=== PATIENT | female | born 1965 | race Two or more races ===

== ENCOUNTER 2016-08-07 07:43 | Inpatient (IN) | payer BC, OTHER ==
[2016-08-07] MEDS ORDERED: methylPREDNISolone 125 MG* 2 ML VIAL IV ONE (07:51)
[2016-08-07] MEDS ORDERED: NS 0.9% 1000 ML* 1,000 ML IV ONE (07:51)
[2016-08-07] MEDS ORDERED: Magnesium Sulfate 1 GM IV* 1 GM/100 ML BAG IV ONE (07:53)
[2016-08-07] MEDS: Albuterol/Ipratropium NEB.SOL* Albuterol 2.5 MG/Ipratropium 0.5 MG 3 ML INH SCH ×5 (08:22→20:30)
[2016-08-07 08:25] LABS: Hematocrit 39 % (35-47); Hemoglobin 12.4 g/dl (12.0-16.0); Mean Corpuscular HGB Conc 32 g/dl (31-36); Mean Corpuscular Hemoglobin 26 pg (27-31); Mean Corpuscular Volume 82 fL (80-97); Mean Platelet Volume 9 um3 (7.4-10.4); Red Blood Count 4.71 10^6/ul (4.0-5.4); Red Cell Distribution Width 16 % (10.5-15); White Blood Count 13.4 10^3/ul (3.5-10.8)
[2016-08-07 08:40] LABS: Albumin 3.7 g/dL (3.2-5.2); C Reactive Protein 16.24 mg/L (< 5.00); Calcium 8.5 mg/dL (8.6-10.3); EGFR African American 169.4 (>60); EGFR Non-African American 131.7 (>60); Globulin 2.8 g/dL (2-4); Potassium 3.8 mmol/L (3.5-5.0); Total Bilirubin 0.5 mg/dL (0.2-1.0); Total Protein 6.5 g/dL (6.4-8.9)
--- NOTE | 2016-08-07 08:55 | RAD ---
Indication: Shortness of breath. Single frontal view of the chest performed at 0808 hours was reviewed. Comparison is made with previous exam dated November 24, 2015. No mediastinal shift is noted. Heart is of normal size and configuration. Lung mayfield appear clear. IMPRESSION: NO ACTIVE CARDIOPULMONARY DISEASE IS NOTED.
[2016-08-07] MEDS ORDERED: Albuterol/Ipratropium NEB.SOL* Albuterol 2.5 MG/Ipratropium 0.5 MG 3 ML ONE (10:30)
[2016-08-07 10:42] LABS: Urine Bilirubin Negative (Negative); Urine Glucose Negative (Negative); Urine Nitrite Negative (Negative)
[2016-08-07] MEDS ORDERED: Albuterol/Ipratropium NEB.SOL* Albuterol 2.5 MG/Ipratropium 0.5 MG 3 ML INH ONE (11:13)
[2016-08-07 11:45] LABS: FIO2 5
[2016-08-07 11:49] LABS: PCO2 Arterial 35 mmHg (35-45)
[2016-08-07] MEDS ORDERED: Acetaminophen TAB* 325 MG PO PRN (12:07)
[2016-08-07] MEDS ORDERED: Ondansetron INJ* 2 MG/ML VIAL IV PRN (12:07)
[2016-08-07] MEDS ORDERED: Iohexol 350* (CONTRAST) 500 ML MDV IV ONE (12:42)
[2016-08-07] MEDS ORDERED: Azithromycin IV(*) 500 MG in NS 0.9% 250 ML* 250 ML IVPB SCH (13:00)
--- NOTE | 2016-08-07 13:14 | RAD ---
Indication: Hypoxia. Contrast: Administered 69.1 ml of OMNIPAQUE 350 mg/ml CTA of the chest was performed after IV contrast administered. Coronal and sagittal reconstructed images were obtained. The pulmonary arterial tree is well opacified. There are no filling defects present to suggest pulmonary embolus. The aorta demonstrates no evidence of aneurysmal dilatation or aortic dissection. Origins of the great vessels are grossly unremarkable. The inferior thyroid lobes demonstrates low density lesions in the right lobe of the thyroid. No significant mediastinal or hilar adenopathy is noted. The heart is of normal size without evidence of pericardial effusion. The trachea and major bronchi appear patent. The lung mayfield demonstrate some airspace disease in the anterior right upper lobe and in the anterior lingula. These may represent areas of pneumonia. IMPRESSION: No definite pulmonary embolus is noted. There may BE early pneumonia in the anterior right upper lobe and lingula.
[2016-08-07] MEDS ORDERED: NS 0.9% 250 ML* 250 ML ONE (13:45)
--- NOTE | 2016-08-07 13:51 | RAD ---
Indication: Right knee pain after fall. 2 views of the right knee demonstrates no fracture. No joint effusion is noted. IMPRESSION: No fracture of the right knee is noted with no effusion.
--- NOTE | 2016-08-07 13:52 | RAD ---
Indication: Right lower leg pain. 2 views of the right lower leg demonstrates no fracture. No other bone or joint abnormality is identified. IMPRESSION: No fracture of the right lower leg is noted.
[2016-08-07] MEDS ORDERED: cefTRIAXone VIAL(*) 1,000 MG in NS 0.9% 50 ML* 50 ML IVPB SCH (14:00)
[2016-08-07] MEDS: methylPREDNISolone 125 MG* 2 ML VIAL IV SCH ×2 (14:10→20:31)
[2016-08-07] MEDS: Heparin VIAL(*) 5000 UNITS/ML VIAL (FIVE THOUSAND) SUBCUT SCH ×2 (14:12→20:30)
[2016-08-07] MEDS: Azithromycin IV(*) 500 MG in NS 0.9% 250 ML* 250 ML IVPB SCH (14:15)
--- NOTE | 2016-08-07 14:18 | HP ---
CC: Dr. Scott; Dr. Tomas. * HISTORY AND PHYSICAL: DATE OF ADMISSION: 08/07/16 PRIMARY CARE PROVIDER: Dr. Scott. ATTENDING PHYSICIAN WHILE IN THE HOSPITAL: Dr. Waite *(report being dictated by Demar Schmitz NP). CHIEF COMPLAINT: 1. Cough. 2. Short of breath. HISTORY OF PRESENT ILLNESS: Ms. Olvera is a 50-year-old female patient who has a history of asthma, anxiety, and bipolar disorder that is well controlled. Her asthma over last week was well controlled. She comes in today stating that about a week ago she was out in [place] on travel. She developed some sore throat, runny nose, cough, feeling congested. She was taking her nebulizers and her Advair as prescribed, but it was not helping. She got progressively more and more short of breath. She felt very weak. She came back from [place], just becoming more short of breath and feeling chills. She does state that while in [place] on Saturday, she sustained a pretty significant fall. She landed on her right knee and she says that it has been bruised and she does state that after the fall she felt more short of breath. She does state that she feels pressure on her chest. She does admit having chills. She came to the ER today because she was not getting any better. She was given 3 nebulizers, magnesium, in addition to this also steroids, but still her O2 saturations were 92% on 6 L. Because of this, we were asked to evaluate and consult. She denies any chest discomfort, it does hurt to breath, but she denies having any nausea, vomiting, or any dysurias. PAST MEDICAL HISTORY: Significant for: 1. Bipolar. 2. Asthma. 3. Anxiety. PAST SURGICAL HISTORY: She denied. HOME MEDICATIONS: Her home meds according to her include: 1. Paxil 40 mg daily. 2. Advair 1 puff inhaled b.i.d. 3. Ventolin 2 puffs inhaled every 4 hours as needed. 4. Albuterol nebulizer 2.5 mg inhaled every 2 hours as needed. ALLERGIES TO MEDICATIONS: No known drug allergies. FAMILY HISTORY: Mother had a history of COPD. Father's history was unknown. SOCIAL HISTORY: She is a half pack a day smoker. She does not drink alcohol. She works at the [employer]. Surrogate decision maker is her mother. REVIEW OF SYSTEMS: There is no documented fever. She admits to having chills. There is no significant weight change. There was no double vision. There was no ear discharge. She denies having any rhinorrhea. There is no sore throat, no thyroid enlargement. Denies having any chest pain with the exception when she takes a deep breath. She admits having dyspnea on exertion. She denies having any abdominal pain. There was no nausea, no vomiting. There was no dysuria, no frequency. There was no seizure. No loss of consciousness. No pruritus and no skin ulcerations. Review of 14 systems completed, all others negative. PHYSICAL EXAMINATION GENERAL: Wade is a 50-year-old female patient. She appears to be well- nourished, well-developed. She does not appear to be in any acute distress. VITAL SIGNS: Blood pressure 132/72, pulse of 104, respirations 18, O2 sat on 5 L now was 93%, and her temperature when she came in was 98.7. HEENT: Head is atraumatic and normocephalic. Eyes: EOMs intact. Sclerae was anicteric, not pale. Throat: Oral mucosa appears to be moist. No oropharyngeal erythema. NECK: Supple. LUNGS: She had wheezes noted bilaterally throughout. She had diminished breath sounds in the lower bases. Equal diaphragmatic expansion. HEART: Sounds S1, S2. Regular rate and rhythm. She is tachycardic. ABDOMEN: Soft, flat, and nontender. Bowel sounds were present. EXTREMITIES: Pulses were 2+ throughout. She can move all 4 extremities, but she does have pain with plantar flexion and dorsiflexion in the knee on the right lower extremity. With extension and flexion of the knee, she has no pain. There is ecchymosis noted to the right knee just above the knee laterally and medially. Distal CSM checks are intact. NEUROLOGICALLY: She is awake and alert. She is oriented x3. Tongue midline. Machine Bander And Cellophaner Helper were equal. No gross focal deficits. SKIN: Intact. DIAGNOSTIC STUDIES/LABORATORY DATA: Labs reveal WBC of 13.4, RBC of 4.71, hemoglobin 12.4, hematocrit 39, and platelet count of 253, but her blood gas revealed a pH of 742, pCO2 of 35, pO2 of 63. Sodium 134, potassium 3.8, chloride 108, bicarb 24, BUN 9, creatinine 0.5, glucose 103, lactate 0.9, calcium 8.5, total bili 0.5, AST 16, ALT 12, alk phos 97. Albumin 3.7. Urine was obtained, it was negative. She had an EKG obtained today, which showed a sinus tachycardia rate of 104. No ST elevation or inversion. Chest x-ray when I reviewed I did not appreciate any acute infiltrates or effusions. Radiology read this as no active cardiopulmonary disease. Old medical records were reviewed. ASSESSMENT AND PLAN: Ms. Olvera is a 50-year-old female patient coming into the ER today with complaints of cough, shortness of breath; on evaluation there was concern for asthma exacerbation. She will be admitted on inpatient status: 1. Asthma exacerbation. At this point, again she is still pretty hypoxic requiring quite a lot of oxygen. She is on 5 L with sats around 93%. I did have Dr. Tomas evaluate the patient. The plan will be for DuoNebs every 4 hours, albuterol p.r.n., give her Advair as well. In addition to this, we will go ahead and try to get legionella strep antigen as well as try to get a sputum culture if possible. I did order antibiotics empirically. I am also getting a CTA of the chest because of the recent fall fact that she is little tachycardic. I want to make sure she did not have a PE on top of all this, but her lung exam suggest otherwise. So again steroids, antibiotics; I did order a Solu-Medrol 60 q. 8 and Pulmonology is following closely and we will get a CTA. 2. Right lower leg trauma and ecchymosis. I am going to get x-rays of the tib- fib and also x-ray of the knee and get an ultrasound as well to make sure she does not have a blood clot there and again a CTA of the chest because of the hypoxia and shortness of breath. 3. Anxiety and bipolar. Continue meds as described. 4. DVT prophylaxis. Heparin subcu for the time being. 5. Code status. Full code. TIME SPENT: Time spent on the admission was approximately 60 minutes; greater than half that time was spent [id number] with the patient obtaining my history and physical, other half the time was spent going over the plan of care with the patient and implementing the plan of care. I did discuss the plan of care with my attending, Dr. Waite; he is in agreement. DEMAR SCHMITZ NP [id number]/[facility] #: [id number] ALEXUS
--- NOTE | 2016-08-07 14:18 | CONS ---
PULMONARY CONSULTATION REPORT: DATE OF CONSULT: 08/07/16 REASON FOR CONSULTATION: Evaluation of hypoxemia and shortness of breath. CONSULTATION REQUESTED BY: Efraín Schmitz NP. HISTORY OF PRESENT ILLNESS: The patient is a 50-year-old white female with a history of asthma, mild, intermittent in nature, with prior history of acute asthma exacerbation. The patient was brought into the emergency room for evaluation of worsening shortness of breath. The patient had been in her normal state of health when she suddenly started having shortness of breath after she tripped and fell while she was out of town. The patient denies trauma to the chest. The patient reported significant wheezing and inability to take deep breath since that time. Symptoms have been worsening and she decided to come into the emergency room for further evaluation. The patient also reports bruise to her right lower extremity. The patient has no known history of blood clots. The patient reports history of blood clots in the family. The patient denies chest pain or productive cough. The patient reports a dry, intermittent cough. The patient denies palpitations, syncope, loss of weight or appetite. The patient is a current smoker and continues to smoke about a pack a day. The patient is trying to cut down on this smoking. The patient was noted to be significantly tachypneic and tachycardic upon arrival in the emergency room. She was also noted to be hypoxemic and has been started on O2 supplementation. The patient denies URI symptoms recently. The patient denies any sick contacts or recent travel. The patient was initiated on bronchodilators, IV Solu-Medrol, and empiric coverage for community-acquired pneumonia. I have personally reviewed chest x-ray performed on admission, which showed no acute air space opacities. PAST MEDICAL HISTORY: 1. Asthma, mild, intermittent; however, with prior hospitalization for asthma exacerbation, last one in November of 2015. 2. Bipolar disorder. MEDICATIONS AT HOME: 1. Paxil 40 mg daily. 2. Advair 500/50, one puff b.i.d. 3. Ventolin 2 puffs q.4 hours p.r.n. 4. Albuterol nebulizer q.2 hours p.r.n. at home. ALLERGIES: No known drug allergies. FAMILY HISTORY: Mother alive with COPD. History of blood clots in father. SOCIAL HISTORY: Smokes less than a half currently, used to smoke more than a pack per day. No alcohol or drug abuse. The patient works in [employer]. REVIEW OF SYSTEMS: All 14 systems reviewed and as per HPI. PHYSICAL EXAMINATION: The patient is in bed, in mild distress secondary to shortness of breath. HEENT: Pupils are equal, reactive to light, mucous membranes are moist. Neck: Supple. Trachea is midline. No accessory muscle usage. Lungs: Scattered wheezing bilaterally. Rhonchi present. No crackles. Cardiovascular: S1, S2 present, tachycardic. No murmurs, gallops or rubs. Abdomen: Obese, bowel sounds present, nontender, nondistended. Extremities: Normal range of motion. Right lower extremity with significant bruise and very mild crepitus. Integumentary: Bruise on the right lower extremity with discoloration of the skin and bruise on left elbow. No cyanosis or clubbing. Lymphatic: No palpable, cervical or supraclavicular adenopathy. Neurologic: No focal deficits. DIAGNOSTIC STUDIES/LAB DATA: WBC count is 13.4, hemoglobin 12.4, hematocrit 39 , platelet count 253, with elevated eosinophil count. Blood gas analysis shows respiratory alkalosis with PO2 of 63, O2 saturation of 95% on 5 L. Sodium is 134, potassium 3.8, chloride 108, bicarb 24, BUN 9, creatinine 0.5, lactic acid 0.9. CRP elevated at 16.24. BNP within normal limits. Chest x-ray as described above in HPI. CTA of the chest pending at this time. IMPRESSION AND RECOMMENDATIONS: 50-year-old obese female with history of bipolar disorder, asthma, admitted with acute onset of shortness of breath and hypoxemia secondary to acute asthma exacerbation. 1. Acute asthma exacerbation. 2. Hypoxemia secondary to bronchospasm; however, given acute onset of episode, will need to rule out for pulmonary embolism. Agree with current dose of Solu-Medrol, recommend DuoNebs every 4 hours and p.r.n. Would recommend monitoring closely in telemetry. Will await CTA results to rule out pulmonary embolism. Smoking cessation education and counseling was performed which lasted for 4 minutes. Patient is willing to quit. Will address nicotine supplementation and medications upon discharge. Thank you for allowing me to participate in the care of your patient. Will follow up with you. [id number]/[facility] #: [id number] ALEXUS
--- NOTE | 2016-08-07 14:34 | RAD ---
INDICATION: Trauma, swelling evaluate for DVT. COMPARISON: There are no prior studies available for comparison. TECHNIQUE: Multiple real-time, color flow and Doppler tracings of the right lower extremity were obtained. FINDINGS: The common femoral, femoral, profunda femoral and popliteal veins all demonstrate normal compressibility, augmentation with compression and phasic response with respiration. The posterior tibial and peroneal veins demonstrate normal compressibility and augmentation with compression. There is a small fluid collection in the soft tissues along the lateral aspect of the knee measuring 3.2 x 0.6 cm IMPRESSION: 1. NO EVIDENCE FOR DEEP VENOUS THROMBOSIS. 2. SMALL FLUID COLLECTION IN THE SOFT TISSUES ALONG THE LATERAL ASPECT OF THE KNEE.
[2016-08-07] MEDS: Albuterol 2.5 MG/3 ML NEB.SOL* (0.083%) INH PRN (15:25)
[2016-08-07] MEDS: cefTRIAXone VIAL(*) 1,000 MG in NS 0.9% 50 ML* 50 ML IVPB SCH (15:36)
--- NOTE | 2016-08-07 17:35 | ED ---
Neil Jenkins Thomas, scribed for Trev Villarreal MD on 08/07/16 at 0758 . Shortness of Breath - HPI Summary HPI Summary: Pt is a 50 y/o female presenting to the ED with SOB onset three days ago. The SOB has become progressively worse since onset of Sx, and SOB was at its worst this morning. There were no aggravating or alleviating factors. Unchanged by Albuterol tx or Advair tx. Accompanying Sx: cough ("dry, barky"), chills. Denies N/V and CP. The last asthma exacerbation four months ago (March 2016) . PMHx: asthma. SHx: smoker for 30 years, currently 1/2 ppd. FHx includes asthma , COPD, CAD, and CA. NKDA. - History of Current Complaint Chief Complaint: EDAsthma Hx Obtained From: Patient Onset/Duration: Lasting Days - onset three days ago, Still Present Timing: Constant Current Severity: Mild Dyspnea At: Rest Aggrevating Factors: Nothing Alleviating Factors: Nothing Associated Signs & Symptoms: Cough (Nonproductive), Chills - Allergy/Home Medications Allergies/Adverse Reactions: Allergies Allergy/AdvReac Type Severity Reaction Status Date / Time No Known Allergies Allergy Verified 08/07/16 07:53 Home Medications: Home Medications Fluticasone-Salmeterol 500-50* [Advair Diskus 500-50*] 1 puff INH BID 08/07/16 [ History Confirmed 08/07/16] PMH/Surg Hx/FS Hx/Imm Hx Previously Healthy: No Endocrine/Hematology History: Denies: Hx Anticoagulant Therapy, Hx Diabetes, Hx Thyroid Disease, Hx Unexplained Bleeding Cardiovascular History: Denies: Hx Hypertension, Hx Pacemaker/ICD Respiratory History: Reports: Hx Asthma, Hx Pneumonia, Hx Seasonal Allergies Denies: Hx Chronic Obstructive Pulmonary Disease (COPD), Hx Lung Cancer, Hx Sleep Apnea History: Denies: Hx Renal Disease Sensory History: Reports: Hx Contacts or Glasses Opthamlomology History: Reports: Hx Contacts or Glasses Neurological History: Denies: Hx Dementia, Hx Developmental Delay, Hx Headaches, Hx Migraine, Hx Seizures, Hx Spinal Cord Injury Psychiatric History: Reports: Hx Anxiety, Hx Eating Disorder - Has purged lately and hasn't done that in 20 years., Hx Depression, Hx Inpatient Treatment , Hx Community Mental Health Tx, Hx Bipolar Disorder, Hx Suicide Attempt Denies: Hx of Violent Episodes Against Others, Hx Substance Abuse Infectious Disease History: No Infectious Disease History: Denies: Hx Clostridium Difficile, Hx Hepatitis, Hx Human Immunodeficiency Virus (HIV), Hx Shingles, Hx Tuberculosis, Traveled Outside the [place] in Last 30 Days - Family History Known Family History: Positive: Other - bipolar, depression, anxiety, asthma, CAD, COPD, CA - Social History Alcohol Use: None Hx Substance Use: No Substance Use Type: Reports: None Hx Tobacco Use: Yes Smoking Status (MU): Light Every Day Tobacco Smoker Type: Cigarettes Review of Systems Positive: Chills Negative: Chest Pain Positive: Shortness Of Breath, Cough - "dry, barky" Negative: Vomiting, Nausea All Other Systems Reviewed And Are Negative: Yes Physical Exam - Summary Physical Exam Summary: VITAL SIGNS: Reviewed. GENERAL: Patient is a well-developed and nourished female who is lying comfortable in the stretcher. Patient is in some respiratory distress secondary to SOB. HEAD AND FACE: No signs of trauma. No ecchymosis, hematomas or skull depressions. No sinus tenderness. EYES: PERRLA, EOMI x 2, No injected conjunctiva, no nystagmus. EARS: Hearing grossly intact. Ear canals and tympanic membranes are within normal limits. MOUTH: Oropharynx within normal limits. NECK: Supple, trachea is midline, no adenopathy, no JVD, no carotid bruit, no c- spine tenderness, neck with full ROM. CHEST: Symmetric, no tenderness at palpation LUNGS: Diffuse wheezing is present. No crackles. CVS: Regular rate and rhythm, S1 and S2 present, no murmurs or gallops appreciated. ABDOMEN: Soft, non-tender. No signs of distention. No rebound no guarding, and no masses palpated. Bowel sounds are normal. EXTREMITIES: FROM in all major joints, no edema, no cyanosis or clubbing. NEURO: Alert and oriented x 3. No acute neurological deficits. Speech is normal and follows commands. SKIN: Dry and warm Triage Information Reviewed: Yes Vital Signs On Initial Exam: Initial Vitals Temp Pulse Resp BP Pulse Ox 97.8 F 110 28 126/87 90 08/07/16 07:45 08/07/16 07:45 08/07/16 07:45 08/07/16 07:45 08/07/16 07:45 Vital Signs Reviewed: Yes Skin: Positive: Warm, Dry Head/Face: Positive: Normal Head/Face Inspection Eyes: Positive: Normal, EOMI, GLENN, Conjunctiva Clear ENT: Positive: Normal ENT inspection, Hearing grossly normal, Pharynx normal, TMs normal Neck: Positive: Supple, Nontender, No Lymphadenopathy Respiratory/Lung Sounds: Positive: Wheezes, Other - No crackles Cardiovascular: Positive: RRR, Other - No gallops, S1, S2. Negative: Murmur Abdomen Description: Positive: Nontender, Soft, Other:. Negative: Guarding Bowel Sounds: Positive: Present Musculoskeletal: Positive: Normal, Strength/ROM Intact. Negative: Edema Left, Edema Right Neurological: Positive: Alert, Oriented to Person Place, Time, Speech Normal Diagnostics - Vital Signs Vital Signs Temp Pulse Resp BP Pulse Ox 08/07/16 07:49 98.7 F 110 22 126/87 94 08/07/16 07:45 97.8 F 110 28 126/87 90 - Laboratory Lab Results: Lab Results 08/07/16 08/07/16 08/07/16 Range/Units 08:05 08:05 08:05 WBC 13.4 H (3.5-10.8) 10^3/ul RBC 4.71 (4.0-5.4) 10^6/ul Hgb 12.4 (12.0-16.0) g/dl Hct 39 (35-47) % MCV 82 (80-97) fL MCH 26 L (27-31) pg MCHC 32 (31-36) g/dl RDW 16 H (10.5-15) % Plt Count 253 (150-450) 10^3/ul MPV 9 (7.4-10.4) um3 Neut % (Auto) 71.8 (38-83) % Lymph % (Auto) 16.0 L (25-47) % [place] % (Auto) 6.0 (1-9) % Eos % (Auto) 5.3 (0-6) % Baso % (Auto) 0.9 (0-2) % Absolute Neuts (auto) 9.6 H (1.5-7.7) 10^3/ul Absolute Lymphs (auto) 2.1 (1.0-4.8) 10^3/ul Absolute Monos (auto) 0.8 (0-0.8) 10^3/ul Absolute Eos (auto) 0.7 H (0-0.6) 10^3/ul Absolute Basos (auto) 0.1 (0-0.2) 10^3/ul Absolute Nucleated RBC 0.01 10^3/ul Nucleated RBC % 0.1 Sodium 134 (133-145) mmol/L Potassium 3.8 (3.5-5.0) mmol/L Chloride 108 (101-111) mmol/L Carbon Dioxide 24 (22-32) mmol/L Anion Gap 2 (2-11) mmol/L BUN 9 (6-24) mg/dL Creatinine 0.50 L (0.51-0.95) mg/dL Est GFR ( Amer) 169.4 (>60) Est GFR (Non-Af Amer) 131.7 (>60) BUN/Creatinine Ratio 18.0 (8-20) Glucose 103 H (70-100) mg/dL Lactic Acid 0.9 (0.5-2.0) mmol/L Calcium 8.5 L (8.6-10.3) mg/dL Total Bilirubin 0.50 (0.2-1.0) mg/dL AST 16 (13-39) U/L ALT 12 (7-52) U/L Alkaline Phosphatase 97 (34-104) U/L C-Reactive Protein 16.24 H (< 5.00) mg/L B-Natriuretic Peptide ( - 100) pg/mL Total Protein 6.5 (6.4-8.9) g/dL Albumin 3.7 (3.2-5.2) g/dL Globulin 2.8 (2-4) g/dL Albumin/Globulin Ratio 1.3 (1-3) Urine Color Urine Appearance Urine pH (5-9) Ur Specific [place] (1.010-1.030) Urine Protein (Negative) Urine Ketones (Negative) Urine Blood (Negative) Urine Nitrate (Negative) Urine Bilirubin (Negative) Urine Urobilinogen (Negative) Ur Leukocyte Esterase (Negative) Urine Glucose (Negative) 08/07/16 08/07/16 Range/Units 08:05 10:05 WBC (3.5-10.8) 10^3/ul RBC (4.0-5.4) 10^6/ul Hgb (12.0-16.0) g/dl Hct (35-47) % MCV (80-97) fL MCH (27-31) pg MCHC (31-36) g/dl RDW (10.5-15) % Plt Count (150-450) 10^3/ul MPV (7.4-10.4) um3 Neut % (Auto) (38-83) % Lymph % (Auto) (25-47) % [place] % (Auto) (1-9) % Eos % (Auto) (0-6) % Baso % (Auto) (0-2) % Absolute Neuts (auto) (1.5-7.7) 10^3/ul Absolute Lymphs (auto) (1.0-4.8) 10^3/ul Absolute Monos (auto) (0-0.8) 10^3/ul Absolute Eos (auto) (0-0.6) 10^3/ul Absolute Basos (auto) (0-0.2) 10^3/ul Absolute Nucleated RBC 10^3/ul Nucleated RBC % Sodium (133-145) mmol/L Potassium (3.5-5.0) mmol/L Chloride (101-111) mmol/L Carbon Dioxide (22-32) mmol/L Anion Gap (2-11) mmol/L BUN (6-24) mg/dL Creatinine (0.51-0.95) mg/dL Est GFR ( Amer) (>60) Est GFR (Non-Af Amer) (>60) BUN/Creatinine Ratio (8-20) Glucose (70-100) mg/dL Lactic Acid (0.5-2.0) mmol/L Calcium (8.6-10.3) mg/dL Total Bilirubin (0.2-1.0) mg/dL AST (13-39) U/L ALT (7-52) U/L Alkaline Phosphatase (34-104) U/L C-Reactive Protein (< 5.00) mg/L B-Natriuretic Peptide 51 ( - 100) pg/mL Total Protein (6.4-8.9) g/dL Albumin (3.2-5.2) g/dL Globulin (2-4) g/dL Albumin/Globulin Ratio (1-3) Urine Color Straw Urine Appearance Clear Urine pH 6.0 (5-9) Ur Specific [place] 1.008 L (1.010-1.030) Urine Protein Negative (Negative) Urine Ketones Negative (Negative) Urine Blood Negative (Negative) Urine Nitrate Negative (Negative) Urine Bilirubin Negative (Negative) Urine Urobilinogen Negative (Negative) Ur Leukocyte Esterase Negative (Negative) Urine Glucose Negative (Negative) Result Diagrams: 08/07/16 08:05 08/07/16 08:05 Lab Statement: Any lab studies that have been ordered have been reviewed, and results considered in the medical decision making process. - Radiology CXR Xray Interpretation: No Acute Changes - No active cardiopulmonary dz is noted. Radiology Interpretation Completed By: Radiologist - EKG 07:52 Cardiac Rate: Tachycardia - 104 bpm EKG Rhythm: Sinus Tachycardia EKG Interpretation: No ST elevation Course/Dx - Course Course Of Treatment: Pt is a 50 y/o female presenting to the ED with SOB onset three days ago. The SOB has become progressively worse since onset of Sx, and SOB was at its worst this morning. There were no aggravating or alleviating factors. Unchanged by Albuterol tx or Advair tx. Accompanying Sx: cough ("dry, barky"), chills. Denies N/V and CP. The last asthma exacerbation four months ago (March 2016). PMHx: asthma. SHx: smoker for 30 years, currently 1/2 ppd. FHx includes asthma, COPD, CAD, and CA. NKDA. Test results within normal limits except WBC of 13.4, CRP of 16.2. UA negative for UTI, CXR shows no acute pathology. In the ED Course, initially she was placed on monitor, and IV access was obtained. She was given Duonebs with Solu-Medrol for asthma exacerbation as well as magnesium sulfate. The patient continues to have some SOB and on physical exam the patient is tight and wheezing. Therefore, she was given additional Duonebs. Sx are improving slightly, though she is still having SOB and having O2 removed, the patient desaturates. At the time, I discussed my findings and physical exam with Dr. Waite who accepts the pt. She is AxOx3 and hemodynamically stable. - Diagnoses Differential Diagnosis/HQI/PQRI: Positive: Asthma, Bronchitis, CHF, COPD Exacerbation Provider Diagnoses: Asthma exacerbation - Physician Notifications Discussed Care of Patient With: Sean Waite - Accepts patient for admissoin Time Discussed With Above Provider: 11:45 Discharge - Discharge Plan Condition: Good Disposition: ADMITTED TO [facility] The documentation as recorded by the Neil laws Thomas accurately reflects the service I personally performed and the decisions made by me, Trev Villarreal MD.
[2016-08-07] MEDS: Mometasone/Formoter 200/5 MDI INH SCH (20:30)
[2016-08-08] MEDS: Albuterol/Ipratropium NEB.SOL* Albuterol 2.5 MG/Ipratropium 0.5 MG 3 ML INH SCH ×6 (01:11→23:43)
[2016-08-08] MEDS: methylPREDNISolone 125 MG* 2 ML VIAL IV SCH ×2 (05:49→12:35)
[2016-08-08] MEDS: Heparin VIAL(*) 5000 UNITS/ML VIAL (FIVE THOUSAND) SUBCUT SCH ×2 (05:49→15:07)
[2016-08-08] MEDS: PARoxetine HCL TAB* 40 MG PO SCH (08:46)
[2016-08-08] MEDS: Mometasone/Formoter 200/5 MDI INH SCH ×2 (09:27→20:59)
[2016-08-08] MEDS: Azithromycin IV(*) 500 MG in NS 0.9% 250 ML* 250 ML IVPB SCH (15:06)
--- NOTE | 2016-08-08 16:09 | PN ---
Progress Note - Progress Note Note: Pulm consult f/u note 08/08/16. Pt seen and examined at bedside. Pt reports slight improvement in breathing. Became dyspneic walking to restroom. Active Medications Generic Name Dose Route Start Last Admin Trade Name Freq PRN Reason Stop Dose Admin Acetaminophen 650 mg 08/07/16 12:07 Tylenol Tab* PO Q4H PRN FEVER/PAIN Albuterol 2.5 mg 08/07/16 12:07 08/07/16 15:25 Ventolin 2.5 Mg/3 Ml Neb.Viktoriya* INH 2.5 mg Q2H PRN Administration SOB/WHEEZING Albuterol/Ipratropium 1 neb 08/08/16 19:00 Duoneb (Albuterol 2.5 Mg/Ipratropium 0.5 Mg) INH [id number] AWAKE MISBAH Heparin Sodium (Porcine) 5,000 units 08/07/16 14:00 08/08/16 15:07 Heparin Vial(*) SUBCUT 5,000 units Q8HR MISBAH Administration Azithromycin 500 mg/ Sodium 250 mls @ 250 mls/hr 08/07/16 14:30 08/08/16 15: 06 Chloride IVPB 250 mls/hr 1430 MISBAH Administration Ceftriaxone Sodium 1,000 mg/ 50 mls @ 200 mls/hr 08/07/16 15:30 08/07/16 15: 36 Sodium Chloride IVPB 200 mls/hr 1530 MISBAH Administration Methylprednisolone Sodium Succinate 60 mg 08/07/16 13:00 08/08/16 12:35 Solu-Medrol 125mg * IV 60 mg Q8H MISBAH Administration Mometasone Furoate/Formoterol Fumar 2 puff 08/07/16 21:00 08/08/16 09:27 Dulera 200/5 Mdi* INH 2 puff BID MISBAH Administration Ondansetron HCl 4 mg 08/07/16 12:07 Zofran Inj* IV Q6H PRN NAUSEA Paroxetine HCl 40 mg 08/08/16 09:00 08/08/16 08:46 Paxil Tab* PO 40 mg DAILY MISBAH Administration Vital Signs Temp Pulse Resp BP Pulse Ox 97.8 F 102 16 121/64 98 08/08/16 11:18 08/08/16 13:13 08/08/16 13:13 08/08/16 11:18 08/08/16 13:13 Gen: Pt in NAD HEENT: PERRLA, No JVD, mucus membranes moist Resp: Prolonged exp phase, wheeze present CVS: S1, S2+ Abd: Soft, BS+ Ext: No edema Skin: Bruise and discoloration of RLE skin Neuro: No focal defecits I/R: 50 y o f with h/o Bipolar disorder, asthma a/w worsening SOB, cough being treated for acute asthma exacerbation No PE noted on CTA Slight improvement since admission Will recommend c/w current dose of solumedrol without taper c/w nebs D/w Dr Doyle
[2016-08-08] MEDS: cefTRIAXone VIAL(*) 1,000 MG in NS 0.9% 50 ML* 50 ML IVPB SCH (16:46)
--- NOTE | 2016-08-08 18:36 | PN ---
Subjective Date of Service: 08/08/16 Interval History: SOB walking to bathroom but feels better since admission no cough appetite ok wheeze improved Objective Active Medications: Acetaminophen (Tylenol Tab*) 650 mg PO Q4H PRN PRN Reason: FEVER/PAIN Albuterol (Ventolin 2.5 Mg/3 Ml Neb.Viktoriya*) 2.5 mg INH Q2H PRN PRN Reason: SOB/WHEEZING Last Admin: 08/07/16 15:25 Dose: 2.5 mg Albuterol/Ipratropium (Duoneb (Albuterol 2.5 Mg/Ipratropium 0.5 Mg)) 1 neb INH [id number] AWAKE [facility] Last Admin: 08/08/16 18:10 Dose: 1 neb Heparin Sodium (Porcine) (Heparin Vial(*)) 5,000 units SUBCUT Q8HR [facility] Last Admin: 08/08/16 15:07 Dose: 5,000 units Azithromycin 500 mg/ Sodium (Chloride) 250 mls @ 250 mls/hr IVPB 1430 [facility] Last Admin: 08/08/16 15:06 Dose: 250 mls/hr Ceftriaxone Sodium 1,000 mg/ (Sodium Chloride) 50 mls @ 200 mls/hr IVPB 1530 [facility] Last Admin: 08/08/16 16:46 Dose: 200 mls/hr Methylprednisolone Sodium Succinate (Solu-Medrol 125mg *) 60 mg IV Q8H [facility] Last Admin: 08/08/16 12:35 Dose: 60 mg Mometasone Furoate/Formoterol Fumar (Dulera 200/5 Mdi*) 2 puff INH BID [facility] Last Admin: 08/08/16 09:27 Dose: 2 puff Ondansetron HCl (Zofran Inj*) 4 mg IV Q6H PRN PRN Reason: NAUSEA Paroxetine HCl (Paxil Tab*) 40 mg PO DAILY [facility] Last Admin: 08/08/16 08:46 Dose: 40 mg Vital Signs 08/07/16 08/07/16 08/07/16 20:00 20:13 20:31 Temperature 98.0 F Pulse Rate 99 95 Respiratory 16 16 22 Rate Blood Pressure 153/76 (mmHg) O2 Sat by Pulse 92 92 Oximetry 08/07/16 08/07/16 08/08/16 20:37 23:58 01:12 Temperature 99.7 F Pulse Rate 98 96 96 Respiratory 20 16 18 Rate Blood Pressure 130/67 (mmHg) O2 Sat by Pulse 97 91 96 Oximetry 08/08/16 08/08/16 08/08/16 04:16 05:10 07:16 Temperature 98.3 F 97.8 F Pulse Rate 88 88 92 Respiratory 16 18 18 Rate Blood Pressure 117/67 125/64 (mmHg) O2 Sat by Pulse 91 98 92 Oximetry 08/08/16 08/08/16 08/08/16 08:00 09:30 11:18 Temperature 97.8 F Pulse Rate 54 110 Respiratory 20 16 20 Rate Blood Pressure 121/64 (mmHg) O2 Sat by Pulse 96 97 Oximetry 08/08/16 08/08/16 08/08/16 13:13 15:56 18:13 Temperature 97.2 F Pulse Rate 102 103 106 Respiratory 16 20 16 Rate Blood Pressure 121/67 (mmHg) O2 Sat by Pulse 98 97 99 Oximetry Oxygen Devices in Use Now: Nasal Cannula Appearance: NAD Eyes: No Scleral Icterus, PERRLA Ears/Nose/Mouth/Throat: NL Teeth, Lips, Gums, Clear Oropharnyx, Mucous Membranes Moist Neck: NL Appearance and Movements; NL JVP, Trachea Midline Respiratory: Symmetrical Chest Expansion and Respiratory Effort, - - diffuse wheeze Cardiovascular: NL Sounds; No Murmurs; No JVD, RRR Abdominal: NL Sounds; No Tenderness; No Distention, No Hepatosplenomegaly Lymphatic: No Cervical Adenopathy Extremities: No Edema, No Clubbing, Cyanosis Skin: - - bruising ove right knee Neurological: Alert and Oriented x 3 Result Diagrams: 08/07/16 08:05 08/07/16 08:05 Additional Lab and Data: Lab Results 08/07/16 08/07/16 08/07/16 Range/Units 08:05 08:05 08:05 WBC 13.4 H (3.5-10.8) 10^3/ul RBC 4.71 (4.0-5.4) 10^6/ul Hgb 12.4 (12.0-16.0) g/dl Hct 39 (35-47) % MCV 82 (80-97) fL MCH 26 L (27-31) pg MCHC 32 (31-36) g/dl RDW 16 H (10.5-15) % Plt Count 253 (150-450) 10^3/ul MPV 9 (7.4-10.4) um3 Neut % (Auto) 71.8 (38-83) % Lymph % (Auto) 16.0 L (25-47) % [place] % (Auto) 6.0 (1-9) % Eos % (Auto) 5.3 (0-6) % Baso % (Auto) 0.9 (0-2) % Absolute Neuts (auto) 9.6 H (1.5-7.7) 10^3/ul Absolute Lymphs (auto) 2.1 (1.0-4.8) 10^3/ul Absolute Monos (auto) 0.8 (0-0.8) 10^3/ul Absolute Eos (auto) 0.7 H (0-0.6) 10^3/ul Absolute Basos (auto) 0.1 (0-0.2) 10^3/ul Absolute Nucleated RBC 0.01 10^3/ul Nucleated RBC % 0.1 Sodium 134 (133-145) mmol/L Potassium 3.8 (3.5-5.0) mmol/L Chloride 108 (101-111) mmol/L Carbon Dioxide 24 (22-32) mmol/L Anion Gap 2 (2-11) mmol/L BUN 9 (6-24) mg/dL Creatinine 0.50 L (0.51-0.95) mg/dL Est GFR ( Amer) 169.4 (>60) Est GFR (Non-Af Amer) 131.7 (>60) BUN/Creatinine Ratio 18.0 (8-20) Glucose 103 H (70-100) mg/dL Lactic Acid 0.9 (0.5-2.0) mmol/L Calcium 8.5 L (8.6-10.3) mg/dL Total Bilirubin 0.50 (0.2-1.0) mg/dL AST 16 (13-39) U/L ALT 12 (7-52) U/L Alkaline Phosphatase 97 (34-104) U/L C-Reactive Protein 16.24 H (< 5.00) mg/L B-Natriuretic Peptide ( - 100) pg/mL Total Protein 6.5 (6.4-8.9) g/dL Albumin 3.7 (3.2-5.2) g/dL Globulin 2.8 (2-4) g/dL Albumin/Globulin Ratio 1.3 (1-3) Urine Color Urine Appearance Urine pH (5-9) Ur Specific [place] (1.010-1.030) Urine Protein (Negative) Urine Ketones (Negative) Urine Blood (Negative) Urine Nitrate (Negative) Urine Bilirubin (Negative) Urine Urobilinogen (Negative) Ur Leukocyte Esterase (Negative) Urine Glucose (Negative) 08/07/16 08/07/16 Range/Units 08:05 10:05 WBC (3.5-10.8) 10^3/ul RBC (4.0-5.4) 10^6/ul Hgb (12.0-16.0) g/dl Hct (35-47) % MCV (80-97) fL MCH (27-31) pg MCHC (31-36) g/dl RDW (10.5-15) % Plt Count (150-450) 10^3/ul MPV (7.4-10.4) um3 Neut % (Auto) (38-83) % Lymph % (Auto) (25-47) % [place] % (Auto) (1-9) % Eos % (Auto) (0-6) % Baso % (Auto) (0-2) % Absolute Neuts (auto) (1.5-7.7) 10^3/ul Absolute Lymphs (auto) (1.0-4.8) 10^3/ul Absolute Monos (auto) (0-0.8) 10^3/ul Absolute Eos (auto) (0-0.6) 10^3/ul Absolute Basos (auto) (0-0.2) 10^3/ul Absolute Nucleated RBC 10^3/ul Nucleated RBC % Sodium (133-145) mmol/L Potassium (3.5-5.0) mmol/L Chloride (101-111) mmol/L Carbon Dioxide (22-32) mmol/L Anion Gap (2-11) mmol/L BUN (6-24) mg/dL Creatinine (0.51-0.95) mg/dL Est GFR ( Amer) (>60) Est GFR (Non-Af Amer) (>60) BUN/Creatinine Ratio (8-20) Glucose (70-100) mg/dL Lactic Acid (0.5-2.0) mmol/L Calcium (8.6-10.3) mg/dL Total Bilirubin (0.2-1.0) mg/dL AST (13-39) U/L ALT (7-52) U/L Alkaline Phosphatase (34-104) U/L C-Reactive Protein (< 5.00) mg/L B-Natriuretic Peptide 51 ( - 100) pg/mL Total Protein (6.4-8.9) g/dL Albumin (3.2-5.2) g/dL Globulin (2-4) g/dL Albumin/Globulin Ratio (1-3) Urine Color Straw Urine Appearance Clear Urine pH 6.0 (5-9) Ur Specific [place] 1.008 L (1.010-1.030) Urine Protein Negative (Negative) Urine Ketones Negative (Negative) Urine Blood Negative (Negative) Urine Nitrate Negative (Negative) Urine Bilirubin Negative (Negative) Urine Urobilinogen Negative (Negative) Ur Leukocyte Esterase Negative (Negative) Urine Glucose Negative (Negative) Microbiology and Other Data: Microbiology 08/07/16 12:20 Legionella Urinary Antigen - Final Urine Negative Legionella Streptococcus pneumoniae Ag Screen - Final Negative S. pneumo Antigen Assess/Plan/Problems-Billing Assessment: 50 yo F p/w wheeze/sob a/w asthma exacerbation and possible PNA - Patient Problems (1) Acute respiratory failure with hypoxia Comment: In setting of asthma exacerbation (2) Pneumonia Comment: suspected based on CT c/w CTX and azithro (3) Asthma exacerbation Comment: Wheezing started before her fall, at least 1 week prior c/w steroids, nebs, dulera (4) DVT prophylaxis Comment: - SQ heparin.
[2016-08-08] MEDS: Albuterol 2.5 MG/3 ML NEB.SOL* (0.083%) INH PRN (20:59)
[2016-08-09] MEDS ORDERED: methylPREDNISolone 125 MG* 2 ML VIAL ONE (01:42)
[2016-08-09] MEDS: Heparin VIAL(*) 5000 UNITS/ML VIAL (FIVE THOUSAND) SUBCUT SCH ×3 (01:46→18:07)
[2016-08-09] MEDS: methylPREDNISolone 125 MG* 2 ML VIAL IV SCH ×4 (01:46→17:59)
[2016-08-09] MEDS: Albuterol/Ipratropium NEB.SOL* Albuterol 2.5 MG/Ipratropium 0.5 MG 3 ML INH SCH ×6 (03:12→23:16)
[2016-08-09] MEDS: Mometasone/Formoter 200/5 MDI INH SCH ×2 (08:31→19:25)
[2016-08-09] MEDS: PARoxetine HCL TAB* 40 MG PO SCH (08:44)
[2016-08-09] MEDS: Azithromycin IV(*) 500 MG in NS 0.9% 250 ML* 250 ML IVPB SCH (16:24)
--- NOTE | 2016-08-09 17:06 | PN ---
Progress Note - Progress Note Note: Pulm consult f/u note 08/09/16. Pt seen and examined at bedside. Feels slightly better, didnot get winded walking to restroom however couldnot walk much in hallway Active Medications Generic Name Dose Route Start Last Admin Trade Name Freq PRN Reason Stop Dose Admin Acetaminophen 650 mg 08/07/16 12:07 Tylenol Tab* PO Q4H PRN FEVER/PAIN Albuterol 2.5 mg 08/07/16 12:07 08/08/16 20:59 Ventolin 2.5 Mg/3 Ml Neb.Viktoriya* INH 2.5 mg Q2H PRN Administration SOB/WHEEZING Albuterol/Ipratropium 1 neb 08/08/16 19:00 08/09/16 14:51 Duoneb (Albuterol 2.5 Mg/Ipratropium 0.5 Mg) INH 1 neb [id number] AWAKE MISBAH Administration Heparin Sodium (Porcine) 5,000 units 08/09/16 10:00 08/09/16 10:47 Heparin Vial(*) SUBCUT 5,000 units 0200,1000,1800 MISBAH Administration Azithromycin 500 mg/ Sodium 250 mls @ 250 mls/hr 08/07/16 14:30 08/09/16 16: 24 Chloride IVPB 250 mls/hr 1430 MISBAH Administration Ceftriaxone Sodium 1,000 mg/ 50 mls @ 200 mls/hr 08/07/16 15:30 08/08/16 16: 46 Sodium Chloride IVPB 200 mls/hr 1530 MISBAH Administration Methylprednisolone Sodium Succinate 60 mg 08/09/16 10:00 08/09/16 10:47 Solu-Medrol 125mg * IV 60 mg 0200,1000,1800 MISBAH Administration Mometasone Furoate/Formoterol Fumar 2 puff 08/07/16 21:00 08/09/16 08:31 Dulera 200/5 Mdi* INH 2 puff BID MISBAH Administration Ondansetron HCl 4 mg 08/07/16 12:07 Zofran Inj* IV Q6H PRN NAUSEA Paroxetine HCl 40 mg 08/08/16 09:00 08/09/16 08:44 Paxil Tab* PO 40 mg DAILY MISBAH Administration Vital Signs Temp Pulse Resp BP Pulse Ox 97.5 F 100 16 111/57 94 08/09/16 07:51 08/09/16 14:55 08/09/16 14:55 08/09/16 07:51 08/09/16 14:55 Gen: Pt in NAD HEENT: PERRLA, No JVD, mucus membranes moist Resp: Prolonged exp phase, wheeze present, slightly improved from yesterday CVS: S1, S2+ Abd: Soft, BS+ Ext: No edema Skin: Bruise and discoloration of RLE skin Neuro: No focal defecits I/R: 50 y o f with h/o Bipolar disorder, asthma a/w worsening SOB, cough being treated for acute asthma exacerbation and possible CAP No PE noted on CTA Slight improvement since admission Will recommend c/w current dose of solumedrol without taper If pt not much improved, will give another stat dose tomorrow c/w nebnadja D/w Dr Doyle
[2016-08-09] MEDS: cefTRIAXone VIAL(*) 1,000 MG in NS 0.9% 50 ML* 50 ML IVPB SCH (17:58)
--- NOTE | 2016-08-09 18:24 | PN ---
Subjective Date of Service: 08/09/16 Interval History: Feeling better but still SOB. Titrated off o2 but required later in the day. was able to walk to hallway which is an improvement. PF 250 Objective Active Medications: Acetaminophen (Tylenol Tab*) 650 mg PO Q4H PRN PRN Reason: FEVER/PAIN Albuterol (Ventolin 2.5 Mg/3 Ml Neb.Viktoriya*) 2.5 mg INH Q2H PRN PRN Reason: SOB/WHEEZING Last Admin: 08/08/16 20:59 Dose: 2.5 mg Albuterol/Ipratropium (Duoneb (Albuterol 2.5 Mg/Ipratropium 0.5 Mg)) 1 neb INH [id number] AWAKE [facility] Last Admin: 08/09/16 14:51 Dose: 1 neb Heparin Sodium (Porcine) (Heparin Vial(*)) 5,000 units SUBCUT 0200,1000,1800 [facility] Last Admin: 08/09/16 18:07 Dose: 5,000 units Azithromycin 500 mg/ Sodium (Chloride) 250 mls @ 250 mls/hr IVPB 1430 [facility] Last Admin: 08/09/16 16:24 Dose: 250 mls/hr Ceftriaxone Sodium 1,000 mg/ (Sodium Chloride) 50 mls @ 200 mls/hr IVPB 1530 [facility] Last Admin: 08/09/16 17:58 Dose: 200 mls/hr Methylprednisolone Sodium Succinate (Solu-Medrol 125mg *) 60 mg IV 0200,1000, 1800 [facility] Last Admin: 08/09/16 17:59 Dose: 60 mg Mometasone Furoate/Formoterol Fumar (Dulera 200/5 Mdi*) 2 puff INH BID [facility] Last Admin: 08/09/16 08:31 Dose: 2 puff Ondansetron HCl (Zofran Inj*) 4 mg IV Q6H PRN PRN Reason: NAUSEA Paroxetine HCl (Paxil Tab*) 40 mg PO DAILY [facility] Last Admin: 08/09/16 08:44 Dose: 40 mg Vital Signs 08/08/16 08/08/16 08/09/16 20:00 21:01 01:57 Temperature 97.3 F Pulse Rate 103 103 Respiratory 20 18 18 Rate Blood Pressure 146/85 (mmHg) O2 Sat by Pulse 98 94 Oximetry 08/09/16 08/09/16 08/09/16 03:32 07:51 08:00 Temperature 97.5 F Pulse Rate 89 92 Respiratory 16 16 16 Rate Blood Pressure 141/87 111/57 (mmHg) O2 Sat by Pulse 96 97 Oximetry 08/09/16 08/09/16 08/09/16 08:34 11:09 14:55 Temperature Pulse Rate 92 110 100 Respiratory 16 17 16 Rate Blood Pressure (mmHg) O2 Sat by Pulse 95 92 94 Oximetry Oxygen Devices in Use Now: Nasal Cannula Appearance: NAD Eyes: No Scleral Icterus, PERRLA Ears/Nose/Mouth/Throat: NL Teeth, Lips, Gums, Clear Oropharnyx Neck: NL Appearance and Movements; NL JVP, Trachea Midline Respiratory: Symmetrical Chest Expansion and Respiratory Effort, - - wheeze throughout Cardiovascular: NL Sounds; No Murmurs; No JVD, RRR Abdominal: NL Sounds; No Tenderness; No Distention, No Hepatosplenomegaly Lymphatic: No Cervical Adenopathy Extremities: No Edema, No Clubbing, Cyanosis Skin: No Rash or Ulcers Neurological: Alert and Oriented x 3 Result Diagrams: 08/07/16 08:05 08/07/16 08:05 Additional Lab and Data: Lab Results 08/07/16 08/07/16 08/07/16 Range/Units 08:05 08:05 08:05 WBC 13.4 H (3.5-10.8) 10^3/ul RBC 4.71 (4.0-5.4) 10^6/ul Hgb 12.4 (12.0-16.0) g/dl Hct 39 (35-47) % MCV 82 (80-97) fL MCH 26 L (27-31) pg MCHC 32 (31-36) g/dl RDW 16 H (10.5-15) % Plt Count 253 (150-450) 10^3/ul MPV 9 (7.4-10.4) um3 Neut % (Auto) 71.8 (38-83) % Lymph % (Auto) 16.0 L (25-47) % [place] % (Auto) 6.0 (1-9) % Eos % (Auto) 5.3 (0-6) % Baso % (Auto) 0.9 (0-2) % Absolute Neuts (auto) 9.6 H (1.5-7.7) 10^3/ul Absolute Lymphs (auto) 2.1 (1.0-4.8) 10^3/ul Absolute Monos (auto) 0.8 (0-0.8) 10^3/ul Absolute Eos (auto) 0.7 H (0-0.6) 10^3/ul Absolute Basos (auto) 0.1 (0-0.2) 10^3/ul Absolute Nucleated RBC 0.01 10^3/ul Nucleated RBC % 0.1 Sodium 134 (133-145) mmol/L Potassium 3.8 (3.5-5.0) mmol/L Chloride 108 (101-111) mmol/L Carbon Dioxide 24 (22-32) mmol/L Anion Gap 2 (2-11) mmol/L BUN 9 (6-24) mg/dL Creatinine 0.50 L (0.51-0.95) mg/dL Est GFR ( Amer) 169.4 (>60) Est GFR (Non-Af Amer) 131.7 (>60) BUN/Creatinine Ratio 18.0 (8-20) Glucose 103 H (70-100) mg/dL Lactic Acid 0.9 (0.5-2.0) mmol/L Calcium 8.5 L (8.6-10.3) mg/dL Total Bilirubin 0.50 (0.2-1.0) mg/dL AST 16 (13-39) U/L ALT 12 (7-52) U/L Alkaline Phosphatase 97 (34-104) U/L C-Reactive Protein 16.24 H (< 5.00) mg/L B-Natriuretic Peptide ( - 100) pg/mL Total Protein 6.5 (6.4-8.9) g/dL Albumin 3.7 (3.2-5.2) g/dL Globulin 2.8 (2-4) g/dL Albumin/Globulin Ratio 1.3 (1-3) Urine Color Urine Appearance Urine pH (5-9) Ur Specific [place] (1.010-1.030) Urine Protein (Negative) Urine Ketones (Negative) Urine Blood (Negative) Urine Nitrate (Negative) Urine Bilirubin (Negative) Urine Urobilinogen (Negative) Ur Leukocyte Esterase (Negative) Urine Glucose (Negative) 08/07/16 08/07/16 Range/Units 08:05 10:05 WBC (3.5-10.8) 10^3/ul RBC (4.0-5.4) 10^6/ul Hgb (12.0-16.0) g/dl Hct (35-47) % MCV (80-97) fL MCH (27-31) pg MCHC (31-36) g/dl RDW (10.5-15) % Plt Count (150-450) 10^3/ul MPV (7.4-10.4) um3 Neut % (Auto) (38-83) % Lymph % (Auto) (25-47) % [place] % (Auto) (1-9) % Eos % (Auto) (0-6) % Baso % (Auto) (0-2) % Absolute Neuts (auto) (1.5-7.7) 10^3/ul Absolute Lymphs (auto) (1.0-4.8) 10^3/ul Absolute Monos (auto) (0-0.8) 10^3/ul Absolute Eos (auto) (0-0.6) 10^3/ul Absolute Basos (auto) (0-0.2) 10^3/ul Absolute Nucleated RBC 10^3/ul Nucleated RBC % Sodium (133-145) mmol/L Potassium (3.5-5.0) mmol/L Chloride (101-111) mmol/L Carbon Dioxide (22-32) mmol/L Anion Gap (2-11) mmol/L BUN (6-24) mg/dL Creatinine (0.51-0.95) mg/dL Est GFR ( Amer) (>60) Est GFR (Non-Af Amer) (>60) BUN/Creatinine Ratio (8-20) Glucose (70-100) mg/dL Lactic Acid (0.5-2.0) mmol/L Calcium (8.6-10.3) mg/dL Total Bilirubin (0.2-1.0) mg/dL AST (13-39) U/L ALT (7-52) U/L Alkaline Phosphatase (34-104) U/L C-Reactive Protein (< 5.00) mg/L B-Natriuretic Peptide 51 ( - 100) pg/mL Total Protein (6.4-8.9) g/dL Albumin (3.2-5.2) g/dL Globulin (2-4) g/dL Albumin/Globulin Ratio (1-3) Urine Color Straw Urine Appearance Clear Urine pH 6.0 (5-9) Ur Specific [place] 1.008 L (1.010-1.030) Urine Protein Negative (Negative) Urine Ketones Negative (Negative) Urine Blood Negative (Negative) Urine Nitrate Negative (Negative) Urine Bilirubin Negative (Negative) Urine Urobilinogen Negative (Negative) Ur Leukocyte Esterase Negative (Negative) Urine Glucose Negative (Negative) Microbiology and Other Data: Microbiology 08/07/16 12:20 Legionella Urinary Antigen - Final Urine Negative Legionella Streptococcus pneumoniae Ag Screen - Final Negative S. pneumo Antigen Assess/Plan/Problems-Billing Assessment: 50 yo F p/w wheeze/sob a/w asthma exacerbation and possible PNA - Patient Problems (1) Acute respiratory failure with hypoxia Comment: In setting of asthma exacerbation (2) Pneumonia Comment: suspected based on CT c/w CTX and azithro (3) Asthma exacerbation Comment: Wheezing started before her fall, at least 1 week prior c/w steroids, nebs, dulera (4) DVT prophylaxis Comment: - SQ heparin.
[2016-08-09] MEDS ORDERED: hydrALAZINE IV* 20 MG/ML VIAL IV SLOW PU ONE (20:05)
--- NOTE | 2016-08-09 20:06 | PN ---
Hospitalist Progress Note Received call from nursing that patient was hypertensive with sBP ~180 mmHg with c/o YUEN. Wheeze on lung exam, unchanged from prior. Order given for a one time dose of hydralazine IV.
[2016-08-10] MEDS: methylPREDNISolone 125 MG* 2 ML VIAL IV SCH ×3 (01:31→16:15)
[2016-08-10] MEDS: Heparin VIAL(*) 5000 UNITS/ML VIAL (FIVE THOUSAND) SUBCUT SCH ×3 (01:32→16:15)
[2016-08-10] MEDS: Albuterol/Ipratropium NEB.SOL* Albuterol 2.5 MG/Ipratropium 0.5 MG 3 ML INH SCH ×6 (03:43→22:31)
[2016-08-10 06:10] LABS: Hematocrit 35 % (35-47); Hemoglobin 11.2 g/dl (12.0-16.0); Mean Corpuscular HGB Conc 32 g/dl (31-36); Mean Corpuscular Hemoglobin 27 pg (27-31); Mean Corpuscular Volume 83 fL (80-97); Mean Platelet Volume 9 um3 (7.4-10.4); Red Blood Count 4.22 10^6/ul (4.0-5.4); Red Cell Distribution Width 17 % (10.5-15); White Blood Count 13.5 10^3/ul (3.5-10.8)
[2016-08-10 06:13] LABS: Add Diff/Slide Review? Slide Review Added; Comments Flag Yes
[2016-08-10 06:39] LABS: BUN/Creatinine Ratio 37.5 (8-20); Calcium 8.4 mg/dL (8.6-10.3); EGFR African American 177.5 (>60); Potassium 4.2 mmol/L (3.5-5.0)
[2016-08-10] MEDS: PARoxetine HCL TAB* 40 MG PO SCH (08:01)
[2016-08-10] MEDS: Mometasone/Formoter 200/5 MDI INH SCH ×2 (09:11→19:38)
--- NOTE | 2016-08-10 14:26 | PN ---
Progress Note - Progress Note Note: Pulm consult f/u note 08/10/16. Pt seen and examined at bedside. Pt reports no change in breathing, still getting winded with slight movement Active Medications Generic Name Dose Route Start Last Admin Trade Name Freq PRN Reason Stop Dose Admin Acetaminophen 650 mg 08/07/16 12:07 Tylenol Tab* PO Q4H PRN FEVER/PAIN Albuterol 2.5 mg 08/07/16 12:07 08/08/16 20:59 Ventolin 2.5 Mg/3 Ml Neb.Viktoriya* INH 2.5 mg Q2H PRN Administration SOB/WHEEZING Albuterol/Ipratropium 1 neb 08/08/16 19:00 08/10/16 13:21 Duoneb (Albuterol 2.5 Mg/Ipratropium 0.5 Mg) INH 1 neb [id number] AWAKE [facility] Administration Heparin Sodium (Porcine) 5,000 units 08/09/16 10:00 08/10/16 08:01 Heparin Vial(*) SUBCUT 5,000 units 0200,1000,1800 [facility] Administration Azithromycin 500 mg/ Sodium 250 mls @ 250 mls/hr 08/07/16 14:30 08/09/16 16: 24 Chloride IVPB 250 mls/hr 1430 [facility] Administration Ceftriaxone Sodium 1,000 mg/ 50 mls @ 200 mls/hr 08/07/16 15:30 08/09/16 17: 58 Sodium Chloride IVPB 200 mls/hr 1530 [facility] Administration Methylprednisolone Sodium Succinate 60 mg 08/09/16 10:00 08/10/16 08:02 Solu-Medrol 125mg * IV 60 mg 0200,1000,1800 [facility] Administration Mometasone Furoate/Formoterol Fumar 2 puff 08/07/16 21:00 08/10/16 09:11 Dulera 200/5 Mdi* INH 2 puff BID [facility] Administration Ondansetron HCl 4 mg 08/07/16 12:07 Zofran Inj* IV Q6H PRN NAUSEA Paroxetine HCl 40 mg 08/08/16 09:00 08/10/16 08:01 Paxil Tab* PO 40 mg DAILY [facility] Administration Vital Signs Temp Pulse Resp BP Pulse Ox 97.8 F 103 20 131/64 94 08/10/16 07:44 08/10/16 13:23 08/10/16 13:23 08/10/16 07:44 08/10/16 13:23 Gen: Pt sitting up in bed in NAD HEENT: PERRLA, No JVD, mucus membranes moist Resp: Prolonged exp phase, wheeze still present, slightly improved CVS: S1, S2+ Abd: Soft, BS+ Ext: No edema Skin: Bruise and discoloration of RLE skin Neuro: No focal defecits Laboratory Results - last 24 hr 08/10/16 08/10/16 08/10/16 05:56 05:56 05:56 WBC 13.5 H RBC 4.22 Hgb 11.2 L Hct 35 MCV 83 MCH 27 MCHC 32 RDW 17 H Plt Count 243 MPV 9 Neut % (Auto) 87.1 H Lymph % (Auto) 10.1 L [place] % (Auto) 2.3 Eos % (Auto) 0.3 Baso % (Auto) 0.2 Absolute Neuts (auto) 11.7 H Absolute Lymphs (auto) 1.4 Absolute Monos (auto) 0.3 Absolute Eos (auto) 0 Absolute Basos (auto) 0 Absolute Nucleated RBC 0.01 Nucleated RBC % 0 INR (Anticoag Therapy) 0.86 L Sodium 140 Potassium 4.2 Chloride 108 Carbon Dioxide 25 Anion Gap 7 BUN 18 Creatinine 0.48 L Est GFR ( Amer) 177.5 Est GFR (Non-Af Amer) 138.0 BUN/Creatinine Ratio 37.5 H Glucose 120 H Calcium 8.4 L I/R: 50 y o obese f with h/o Bipolar disorder, asthma a/w worsening SOB, cough being treated for acute asthma exacerbation and possible CAP No PE noted on CTA Slight improvement since admission Clinically appears to have less wheezing, pt doesnot feel symptomatically improved Will recommend c/w current dose of solumedrol without taper Denied GERD sx Prior smoking history and viral process is probably causing pt to recover slowly c/w nebs Smoking cessation education counseling was performed during todays visit Pt not candidate for Buproprion given h/o bipolar disorder She didnot benefit from Nicotine in the past Suggested group sessions with smoking cessation clinic and acupuncture
[2016-08-10] MEDS: Azithromycin IV(*) 500 MG in NS 0.9% 250 ML* 250 ML IVPB SCH (14:39)
[2016-08-10] MEDS: cefTRIAXone VIAL(*) 1,000 MG in NS 0.9% 50 ML* 50 ML IVPB SCH (16:15)
--- NOTE | 2016-08-10 18:45 | PN ---
Subjective Date of Service: 08/10/16 Interval History: Titrated off oxygen this AM Walked to hallway but became very SOB and needed chair brought to sit down Concerned about prospect of d/c home today and does not feel she would manage for herself alone Objective Active Medications: Acetaminophen (Tylenol Tab*) 650 mg PO Q4H PRN PRN Reason: FEVER/PAIN Albuterol (Ventolin 2.5 Mg/3 Ml Neb.Viktoriya*) 2.5 mg INH Q2H PRN PRN Reason: SOB/WHEEZING Last Admin: 08/08/16 20:59 Dose: 2.5 mg Albuterol/Ipratropium (Duoneb (Albuterol 2.5 Mg/Ipratropium 0.5 Mg)) 1 neb INH [id number] AWAKE [facility] Last Admin: 08/10/16 13:21 Dose: 1 neb Heparin Sodium (Porcine) (Heparin Vial(*)) 5,000 units SUBCUT 0200,1000,1800 [facility] Last Admin: 08/10/16 16:15 Dose: 5,000 units Azithromycin 500 mg/ Sodium (Chloride) 250 mls @ 250 mls/hr IVPB 1430 [facility] Last Admin: 08/10/16 14:39 Dose: 250 mls/hr Ceftriaxone Sodium 1,000 mg/ (Sodium Chloride) 50 mls @ 200 mls/hr IVPB 1530 [facility] Last Admin: 08/10/16 16:15 Dose: 200 mls/hr Methylprednisolone Sodium Succinate (Solu-Medrol 125mg *) 60 mg IV 0200,1000, 1800 [facility] Last Admin: 08/10/16 16:15 Dose: 60 mg Mometasone Furoate/Formoterol Fumar (Dulera 200/5 Mdi*) 2 puff INH BID [facility] Last Admin: 08/10/16 09:11 Dose: 2 puff Ondansetron HCl (Zofran Inj*) 4 mg IV Q6H PRN PRN Reason: NAUSEA Paroxetine HCl (Paxil Tab*) 40 mg PO DAILY [facility] Last Admin: 08/10/16 08:01 Dose: 40 mg Vital Signs 08/09/16 08/09/16 08/09/16 19:27 20:00 22:22 Temperature 98.5 F Pulse Rate 98 86 Respiratory 20 19 17 Rate Blood Pressure 121/69 (mmHg) O2 Sat by Pulse 97 96 Oximetry 08/09/16 08/10/16 08/10/16 23:16 04:36 07:44 Temperature 97.6 F 97.8 F Pulse Rate 100 84 89 Respiratory 18 16 16 Rate Blood Pressure 126/85 131/64 (mmHg) O2 Sat by Pulse 95 98 99 Oximetry 08/10/16 08/10/16 08/10/16 09:13 09:24 13:23 Temperature Pulse Rate 85 103 Respiratory 16 18 20 Rate Blood Pressure (mmHg) O2 Sat by Pulse 98 94 Oximetry 08/10/16 15:47 Temperature 98.1 F Pulse Rate 100 Respiratory 16 Rate Blood Pressure 117/75 (mmHg) O2 Sat by Pulse 96 Oximetry Oxygen Devices in Use Now: None Appearance: NAD Eyes: No Scleral Icterus, PERRLA Ears/Nose/Mouth/Throat: NL Teeth, Lips, Gums, Clear Oropharnyx Neck: NL Appearance and Movements; NL JVP, Trachea Midline Respiratory: Symmetrical Chest Expansion and Respiratory Effort, - - +wheeze with slow improvement Cardiovascular: NL Sounds; No Murmurs; No JVD, RRR Abdominal: NL Sounds; No Tenderness; No Distention, No Hepatosplenomegaly Lymphatic: No Cervical Adenopathy, No Axillary Adenopathy Extremities: No Edema Skin: No Rash or Ulcers Neurological: Alert and Oriented x 3 Result Diagrams: 08/10/16 05:56 08/10/16 05:56 Additional Lab and Data: Lab Results 08/07/16 08/07/16 08/07/16 Range/Units 08:05 08:05 08:05 WBC 13.4 H (3.5-10.8) 10^3/ul RBC 4.71 (4.0-5.4) 10^6/ul Hgb 12.4 (12.0-16.0) g/dl Hct 39 (35-47) % MCV 82 (80-97) fL MCH 26 L (27-31) pg MCHC 32 (31-36) g/dl RDW 16 H (10.5-15) % Plt Count 253 (150-450) 10^3/ul MPV 9 (7.4-10.4) um3 Neut % (Auto) 71.8 (38-83) % Lymph % (Auto) 16.0 L (25-47) % [place] % (Auto) 6.0 (1-9) % Eos % (Auto) 5.3 (0-6) % Baso % (Auto) 0.9 (0-2) % Absolute Neuts (auto) 9.6 H (1.5-7.7) 10^3/ul Absolute Lymphs (auto) 2.1 (1.0-4.8) 10^3/ul Absolute Monos (auto) 0.8 (0-0.8) 10^3/ul Absolute Eos (auto) 0.7 H (0-0.6) 10^3/ul Absolute Basos (auto) 0.1 (0-0.2) 10^3/ul Absolute Nucleated RBC 0.01 10^3/ul Nucleated RBC % 0.1 Sodium 134 (133-145) mmol/L Potassium 3.8 (3.5-5.0) mmol/L Chloride 108 (101-111) mmol/L Carbon Dioxide 24 (22-32) mmol/L Anion Gap 2 (2-11) mmol/L BUN 9 (6-24) mg/dL Creatinine 0.50 L (0.51-0.95) mg/dL Est GFR ( Amer) 169.4 (>60) Est GFR (Non-Af Amer) 131.7 (>60) BUN/Creatinine Ratio 18.0 (8-20) Glucose 103 H (70-100) mg/dL Lactic Acid 0.9 (0.5-2.0) mmol/L Calcium 8.5 L (8.6-10.3) mg/dL Total Bilirubin 0.50 (0.2-1.0) mg/dL AST 16 (13-39) U/L ALT 12 (7-52) U/L Alkaline Phosphatase 97 (34-104) U/L C-Reactive Protein 16.24 H (< 5.00) mg/L B-Natriuretic Peptide ( - 100) pg/mL Total Protein 6.5 (6.4-8.9) g/dL Albumin 3.7 (3.2-5.2) g/dL Globulin 2.8 (2-4) g/dL Albumin/Globulin Ratio 1.3 (1-3) Urine Color Urine Appearance Urine pH (5-9) Ur Specific [place] (1.010-1.030) Urine Protein (Negative) Urine Ketones (Negative) Urine Blood (Negative) Urine Nitrate (Negative) Urine Bilirubin (Negative) Urine Urobilinogen (Negative) Ur Leukocyte Esterase (Negative) Urine Glucose (Negative) 08/07/16 08/07/16 Range/Units 08:05 10:05 WBC (3.5-10.8) 10^3/ul RBC (4.0-5.4) 10^6/ul Hgb (12.0-16.0) g/dl Hct (35-47) % MCV (80-97) fL MCH (27-31) pg MCHC (31-36) g/dl RDW (10.5-15) % Plt Count (150-450) 10^3/ul MPV (7.4-10.4) um3 Neut % (Auto) (38-83) % Lymph % (Auto) (25-47) % [place] % (Auto) (1-9) % Eos % (Auto) (0-6) % Baso % (Auto) (0-2) % Absolute Neuts (auto) (1.5-7.7) 10^3/ul Absolute Lymphs (auto) (1.0-4.8) 10^3/ul Absolute Monos (auto) (0-0.8) 10^3/ul Absolute Eos (auto) (0-0.6) 10^3/ul Absolute Basos (auto) (0-0.2) 10^3/ul Absolute Nucleated RBC 10^3/ul Nucleated RBC % Sodium (133-145) mmol/L Potassium (3.5-5.0) mmol/L Chloride (101-111) mmol/L Carbon Dioxide (22-32) mmol/L Anion Gap (2-11) mmol/L BUN (6-24) mg/dL Creatinine (0.51-0.95) mg/dL Est GFR ( Amer) (>60) Est GFR (Non-Af Amer) (>60) BUN/Creatinine Ratio (8-20) Glucose (70-100) mg/dL Lactic Acid (0.5-2.0) mmol/L Calcium (8.6-10.3) mg/dL Total Bilirubin (0.2-1.0) mg/dL AST (13-39) U/L ALT (7-52) U/L Alkaline Phosphatase (34-104) U/L C-Reactive Protein (< 5.00) mg/L B-Natriuretic Peptide 51 ( - 100) pg/mL Total Protein (6.4-8.9) g/dL Albumin (3.2-5.2) g/dL Globulin (2-4) g/dL Albumin/Globulin Ratio (1-3) Urine Color Straw Urine Appearance Clear Urine pH 6.0 (5-9) Ur Specific [place] 1.008 L (1.010-1.030) Urine Protein Negative (Negative) Urine Ketones Negative (Negative) Urine Blood Negative (Negative) Urine Nitrate Negative (Negative) Urine Bilirubin Negative (Negative) Urine Urobilinogen Negative (Negative) Ur Leukocyte Esterase Negative (Negative) Urine Glucose Negative (Negative) Microbiology and Other Data: Microbiology 08/07/16 12:20 Legionella Urinary Antigen - Final Urine Negative Legionella Streptococcus pneumoniae Ag Screen - Final Negative S. pneumo Antigen Assess/Plan/Problems-Billing Assessment: 50 yo F p/w wheeze/sob a/w asthma exacerbation and possible PNA - Patient Problems (1) Acute respiratory failure with hypoxia Comment: In setting of asthma exacerbation. resolved (2) Pneumonia Comment: suspected based on CT c/w CTX and azithro (3) Asthma exacerbation Comment: Wheezing started before her fall, at least 1 week prior c/w steroids, nebs, dulera (4) DVT prophylaxis Comment: - SQ heparin. Status and Disposition: plan tomorrow after another day IV steroids
[2016-08-11] MEDS: Albuterol/Ipratropium NEB.SOL* Albuterol 2.5 MG/Ipratropium 0.5 MG 3 ML INH SCH ×3 (03:10→10:48)
[2016-08-11] MEDS: methylPREDNISolone 125 MG* 2 ML VIAL IV SCH ×2 (03:20→08:27)
[2016-08-11] MEDS: Heparin VIAL(*) 5000 UNITS/ML VIAL (FIVE THOUSAND) SUBCUT SCH ×2 (03:21→08:27)
[2016-08-11] MEDS: Mometasone/Formoter 200/5 MDI INH SCH (07:25)
[2016-08-11 08:23] VITALS: BP 134/79
[2016-08-11] MEDS: PARoxetine HCL TAB* 40 MG PO SCH (08:27)
--- NOTE | 2016-08-12 04:53 | DS ---
CC: Dr. Scott; Dr. Tomas * DISCHARGE SUMMARY: DATE OF ADMISSION: 08/07/16 DATE OF DISCHARGE: 08/11/16 PRIMARY CARE PROVIDER: Den Scott MD [facility] OPERATOR: Janet Tomas MD PRIMARY DIAGNOSES: 1. Acute asthma exacerbation. 2. Pneumonia. SECONDARY DIAGNOSES: 1. History of bipolar disorder. 2. Anxiety disorder. 3. Acute hypoxic respiratory failure. PERTINENT IMAGING FROM HOSPITAL STAY: CTA chest and thorax, no definite pulmonary embolism is noted. There may be early pneumonia in the anterior right upper lobe and lingula. CONSULTATIONS OBTAINED DURING HOSPITAL STAY: Pulmonology. HISTORY OF PRESENT ILLNESS AND HOSPITAL COURSE: This is a 50-year-old female with past medical history as outlined in the history of present illness on day of admission including asthma, who presented to the hospital with increased shortness of breath and acute hypoxic respiratory failure, including asthma exacerbation. CTA performed to rule out pulmonary embolism did indicate the possibility of anterior pneumonia and a lingular pneumonia. The patient was treated with ceftriaxone and azithromycin as well as IV steroids with improvement in her symptoms. She required prolonged course of IV antibiotics; however, on the day of discharge, her wheeze was almost completely resolved and she was able to ambulate out into the hallway without distress. She was titrated off 5 L of oxygen to room air prior to her discharge. She was on room air for 24 hours prior to her discharge. There were no complications during the patient's hospital stay. MEDICATIONS ON DISCHARGE: Include: 1. Advair 500/50 mcg 1 puff twice daily. 2. Albuterol nebulizer every 2 hours as needed for shortness of breath or wheeze. 3. Paxil 40 mg daily. 4. Prednisone 40 mg for 5 days, then 20 mg for 5 days, then 10 mg for 5 days. 5. Albuterol HFA 2 puffs every 4 hours as needed for shortness of breath. At followup, please; 1. Evaluate for continued resolution of asthma exacerbation. 2. Peak flow meter was given to the patient. She does not know her peak flow when she is not in exacerbation. Recommend assessing peak flow, developing asthma action plan. 3. Ensure followup with Dr. Tomas. Reasons to return to the hospital including but not limited to recurrent or worsening symptoms, shortness of breath, chest pain, nausea, vomiting, lightheadedness, near loss of consciousness, fevers, chills, night sweats, and inability to obtain or tolerate medications were discussed with the patient at length. She acknowledged understanding. TIME SPENT: Greater than 50 minutes was spent on discharge of this patient with greater than half the time spent [id number] with the patient. [id number]/[facility] #: [id number] ALEXUS
== END 2016-08-11 13:00 | disposition home or self-care (01) | DRG 141 ==
LOC: ED 07:43 → MED 11:38 → MEDTELE 12:41 → MED 08-08 23:37
PROVIDERS: ADMIT Hospitalist; ATTEND Internal Medicine
DX: J45.901 Unspecified asthma with (acute) exacerbation (principal); J18.9 Pneumonia, unspecified organism; J96.01 Acute respiratory failure with hypoxia; F50.9 Eating disorder, unspecified; S89.91XA Unspecified injury of right lower leg, initial encounter; R58 Hemorrhage, not elsewhere classified; Z82.5 Family history of asthma and other chronic lower respiratory diseases; Z82.49 Family history of ischemic heart disease and other diseases of the circulatory system; Z80.9 Family history of malignant neoplasm, unspecified; F41.9 Anxiety disorder, unspecified; F31.9 Bipolar disorder, unspecified; F17.210 Nicotine dependence, cigarettes, uncomplicated; Y92.9 Unspecified place or not applicable; R51 Headache; R03.0 Elevated blood-pressure reading, without diagnosis of hypertension; E66.9 Obesity, unspecified; W01.0XXA Fall on same level from slipping, tripping and stumbling without subsequent striking against object, initial encounter; Z68.27 Body mass index [BMI] 27.0-27.9, adult
CPT/HCPCS: 36415; 36600; 71010; 71275; 80048; 80053; 81003; 82803; 83605; 83880; 85025; 85610; 86140; 87070; 87205; 87899; 93005; 94640; 94760; A9270-GY; J0360; J0456; J0696; J1644; J2930; Q9967

== ENCOUNTER 2017-05-24 16:12 | Emergency (ER) | payer SELFPAY ==
[2017-05-24 20:22] VITALS: BP 00/0
== END 2017-05-24 18:00 | disposition left against medical advice (07) ==
LOC: ED 16:12
DX: Z04.1 Encounter for examination and observation following transport accident (principal); Z53.21 Procedure and treatment not carried out due to patient leaving prior to being seen by health care provider

== ENCOUNTER 2017-12-18 09:41 | Emergency (ER) | payer SELFPAY ==
[2017-12-18] MEDS ORDERED: Ipratropium 0.5MG/2.5ML NEB* 0.5 MG/2.5 ML NEB.SOLN INH ONE ×2 (09:45→11:41)
[2017-12-18] MEDS ORDERED: Albuterol 2.5 MG/3 ML NEB.SOL* (0.083%) INH ONE ×4 (09:45→11:41)
[2017-12-18] MEDS ORDERED: predniSONE TAB* 20 MG PO ONE (09:45)
[2017-12-18] MEDS ORDERED: Ipratropium 0.5MG/2.5ML NEB* 0.5 MG/2.5 ML NEB.SOLN ONE (09:47)
[2017-12-18] MEDS ORDERED: Albuterol/Ipratropium NEB.SOL* Albuterol 2.5 MG/Ipratropium 0.5 MG 3 ML INH ONE (10:10)
--- NOTE | 2017-12-18 11:08 | RAD ---
INDICATION: Shortness of breath, wheezing. History of tobacco use. COMPARISON: August 07, [address] TECHNIQUE: Dual energy PA and routine lateral views of the chest were obtained. REPORT: Elevated lung volumes with partial flattening of the hemidiaphragms and increased AP thoracic diameter. No focal pulmonary lesion, compelling alveolar consolidation, pleural effusion, pneumothorax. The heart, pulmonary vasculature, and mediastinal contours are unremarkable. IMPRESSION: #. Stigmata of obstructive lung disease. No acute pulmonary or cardiac process evident.
--- NOTE | 2017-12-18 11:11 | UC ---
Respiratory Complaint HPI - HPI Summary HPI Summary: The patient is a 52-year-old female who has had a one-week history of progressively worsening cough wheezing and shortness of breath. She initially got some relief from her inhalers that she states that since yesterday they have not been doing any good. She has not had any neb treatments since yesterday. She denies any fever or chills. Had asthma since a child. She was last admitted to the hospital about a year ago for an asthma exacerbation. - History of Current Complaint Chief Complaint: UCRespiratory Stated Complaint: SOB ASTHMA ATTACK Time Seen by Provider: 12/18/17 09:45 Hx Obtained From: Patient Hx Last Menstrual Period: 2 weeks ago Onset/Duration: Gradual Onset, Lasting Days Timing: Constant Severity Initially: Mild Severity Currently: Moderate Pain Intensity: 0 Pain Scale Used: 0-10 Numeric Character: Cough: Nonproductive Aggravating Factors: Exertion, Recumbent Position Alleviating Factors: Bronchodilator Associated Signs And Symptoms: Positive: Wheezing - Allergies/Home Medications Allergies/Adverse Reactions: Allergies Allergy/AdvReac Type Severity Reaction Status Date / Time No Known Allergies Allergy Verified 12/18/17 10:14 PMH/Surg Hx/FS Hx/Imm Hx Previously Healthy: Yes Respiratory History: Asthma, Pneumonia Other History Of: Negative For: Anticoagulant Therapy - Surgical History Surgical History: None - Family History Known Family History: Positive: Hypertension, Respiratory Disease, Other - bipolar, depression, anxiety, asthma, CAD, COPD, CA - Social History Alcohol Use: None Substance Use Type: None Smoking Status (MU): Light Every Day Tobacco Smoker Type: Cigarettes Household Exposure Type: Cigarettes Cessation Counseling: Patient Advised to Stop - Immunization History Most Recent Influenza Vaccination: none Most Recent Tetanus Shot: unk Most Recent Pneumonia Vaccination: none Review of Systems Constitutional: Negative Skin: Negative Eyes: Negative ENT: Negative Respiratory: Shortness Of Breath, Cough Cardiovascular: Negative Gastrointestinal: Negative Genitourinary: Negative Motor: Negative Neurovascular: Negative Musculoskeletal: Negative Neurological: Negative Psychological: Anxious All Other Systems Reviewed And Are Negative: Yes Physical Exam Triage Information Reviewed: Yes Appearance: Well-Nourished, Ill-Appearing Vital Signs: Initial Vital Signs Temp 98.5 F 12/18/17 10:12 Pulse 110 12/18/17 10:12 Resp 26 12/18/17 10:12 BP 145/98 12/18/17 10:12 Pulse Ox 100 10/24/18 10:12 Vital Signs Reviewed: Yes Eyes: Positive: Conjunctiva Clear ENT: Positive: Hearing grossly normal, Nasal congestion, TMs normal, Uvula midline. Negative: Nasal drainage, Tonsillar swelling, Tonsillar exudate, Trismus, Muffled voice, Hoarse voice, Dental tenderness, Sinus tenderness Neck: Positive: Supple, Nontender, No Lymphadenopathy Respiratory: Positive: Respiratory distress, Decreased breath sounds, Wheezing Cardiovascular: Positive: RRR, No Murmur Abdomen Description: Positive: Nontender, No Organomegaly Musculoskeletal: Positive: ROM Intact, No Edema Neurological: Positive: Alert Psychological Exam: Normal Skin Exam: Normal UC Diagnostic Evaluation - Laboratory O2 Sat by Pulse Oximetry: 100 - normal/not hypoxic - Radiology Radiology Interpretation Completed By: Radiologist Summary of Radiographic Findings: stigmata of COPD Re-Evaluation - Re-Evaluation First Eval Re-Evaluation Time: 11:26 Change: Improved - after three nebs....still wheezing/no increased work of breathing Second Eval Re-Evaluation Time: 12:21 Change: Improved - CTA, p-100 pox 96% Respiratory Course/Dx - Differential Dx/Diagnosis Provider Diagnoses: acute bronchitis with bronchospasm Discharge - Sign-Out/Discharge Documenting (check all that apply): Patient Departure All imaging exams completed and their final reports reviewed: Yes - Discharge Plan Condition: Stable Disposition: HOME Referrals: Den Scott MD [Primary Care Provider] - - Billing Disposition and Condition Condition: STABLE Disposition: Home
[2017-12-18 11:39] VITALS: BP 144/88
== END 2017-12-18 13:09 | disposition home or self-care (01) ==
LOC: UCEAST 09:41
DX: J20.9 Acute bronchitis, unspecified (principal); F17.210 Nicotine dependence, cigarettes, uncomplicated
CPT/HCPCS: 71046; 99213; G0463; J7512

== ENCOUNTER 2018-04-04 13:03 | Emergency (ER) | payer BC ==
[2018-04-04] MEDS ORDERED: Acetaminophen TAB* 325 MG PO ONE (13:13)
--- NOTE | 2018-04-04 13:14 | ED ---
Influenza-Like Illness - HPI Summary HPI Summary: Pt. is a 52 y.o female who presents to the ER for cough, wheeze, chills, and vomiting. Pt. notes respiratory sxs started a few days ago and N/V, abd. pain started today. Pt. denies diarrhea or urinary sxs. Pt. notes hx of asthma and has been needed her albuterol inhaler more frequently over the last few days. Pt. notes numerous coworkers have been sick. Sxs are moderate in severity. No current modifying factors. - History of Current Complaint Chief Complaint: EDFluSymptoms Time Seen by Provider: 04/04/18 13:12 Hx Obtained From: Patient - Allergy/Home Medications Allergies/Adverse Reactions: Allergies Allergy/AdvReac Type Severity Reaction Status Date / Time No Known Allergies Allergy Verified 04/04/18 13:31 Home Medications: Home Medications Albuterol 2.5MG/3ML (0.083%)* [Ventolin 2.5 MG/3 ML NEB.KASANDRA*] 2.5 mg INH Q4HR PRN 04/04/18 [History Confirmed 04/04/18] Benzonatate CAP* [Tessalon 100 MG CAP*] 100 mg PO TID PRN 04/04/18 [History Confirmed 04/04/18] PMH/Surg Hx/FS Hx/Imm Hx Previously Healthy: Yes Endocrine/Hematology History: Denies: Hx Anticoagulant Therapy, Hx Diabetes, Hx Thyroid Disease, Hx Unexplained Bleeding Cardiovascular History: Denies: Hx Hypertension, Hx Pacemaker/ICD Respiratory History: Reports: Hx Asthma, Hx Pneumonia, Hx Seasonal Allergies Denies: Hx Chronic Obstructive Pulmonary Disease (COPD), Hx Lung Cancer, Hx Sleep Apnea History: Denies: Hx Renal Disease Sensory History: Reports: Hx Contacts or Glasses Denies: Hx Hearing Aid Opthamlomology History: Reports: Hx Contacts or Glasses Neurological History: Denies: Hx Dementia, Hx Developmental Delay, Hx Headaches, Hx Migraine, Hx Seizures, Hx Spinal Cord Injury Psychiatric History: Reports: Hx Anxiety, Hx Eating Disorder - Has purged lately and hasn't done that in 20 years., Hx Depression, Hx Inpatient Treatment , Hx Community Mental Health Tx, Hx Bipolar Disorder, Hx Suicide Attempt Denies: Hx of Violent Episodes Against Others, Hx Substance Abuse Infectious Disease History: No Infectious Disease History: Denies: Hx Clostridium Difficile, Hx Hepatitis, Hx Human Immunodeficiency Virus (HIV), Hx Shingles, Hx Tuberculosis, Traveled Outside the [place] in Last 30 Days - Family History Known Family History: Positive: Hypertension, Respiratory Disease, Other - bipolar, depression, anxiety, asthma, CAD, COPD, CA - Social History Occupation: Employed Full-time Lives: With Family Alcohol Use: None Hx Substance Use: No Substance Use Type: Reports: None Hx Tobacco Use: Yes Smoking Status (MU): Light Every Day Tobacco Smoker Type: Cigarettes Review of Systems Positive: Fever, Chills Eyes: Negative ENT: Negative Cardiovascular: Negative Positive: Shortness Of Breath, Cough Positive: Abdominal Pain, Vomiting, Nausea. Negative: Diarrhea Genitourinary: Negative Positive: Myalgia Skin: Negative Neurological: Negative All Other Systems Reviewed And Are Negative: Yes Physical Exam Triage Information Reviewed: Yes Vital Signs On Initial Exam: Initial Vitals Temp Pulse Resp BP Pulse Ox 99.0 F 120 22 114/95 97 04/04/18 13:06 04/04/18 13:06 04/04/18 13:06 04/04/18 13:06 04/04/18 13:06 Vital Signs Reviewed: Yes Appearance: Positive: Well-Nourished - Pt. sitting up in bed in NAD. Appears tired but nontoxic. Family member present. Skin: Positive: Warm, Dry Head/Face: Positive: Normal Head/Face Inspection Eyes: Positive: Normal, EOMI, GLENN, Conjunctiva Clear ENT: Positive: Pharyngeal erythema, TMs normal. Negative: Tonsillar swelling, Tonsillar exudate Neck: Positive: Supple. Negative: Nuchal Rigidity Respiratory/Lung Sounds: Positive: Other - Diffuse expiratory wheeze throughout with rhonchi.. Negative: Stridor, Tracheal Deviation, Unable to speak in full sentences, Fatigue Cardiovascular: Positive: Tachycardia Abdomen Description: Positive: Other: - Signficiant tenderness with guarding to LLQ and LUQ. Neurological: Positive: Normal, CN Intact II-III Psychiatric: Positive: Affect/Mood Appropriate Diagnostics - Vital Signs Vital Signs Temp Pulse Resp BP Pulse Ox 04/04/18 13:06 99.0 F 120 22 114/95 97 - Laboratory Result Diagrams: 04/04/18 13:43 04/04/18 13:43 Lab Statement: Any lab studies that have been ordered have been reviewed, and results considered in the medical decision making process. Flu Symptom Course/Dx - Course Course Of Treatment: Pt. presenting for cough and wheeze. Low grade fever. O2 saturation is 97% on RA which is normal. Given pt.'s abd. pain and N/V will check basic labs as well as flu and CXR. Zofran, tylenol and duoneb ordered. Labs are unremarkable. On re-exam wheezing has improved but is still present. Pt. given another duoneb and prednisone with almost complete resolve of wheeze. Pt. is eating soup and is feeling better. Suspect pt.'s abd. pain is secondary to muscle strain from coughing. Discussed possible imaging but pt. is comfortable without imaging today. Will start on prednisone and zithromax. To use albuteral inhaler 2 puffs every 4 hours. Close f.u with PCP and return to eR If sxs change or worsen. Pt. understands and agrees with plan. - Diagnoses Differential Diagnosis/HQI/PQRI: Positive: Bronchitis, Influenza, Pneumonia, Upper Respiratory Infection Provider Diagnoses: Bronchitis, Bronchospasm Discharge - Sign-Out/Discharge Documenting (check all that apply): Patient Departure Patient Received Moderate/Deep Sedation with Procedure: No - Discharge Plan Condition: Improved Disposition: HOME Prescriptions: Azithromycin TAB* [Zithromax TAB (Z-SAVANNAH) 250 mg #6 tabs] 2 tab PO .TODAY, THEN 1 DAILY #1 savannah predniSONE TAB* [Deltasone 20 MG TAB*] 40 mg PO DAILY #10 tab Patient Education Materials: Asthma (ED), Acute Bronchitis (ED) Forms: *Work Release Referrals: Den Scott MD [Primary Care Provider] - Additional Instructions: Call PCP today to schedule a close follow up appointment Take medication as directed Increase fluids and rest Tylenol or Motrin for discomfort as directed Take albuterol inhaler 2 puffs every 4 hours for wheeze Return to ER if symptoms change or worsen - Billing Disposition and Condition Condition: IMPROVED Disposition: Home
[2018-04-04] MEDS ORDERED: Albuterol/Ipratropium NEB.SOL* Albuterol 2.5 MG/Ipratropium 0.5 MG 3 ML INH ONE ×2 (13:27→14:38)
[2018-04-04] MEDS ORDERED: Ondansetron ODT TAB* 4 MG PO ONE (13:28)
[2018-04-04 13:53] LABS: ABS Basophils 0.1 10^3/ul (0-0.2); ABS Eosinophils 0.3 10^3/ul (0-0.6); ABS Lymphocytes 1.1 10^3/ul (1.0-4.8); ABS Monocytes 0.4 10^3/ul (0-0.8); ABS Neutrophils 5.6 10^3/ul (1.5-7.7); ABS Nucleated RBC 0 10^3/ul; Eosinophil % 4.1 %; Hematocrit 36 % (35-47); Hemoglobin 11.8 g/dl (12.0-16.0); Lymphocyte % 14.3 %; Mean Corpuscular HGB Conc 33 g/dl (31-36); Mean Corpuscular Hemoglobin 26 pg (27-31); Mean Corpuscular Volume 80 fL (80-97); Mean Platelet Volume 7.8 fL (7.4-10.4); Nucleated Red Blood Cells % 0; Platelet Count 307 10^3/ul (150-450); Red Blood Count 4.56 10^6/ul (4.00-5.40); Red Cell Distribution Width 15 % (10.5-15); White Blood Count 7.4 10^3/ul (3.5-10.8)
[2018-04-04 14:22] LABS: Albumin 4.1 g/dL (3.2-5.2); Albumin/Globulin Ratio 1.5 (1-3); BUN/Creatinine Ratio 14.5 (8-20); Calcium 8.8 mg/dL (8.6-10.3); EGFR Non-African American 90.1 (>60); Globulin 2.7 g/dL (2-4); Potassium 3.9 mmol/L (3.5-5.0); Total Bilirubin 0.4 mg/dL (0.2-1.0); Total Protein 6.8 g/dL (6.4-8.9)
[2018-04-04 14:24] LABS: Influenza A Molecular NEGATIVE (Negative); Influenza B Molecular NEGATIVE (Negative)
[2018-04-04] MEDS ORDERED: predniSONE TAB* 20 MG PO ONE (14:38)
[2018-04-04 16:24] VITALS: BP 129/79
[2018-04-04 16:37] LABS: Urine Appearance Cloudy; Urine Bilirubin Negative (Negative); Urine Blood Negative (Negative); Urine Color Yellow; Urine Glucose Negative (Negative); Urine Ketones Negative (Negative); Urine Nitrite Negative (Negative); Urine Protein Negative (Negative); Urine Specific Gravity 1.011 (1.010-1.030); Urine Urobilinogen Negative (Negative)
== END 2018-04-04 16:22 | disposition home or self-care (01) ==
LOC: ED 13:03
DX: J40 Bronchitis, not specified as acute or chronic (principal); J98.01 Acute bronchospasm; R10.9 Unspecified abdominal pain; R05 Cough; R11.10 Vomiting, unspecified; F17.210 Nicotine dependence, cigarettes, uncomplicated; R06.02 Shortness of breath
CPT/HCPCS: 36415; 71046; 80053; 81003; 83690; 85025; 99282; A9270-GY; J7512

== ENCOUNTER 2018-04-07 07:27 | Inpatient (IN) | payer BC ==
--- NOTE | 2018-04-07 07:52 | ED ---
Shortness of Breath - HPI Summary HPI Summary: This pt is a 52 y/o female, with hx of asthma, presenting to [facility] c/o SOB and nonproductive cough, worse today. She reports this has been ongoing intermittently since the beginning of this year, New Years, and usually starts with a cold. Pt notes she was seen in the ED 3 days ago for the same and was prescribed Zpack and prednisone without much relief. Pt has also been using her albuterol inhaler more often without improvement. She reports she had a low grade fever, has chills, nausea, tightness on chest secondary to cough, myalgia from coughing. Denies vomiting, pain or swelling in LE. Pt states she has pain on the left side of her abd just like she did 3 days ago. She has had asthma her whole life, it appeared more as an adult. She has been admitted several times in the past for asthma exacerbations. Pt does not wear oxygen at home. Pt is a current smoker but notes she doesn't smoke as much as before. FHx of grandfather with clotting disorder. LMP: 2 weeks ago. Her PCP is Dr. Scott. - History of Current Complaint Chief Complaint: EDAsthma Time Seen by Provider: 04/07/18 07:35 Hx Obtained From: Patient Onset/Duration: Lasting Days, Still Present Timing: Constant Current Severity: Moderate Dyspnea At: Rest Aggrevating Factors: Nothing Alleviating Factors: Nothing Associated Signs & Symptoms: Cough (Nonproductive), Chest Pain w/Cough, Fever - low grade, Chills - Allergy/Home Medications Allergies/Adverse Reactions: Allergies Allergy/AdvReac Type Severity Reaction Status Date / Time No Known Allergies Allergy Verified 04/07/18 07:31 PMH/Surg Hx/FS Hx/Imm Hx Endocrine/Hematology History: Denies: Hx Anticoagulant Therapy, Hx Diabetes, Hx Thyroid Disease, Hx Unexplained Bleeding Cardiovascular History: Denies: Hx Hypertension, Hx Pacemaker/ICD Respiratory History: Reports: Hx Asthma, Hx Pneumonia, Hx Seasonal Allergies Denies: Hx Chronic Obstructive Pulmonary Disease (COPD), Hx Lung Cancer, Hx Sleep Apnea History: Denies: Hx Renal Disease Sensory History: Reports: Hx Contacts or Glasses Denies: Hx Hearing Aid Opthamlomology History: Reports: Hx Contacts or Glasses Neurological History: Denies: Hx Dementia, Hx Developmental Delay, Hx Headaches, Hx Migraine, Hx Seizures, Hx Spinal Cord Injury Psychiatric History: Reports: Hx Anxiety, Hx Eating Disorder - Has purged lately and hasn't done that in 20 years., Hx Depression, Hx Inpatient Treatment , Hx Community Mental Health Tx, Hx Bipolar Disorder, Hx Suicide Attempt Denies: Hx of Violent Episodes Against Others, Hx Substance Abuse Infectious Disease History: No Infectious Disease History: Denies: Hx Clostridium Difficile, Hx Hepatitis, Hx Human Immunodeficiency Virus (HIV), Hx Shingles, Hx Tuberculosis, Traveled Outside the [place] in Last 30 Days - Family History Known Family History: Positive: Hypertension, Respiratory Disease, Blood Disorder - grandfather with clotting, Other - bipolar, depression, anxiety, asthma, CAD, COPD, CA - Social History Alcohol Use: None Hx Substance Use: No Substance Use Type: Reports: None Hx Tobacco Use: Yes Smoking Status (MU): Light Every Day Tobacco Smoker Type: Cigarettes Review of Systems Positive: Fever, Chills Negative: Erythema Negative: Sore Throat Positive: Chest Pain Positive: Shortness Of Breath, Cough Positive: Abdominal Pain - pain on the left, Nausea. Negative: Vomiting Negative: dysuria, hematuria Positive: Myalgia. Negative: Edema, Other - NEG: lower extremity pain Negative: Rash Neurological: Other - NEG: dizziness All Other Systems Reviewed And Are Negative: Yes Physical Exam - Summary Physical Exam Summary: Constitutional: Well-developed, Well-nourished, Alert. (-) Distressed Skin: Warm, Dry HENT: Normocephalic; Atraumatic Eyes: Conjunctiva normal Neck: Musculoskeletal ROM normal neck. (-) JVD, (-) Stridor, (-) Tracheal deviation Cardio: Rhythm regular, rate normal, Heart sounds normal; Intact distal pulses; The pedal pulses are 2+ and symmetric. Radial pulses are 2+ and symmetric. (-) Murmur Pulmonary/Chest wall: Effort normal. (-) Respiratory distress, Diffuse wheezes. Abd: Soft, (-) Tenderness, (-) Distension, (-) Guarding, (-) Rebound Musculoskeletal: (-) Edema. No calf tenderness or swelling. Lymph: (-) Cervical adenopathy Neuro: Alert, Oriented x3 Psych: Mood and affect Normal Triage Information Reviewed: Yes Vital Signs On Initial Exam: Initial Vitals Temp Pulse Resp BP Pulse Ox 97.9 F 117 16 98/77 92 04/07/18 07:28 04/07/18 07:28 04/07/18 07:28 04/07/18 07:28 04/07/18 07:28 Vital Signs Reviewed: Yes Diagnostics - Vital Signs Vital Signs Temp Pulse Resp BP Pulse Ox 04/07/18 07:40 27 138/92 04/07/18 07:36 118 94 04/07/18 07:28 97.9 F 117 16 98/77 92 - Laboratory Result Diagrams: 04/07/18 08:04 04/07/18 08:04 Lab Statement: Any lab studies that have been ordered have been reviewed, and results considered in the medical decision making process. - Radiology Chest XR Radiology Interpretation Completed By: Radiologist Summary of Radiographic Findings: IMPRESSION: No active cardiopulmonary disease. Dr. Frausto has reviewed this report. - EKG 09:12 Cardiac Rate: NL - at 96 bpm EKG Rhythm: Sinus Rhythm Summary of EKG Findings: No STEMI. Course/Dx - Course Assessment/Plan: Pt is a 52 y/o female, with hx of asthma, who presents with SOB and nonproductive cough, worse today. She reports this has been ongoing intermittently since the beginning of this year, New Years, and usually starts with a cold. Pt notes she was seen in the ED 3 days ago for the same and was prescribed Zpack and prednisone without much relief. Pt has also been using her albuterol inhaler more often without improvement. She reports she had a low grade fever, has chills, nausea, tightness on chest secondary to cough, myalgia from coughing. Pt is failing maximum outpatient therapy. Her oxygen saturation is 90% on room air. Pt would benefit from admission to the hospitalist. Labs show hemoglobin of 11.5, lactic acid of 2.1. Chest XR shows no active cardiopulmonary disease. In the ED course the pt was given duoneb, decadron, magnesium sulfate. Discussed pt care with Dr. Mcknight, hospitalist, who accepted pt for admission. - Diagnoses Provider Diagnoses: Asthma exacerbation, Hypoxia - Physician Notifications Discussed Care of Patient With: Daniela Mcknight - hospitalist Time Discussed With Above Provider: 09:09 Instructed by Provider To: Admit As Inpatient - Critical Care Time Critical Care Time: 30-74 min - 35 minutes Discharge - Sign-Out/Discharge Documenting (check all that apply): Patient Departure - Admit to [facility] [place] Patient Received Moderate/Deep Sedation with Procedure: No - Discharge Plan Condition: Stable Disposition: ADMITTED TO [facility] Referrals: Den Scott MD [Primary Care Provider] - - Attestation Statements Document Initiated by Scribe: Yes Documenting Scribe: Catie Fuentes Provider For Whom Scribe is Documenting (Include Credential): Juan Frausto MD Scribe Attestation: ICatie, scribed for Juan rFausto MD on 04/07/18 at 1024. Status of Scribe Document: Ready
[2018-04-07] MEDS ORDERED: Dexamethasone IV* 4 MG/ML 1 ML (4 MG) IV SLOW PU ONE (07:53)
[2018-04-07] MEDS ORDERED: Magnesium Sulfate 2 GM IV* 2 GM/50 ML BAG IVPB ONE (07:53)
[2018-04-07 08:15] LABS: ABS Basophils 0.1 10^3/ul (0-0.2); ABS Eosinophils 0.3 10^3/ul (0-0.6); ABS Lymphocytes 2.6 10^3/ul (1.0-4.8); ABS Monocytes 0.6 10^3/ul (0-0.8); ABS Neutrophils 4.5 10^3/ul (1.5-7.7); ABS Nucleated RBC 0 10^3/ul; Eosinophil % 3.8 %; Hematocrit 36 % (35-47); Hemoglobin 11.5 g/dl (12.0-16.0); Lymphocyte % 32.1 %; Mean Corpuscular HGB Conc 33 g/dl (31-36); Mean Corpuscular Hemoglobin 26 pg (27-31); Mean Corpuscular Volume 80 fL (80-97); Mean Platelet Volume 7.9 fL (7.4-10.4); Nucleated Red Blood Cells % 0; Platelet Count 345 10^3/ul (150-450); Red Blood Count 4.44 10^6/ul (4.00-5.40); Red Cell Distribution Width 15 % (10.5-15)
[2018-04-07] MEDS ORDERED: Albuterol/Ipratropium NEB.SOL* Albuterol 2.5 MG/Ipratropium 0.5 MG 3 ML INH ONE (08:20)
[2018-04-07 08:36] LABS: Albumin 3.9 g/dL (3.2-5.2); Albumin/Globulin Ratio 1.6 (1-3); BUN/Creatinine Ratio 23.2 (8-20); Calcium 8.8 mg/dL (8.6-10.3); EGFR Non-African American 90.1 (>60); Globulin 2.4 g/dL (2-4); Potassium 3.8 mmol/L (3.5-5.0); Total Bilirubin 0.2 mg/dL (0.2-1.0); Total Protein 6.3 g/dL (6.4-8.9)
[2018-04-07] MEDS ORDERED: Al Hydrox/Mg Hydrox/Simet LIQ* 30 ML UDC PO PRN (09:39)
[2018-04-07] MEDS ORDERED: Acetaminophen TAB* 325 MG PO PRN (09:39)
[2018-04-07] MEDS ORDERED: Albuterol HFA INHALER* 8 gm MDI INH PRN (09:42)
[2018-04-07] MEDS ORDERED: ALPRAZolam TAB* 0.5 MG PO PRN (09:42)
[2018-04-07] MEDS ORDERED: Albuterol/Ipratropium NEB.SOL* Albuterol 2.5 MG/Ipratropium 0.5 MG 3 ML INH PRN (09:42)
[2018-04-07] MEDS ORDERED: Benzonatate CAP* 100 MG PO PRN (09:42)
--- NOTE | 2018-04-07 10:46 | HP ---
CONTINUATION ADDENDUM NOW INCLUDED ON THIS REPORT CC: Primary Care Provider, Dr. Scott * HISTORY AND PHYSICAL: DATE OF ADMISSION: 04/07/18 PRIMARY CARE PROVIDER: Dr. Scott. CHIEF COMPLAINT: Shortness of breath and wheezing. HISTORY OF PRESENT ILLNESS: Kate Olvera is a 52-year-old female with history of asthma and smoking who presented to the hospital originally on for asthma exacerbation. She was treated with prednisone and azithromycin. Despite that she continues to feel bad and today she presented to the hospital with oxygen saturation of 89% on room air and still complaining of coughing up green sputum. She is going to be placed on observation for the medical floor with a diagnosis of asthma exacerbation. PAST MEDICAL HISTORY: 1. History of asthma. 2. History of smoking. CONTINUATION ADDENDUM: PAST MEDICAL HISTORY: 1. History of bipolar disorder. 2. History of asthma. 3. History of anxiety. MEDICATIONS AT HOME: Include: 1. Prednisone 40 mg daily started 3 days ago. 2. Paroxetine 40 minutes daily. 3. Advair 500/50 one inhalation b.i.d. 4. Tessalon 100 mg t.i.d. p.r.n. 5. Azithromycin 250 mg daily, the patient is on third dose of azithromycin today. 6. Albuterol inhaler on p.r.n. basis. 7. Albuterol nebulizer on p.r.n. basis 8. Xanax 0.5 mg at bedtime p.r.n. FAMILY HISTORY: Positive for mother with COPD. Father's history unknown. SOCIAL HISTORY: The patient has smoked up to 1-1/2 pack per day and she started when she was 18 years old. Currently, she is down to 5 cigarettes a day. 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 For surrogate , she names her mother, but her male friend, Kirill Gooden, is a person of contact. REVIEW OF SYSTEMS: Please see history of present illness. All the remaining 12 systems were reviewed with the patient and were otherwise negative. PHYSICAL EXAMINATION GENERAL: The patient is a very pleasant 52-year-old female who is not in acute distress. Alert, awake, and oriented x3. VITAL SIGNS: Blood pressure 140/95, heart rate of 95and regular, respiratory rate 16, oxygen saturation 93% on 2 L of oxygen nasal cannula, temperature of 97.9. HEENT: Head atraumatic, normocephalic. Eyes: Pupils are equal and reactive to light and accommodation. Oropharynx is clear. Mucosa moist. NECK: Supple. No JVD. No bruit bilaterally. RESPIRATORY: Bilateral mid lung rhonchi and wheezes. CARDIOVASCULAR: Irregular rate and rhythm. No murmur. ABDOMEN: Soft, nontender. Bowel sounds are present in all 4 quadrants. EXTREMITIES: There is no edema. Pulses are +2 bilaterally. No clubbing and cyanosis. NEURO EVALUATION: Speech clear. Cranial nerves II through XII grossly intact. Motor strength is 5/5 bilaterally. SKIN: No ecchymotic areas or rashes noted. DIAGNOSTIC STUDIES/LAB DATA: D-dimer was 213. White blood cell count 8.0, hemoglobin 11.5, hematocrit 36, platelets 349. Sodium 139, potassium 3.8, chloride 106, carbon dioxide 24, BUN 16, creatinine 0.69. Liver function is unremarkable, lactic acid 2.1. Portable chest x-ray, impression: No active cardiopulmonary disease on auscultation. The patient's EKG showed sinus tachycardia with a heart rate of 96 beats per minute and no ST changes. ASSESSMENT AND PLAN: 1. Acute hypoxemic respiratory failure in patient with history of asthma, now with asthma/chronic obstructive pulmonary disease exacerbation. The patient is going to be placed on Solu-Medrol infusion. She is going to be continued on azithromycin p.o. for the acute bronchitis which likely precipitated the exacerbation. Initially, she is going to be treated with oxygen for acute hypoxemic respiratory failure and placed on overnight observation. Depending on the course of the patient's stay, she may require to be placed inpatient if she continues to be hypoxemic. At this point, she has significant respiratory symptoms and her D-dimer was only mildly elevated. I do not believe that she will require to be ruled out for pulmonary embolism at this point. 2. For her history of bipolar disease, her Paxil is going to be continued. 3. For the DVT prophylaxis, the patient is going to be placed on heparin subcutaneously. The patient's code status is full. Her surrogate is her mother. TIME SPENT: Approximately 65 minutes was spent on admission of this patient. More than half that time was spent [id number] with the patient during the interview and physical exam. [id number] #: [id number] #: [id number] ALEXUS
[2018-04-07] MEDS: Azithromycin TAB* 250 MG PO SCH (11:39)
--- NOTE | 2018-04-07 11:45 | HP ---
CC: Primary Care Provider HISTORY AND PHYSICAL: ADDENDUM: PAST MEDICAL HISTORY: 1. History of bipolar disorder. 2. History of asthma. 3. History of anxiety. MEDICATIONS AT HOME: Include: 1. Prednisone 40 mg daily started 3 days ago. 2. Paroxetine 40 minutes daily. 3. Advair 500/50 one inhalation b.i.d. 4. Tessalon 100 mg t.i.d. p.r.n. 5. Azithromycin 250 mg daily, the patient is on third dose of azithromycin today. 6. Albuterol inhaler on p.r.n. basis. 7. Albuterol nebulizer on p.r.n. basis 8. Xanax 0.5 mg at bedtime p.r.n. FAMILY HISTORY: Positive for mother with COPD. Father's history unknown. SOCIAL HISTORY: The patient has smoked up to 1-1/2 pack per day and she started when she was 18 years old. Currently, she is down to 5 cigarettes a day. 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 For surrogate, she names her mother, but her male friend Kirill Gooden is a person of contact. REVIEW OF SYSTEMS: Please see history of present illness. All the remaining 12 systems were reviewed with the patient and were otherwise negative. PHYSICAL EXAMINATION GENERAL: The patient is a very pleasant 52-year-old female who is not in acute distress. Alert, awake, and oriented x3. VITAL SIGNS: Blood pressure 140/95, heart rate of 95and regular, respiratory rate 16, oxygen saturation 93% on 2 L of oxygen nasal cannula, temperature of 97.9. HEENT: Head atraumatic, normocephalic. Eyes: Pupils are equal and reactive to light and accommodation. Oropharynx is clear. Mucosa moist. NECK: Supple. No JVD. No bruit bilaterally. RESPIRATORY: Bilateral mid lung rhonchi and wheezes. CARDIOVASCULAR: Irregular rate and rhythm. No murmur. ABDOMEN: Soft, nontender. Bowel sounds are present in all 4 quadrants. EXTREMITIES: There is no edema. Pulses are +2 bilaterally. No clubbing and cyanosis. NEURO EVALUATION: Speech clear. Cranial nerves II through XII grossly intact. Motor strength is 5/5 bilaterally. SKIN: No ecchymotic areas or rashes noted. DIAGNOSTIC STUDIES/LAB DATA: D-dimer of 213. White blood cell count of 8.0, hemoglobin 11.5, hematocrit of 36, platelets of 349. Sodium was 139, potassium 3.8, chloride 106, carbon dioxide 24, BUN 16, creatinine 0.69. Liver function is unremarkable, lactic acid of 2.1. Portable chest x-ray, impression: No active cardiopulmonary disease on auscultation. The patient's EKG showed sinus tachycardia with a heart rate of 96 beats per minute and no ST changes. ASSESSMENT AND PLAN: 1. Acute hypoxemic respiratory failure in patient with history of asthma, now with asthma/chronic obstructive pulmonary disease exacerbation. The patient is going to be placed on Solu-Medrol infusion. She is going to be continued on azithromycin p.o. for the acute bronchitis which likely precipitated the exacerbation. Initially, she is going to be treated with oxygen for acute hypoxemic respiratory failure and placed on overnight observation. Depending on the course of the patient's stay, she may require to be placed inpatient if she continues to be hypoxemic. At this point, she has significant respiratory symptoms and her D-dimer was only mildly elevated. I do not believe that she will require to be ruled out for pulmonary embolism at this point. 2. For her history of bipolar disease, her Paxil is going to be continued. 3. For the DVT prophylaxis, the patient is going to be placed on heparin subcutaneously. The patient's code status is full. Her surrogate is her mother. TIME SPENT: Approximately 65 minutes was spent on admission of this patient. More than half that time was spent [id number] with the patient during the interview and physical exam. [id number]/[facility] #: [id number] ALEXUS
[2018-04-07] MEDS: Albuterol/Ipratropium NEB.SOL* Albuterol 2.5 MG/Ipratropium 0.5 MG 3 ML INH SCH ×2 (12:31→19:38)
[2018-04-07] MEDS: Heparin VIAL(*) 5000 UNITS/ML VIAL (FIVE THOUSAND) SUBCUT SCH ×2 (14:39→23:08)
[2018-04-07] MEDS: methylPREDNISolone SOD 40 MG* 1 ML VIAL IV SCH (16:34)
[2018-04-07] MEDS: Mometasone/Formoter 200/5 MDI INH SCH (19:38)
[2018-04-08] MEDS: methylPREDNISolone SOD 40 MG* 1 ML VIAL IV SCH ×3 (00:21→17:05)
[2018-04-08] MEDS: Albuterol/Ipratropium NEB.SOL* Albuterol 2.5 MG/Ipratropium 0.5 MG 3 ML INH SCH ×4 (01:09→19:25)
[2018-04-08] MEDS: Heparin VIAL(*) 5000 UNITS/ML VIAL (FIVE THOUSAND) SUBCUT SCH ×3 (05:44→21:38)
[2018-04-08 06:13] LABS: ABS Basophils 0 10^3/ul (0-0.2); ABS Eosinophils 0 10^3/ul (0-0.6); ABS Lymphocytes 1.2 10^3/ul (1.0-4.8); ABS Monocytes 0.2 10^3/ul (0-0.8); ABS Neutrophils 11.8 10^3/ul (1.5-7.7); ABS Nucleated RBC 0 10^3/ul; Eosinophil % 0 %; Hematocrit 37 % (35-47); Hemoglobin 11.6 g/dl (12.0-16.0); Lymphocyte % 8.9 %; Mean Corpuscular HGB Conc 31 g/dl (31-36); Mean Corpuscular Hemoglobin 25 pg (27-31); Mean Corpuscular Volume 80 fL (80-97); Mean Platelet Volume 8.2 fL (7.4-10.4); Nucleated Red Blood Cells % 0; Platelet Count 338 10^3/ul (150-450); Red Blood Count 4.59 10^6/ul (4.00-5.40); Red Cell Distribution Width 15 % (10.5-15); White Blood Count 13.3 10^3/ul (3.5-10.8)
[2018-04-08 06:32] LABS: BUN/Creatinine Ratio 28.1 (8-20); Calcium 9.1 mg/dL (8.6-10.3); EGFR African American 135.8 (>60); EGFR Non-African American 112.3 (>60); Potassium 4.6 mmol/L (3.5-5.0)
[2018-04-08] MEDS: Mometasone/Formoter 200/5 MDI INH SCH ×2 (07:27→19:25)
[2018-04-08] MEDS: PARoxetine HCL TAB* 40 MG PO SCH (07:48)
[2018-04-08] MEDS: Azithromycin TAB* 250 MG PO SCH (07:48)
--- NOTE | 2018-04-08 17:27 | PN ---
Subjective Date of Service: 04/08/18 Interval History: Patient seen and examined. No acute overnight events, remains SOB with exertional dyspnea and cough. Denies fever or chills. Was able to shower without becoming SOB. Objective Active Medications: Acetaminophen (Tylenol Tab*) 650 mg PO Q4H PRN PRN Reason: FEVER/PAIN Al Hydrox/Mg Hydrox/Simethicone (Maalox Plus*) 30 ml PO Q6H PRN PRN Reason: INDIGESTION Albuterol (Ventolin Hfa Inhaler*) 2 puff INH Q4H PRN PRN Reason: SOB/WHEEZING Albuterol/Ipratropium (Duoneb (Albuterol 2.5 Mg/Ipratropium 0.5 Mg)) 1 neb INH [id number] AWAKE [facility] Last Admin: 04/08/18 13:38 Dose: 1 neb Albuterol/Ipratropium (Duoneb (Albuterol 2.5 Mg/Ipratropium 0.5 Mg)) 1 neb INH Q2H PRN PRN Reason: SOB/WHEEZING Alprazolam (Xanax Tab*) 0.5 mg PO BEDTIME PRN PRN Reason: ANXIETY Azithromycin (Zithromax Tab*) 250 mg PO DAILY [facility] Stop: 04/08/18 23:59 Last Admin: 04/08/18 07:48 Dose: 250 mg Benzonatate (Tessalon Cap*) 100 mg PO TID PRN PRN Reason: COUGH Last Admin: 04/07/18 11:39 Dose: 100 mg Guaifenesin (Mucinex*) 600 mg PO BID [facility] Heparin Sodium (Porcine) (Heparin Vial(*)) 5,000 units SUBCUT Q8HR [facility] Last Admin: 04/08/18 14:15 Dose: Not Given Methylprednisolone Sodium Succinate (Solu-Medrol 40 Mg) 40 mg IV Q8H [facility] Last Admin: 04/08/18 17:05 Dose: 40 mg Mometasone Furoate/Formoterol Fumar (Dulera 200/5 Mdi*) 2 puff INH BID [facility] Last Admin: 04/08/18 07:27 Dose: 2 puff Paroxetine HCl (Paxil Tab*) 40 mg PO DAILY [facility] Last Admin: 04/08/18 07:48 Dose: 40 mg Vital Signs - 8 hr 04/08/18 04/08/18 11:26 13:40 Temperature 98.5 F Pulse Rate 102 109 Respiratory 18 18 Rate Blood Pressure 128/63 (mmHg) O2 Sat by Pulse 95 97 Oximetry Oxygen Devices in Use Now: Nasal Cannula Appearance: alert, NAD Eyes: No Scleral Icterus, PERRLA Ears/Nose/Mouth/Throat: NL Teeth, Lips, Gums, Mucous Membranes Moist Neck: NL Appearance and Movements; NL JVP, Trachea Midline Respiratory: Symmetrical Chest Expansion and Respiratory Effort, - - course rhonchi with bilateral exp wheeze Cardiovascular: NL Sounds; No Murmurs; No JVD, RRR, No Edema Abdominal: NL Sounds; No Tenderness; No Distention Extremities: No Edema, No Clubbing, Cyanosis Skin: No Rash or Ulcers Neurological: Alert and Oriented x 3, NL Sensation, NL Gait Nutrition: Taking PO's Result Diagrams: 04/08/18 05:49 04/08/18 05:49 Diagnostic Imaging: Patient Name: HENRIQUE RANDALL Medical Record#: [id number] Ordering Physician: Juan Frausto MD Acct.#: [id number] : 1965 Age: 52 Sex: F Location: EMERGENCY DEPARTMENT Exam Date: 04/07/18 075 ADM Status: REG ER Order Information: CHEST AP OR PORT Accession Number: [id number] CPT: 65676 HISTORY: SOB, REPEAT VISIT COMPARISONS: April 04, 2018 VIEWS: 1: frontal AP view of the chest at 8:20 AM FINDINGS: LINES AND TUBES: None. CARDIOMEDIASTINAL SILHOUETTE: The cardiomediastinal silhouette is normal for portable technique. PLEURA: The costophrenic angles are sharp. No pleural abnormalities are noted. LUNG PARENCHYMA: The lungs are clear. ABDOMEN: The upper abdomen is clear. There is no subphrenic gas. BONES AND SOFT TISSUES: No bone or soft tissue abnormalities are noted. IMPRESSION: NO ACTIVE CARDIOPULMONARY DISEASE. <Electronically signed by El Roberts MD in OV> 04/07/18 0822 Dictated By: El Roberts MD Dictated Date/Time: 04/07/18821 Transcribed Date/Time: 04/07/18821 Copy to: Assess/Plan/Problems-Billing Assessment: This is a 52 year old female with history of asthma and tobacco abuse that presents with complaint of several weeks of progressive cough with SOB, admitted with asthma exacerbation and hypoxic respiratory failure. - Patient Problems (1) Acute respiratory failure with hypoxia Code(s): J96.01 - ACUTE RESPIRATORY FAILURE WITH HYPOXIA SNOMED Code(s): 03648677 Comment: - 2/2 asthma exacerbation and continued tobacco use - Wean O2 as tolerated (2) Asthma exacerbation Code(s): J45.901 - UNSPECIFIED ASTHMA WITH (ACUTE) EXACERBATION SNOMED Code(s) : 407977332 Comment: - Had 2gm mag in ER - Continue IV steroids Q8h, nebs, inhalers, flutter valve and azithromycin - Added mucinex today - No consolidation on CXR (3) Mood disorder Comment: - Continue Paroxetine daily (4) DVT prophylaxis Code(s): CKG7394 - SNOMED Code(s): 084196903 Comment: - HSQ (5) Full code status Current Visit: No Status: Acute Code(s): Z78.9 - OTHER SPECIFIED HEALTH STATUS SNOMED Code(s): 406611504 Status and Disposition: Inpatient, dispo to home when medically stable.
[2018-04-08] MEDS: guaiFENesin ER TAB 600 MG PO SCH (20:15)
[2018-04-09] MEDS: methylPREDNISolone SOD 40 MG* 1 ML VIAL IV SCH ×4 (00:13→23:40)
[2018-04-09] MEDS: Albuterol/Ipratropium NEB.SOL* Albuterol 2.5 MG/Ipratropium 0.5 MG 3 ML INH SCH ×4 (00:57→19:29)
[2018-04-09] MEDS: Heparin VIAL(*) 5000 UNITS/ML VIAL (FIVE THOUSAND) SUBCUT SCH ×3 (05:09→20:16)
[2018-04-09] MEDS: Mometasone/Formoter 200/5 MDI INH SCH ×2 (07:52→19:28)
[2018-04-09] MEDS: PARoxetine HCL TAB* 40 MG PO SCH (08:29)
[2018-04-09] MEDS: guaiFENesin ER TAB 600 MG PO SCH ×2 (08:29→20:16)
[2018-04-09] MEDS ORDERED: Magnesium Sulfate 1 GM IV* 1 GM/100 ML BAG IV ONE (12:21)
[2018-04-09] MEDS: Montelukast Sodium TAB* 5 MG PO SCH (15:46)
[2018-04-09] MEDS ORDERED: Docusate CAP* 100 MG PO PRN (16:11)
--- NOTE | 2018-04-09 18:40 | PN ---
Subjective Date of Service: 04/09/18 Interval History: Patient seen and examined. Still not feeling much better, remains oxygen dependent. Denies chest pain, still has cough and feels tight and winded with ambulation. No fevers or chills. Objective Active Medications: Acetaminophen (Tylenol Tab*) 650 mg PO Q4H PRN PRN Reason: FEVER/PAIN Al Hydrox/Mg Hydrox/Simethicone (Maalox Plus*) 30 ml PO Q6H PRN PRN Reason: INDIGESTION Albuterol (Ventolin Hfa Inhaler*) 2 puff INH Q4H PRN PRN Reason: SOB/WHEEZING Albuterol/Ipratropium (Duoneb (Albuterol 2.5 Mg/Ipratropium 0.5 Mg)) 1 neb INH [id number] AWAKE [facility] Last Admin: 04/09/18 14:20 Dose: 1 neb Albuterol/Ipratropium (Duoneb (Albuterol 2.5 Mg/Ipratropium 0.5 Mg)) 1 neb INH Q2H PRN PRN Reason: SOB/WHEEZING Alprazolam (Xanax Tab*) 0.5 mg PO BEDTIME PRN PRN Reason: ANXIETY Benzonatate (Tessalon Cap*) 100 mg PO TID PRN PRN Reason: COUGH Last Admin: 04/07/18 11:39 Dose: 100 mg Docusate Sodium (Colace Cap*) 100 mg PO BID PRN PRN Reason: CONSTIPATION Last Admin: 04/09/18 16:48 Dose: 100 mg Guaifenesin (Mucinex*) 600 mg PO BID [facility] Last Admin: 04/09/18 08:29 Dose: 600 mg Heparin Sodium (Porcine) (Heparin Vial(*)) 5,000 units SUBCUT Q8HR [facility] Last Admin: 04/09/18 13:56 Dose: Not Given Methylprednisolone Sodium Succinate (Solu-Medrol 40 Mg) 40 mg IV Q8H [facility] Last Admin: 04/09/18 15:46 Dose: 40 mg Mometasone Furoate/Formoterol Fumar (Dulera 200/5 Mdi*) 2 puff INH BID [facility] Last Admin: 04/09/18 07:52 Dose: 2 puff Montelukast Sodium (Singulair Tab*) 5 mg PO DAILY [facility] Last Admin: 04/09/18 15:46 Dose: 5 mg Paroxetine HCl (Paxil Tab*) 40 mg PO DAILY [facility] Last Admin: 04/09/18 08:29 Dose: 40 mg Vital Signs - 8 hr 04/09/18 04/09/18 04/09/18 11:46 14:20 16:01 Temperature 98.3 F Pulse Rate 122 100 108 Respiratory 12 18 16 Rate Blood Pressure 122/82 137/71 (mmHg) O2 Sat by Pulse 96 97 97 Oximetry Oxygen Devices in Use Now: Nasal Cannula Appearance: alert, NAD Eyes: No Scleral Icterus, PERRLA Ears/Nose/Mouth/Throat: NL Teeth, Lips, Gums, Mucous Membranes Moist Neck: NL Appearance and Movements; NL JVP, Trachea Midline Respiratory: - - bilat insp and exp wheeze, poor air entry, no rales or rhonchi Cardiovascular: NL Sounds; No Murmurs; No JVD, RRR, No Edema Abdominal: NL Sounds; No Tenderness; No Distention Extremities: No Edema, No Clubbing, Cyanosis Skin: No Rash or Ulcers Neurological: Alert and Oriented x 3, NL Muscle Strength and Tone Nutrition: Taking PO's Result Diagrams: 04/08/18 05:49 04/08/18 05:49 Microbiology and Other Data: Microbiology 04/09/18 12:35 Gram Stain - Final Sputum Diagnostic Imaging: Patient Name: HENRIQUE RANDALL Medical Record#: [id number] Ordering Physician: Juan Frausto MD Acct.#: [id number] : 1965 Age: 52 Sex: F Location: EMERGENCY DEPARTMENT Exam Date: 04/07/18751 ADM Status: REG ER Order Information: CHEST AP OR PORT Accession Number: [id number] CPT: 37963 HISTORY: SOB, REPEAT VISIT COMPARISONS: April 04, 2018 VIEWS: 1: frontal AP view of the chest at 8:20 AM FINDINGS: LINES AND TUBES: None. CARDIOMEDIASTINAL SILHOUETTE: The cardiomediastinal silhouette is normal for portable technique. PLEURA: The costophrenic angles are sharp. No pleural abnormalities are noted. LUNG PARENCHYMA: The lungs are clear. ABDOMEN: The upper abdomen is clear. There is no subphrenic gas. BONES AND SOFT TISSUES: No bone or soft tissue abnormalities are noted. IMPRESSION: NO ACTIVE CARDIOPULMONARY DISEASE. <Electronically signed by El Roberts MD in OV> 04/07/18821 Dictated By: El Roberts MD Dictated Date/Time: 04/07/18821 Transcribed Date/Time: 04/07/18821 Copy to: Assess/Plan/Problems-Billing Assessment: This is a 52 year old female with history of asthma and tobacco abuse that presents with complaint of several weeks of progressive cough with SOB, admitted with asthma exacerbation and hypoxic respiratory failure. - Patient Problems (1) Acute respiratory failure with hypoxia Code(s): J96.01 - ACUTE RESPIRATORY FAILURE WITH HYPOXIA SNOMED Code(s): 34524999 Comment: - 2/2 asthma exacerbation and continued tobacco use - Wean O2 as tolerated (2) Asthma exacerbation Code(s): J45.901 - UNSPECIFIED ASTHMA WITH (ACUTE) EXACERBATION SNOMED Code(s) : 696809936 Comment: - Had 2gm mag in ER - Continue IV steroids Q8h, nebs, inhalers, flutter valve, azithromycin, and mucinex - No consolidation on CXR - Added tessalon and mucinex today with additional gm of magnesium (3) Mood disorder Comment: - Continue Paroxetine daily (4) DVT prophylaxis Code(s): FPW9941 - SNOMED Code(s): 486498654 Comment: - HSQ (5) Full code status Current Visit: No Status: Acute Code(s): Z78.9 - OTHER SPECIFIED HEALTH STATUS SNOMED Code(s): 143774120 Status and Disposition: Inpatient, dispo to home when medically stable.
[2018-04-10] MEDS: Albuterol/Ipratropium NEB.SOL* Albuterol 2.5 MG/Ipratropium 0.5 MG 3 ML INH SCH ×2 (00:58→06:10)
[2018-04-10] MEDS: Heparin VIAL(*) 5000 UNITS/ML VIAL (FIVE THOUSAND) SUBCUT SCH (05:06)
[2018-04-10] MEDS: Mometasone/Formoter 200/5 MDI INH SCH ×2 (06:11→07:55)
[2018-04-10] MEDS: methylPREDNISolone SOD 40 MG* 1 ML VIAL IV SCH (08:35)
[2018-04-10] MEDS: Montelukast Sodium TAB* 5 MG PO SCH (08:35)
[2018-04-10] MEDS: PARoxetine HCL TAB* 40 MG PO SCH (08:36)
[2018-04-10] MEDS: guaiFENesin ER TAB 600 MG PO SCH (08:36)
[2018-04-10 08:40] VITALS: BP 143/90
--- NOTE | 2018-04-10 21:48 | DS ---
CC: Dr. Den Scott * DISCHARGE SUMMARY: DATE OF ADMISSION: DATE OF DISCHARGE: 04/10/18 PRIMARY CARE PROVIDER: Dr. Den Scott. MY ATTENDING FOR TODAY: Dr. Nadya Jackson.* (DICTATED BY DIAZ MIX NP) HOSPITAL COURSE: In short, this is a 52-year-old female, known history of asthma, who presented to the emergency department with complaint of acute shortness of breath. The patient states that she has noticed her asthma has been getting progressively worse over the past month. She had started a short course of prednisone and some antibiotics and was increasing her inhalers. However, the patient states that when she was at home, she felt so short of breath that she was unable to breathe and came to the emergency department for evaluation. She was found to be hypoxic and placed on oxygen for support. She was given nebulizer treatments, 2 g of magnesium sulfate and admitted to inpatient service. The patient was empirically started on IV steroids, continued with inhalers, nebulizers, and a short course of antibiotics. The patient responded well to all therapies and was subsequently weaned off of oxygen on the morning of 04/10/18. The patient remained afebrile. Her white count did increase a little bit; however, she was on IV steroids. Rest of her labs were otherwise essentially unremarkable. The patient expressed her wish for discharge today with outpatient followup. She is clinically stable for discharge today. DISCHARGE DIAGNOSES: 1. Asthma with acute exacerbation. 2. History of tobacco abuse, counseled. 3. Hypoxic respiratory failure secondary to asthma with acute exacerbation. 4. History of mood disorder and depression, currently stable. DISCHARGE MEDICATIONS: Include: 1. Paroxetine 40 mg p.o. daily. 2. Advair 1 puff inhaled b.i.d. 3. Tessalon 100 mg p.o. t.i.d. as needed. 4. Ventolin inhaler 2 puffs q.4 hours as needed. 5. Ventolin neb 2.5 mg inhaled q.4 hours as needed. 6. Xanax 0.5 mg at bedtime as needed. 7. Prednisone taper dose starting at 40 mg daily, tapered by 10 mg q.3 days until complete for 12 days. 8. Mucinex 600 mg p.o. b.i.d. 9. Singulair 5 mg p.o. daily. 10. Azithromycin 500 mg p.o. daily. Please note her new medications are: 1. Azithromycin. 2. Guaifenesin. 3. Singulair. 4. Prednisone taper was changed. 5. Benzonatate capsules. REVIEW OF SYSTEMS: The patient denies any fever, fatigue, or chills. No acute shortness of breath. She does have a productive cough. No chest pain. She did have some nausea and vomiting in the morning with coughing, which has now resolved. The patient denies any nausea. No abdominal pain. No urinary complaints. No arthralgias or myalgias, and no further constitutional complaints. PHYSICAL EXAMINATION: Her physical exam today reveals a well-appearing, well- nourished female, in no acute distress. Her vital signs are: Blood pressure 143/90, heart rate 89, respiratory rate 16, O2 saturation 97% on room air with a temperature of 97.8. HEENT: The patient is atraumatic, normocephalic. PERRLA with nonicteric sclerae. Extraocular movements are intact. Oral mucosa is moist. Tongue is midline. Neck is supple. No carotid bruit auscultated. No thyromegaly noted. Cardiovascular: S1, S2 present with no murmurs, gallops , or rubs. Rate and rhythm are regular. Lungs are diminished throughout. She does have good air entry today. Mild expiratory wheeze on the right lower base. No rales or rhonchi noted, which is a significant improvement over the last 48 hours. Abdomen is soft, nontender, nondistended. Positive bowel sounds in all 4 quadrants. No organomegaly noted. was deferred. Musculoskeletal: There is no clubbing, no cyanosis, no edema. She has a steady gait, +2 distal pulses palpable. Gross motor and sensation are intact. Neurologic: Grossly intact with no focal deficits. Psychiatric: She is anxious , but cooperative and appropriate. DIAGNOSTIC STUDIES/LAB DATA: Laboratories: WBCs 13.3, RBCs 4.59, hemoglobin 11.6, hematocrit 37, platelets 338. Sodium 137, potassium 4.6, chloride 104, CO2 25, BUN 16, creatinine 0.57, GFR 112.3, glucose 95 to 133, calcium 9.1, LFTs within normal limits. D-dimer was negative at 213. Imaging: Chest x-ray dated 02/11/19 shows no active cardiopulmonary disease, no infiltrate or atelectasis noted. DISPOSITION: The patient will be discharged to home. FOLLOWUP: This patient was instructed to follow up with Dr. Den Scott, her primary care provider, in the next few days, preferably between Saturday and Saturday of next week. I instructed the patient that she should seek out attention from her primary care provider if she becomes short of breath again or come to the emergency department. I also stressed the importance of tobacco cessation with the patient and the fact that she needs to have her lungs checked by her primary before she returns to work next week. I also offered the patient to see somebody in [facility] if for some reason she was not able to come and see Dr. Scott in the office. DIET: Regular diet as tolerated. TIME SPENT: Approximately 40 minutes interfacing with the patient and the nursing staff on the patient's plan of care. DIAZ MIX NP [id number]/[facility] #: [id number] ALEXUS
== END 2018-04-10 13:17 | disposition home or self-care (01) | DRG 141 ==
LOC: ED 07:27 → MED 09:39 → OBSVTOIN 04-09 10:30
PROVIDERS: ADMIT Internal Medicine; ATTEND Internal Medicine
DX: J45.901 Unspecified asthma with (acute) exacerbation (principal); J96.01 Acute respiratory failure with hypoxia; F41.9 Anxiety disorder, unspecified; F17.210 Nicotine dependence, cigarettes, uncomplicated; F31.9 Bipolar disorder, unspecified; R00.0 Tachycardia, unspecified; F50.9 Eating disorder, unspecified; Z68.31 Body mass index [BMI] 31.0-31.9, adult; Z91.5 Personal history of self-harm; Z82.5 Family history of asthma and other chronic lower respiratory diseases; Z87.01 Personal history of pneumonia (recurrent); Z82.49 Family history of ischemic heart disease and other diseases of the circulatory system; Z81.8 Family history of other mental and behavioral disorders; Z83.2 Family history of diseases of the blood and blood-forming organs and certain disorders involving the immune mechanism
CPT/HCPCS: 36415; 71045; 80048; 80053; 83605; 84484; 85025; 85379; 87070; 87205; 90686; 93005; 94640; 99283; 99406; A9270-GY; J1100; J1644; J2920; J3475

== ENCOUNTER 2018-05-13 13:00 | Emergency (ER) | payer BC, OTHER ==
--- NOTE | 2018-05-13 14:06 | ED ---
Lower Extremity - HPI Summary HPI Summary: Patient is a 52-year-old female who presents emergency department for a left ankle injury that occurred yesterday. Patient states she tripped at work and twisted her left ankle. Patient states pain persisted today and she was having pain with ambulation. Symptoms are mild in severity. Walking makes symptoms worse. Rest makes symptoms better. Admits to intermittent tingling into left foot. No other injuries were sustained. - History of Current Complaint Chief Complaint: EDExtremityLower Stated Complaint: LEFT ANKLE INJURY AT WORK PER PT Time Seen by Provider: 05/13/18 14:04 Hx Obtained From: Patient Hx Last Menstrual Period: 2 weeks ago Pain Intensity: 7 - Allergies/Home Medications Allergies/Adverse Reactions: Allergies Allergy/AdvReac Type Severity Reaction Status Date / Time No Known Allergies Allergy Verified 04/07/18 07:31 PMH/Surg Hx/FS Hx/Imm Hx Previously Healthy: Yes Endocrine/Hematology History: Denies: Hx Anticoagulant Therapy, Hx Diabetes, Hx Thyroid Disease, Hx Unexplained Bleeding Cardiovascular History: Denies: Hx Hypertension, Hx Pacemaker/ICD Respiratory History: Reports: Hx Asthma, Hx Pneumonia, Hx Seasonal Allergies Denies: Hx Chronic Obstructive Pulmonary Disease (COPD), Hx Lung Cancer, Hx Sleep Apnea History: Denies: Hx Renal Disease Sensory History: Reports: Hx Contacts or Glasses Denies: Hx Hearing Aid Opthamlomology History: Reports: Hx Contacts or Glasses Neurological History: Denies: Hx Dementia, Hx Developmental Delay, Hx Headaches, Hx Migraine, Hx Seizures, Hx Spinal Cord Injury Psychiatric History: Reports: Hx Anxiety, Hx Eating Disorder - Has purged lately and hasn't done that in 20 years., Hx Depression, Hx Inpatient Treatment , Hx Community Mental Health Tx, Hx Bipolar Disorder, Hx Suicide Attempt Denies: Hx of Violent Episodes Against Others, Hx Substance Abuse Infectious Disease History: No Infectious Disease History: Denies: Hx Clostridium Difficile, Hx Hepatitis, Hx Human Immunodeficiency Virus (HIV), Hx Shingles, Hx Tuberculosis, Traveled Outside the [place] in Last 30 Days - Family History Known Family History: Positive: Hypertension, Respiratory Disease, Blood Disorder - grandfather with clotting, Other - bipolar, depression, anxiety, asthma, CAD, COPD, CA - Social History Occupation: Employed Full-time Lives: With Family Alcohol Use: Occasionally Hx Substance Use: No Substance Use Type: Reports: None Hx Tobacco Use: Yes Smoking Status (MU): Light Every Day Tobacco Smoker Type: Cigarettes Review of Systems Positive: Other - left ankle pain and swelling Skin: Negative Negative: Weakness, Paresthesia, Numbness All Other Systems Reviewed And Are Negative: Yes Physical Exam Triage Information Reviewed: Yes Vital Signs On Initial Exam: Initial Vitals Temp Pulse Resp BP Pulse Ox 98.1 F 109 18 119/84 94 05/13/18 13:01 05/13/18 13:01 05/13/18 13:01 05/13/18 13:01 05/13/18 13:01 Vital Signs Reviewed: Yes Appearance: Positive: Well-Appearing - Pt. sitting on bed in NAD. Skin: Positive: Warm, Dry Head/Face: Positive: Normal Head/Face Inspection Eyes: Positive: Normal, EOMI Neck: Positive: Supple Musculoskeletal: Positive: Other - Mild edema to left lateral malleolus. No breaks in skin. Very mild pain over base of 5th metatarsal, otherwise no foot pain. Achilles tendon intact. No pain to proximal tib/fib or knee. Neurological: Positive: Normal, CN Intact II-III Psychiatric: Positive: Affect/Mood Appropriate Procedures - Splinting Left Lower Extremity Pre-Made Type: velcro Pre-Proc Neuro Vasc Exam: normal Post-Proc Neuro Vasc Exam: normal Diagnostics - Vital Signs Vital Signs Temp Pulse Resp BP Pulse Ox 05/13/18 13:01 98.1 F 109 18 119/84 94 - Laboratory Lab Statement: Any lab studies that have been ordered have been reviewed, and results considered in the medical decision making process. Lower Extremity Course/Dx - Course Course Of Treatment: Patient presenting for minor left ankle injury. X-ray shows soft tissue edema without fracture/dislocation, reading per radiology. Patient was placed in air splint and crutches for comfort. Advised ice and elevation. Follow up with orthopedics or PCP if pain persisted once 2 weeks. Tylenol or Motrin for pain as directed. Patient understands and agrees with plan. - Diagnoses Differential Diagnosis/HQI/PQRI: Positive: Dislocation, Fracture (Closed), Sprain, Strain Provider Diagnoses: Ankle sprain Discharge - Sign-Out/Discharge Documenting (check all that apply): Patient Departure Patient Received Moderate/Deep Sedation with Procedure: No - Discharge Plan Condition: Good Disposition: HOME Patient Education Materials: Ankle Sprain (ED) Forms: *Work Release Referrals: Kenan Rodas MD [Medical Doctor] - Den Scott MD [Primary Care Provider] - Additional Instructions: Schedule a follow up appointment with PCP or orthopedics if pain persist Ice and elevate Splint for comfort Tylenol or Motrin for pain as directed Return to ER if symptoms change or worsen - Billing Disposition and Condition Condition: GOOD Disposition: Home
[2018-05-13] MEDS ORDERED: Naproxen TAB* 250 MG PO ONE (14:26)
[2018-05-13 15:17] VITALS: BP 141/100
== END 2018-05-13 15:16 | disposition home or self-care (01) ==
LOC: ED 13:00
DX: S93.402A Sprain of unspecified ligament of left ankle, initial encounter (principal); W18.40XA Slipping, tripping and stumbling without falling, unspecified, initial encounter; Y92.9 Unspecified place or not applicable; Y99.0 Civilian activity done for income or pay; F17.210 Nicotine dependence, cigarettes, uncomplicated
CPT/HCPCS: 99282; A9270-GY

== ENCOUNTER 2018-06-05 08:13 | Observation (INO) | payer BC, OTHER ==
[2018-06-05] MEDS ORDERED: Magnesium Sulfate 2 GM IV* 2 GM/50 ML BAG IVPB ONE (08:21)
[2018-06-05] MEDS ORDERED: Albuterol/Ipratropium NEB.SOL* Albuterol 2.5 MG/Ipratropium 0.5 MG 3 ML INH ONE (08:24)
--- NOTE | 2018-06-05 08:25 | ED ---
Shortness of Breath - HPI Summary HPI Summary: 52 year old F brought in by [facility] ambulance to [facility] complains of worsening shortness of breath since last night. The patient rates the pain 0/10 in severity. Symptoms aggravated by nothing. Symptoms alleviated by nothing. Patient reports diaphoresis. Patient denies fever, chills, erythema of eyes, nasal congestion, sore throat, chest pain, cough, abdominal pain, nausea, vomiting, dysuria, hematuria, myalgia, edema, rash, and dizziness. Patient arrives to ED on CPAP. EMS reports that upon arrival to scene, patient was not able to speak in full sentences, O2 stat 90. Patient was given 2 Duonebs and 10 mg dexamethasone with improved air movement although still wheezing. Patient has hx asthma for which she takes Albuterol and Qvar. Patient has been hospitalized 4 times in the last year for asthma exacerbations. Her last admission was March 2018. Patient is a former smoker. - History of Current Complaint Hx Obtained From: Patient, EMS Onset/Duration: Lasting Days - last night, Still Present Timing: Constant Current Severity: None Aggrevating Factors: Nothing Alleviating Factors: Nothing Associated Signs & Symptoms: Negative - denies fever, chills, erythema of eyes, nasal congestion, sore throat, chest pain, cough, abdominal pain, nausea, vomiting, dysuria, hematuria, myalgia, edema, rash, and dizziness, Diaphoresis - Allergy/Home Medications Allergies/Adverse Reactions: Allergies Allergy/AdvReac Type Severity Reaction Status Date / Time No Known Allergies Allergy Verified 04/07/18 07:31 Home Medications: Home Medications Albuterol 2.5MG/3ML (0.083%)* [Ventolin 2.5 MG/3 ML NEB.KASANDRA*] 2.5 mg INH Q4HR PRN 06/05/18 [History Confirmed 06/05/18] PMH/Surg Hx/FS Hx/Imm Hx Previously Healthy: No Endocrine/Hematology History: Denies: Hx Anticoagulant Therapy, Hx Diabetes, Hx Thyroid Disease, Hx Unexplained Bleeding Cardiovascular History: Denies: Hx Hypertension, Hx Pacemaker/ICD Respiratory History: Reports: Hx Asthma, Hx Pneumonia, Hx Seasonal Allergies Denies: Hx Chronic Obstructive Pulmonary Disease (COPD), Hx Lung Cancer, Hx Sleep Apnea History: Denies: Hx Renal Disease Sensory History: Reports: Hx Contacts or Glasses Denies: Hx Hearing Aid Opthamlomology History: Reports: Hx Contacts or Glasses Neurological History: Denies: Hx Dementia, Hx Developmental Delay, Hx Headaches, Hx Migraine, Hx Seizures, Hx Spinal Cord Injury Psychiatric History: Reports: Hx Anxiety, Hx Eating Disorder - Has purged lately and hasn't done that in 20 years., Hx Depression, Hx Inpatient Treatment , Hx Community Mental Health Tx, Hx Bipolar Disorder, Hx Suicide Attempt Denies: Hx of Violent Episodes Against Others, Hx Substance Abuse Infectious Disease History: Denies: Hx Clostridium Difficile, Hx Hepatitis, Hx Human Immunodeficiency Virus (HIV), Hx Shingles, Hx Tuberculosis - Family History Known Family History: Positive: Hypertension, Respiratory Disease, Blood Disorder - grandfather with clotting, Other - bipolar, depression, anxiety, asthma, CAD, COPD, CA - Social History Alcohol Use: Occasionally Hx Substance Use: No Substance Use Type: Reports: None Hx Tobacco Use: Yes Smoking Status (MU): Former Smoker Type: Cigarettes Review of Systems Positive: Skin Diaphoresis. Negative: Fever, Chills Negative: Erythema ENT: Negative - nasal congestion Negative: Sore Throat Negative: Chest Pain Positive: Shortness Of Breath. Negative: Cough Negative: Abdominal Pain, Vomiting, Nausea Negative: dysuria, hematuria Negative: Myalgia, Edema Negative: Rash Neurological: Negative - Dizziness All Other Systems Reviewed And Are Negative: Yes Physical Exam - Summary Physical Exam Summary: Constitutional: Well-developed, Well-nourished, Alert. (-) Distressed Skin: Warm, Dry HENT: Normocephalic; Atraumatic Eyes: Conjunctiva normal Neck: Musculoskeletal ROM normal neck. (-) JVD, (-) Stridor, (-) Tracheal deviation Cardio: Rhythm regular, rate normal, Heart sounds normal; Intact distal pulses; The pedal pulses are 2+ and symmetric. Radial pulses are 2+ and symmetric. (-) Murmur Pulmonary/Chest wall: Patient is in respiratory distress, tachypneic. She has diffuse wheezes. She speaks 1-2 words at a time. Abd: Soft, (-) tenderness, (-) Distension, (-) Guarding, (-) Rebound Musculoskeletal: (-) Edema Lymph: (-) Cervical adenopathy Neuro: Alert, Oriented x3 Psych: Mood and affect Normal Triage Information Reviewed: Yes Vital Signs Reviewed: Yes Diagnostics - Laboratory Result Diagrams: 06/05/18 08:48 06/05/18 08:48 Lab Statement: Any lab studies that have been ordered have been reviewed, and results considered in the medical decision making process. - Radiology CXR Radiology Interpretation Completed By: Radiologist Summary of Radiographic Findings: 1. Stigmata of probable chronic obstructive pulmonary disease. No compelling evidence for pneumonia. 2. Chest CT with IV contrast suggested given suggestion of potential LEFT basilar pulmonary nodule and risks factors for bronchogenic carcinoma. ED physician has reviewed this report. - EKG 0825 Summary of EKG Findings: Non STEMI Re-Evaluation - Re-Evaluation First Eval Re-Evaluation Time: 09:39 Change: Improved Comment: Patient is still wheezing but respiratory rate has normalized Course/Dx - Course Course Of Treatment: 52 year old F brought in by [facility] ambulance to [facility] complains of worsening shortness of breath since last night. Patient has been hospitalized 4 times in the last year for asthma exacerbations. Her last admission was March 2018. In ED course, patient was given Duoneb and magnesium sulfate. CXR showed, per radiologist, 1. Stigmata of probable chronic obstructive pulmonary disease. No compelling evidence for pneumonia. 2. Chest CT with IV contrast suggested given suggestion of potential LEFT basilar pulmonary nodule and risks factors for bronchogenic carcinoma. EKG was negative for STEMI. Labs were unremarkable. Spoke with Dr. Duggan, hospitalist, at 1136, who agrees to admit patient. The patient is agreeable to hospitalist admission. - Diagnoses Provider Diagnoses: COPD exacerbation - Critical Care Time Critical Care Time: 30-74 min - 45 minutes Discharge - Sign-Out/Discharge Documenting (check all that apply): Patient Departure - Admit Patient Received Moderate/Deep Sedation with Procedure: No - Discharge Plan Condition: Stable Disposition: ADMITTED TO [facility] - Attestation Statements Document Initiated by Scribe: Yes Documenting Scribe: Simran Sherman Provider For Whom Scribe is Documenting (Include Credential): Juan Frausto MD Scribe Attestation: Simran Jenkins, scribed for Juan Frausto MD on 06/05/18 at 1538. Status of Scribe Document: Ready
[2018-06-05 08:58] LABS: ABS Basophils 0.1 10^3/ul (0-0.2); ABS Eosinophils 0.6 10^3/ul (0-0.6); ABS Lymphocytes 1.7 10^3/ul (1.0-4.8); ABS Monocytes 0.5 10^3/ul (0-0.8); ABS Neutrophils 6.2 10^3/ul (1.5-7.7); ABS Nucleated RBC 0 10^3/ul; Eosinophil % 6.7 %; Hematocrit 35 % (33-41); Hemoglobin 11.1 g/dL (12.0-16.0); Lymphocyte % 18.5 %; Mean Corpuscular HGB Conc 32 g/dL (31-36); Mean Corpuscular Hemoglobin 24 pg (27-31); Mean Corpuscular Volume 77 fL (80-97); Mean Platelet Volume 8.1 fL (7.4-10.4); Nucleated Red Blood Cells % 0.1; Platelet Count 318 10^3/uL (150-450); Red Blood Count 4.58 10^6 /uL (3.70-4.87); Red Cell Distribution Width 18 % (10.5-15); White Blood Count 9.1 10^3/uL (3.5-10.8)
[2018-06-05 09:16] LABS: Albumin 3.9 g/dL (3.2-5.2); Albumin/Globulin Ratio 1.5 (1-3); BUN/Creatinine Ratio 18.2 (8-20); Calcium 8.7 mg/dL (8.6-10.3); EGFR African American 141.6 (>60); Globulin 2.6 g/dL (2-4); Potassium 3.8 mmol/L (3.5-5.0); Total Bilirubin 0.3 mg/dL (0.2-1.0); Total Protein 6.5 g/dL (6.4-8.9)
[2018-06-05] MEDS ORDERED: Acetaminophen TAB* 325 MG PO PRN (12:28)
[2018-06-05 13:01] LABS: Influenza A Molecular NEGATIVE (Negative); Influenza B Molecular NEGATIVE (Negative)
[2018-06-05] MEDS ORDERED: Albuterol 2.5 MG/3 ML NEB.SOL* (0.083%) INH PRN (13:02)
[2018-06-05] MEDS ORDERED: Iohexol 300* (CONTRAST) 10 ML SDV IV ONE (13:11)
[2018-06-05] MEDS: cefTRIAXone(*) 1 GM in NS 0.9% 50 ML* 50 ML IVPB SCH (13:27)
[2018-06-05 14:20] LABS: Urine Appearance Clear; Urine Bilirubin Negative (Negative); Urine Blood Negative (Negative); Urine Color Yellow; Urine Glucose Negative (Negative); Urine Ketones Trace (Negative); Urine Nitrite Negative (Negative); Urine Protein Negative (Negative); Urine Specific Gravity 1.009 (1.010-1.030); Urine Urobilinogen Negative (Negative)
[2018-06-05] MEDS: Albuterol/Ipratropium NEB.SOL* Albuterol 2.5 MG/Ipratropium 0.5 MG 3 ML INH SCH ×3 (14:53→23:05)
[2018-06-05] MEDS ORDERED: Albuterol 2.5 MG/3 ML NEB.SOL* (0.083%) INH SCH (15:00)
[2018-06-05] MEDS ORDERED: Ipratropium 0.5MG/2.5ML NEB* 0.5 MG/2.5 ML NEB.SOLN INH SCH (15:00)
[2018-06-05] MEDS: Azithromycin IV(*) 500 MG in NS 0.9% 250 ML* 250 ML IVPB SCH (15:43)
[2018-06-05] MEDS: Enoxaparin(*) 40 MG/0.4 ML SYR SUBCUT SCH (15:46)
[2018-06-05] MEDS: methylPREDNISolone SOD 40 MG* 1 ML VIAL IV SCH (18:33)
--- NOTE | 2018-06-05 19:52 | HP ---
CC: Dr. Scott * HISTORY AND PHYSICAL: DATE OF ADMISSION: 06/05/18 PROVIDER: Rosey Alas NP PRIMARY CARE PROVIDER: Dr. Scott. ATTENDING PHYSICIAN WHILE IN THE HOSPITAL: Dr. Nadya Jackson * (dictated by Rosey Alas NP). CHIEF COMPLAINT: Shortness of breath. HISTORY OF PRESENT ILLNESS: Ms. Olvera is a 52-year-old female with a past medical history significant for asthma and history of smoking, recently quit in March 2018. The patient reports that her symptoms originally started back in March. At that time, she was admitted to the hospital for asthma exacerbation and hypoxic respiratory failure. She reports that she received antibiotics and steroids and her symptoms improved. She reports that approximately 2 weeks after being off the steroids, she again started becoming progressively more short of breath as the time went on. The patient reports that last night she started feeling short of breath. She does have breathing treatments at home and that improved her symptoms, but was unable to lie in bed , so she slept up in the chair. She reports that she has had cough, has had intermittent colds with cough, congestion, and rhinorrhea since March that have been exacerbating her symptoms. The patient reports that this morning she got up to get ready for work and she became progressively more short of breath, breathing treatments did not help, so she called the ambulance and was brought to the emergency room for further evaluation. While en route to the emergency room, she received 2 DuoNebs and dexamethasone 10 mg, which she reports improved her breathing. While in the emergency room, she had routine lab work drawn. She had 2 g of magnesium and was able to titrate her oxygen down to 4 L via face mask. At the time of evaluation, the patient reports that she is feeling much better that her breathing has improved significantly. She is able to speak in full sentences. She denies any recent fever, chills, unintended weight loss, chest pain, or edema. She does report cough. She denies any hemoptysis. She does report significant shortness of breath. She reports that her cough is productive with green thick secretions. She does also report some vomiting after taking several breathing treatments. Denies any diarrhea or abdominal pain, hematuria, dysuria, focal weakness or sensory loss. Denies any visual complaints, dysphagia, arthralgias, myalgias, rashes, lesions, or open sores. Denies any psychosis or anxiety. PAST MEDICAL HISTORY: 1. Asthma. 2. History of smoking, quit in March of 2018. 3. Anxiety. PAST SURGICAL HISTORY: None. HOME MEDICATIONS: 1. Paxil 40 mg p.o. daily. 2. Advair 500/50 one inhalation b.i.d. 3. Albuterol inhaler p.r.n. 4. Albuterol nebulizer p.r.n. shortness of breath. ALLERGIES: No known drug allergies. FAMILY HISTORY: Mother with a history of COPD. Father was a heavy smoker and is currently on oxygen. She reports that cancer runs in her family. SOCIAL HISTORY: The patient reports that she quit smoking in March. Prior to that, she smoked a pack to pack and a half a day for 30 years, but over the past year she reports that she smoked approximately 5 cigarettes a day. 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 Surrogate decision maker in the event she is unable to make her own decisions is her significant other, Kirill Gooden. His phone number is [phone]. She is a full code. REVIEW OF SYSTEMS: A review of 14 systems was completed. All those pertinent positives are mentioned in the HPI. Otherwise were negative. PHYSICAL EXAMINATION GENERAL: At this time, Ms. Olvera is a 52-year-old female. She is resting on the stretcher in the emergency room. She is alert and oriented x3. She does not appear to be in any acute distress at this time. VITAL SIGNS: Blood pressure 155/84, heart rate is 107, respirations are 24, O2 saturation 95% on 2 L nasal cannula, temperature was 98.1. HEENT: Head is atraumatic, normocephalic. Eyes: EOMs are intact. Sclerae anicteric and not pale. Oral mucosa appeared to be moist. NECK: Supple. LUNGS: With expiratory wheezes throughout and crackles in the bases bilaterally. CARDIAC: S1, S2. Regular rate and rhythm. No murmurs, rubs, or gallops. She is tachycardic. ABDOMEN: Soft and nontender. Bowel sounds are present x4. EXTREMITIES: Pedal pulses are +2 bilaterally. She is able to move all 4 extremities with 5/5 strength. There is no clubbing or cyanosis. NEUROLOGIC: She is awake, alert, oriented x3. Speech is clear. Thought process is intact. There are no gross focal deficits. SKIN: Intact. DIAGNOSTIC STUDIES/LAB DATA: WBCs were 9.1, RBCs 4.54, hemoglobin 11.1, hematocrit 35, platelet count 318. Sodium 136, potassium 3.8, chloride 105, carbon dioxide was 26, anion gap was 5, BUN was 10, creatinine 0.55, glucose was 96, lactic acid 1.5, calcium 8.7. ASTs were 18, ALTs were 17, alkaline phosphatase was 93. Urine: Color was yellow, clear, pH was 7.0, specific gravity 1.009, urine protein was negative, urine ketones were trace; urine blood , nitrites, bilirubin, urobilinogen, leukocyte esterase, and glucose were all negative. Flu A and B were negative. She had a chest x-ray, radiologist's impression: Stigmata for probable chronic obstructive pulmonary disease. No compelling evidence for pneumonia. CT of the chest with IV contrast is suggested given the suggestion of potential left basilar pulmonary nodule at 1.3 cm and risk factors for bronchogenic carcinoma. She had an electrocardiogram, which showed sinus tachycardia at a rate of 107. ASSESSMENT AND PLAN: Ms. Olvera is a 52-year-old female with past medical history significant for asthma, who was recently admitted to [facility] [place] with asthma exacerbation and hypoxic respiratory failure, who returned to the emergency room today with complaints of increased shortness of breath. She will be admitted under observation status for: 1. Acute hypoxic respiratory failure with asthma/chronic obstructive pulmonary disease exacerbation. The patient was given dexamethasone 10 mg by EMS and DuoNebs. I will continue her on Solu-Medrol 40 mg q.12 hours x3 doses and then transition her to prednisone 60 mg p.o. She will be placed on azithromycin and ceftriaxone for acute bronchitis, which has likely precipitated her exacerbation. We will continue to titrate her oxygen as able to maintain O2 saturations greater than 92%. Given that this is her second exacerbation in a short period of time, I would recommend an outpatient consultation with Dr. Tomas from Pulmonology. 2. History of anxiety. We will continue Paxil as previously prescribed. 3. DVT prophylaxis: I will place her on Lovenox subcu. 4. Code status: She is a full code. TIME SPENT: Time spent on this admission was 60 minutes, greater than half that time was at the bedside reviewing events leading thus far to her hospitalization, performing my physical exam, and implementing my plan of care. I have discussed this with my attending, Dr. Nadya Jcakson; she is in agreement with my plan. ROSEY ALAS, EMPLOYEE'S REPRESENTATIVE [id number]/[facility] #: [id number] [facility]
[2018-06-05] MEDS: Mometasone/Formoter 200/5 MDI INH SCH (20:05)
[2018-06-05] MEDS: guaiFENesin ER TAB 600 MG PO SCH (21:51)
[2018-06-05] MEDS: Melatonin 3 MG TAB PO PRN (21:51)
[2018-06-05] MEDS ORDERED: Melatonin 3 MG TAB PO ONE (22:36)
[2018-06-05] MEDS: NS 0.9% 1000 ML** 1,000 ML IV SCH (22:44)
[2018-06-06] MEDS: cefTRIAXone(*) 1 GM in NS 0.9% 50 ML* 50 ML IVPB SCH ×2 (02:14→13:21)
[2018-06-06] MEDS: Albuterol/Ipratropium NEB.SOL* Albuterol 2.5 MG/Ipratropium 0.5 MG 3 ML INH SCH ×6 (03:02→23:08)
[2018-06-06 07:31] LABS: ABS Basophils 0.1 10^3/ul (0-0.2); ABS Eosinophils 0 10^3/ul (0-0.6); ABS Lymphocytes 1.5 10^3/ul (1.0-4.8); ABS Monocytes 0.7 10^3/ul (0-0.8); ABS Neutrophils 12.2 10^3/ul (1.5-7.7); ABS Nucleated RBC 0 10^3/ul; Eosinophil % 0.1 %; Hematocrit 34 % (33-41); Hemoglobin 10.4 g/dL (12.0-16.0); Lymphocyte % 10.2 %; Mean Corpuscular HGB Conc 31 g/dL (31-36); Mean Corpuscular Hemoglobin 24 pg (27-31); Mean Corpuscular Volume 77 fL (80-97); Nucleated Red Blood Cells % 0; Platelet Count 297 10^3/uL (150-450); Red Cell Distribution Width 18 % (10.5-15); White Blood Count 14.5 10^3/uL (3.5-10.8)
[2018-06-06] MEDS: Mometasone/Formoter 200/5 MDI INH SCH ×2 (07:32→19:19)
[2018-06-06] MEDS: methylPREDNISolone SOD 40 MG* 1 ML VIAL IV SCH (08:06)
[2018-06-06] MEDS: PARoxetine HCL TAB* 40 MG PO SCH (09:38)
[2018-06-06] MEDS: guaiFENesin ER TAB 600 MG PO SCH ×2 (09:38→20:11)
[2018-06-06] MEDS: Enoxaparin(*) 40 MG/0.4 ML SYR SUBCUT SCH (13:21)
[2018-06-06] MEDS ORDERED: NS 0.9% 250 ML* 250 ML ONE (14:07)
[2018-06-06] MEDS: Azithromycin IV(*) 500 MG in NS 0.9% 250 ML* 250 ML IVPB SCH (14:10)
--- NOTE | 2018-06-06 14:40 | PN ---
Subjective Date of Service: 06/06/18 Interval History: patient seen today, feels little better, still having cough and congestions. feels better was able to take a shower. no acute events overnight. remains on 2 liters nasal canula. CCT chest yesterday did confirm presence of pneumonia. Past Medical History: Unchanged from Admission Objective Active Medications: Acetaminophen (Tylenol Tab*) 650 mg PO Q4H PRN PRN Reason: FEVER/PAIN Albuterol (Ventolin 2.5 Mg/3 Ml Neb.Viktoriya*) 2.5 mg INH [id number] AWAKE PRN PRN Reason: SOB/WHEEZING Albuterol/Ipratropium (Duoneb (Albuterol 2.5 Mg/Ipratropium 0.5 Mg)) 1 neb INH [id number] AWAKE [facility] Last Admin: 06/06/18 11:38 Dose: 1 neb Azithromycin (Zithromax Tab*) 250 mg PO DAILY [facility] Cefdinir (Cefdinir Cap*) 300 mg PO BID [facility] Enoxaparin Sodium (Lovenox(*)) 40 mg SUBCUT Q24H [facility] Last Admin: 06/06/18 13:21 Dose: 40 mg Guaifenesin (Mucinex*) 600 mg PO BID [facility] Last Admin: 06/06/18 09:38 Dose: 600 mg Sodium Chloride (Ns 0.9% 1000 Ml) 1,000 mls @ 75 mls/hr IV PER RATE [facility] Last Admin: 06/05/18 22:44 Dose: 75 mls/hr Ceftriaxone Sodium 1 gm/ (Sodium Chloride) 50 mls @ 200 mls/hr IVPB Q12H [facility] Stop: 06/06/18 23:59 Last Admin: 06/06/18 13:21 Dose: 200 mls/hr Azithromycin 500 mg/ Sodium (Chloride) 250 mls @ 250 mls/hr IVPB Q24H [facility] Stop: 06/06/18 23:59 Last Admin: 06/06/18 14:10 Dose: 250 mls/hr Melatonin (Melatonin) 3 mg PO BEDTIME PRN PRN Reason: SLEEP Last Admin: 06/05/18 21:51 Dose: 3 mg Mometasone Furoate/Formoterol Fumar (Dulera 200/5 Mdi*) 1 puff INH BID [facility] Last Admin: 06/06/18 07:32 Dose: 1 puff Paroxetine HCl (Paxil Tab*) 40 mg PO DAILY [facility] Last Admin: 06/06/18 09:38 Dose: 40 mg Prednisone (Deltasone Tab*) 60 mg PO DAILY [facility] Vital Signs - 8 hr 06/06/18 06/06/18 06/06/18 06:47 07:34 10:00 Temperature 97.7 F Pulse Rate 95 100 Respiratory 20 20 18 Rate Blood Pressure 117/77 (mmHg) O2 Sat by Pulse 95 98 Oximetry 06/06/18 06/06/18 11:19 11:38 Temperature 97.9 F Pulse Rate 104 88 Respiratory 18 20 Rate Blood Pressure 117/71 (mmHg) O2 Sat by Pulse 95 96 Oximetry Oxygen Devices in Use Now: Nasal Cannula Appearance: awake, alert. no acute events Eyes: No Scleral Icterus, - - EOMI Ears/Nose/Mouth/Throat: NL Teeth, Lips, Gums, Mucous Membranes Moist Neck: NL Appearance and Movements; NL JVP, Trachea Midline Respiratory: Symmetrical Chest Expansion and Respiratory Effort, - - coarse rhonchi, bilateral. wheezing. no distress. Cardiovascular: NL Sounds; No Murmurs; No JVD, RRR, No Edema Abdominal: NL Sounds; No Tenderness; No Distention Lymphatic: No Cervical Adenopathy Extremities: No Edema Skin: No Rash or Ulcers Neurological: Alert and Oriented x 3 Result Diagrams: 06/06/18 07:23 06/05/18 08:48 Assess/Plan/Problems-Billing Assessment: 52 year old female admitted for right upper lobe pneumonaie and found to have incidental thyroid nodule - Patient Problems (1) Pneumonia Current Visit: No Status: Acute Code(s): J18.9 - PNEUMONIA, UNSPECIFIED ORGANISM SNOMED Code(s): 496136419 Comment: - Right upper lobe on CT chest 06/05/18 - Suspect CAP. Will continue with CTX and azithro IV today and transition to PO zithromax and cefdinir in am (2) Asthma exacerbation Current Visit: No Status: Acute Code(s): J45.901 - UNSPECIFIED ASTHMA WITH ( ACUTE) EXACERBATION SNOMED Code(s): 029469451 Comment: - Continue IV steroids , I will switch to po prednisone today - continue nebs, inhalers, flutter valve, azithromycin, and mucinex (3) Thyroid nodule Current Visit: Yes Status: Acute Code(s): E04.1 - NONTOXIC SINGLE THYROID NODULE SNOMED Code(s): 272114432 Comment: - Incidentaly found on CT scan of chest. No acute interventions. She need to have outpatient Thyroid US (4) DVT prophylaxis Current Visit: No Status: Acute Code(s): EUQ2781 - SNOMED Code(s): 624552186 Comment: - Lovenox SQ
[2018-06-06] MEDS: Melatonin 3 MG TAB PO PRN (20:11)
[2018-06-06] MEDS: NS 0.9% 1000 ML** 1,000 ML IV SCH (20:54)
[2018-06-06] MEDS ORDERED: Docusate CAP* 100 MG PO PRN (21:48)
[2018-06-07] MEDS: Albuterol/Ipratropium NEB.SOL* Albuterol 2.5 MG/Ipratropium 0.5 MG 3 ML INH SCH ×3 (03:06→11:25)
[2018-06-07] MEDS: Mometasone/Formoter 200/5 MDI INH SCH (07:35)
[2018-06-07] MEDS ORDERED: Cefdinir cap* 300 MG CAP PO SCH (09:00)
[2018-06-07] MEDS ORDERED: Azithromycin TAB* 250 MG PO SCH (09:00)
[2018-06-07] MEDS ORDERED: predniSONE TAB* 20 MG PO SCH ×2 (09:00→14:32)
[2018-06-07 09:12] LABS: ABS Basophils 0.1 10^3/ul (0-0.2); ABS Eosinophils 0.2 10^3/ul (0-0.6); ABS Lymphocytes 3.1 10^3/ul (1.0-4.8); ABS Monocytes 0.5 10^3/ul (0-0.8); ABS Neutrophils 8.1 10^3/ul (1.5-7.7); ABS Nucleated RBC 0 10^3/ul; Eosinophil % 1.3 %; Hematocrit 33 % (33-41); Hemoglobin 10.1 g/dL (12.0-16.0); Lymphocyte % 25.7 %; Mean Corpuscular HGB Conc 31 g/dL (31-36); Mean Corpuscular Hemoglobin 24 pg (27-31); Mean Corpuscular Volume 78 fL (80-97); Mean Platelet Volume 8.2 fL (7.4-10.4); Nucleated Red Blood Cells % 0; Platelet Count 285 10^3/uL (150-450); Red Blood Count 4.22 10^6 /uL (3.70-4.87); Red Cell Distribution Width 18 % (10.5-15); White Blood Count 11.9 10^3/uL (3.5-10.8)
[2018-06-07 10:18] VITALS: BP 129/78
[2018-06-07] MEDS: PARoxetine HCL TAB* 40 MG PO SCH (10:23)
[2018-06-07] MEDS: guaiFENesin ER TAB 600 MG PO SCH (10:23)
[2018-06-07] MEDS: NS 0.9% 1000 ML** 1,000 ML IV SCH (10:27)
[2018-06-07] MEDS: Enoxaparin(*) 40 MG/0.4 ML SYR SUBCUT SCH (13:06)
--- NOTE | 2018-06-07 16:23 | DS ---
CC: Dr. Den Scott DISCHARGE SUMMARY: DATE OF ADMISSION: 06/05/18 DATE OF DISCHARGE: 06/07/18 PRIMARY CARE PROVIDER: Dr. Den Scott. FINAL DISCHARGE DIAGNOSES: 1. Right upper lobe pneumonia. 2. Asthma exacerbation. 3. Incidental thyroid nodule. HOSPITAL COURSE: The patient presented to [facility] on 06/05/18 for shortness of breath associated with underlying history of asthma and prior history of smoking. She was in the hospital i march for acute asthma exacerbation and she tells me she has not smoked since March. Then, a bout 2 weeks after she completed her treatment for her asthma exacerbation in March, her symptoms started to reoccur, was getting more shortness of breath. She has been using the inhaler more freque ntly and she was getting more and more lightheaded associated with cough and congestion. Finally, he r symptoms got so severe, she called the ambulance who brought her to the emergency room. She did re ceive oxygen, steroid en route and she was requiring oxygen 4 L via facemask. She improved significa ntly by the time she arrived to the ED and she was admitted for acute asthma exacerbation and pneumon ia. The chest x-ray did not suggest evidence of infiltrate from the emergency room on 06/05/18. New chest x-ray showed some COPD changes and recommended to obtain a CTA of the chest. CTA of the chest with IV contrast was obtained, did not show evidence for mass, but it did show right upper lobe pneu monia and incidental thyroid nodules. She was admitted to the medical floor. She was treated with ce ftriaxone and Zithromax on admission and the second day. She was also started on steroids with the ne bulizer. She was seen and evaluated by me today and I transitioned her to oral prednisone and oral a ntibiotics and I was able to ambulate her on room air about 300 feet and maintained saturation 92% an d at rest 97% to 98% on room air. She tolerated diet, tolerated her medications; therefore, I deemed the patient stable to be discharged home in stable condition. PHYSICAL EXAM ON DISCHARGE: Her vital signs are temperature 98, pulse 92 to 101, respiratory rate 18 , satting 98% on room air, blood pressure 129/78. Generally, she is awake, alert, oriented, pleasant , in no apparent distress. Head and Neck: Normocephalic, atraumatic. Supple. Cardiovascular: S1, S2. Regular rate and rhythm. Lungs: Fine expiratory wheeze, coarse rhonchi, and transmitted upper airway breath sounds. Abdomen: Positive bowel sounds. Soft, nontender, nondistended. Extremities: No pedal edema. Good peripheral pulse. DIAGNOSTIC STUDIES/LAB DATA: She had multiple CBCs, significant for white count of 14,000 on day 2 d own to 11,000 with decrease in her left shift from 84% down to 67%. Chemistry unremarkable. Lactic acid 1.5. Urinalysis negative. Influenza A and B negative. Diagnostic studies: She had an EKG, which shows sinus tachycardia with a rate of 107 in the emergenc y room, NE 153, QRS 98 milliseconds, QTc 354. Chest x-ray shows COPD changes, no acute disease. CTA of the chest shows right upper lobe infiltrate and incidental thyroid nodules. DISCHARGE MEDICATIONS: Continue her home medications as follows: 1. Albuterol inhaler as needed. 2. Durvalumab as per home regimen. 3. Advair 500/50 one puff b.i.d. 4. Paxil 40 mg daily. 5. Albuterol inhaler. New prescription on discharge: 1. Azithromycin 250 mg daily for 4 more days. 2. Cefdinir 300 mg b.i.d. for 7 more days. 3. Mucinex 600 b.i.d. 4. Melatonin 3 mg at bedtime p.r.n. for sleep. 5. Continue her home medication of Singulair 5 mg daily. 6. Prednisone 20 mg tablet to take 3 tablets for 3 days, 2 tablets for 4 days, 1 tab for 4 days, joana f tab for 4 days, then stop. DISCHARGE INSTRUCTIONS: 1. The patient is to follow up with her primary care in 1 to 2 weeks. 2. She will benefit from outpatient repeat chest x-ray in 3 to 4 weeks to ensure resolution of her p neumonia as well as ultrasound to further delineate the thyroid nodule. DISCHARGE DISPOSITION: Home, on room air. DISCHARGE CONDITION: Stable. [id number]/[facility] #: [id number]
== END 2018-06-07 14:10 | disposition home or self-care (01) ==
LOC: ED 08:13 → MED 12:28
PROVIDERS: ADMIT Internal Medicine; ATTEND Internal Medicine
DX: J18.1 Lobar pneumonia, unspecified organism (principal); J45.901 Unspecified asthma with (acute) exacerbation; E04.1 Nontoxic single thyroid nodule; Z87.891 Personal history of nicotine dependence; Z86.79 Personal history of other diseases of the circulatory system; R61 Generalized hyperhidrosis; J44.9 Chronic obstructive pulmonary disease, unspecified
CPT/HCPCS: 36415; 71045; 71260; 80053; 81003; 83605; 85025; 87040; 87899; 93005; 94640; 96365; 96366; 96367; 96372; 96375; 99284; A9270-GY; G0378; J0456; J0696; J1650; J2920; J3475; J7512; Q9967

== ENCOUNTER 2018-06-25 06:37 | Inpatient (IN) | payer BC ==
[2018-06-25] MEDS ORDERED: Albuterol/Ipratropium NEB.SOL* Albuterol 2.5 MG/Ipratropium 0.5 MG 3 ML INH ONE ×3 (07:05→07:54)
[2018-06-25] MEDS ORDERED: NS 0.9% 1000 ML** 1,000 ML IV ONE (07:06)
[2018-06-25] MEDS ORDERED: methylPREDNISolone 125 MG* 2 ML VIAL IV ONE (07:06)
[2018-06-25] MEDS ORDERED: Magnesium Sulfate 2 GM IV* 2 GM/50 ML BAG IVPB ONE (07:06)
--- NOTE | 2018-06-25 07:11 | ED ---
Asthma - HPI Summary HPI Summary: Patient is a 52 y/o F with PMHx of asthma presenting to ED with complaints of SOB. She was admitted to [facility] around two weeks ago with Dx of right-sided PNA. Patient was discharged after a three day stay and was given prednisone and antibiotics. Patient notes that she finished taking prednisone around a week ago after and reports Sx returned afterwards. Patient states that she attempted to use her rescue inhaler and then her nebulizer this morning with minimal effect. Last reported breathing treatment taken by the patient is reported to be 0530 this morning. Pt uses advair and "rescue inhaler." Pt has never been intubated for asthma. She reports NKDA, notes that she has never needed a breathing tube for her asthma. Patient additionally reports that she has been taking magnesium capsules. Patient has finished her antibiotics. No PSHx is reported, she denies smoking cigarettes, endorses rare alcohol usage, and denies other substance usage. On triage, pain is denied. Nothing is noted to aggravate/alleviate Sx. Home medications and allergies are reviewed. - History of Current Complaint Chief Complaint: EDAsthma Stated Complaint: SOB/ASTHMA PER PT Hx Obtained From: Patient Hx Last Menstrual Period: 2 weeks ago Onset/Duration: Still Present Timing: Constant Current Severity: None - pain denied Pain Intensity: 0 Pain Scale Used: 0-10 Numeric - 0/10 Location/Character: Other - SOB Aggravating Symptoms: Nothing Alleviating Symptoms: Nothing Associated Signs and Symptoms: Positive: Shortness of Breath - Allergy/Home Medications Allergies/Adverse Reactions: Allergies Allergy/AdvReac Type Severity Reaction Status Date / Time No Known Allergies Allergy Verified 04/07/18 07:31 Home Medications: Home Medications Montelukast Sodium TAB* [Singulair 5 mg TAB*] 10 mg PO DAILY 06/25/18 [History Confirmed 06/25/18] PMH/Surg Hx/FS Hx/Imm Hx Previously Healthy: Yes Endocrine/Hematology History: Denies: Hx Anticoagulant Therapy, Hx Diabetes, Hx Thyroid Disease, Hx Unexplained Bleeding Cardiovascular History: Denies: Hx Hypertension, Hx Pacemaker/ICD Respiratory History: Reports: Hx Asthma, Hx Pneumonia, Hx Seasonal Allergies Denies: Hx Chronic Obstructive Pulmonary Disease (COPD), Hx Lung Cancer, Hx Sleep Apnea History: Denies: Hx Renal Disease Sensory History: Reports: Hx Contacts or Glasses Denies: Hx Hearing Aid Opthamlomology History: Reports: Hx Contacts or Glasses Neurological History: Denies: Hx Dementia, Hx Developmental Delay, Hx Headaches, Hx Migraine, Hx Seizures, Hx Spinal Cord Injury Psychiatric History: Reports: Hx Anxiety, Hx Eating Disorder - Has purged lately and hasn't done that in 20 years., Hx Depression, Hx Inpatient Treatment , Hx Community Mental Health Tx, Hx Bipolar Disorder, Hx Suicide Attempt Denies: Hx of Violent Episodes Against Others, Hx Substance Abuse - Immunization History Date of Influenza Vaccine: Mar 2018 Infectious Disease History: No Infectious Disease History: Denies: Hx Clostridium Difficile, Hx Hepatitis, Hx Human Immunodeficiency Virus (HIV), Hx of Known/Suspected MRSA, Hx Shingles, Hx Tuberculosis, Traveled Outside the [place] in Last 30 Days - Family History Known Family History: Positive: Hypertension, Respiratory Disease, Blood Disorder - grandfather with clotting, Other - bipolar, depression, anxiety, asthma, CAD, COPD, CA - Social History Occupation: Employed Full-time Alcohol Use: Rare Alcohol Amount: wine once a month Hx Substance Use: No Substance Use Type: Reports: None Hx Tobacco Use: Yes Smoking Status (MU): Former Smoker Type: Cigarettes Review of Systems Negative: Fever - on vitals, temp is 98.5 F Positive: Shortness Of Breath, Cough, Other - wheeze All Other Systems Reviewed And Are Negative: Yes Physical Exam - Summary Physical Exam Summary: Vital Signs Reviewed: Yes A+Ox3, short sentences, persistent cough Eyes: Conjunctiva Clear, GLENN. EOM intact and full ENT: Hearing grossly normal TM x 2 clear, mmoist, uvula midline, no exudate, no erythema Neck: Positive: Supple Respiratory: Positive: Scattered wheeze, coarse cough, slight increased RR and accessory muscle use Cardiovascular: RRR nl s1, s2 no m/r CBT <2 sec abd soft + BS nt/nd no guarding, no distension Musculoskeletal Exam: GRIMM x 4 without difficulty Strength Intact, ROM Intact Neurological: Positive: Alert, + sensation throughout Psychological: Positive: Normal Response To Family Skin: Positive: no rash, no ecchymosis Triage Information Reviewed: Yes Vital Signs On Initial Exam: Initial Vitals Temp Pulse Resp BP Pulse Ox 98.5 F 111 24 141/93 92 06/25/18 06:45 06/25/18 06:45 06/25/18 06:45 06/25/18 06:45 06/25/18 06:45 Vital Signs Reviewed: Yes Diagnostics - Vital Signs Vital Signs Temp Pulse Resp BP Pulse Ox 06/25/18 06:45 98.5 F 111 24 141/93 92 - Laboratory Lab Statement: Any lab studies that have been ordered have been reviewed, and results considered in the medical decision making process. Re-Evaluation - Re-Evaluation First Eval Re-Evaluation Time: 07:35 Change: Improved Comment: Improved aeration, slight cough is noted alongside scattered wheezes, she is getting steroids at this time. pt reports has been waiting for a phone call following a referral to a home economics expert by PCP -states "I need to get this under control" Pt willing to see any home economics expert that can fit her in Second Eval Re-Evaluation Time: 08:18 Change: Improved Comment: Pt improved - states feels better. awaiting repeat neb. continued scattered intermittent wheeze. no cough. speaking full sentences Third Eval Re-Evaluation Time: 09:23 Change: Improved Comment: Patient reports feeling better and wants to be discharged, she will be ambulated and o2 sat evaluated. Secretion precautions are reviewed. Spoke with Dr. Tomas office - referral to pulmonology - appt tomorrow 12:15 5/ Fourth Eval Re-Evaluation Time: 09:48 Change: Worse Comment: Patient was ambulated. While doing so, she became dizzy and light- headed and experienced drop of o2 sat. Hospitalist to be contacted. Fifth Eval Re-Evaluation Time: 09:55 Comment: spoke with Dr. Soto - will accept pt. will check CXR and basic labs. updated pt - agreement with plan. spoke to Dr. Tomas - cancelled appt Asthma Course/Dx - Course Course Of Treatment: Patient presents to urgent care with progressive symptoms of asthma. Patient was recently hospitalized with pneumonia and asthma exacerbation. Patient states he she finished her prednisone approximately 5 days ago. Patient states her symptoms began on most immediately following this. Patient denies nausea vomiting. No fevers, chills. Patient states she' s been using her rescue inhaler as well as nebulizer with minimal relief. Patient without any fevers or chills. Vital signs reveal slightly low oxygen level. Patient with scattered wheezes coarse cough and increased work of breathing. We'll give DuoNeb's magnesium, solumedrol, and reassess. Pt's BP slightly elevated - related to current med condition - Diagnoses Provider Diagnoses: Asthma - Provider Notifications Discussed Care Of Patient With: Catie Soto Time Discussed With Above Provider: 09:52 Instructed by Provider To: Other - Patient's case was discussed with Dr. Soto , Dr. Soto accepts for admission. CXR and additional labs to be done. Discharge - Sign-Out/Discharge Documenting (check all that apply): Patient Departure Patient Received Moderate/Deep Sedation with Procedure: No - Discharge Plan Condition: Stable Disposition: ADMITTED TO [facility] Prescriptions: predniSONE TAB* [Deltasone 20 MG TAB*] 20 mg PO DAILY #13 tab Patient Education Materials: Asthma (ED) Referrals: Den Scott MD [Medical Doctor] - - Billing Disposition and Condition Condition: STABLE Disposition: Admitted to [facility] - Attestation Statements Document Initiated by Scribe: Yes Documenting Scribe: CARMINE FIORE Provider For Whom Scribe is Documenting (Include Credential): SIM LAKE MD Scribe Attestation: CARMINE Jenkins, scribed for SIM LAKE MD on 06/25/18 at 0957. Scribe Documentation Reviewed: Yes Provider Attestation: The documentation as recorded by the CARMINE laws accurately reflects the service I personally performed and the decisions made by me, SIM LAKE MD Status of Scribe Document: Viewed
[2018-06-25 10:10] LABS: ABS Basophils 0 10^3/ul (0-0.2); ABS Eosinophils 0.1 10^3/ul (0-0.6); ABS Lymphocytes 0.5 10^3/ul (1.0-4.8); ABS Monocytes 0.2 10^3/ul (0-0.8); ABS Neutrophils 13.7 10^3/ul (1.5-7.7); ABS Nucleated RBC 0 10^3/ul; Eosinophil % 0.6 %; Hematocrit 38 % (33-41); Hemoglobin 11.7 g/dL (12.0-16.0); Lymphocyte % 3.8 %; Mean Corpuscular HGB Conc 31 g/dL (31-36); Mean Corpuscular Hemoglobin 24 pg (27-31); Mean Corpuscular Volume 77 fL (80-97); Mean Platelet Volume 7.9 fL (7.4-10.4); Nucleated Red Blood Cells % 0; Platelet Count 346 10^3/uL (150-450); Red Cell Distribution Width 19 % (10.5-15); White Blood Count 14.5 10^3/uL (3.5-10.8)
[2018-06-25 10:29] LABS: ALT 26 U/L (7-52); Albumin 4.1 g/dL (3.2-5.2); Albumin/Globulin Ratio 1.4 (1-3); Alkaline Phosphatase 86 U/L (34-104); BUN/Creatinine Ratio 16.9 (8-20); Blood Urea Nitrogen 10 mg/dL (6-24); CO2 Carbon Dioxide 25 mmol/L (22-32); Calcium 8.4 mg/dL (8.6-10.3); Chloride 105 mmol/L (101-111); EGFR African American 130.5 (>60); EGFR Non-African American 107.9 (>60); Globulin 2.9 g/dL (2-4); Glucose 121 mg/dL (70-100); Magnesium 2.7 mg/dL (1.9-2.7); Sodium 137 mmol/L (135-145)
[2018-06-25] MEDS ORDERED: Albuterol/Ipratropium NEB.SOL* Albuterol 2.5 MG/Ipratropium 0.5 MG 3 ML INH PRN (10:58)
[2018-06-25] MEDS ORDERED: Melatonin 3 MG TAB PO PRN (11:04)
[2018-06-25 11:10] LABS: Anion Gap 7 mmol/L (2-11)
[2018-06-25] MEDS: Tiotropium CAP.INH* CAP.INH/18 MCG (USE ORDER SET !) INH SCH (11:45)
[2018-06-25] MEDS ORDERED: Spiriva Inhaler DEVICE* 1 EACH DEVICE INH SCH (12:00)
[2018-06-25] MEDS: Enoxaparin(*) 40 MG/0.4 ML SYR SUBCUT SCH (13:06)
[2018-06-25 14:08] LABS: Total Iron Binding Capacity 508 mcg/dL (250-450); Transferrin 363 mg/dL (203-362)
[2018-06-25 14:23] LABS: Ferritin 7.6 ng/mL (11-307)
--- NOTE | 2018-06-25 14:38 | HP ---
CC: FRANCIA Malagon HISTORY AND PHYSICAL: DATE OF ADMISSION: 06/25/2018 PRIMARY CARE PHYSICIAN: FRANCIA Malagon. CODE STATUS: Full. HEALTHCARE PROXY: Kirill Gooden (partner), . CHIEF COMPLAINT: One day of shortness of breath, wheezing, and fatigue. HISTORY OF PRESENT ILLNESS: Ms. Olvera is a 52-year-old woman with a past medical history of asthma as a teenager and significant a pack year smoking history, quit March 2018 and possible COPD, who is presenting nearly 3 weeks after discharge for pneumonia and asthma exacerbation with recurrence of symptoms after finishing her steroid taper. She reports that she has been generally feeling fatigued since discharge, although this has been improving and she reports that her shortness of breath and wheezing and cough were improved after last hospitalization. She states that she finished her steroid taper approximately 4 days ago and had returned to work, when yesterday she experienced recurrence of wheezing associated with shortness of breath and fatigue. She reports 2 to 3 days of return of her cough, which is productive of yellow to green sputum. She denies chest pain, fevers, chills, or night sweats. She does report occasional hot flashes, she thinks it is related to menopause, which has been happening for the last few months. She denies recent upper respiratory symptoms or sick contacts or recent travel. She states that she takes Advair every single day without missed doses and has been using her albuterol inhaler several times per day. She has not smoked a cigarette since she quit nearly 3 months ago. In the emergency room, patient was given nebulizer treatments, magnesium repletion, and IV methylprednisolone. She was noted to desaturate to the upper 80s on ambulation, so she was admitted to Medicine for further care. Of note, this is the third time the patient has presented this year with symptoms of asthma exacerbation. Over a week ago, her primary care physician started her on montelukast and the patient has not noted improvement in her symptoms. She denies allergies. She had a pulmonology appointment pending, but had recurrence of her symptoms before being able to make it to this appointment. PAST MEDICAL HISTORY: 1. Asthma, diagnosed as a teenager. 2. Significant smoking history, quit in March 2018, likely with COPD as well 3. Anxiety. PAST SURGICAL HISTORY: Denies. HOME MEDICATIONS: 1. Paroxetine 40 mg daily. 2. Montelukast 10 mg daily. 3. Advair 500/50 mcg 1 puff twice a day. 4. Albuterol 2 puffs every 4 hours as needed for shortness of breath. 5. Albuterol nebulizer every 4 hours as needed. 6. Melatonin 3 mg at bedtime. ALLERGIES: No known drug allergies. FAMILY HISTORY: Mother has history of COPD and is still an active smoker. Father was a heavy smoker and is currently on oxygen, although patient does not know his further medical history because she does not keep in touch with him. 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 She lives with her partner. She quit tobacco in March 2018 and has a [id number] history. Denies alcohol or other drugs. REVIEW OF SYSTEMS: As per HPI. Otherwise, complete 10-point review of systems is negative. PHYSICAL EXAMINATION GENERAL: A well-appearing woman, but in mild respiratory distress. No increased work of breathing. Alert and conversant. VITAL SIGNS: Patient is afebrile. Heart rate is 100, blood pressure 133/80, respiratory rate 20, oxygen saturation 94% on 4 L. HEENT: OP clear and moist mucous membranes. NECK: Supple. LUNGS: With diffuse expiratory wheeze throughout. No crackles or rhonchi. HEART: Regular rate and rhythm. No murmurs, gallops, or rubs. ABDOMEN: Soft, nontender, and nondistended. EXTREMITIES: Warm and well perfused without edema. DIAGNOSTIC STUDIES/LAB DATA: Labs are reviewed and notable for leukocytosis of 14.5 - this was after IV steroids in the ER. Hemoglobin is 11.7 at patient's baseline. New microcytosis at 77. BMP is unremarkable. Chest x-ray is with hyperinflation consistent with COPD without other active cardiopulmonary disease. ASSESSMENT AND PLAN: A 52-year-old woman with history of asthma and significant tobacco use history, quit in March, who is presenting with subacute shortness of breath, cough, wheezing, and fatigue in the context of recently finishing her steroid taper after an admission for pneumonia and asthma exacerbation 3 weeks ago. 1. Acute hypoxic respiratory failure, likely from asthma exacerbation, but also likely that patient has COPD. She will have her inhaler regimen optimized with the addition of long-acting antimuscarinic agent. She will be continued on inhaled corticosteroid and long- acting beta-agonist with the addition of prednisone and DuoNebs. We will wean oxygen as tolerated. She is already s/p IV steroids and magnesium in the emergency room. If she improves quickly, she will be discharged with close Pulmonology followup, otherwise we will consider a consult while she is admitted. 2. Anxiety. Continue paroxetine. 3. Microcytic anemia - order iron labs. 4. DVT prophylaxis. Continue Lovenox subcutaneously. 5. Full code. TIME SPENT: Approximately 60 minutes was spent on admission of the patient, more than half of which was at bedside for physical exam. [id number]/[facility] #: [id number] [facility]
[2018-06-25] MEDS: Ferrous Sulfate TAB* 325 MG PO SCH (16:31)
[2018-06-25] MEDS: Ascorbic Acid TAB* 500 MG PO SCH (16:31)
[2018-06-25] MEDS: Mometasone/Formoter 200/5 MDI INH SCH (20:12)
[2018-06-26 08:07] LABS: ABS Basophils 0 10^3/ul (0-0.2); ABS Eosinophils 0 10^3/ul (0-0.6); ABS Lymphocytes 2.1 10^3/ul (1.0-4.8); ABS Monocytes 0.9 10^3/ul (0-0.8); ABS Neutrophils 16.9 10^3/ul (1.5-7.7); ABS Nucleated RBC 0 10^3/ul; Eosinophil % 0.2 %; Hematocrit 36 % (35-47); Hemoglobin 11.3 g/dL (12.0-16.0); Lymphocyte % 10.3 %; Mean Corpuscular HGB Conc 31 g/dL (31-36); Mean Corpuscular Hemoglobin 24 pg (27-31); Mean Corpuscular Volume 77 fL (80-97); Mean Platelet Volume 8.5 fL (7.4-10.4); Nucleated Red Blood Cells % 0.1; Platelet Count 326 10^3/uL (150-450); Red Blood Count 4.69 10^6 /uL (3.70-4.87); Red Cell Distribution Width 19 % (10.5-15); White Blood Count 19.9 10^3/uL (3.5-10.8)
[2018-06-26] MEDS: Tiotropium CAP.INH* CAP.INH/18 MCG (USE ORDER SET !) INH SCH (08:17)
[2018-06-26] MEDS: Mometasone/Formoter 200/5 MDI INH SCH ×2 (08:17→19:06)
--- NOTE | 2018-06-26 08:45 | PN ---
Subjective Date of Service: 06/26/18 Interval History: Pt feels much better compared to yesterday - improvement in breathing. Eager to walk today. No longer with wheeze. SaO2 98% on 2L while at rest. Will need ambulatory SaO2 monitoring. Objective Active Medications: Albuterol/Ipratropium (Duoneb (Albuterol 2.5 Mg/Ipratropium 0.5 Mg)) 1 neb INH [id number] AWAKE [facility] Ascorbic Acid (Vitamin C Tab*) 500 mg PO DAILY [facility] Last Admin: 06/25/18 16:31 Dose: 500 mg Device (Tiotropium Inhaler Device*) 1 each INH .USE w/ SPIRIVA CAPS [facility] Enoxaparin Sodium (Lovenox(*)) 40 mg SUBCUT Q24H [facility] Last Admin: 06/25/18 13:06 Dose: 40 mg Ferrous Sulfate (Ferrous Sulfate Tab*) 325 mg PO DAILY [facility] Last Admin: 06/25/18 16:31 Dose: 325 mg Melatonin (Melatonin) 3 mg PO BEDTIME PRN PRN Reason: SLEEP Last Admin: 06/25/18 21:46 Dose: 3 mg Mometasone Furoate/Formoterol Fumar (Dulera 200/5 Mdi*) 2 puff INH BID [facility] Last Admin: 06/26/18 08:17 Dose: 2 puff Paroxetine HCl (Paxil Tab*) 40 mg PO DAILY [facility] Prednisone (Deltasone Tab*) 40 mg PO DAILY [facility] Tiotropium [place] (Spiriva Cap.Inh*) 1 cap INH DAILY [facility] Last Admin: 06/26/18 08:17 Dose: 1 cap Vital Signs - 8 hr 06/26/18 06/26/18 06/26/18 03:29 08:17 08:21 Temperature 97.7 F 97.8 F Pulse Rate 92 103 88 Respiratory 20 20 16 Rate Blood Pressure 146/81 154/88 (mmHg) O2 Sat by Pulse 98 98 100 Oximetry Oxygen Devices in Use Now: Nasal Cannula Appearance: well appearing, comfortable Ears/Nose/Mouth/Throat: Mucous Membranes Moist Neck: NL Appearance and Movements; NL JVP Respiratory: - - significantly improved air movement, mild expiratory wheeze on R Cardiovascular: RRR Abdominal: NL Sounds; No Tenderness; No Distention Extremities: No Edema Neurological: Alert and Oriented x 3 Result Diagrams: 06/26/18 06:38 06/25/18 10:02 Assess/Plan/Problems-Billing Assessment: 52W with asthma, likely COPD from significant h/o tobacco use (quit Mar 2018), anxiety, presents with subacute, progressive dyspnea, cough, and wheeze after recently stopping prednisone taper after prior admission for PNA and asthma exacerbation. Now significantly improved after steroids and initiating patient on anti-muscarinic agent, titrating off O2. - Patient Problems (1) Acute respiratory failure with hypoxia Comment: Likely that patient has COPD, given significant smoking history. Has diagnosis of asthma since childhood. - cont Advair, starting Spiriva - cont nebs - switched to PO prednisone today - will DC on taper - wean O2 as tolerated - will need ambulatory monitoring today (2) Asthma exacerbation Comment: likely COPD component as well - management as above (3) Anxiety Comment: could be contributing to COPD/asthma exacerbation symptoms? - cont home SSRI (4) Iron deficiency anemia Comment: New dx. Could be contributing to presenting symptoms of SOB and fatigue. - starting ferrous sulfate and vit C - discussed need for age-appropriate cancer screeing in clinic - has not had a c -scope yet (5) DVT prophylaxis Current Visit: Yes Comment: - Lovenox SQ
[2018-06-26] MEDS: Ascorbic Acid TAB* 500 MG PO SCH (09:22)
[2018-06-26] MEDS: PARoxetine HCL TAB* 40 MG PO SCH (09:22)
[2018-06-26] MEDS: Ferrous Sulfate TAB* 325 MG PO SCH (09:22)
[2018-06-26] MEDS: predniSONE TAB* 20 MG PO SCH (09:22)
[2018-06-26] MEDS: Albuterol/Ipratropium NEB.SOL* Albuterol 2.5 MG/Ipratropium 0.5 MG 3 ML INH SCH ×4 (11:39→23:41)
[2018-06-26] MEDS: Enoxaparin(*) 40 MG/0.4 ML SYR SUBCUT SCH ×2 (12:57→12:58)
--- NOTE | 2018-06-26 19:00 | CONS ---
PULMONARY CONSULTATION REPORT: DATE OF CONSULT: 06/26/18 CONSULTATION REQUESTED BY: Dr. Catie Soto. REASON FOR CONSULT: Evaluation of acute asthma exacerbation. HISTORY OF PRESENT ILLNESS: The patient is a 52-year-old obese female, former smoker, quit in March 2018 with history of asthma, allergies, bipolar disorder. The patient presents for evaluation of worsening shortness of breath. The patient reports having recurrent episodes of asthma exacerbation mostly going on over the past 6 months. She has been requiring intermittent courses of prednisone since February. The patient reports improvement in symptoms when she gets on prednisone, and starts having worsening symptoms after the taper again. The patient failed outpatient therapy and was sent into the ED for further evaluation. The patient reports that she has cough, which sometimes can get worse at night and wake her up from sleep. Reports intermittent colds, congestion, rhinorrhea since March. 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 The patient denies fevers or chills. The patient denies recent travel. The patient denies GERD symptoms. The patient reports having disruptive sleep at night that improved since she started using melatonin. The patient reports refreshed sleep and daytime fatigue that improved slightly since melatonin. The patient reports feeling slightly better today. The patient denies hemoptysis, loss of weight, or appetite. The patient also reports that cough at times could be productive of green thick phlegm. Denies diarrhea, abdominal pain, hematuria, dysuria, focal weakness, or sensory loss. Denies rash, myalgias, urinary complaints, dysphagia. The patient was started on steroids and bronchodilators. The patient reports having significant benefit from Spiriva. The patient reports not seeing any benefit with Advair she uses routinely. She has been on Advair for many years. PAST MEDICAL HISTORY: 1. Asthma. 2. Former smoker, quit in 2018. 3. Anxiety/bipolar disorder. PAST SURGICAL HISTORY: Denies any. MEDICATIONS AT HOME: 1. Paxil. 2. Ambien. 3. Albuterol. ALLERGIES: No known drug allergies. FAMILY HISTORY: Mother with COPD. Father is a heavy smoker and currently on oxygen, also has COPD. SOCIAL HISTORY: Former smoker, smoking a pack and [id number] per day for 30 years, quit in March 2018. REVIEW OF SYSTEMS: All 14 systems reviewed and as per HPI. PHYSICAL EXAM: The patient in bed, in no apparent distress. The patient is slightly anxious. Vital Signs: Temperature 97.3, pulse 97 beats per minute, respiratory rate 18 per minute, O2 sat 93% to 94% on 1 L, blood pressure 131/ 87. HEENT: Pupils equal, reactive to light. Mucous membranes moist. Lungs: Scattered expiratory wheezes bilaterally, prolonged expiratory phase, and decreased breath sounds. Cardiovascular: S1, S2 present, regular. Abdomen: Soft, nontender, nondistended. Bowel sounds present. Extremities: Normal range of motion. No edema. Neurologic: Alert, awake, oriented x3. No focal deficits. Skin: No rash. DIAGNOSTIC STUDIES/LAB DATA: WBC count 9.9, hemoglobin 11.3, hematocrit 36, platelet count 326. Sodium 137, potassium not reported, chloride 105, bicarb 25 , BUN 10, creatinine 0.5. Chest x-ray on admission was personally reviewed by me - evidence of hyperinflation with no acute airspace opacities. The patient had CT scan of the chest done during her prior hospitalization in May of 2018. I personally reviewed those images with the patient today - the patient with mild alveolar infiltrates of right upper lobe, patchy in nature. IMPRESSION AND RECOMMENDATIONS: 52-year-old female with childhood asthma, also with allergies with persistent asthma symptoms since February. The patient with improvement in symptoms on steroids and symptoms recur once she gets tapered off the steroids. Acute asthma exacerbation in the setting of her recurrent exacerbations. The patient has significant smoking history, quit recently and might have had a viral bronchitis around the same time, which might have caused persistent asthma symptoms. In reviewing her CT scan from May of 2018, she does appear to have mild bronchiectasis in upper lung zones and patchy ground glass opacities. Also, suspect possible bronchopulmonary aspergillosis contributing to her symptoms. She is improving, currently has been almost tapered off oxygen. We will continue with steroid taper. Continue with nebulizers. Agree with adding Spiriva. We will change Advair to Dulera and continue with that upon discharge too. The patient will need PFTs as outpatient. Will also evaluate for inflammatory lung disease and also evaluate for allergic bronchopulmonary aspergillosis as outpatient. Pathophysiology of asthma was discussed in detail with the patient. Exacerbation and management was also discussed in detail with the patient. Thank you for allowing me to participate in the care of your patient. I will follow up with you. [id number]/[id number] #: [id number] [facility]
[2018-06-27] MEDS: Albuterol/Ipratropium NEB.SOL* Albuterol 2.5 MG/Ipratropium 0.5 MG 3 ML INH SCH ×2 (03:23→07:08)
[2018-06-27] MEDS: Tiotropium CAP.INH* CAP.INH/18 MCG (USE ORDER SET !) INH SCH (07:06)
[2018-06-27] MEDS: Mometasone/Formoter 200/5 MDI INH SCH (07:06)
[2018-06-27] MEDS ORDERED: Albuterol/Ipratropium NEB.SOL* Albuterol 2.5 MG/Ipratropium 0.5 MG 3 ML INH PRN (07:47)
[2018-06-27] MEDS: Ferrous Sulfate TAB* 325 MG PO SCH (07:49)
[2018-06-27] MEDS: Ascorbic Acid TAB* 500 MG PO SCH (07:49)
[2018-06-27] MEDS: predniSONE TAB* 20 MG PO SCH (07:50)
[2018-06-27] MEDS: PARoxetine HCL TAB* 40 MG PO SCH (07:50)
[2018-06-27] MEDS: Enoxaparin(*) 40 MG/0.4 ML SYR SUBCUT SCH (11:43)
[2018-06-27 12:50] VITALS: BP 146/90
--- NOTE | 2018-06-27 12:52 | DS ---
CC: FRANCIA Malagon; Dr. Tomas. DISCHARGE SUMMARY: DATE OF ADMISSION: 06/25/18 DATE OF DISCHARGE: 06/27/18 PRIMARY CARE PHYSICIAN: FRANCIA Malagon. PRIMARY DIAGNOSES: 1. Asthma/chronic obstructive pulmonary disease exacerbation. 2. Iron-deficiency anemia. SECONDARY DIAGNOSIS: Anxiety. CONSULTS: Pulmonology, Dr. Tomas. DISCHARGE MEDICATIONS: 1. Dulera 2 puffs twice a day. 2. Spiriva 1 inhalation daily. 3. Ferrous sulfate 325 mg daily on an empty stomach. 4. Vitamin C 500 mg daily with iron. 5. Prednisone taper starting at 40 mg a day, to go down by 10 mg every 3 days. 6. Albuterol 2 puffs every 4 hours as needed for shortness of breath. 7. Paroxetine 40 mg daily. 8. Melatonin 3 mg nightly. HISTORY OF PRESENT ILLNESS: Ms. Olvera is a 52-year-old woman with a past medical history of asthma since childhood with a significant pack-year smoking history, quitting 2 months ago with possible COPD, who is presenting nearly 3 weeks after discharge for pneumonia with asthma exacerbation. She now presents with recurrence of symptoms in the context of finishing her steroid taper a few days prior to presentation. She reports that she has been generally feeling fatigued since discharge, although this has been improving and she reports that her shortness of breath and wheezing improved after her last hospitalization. She finished her steroid taper approximately 4 days prior to presentation and had returned to work, but then 1 day prior to presentation, she experienced recurrence of wheezing associated with shortness of breath and worsening of her fatigue. Also for 2 to 3 days, her cough has returned which is productive of [id number] sputum. She denies chest pain, fevers, chills, or night sweats. She has occasional hot flashes, she thinks related to menopause and this has been happening for the last few months. She denies recent upper respiratory symptoms or sick contacts or travel. She states that she takes Advair everyday without missed doses and has been using her albuterol inhaler several times a day. She has not smoked a cigarette since she quit nearly 3 months ago. HOSPITAL COURSE: In the emergency room, the patient received nebulizer treatments, magnesium, IV methylprednisolone. She continued to desaturate to the 80s on walking, so she is admitted to the Medicine for further care. While admitted to Medicine, she was noted to have microcytic anemia with labs significant for iron deficiency. She was continued on her SSRI for anxiety treatment. She was started on a LAMA inhaler and switched to oral prednisone by her second morning of admission. She was able to be weaned off oxygen at rest by her second day of admission, but had desaturations on ambulation. She was visited by Dr. Tomas of Pulmonology, who recommended switching Advair to Dulera. She also set the patient up with outpatient followup for PFTs and also to evaluate for possible inflammatory lung disease or allergic bronchopulmonary aspergillosis. The patient received significant asthma and COPD education. By day of discharge, she reports feeling well with improvement in her fatigue and resolution of her shortness of breath and wheezing. She no longer required O2 on ambulation. Otherwise, 10-point review of systems was negative. PHYSICAL EXAM: Afebrile, heart rate 80s, blood pressure 135/74, respiratory rate 12, oxygen saturation 97% on room air. In general, well-appearing woman, alert, friendly conversant, no increased work of breathing. HEENT: Moist mucous membranes. OP clear. Neck: Supple. No JVD. Lungs: Clear to auscultation bilaterally. Heart: Regular rate and rhythm. No murmurs, gallops , or rubs. Abdomen: Soft, nontender, nondistended. Extremities: Warm, well perfused. No edema. PERTINENT STUDIES AND LABS: Microcytic anemia, hemoglobin 11.3, MCV 77. Iron level 22, TIBC 508, ferritin 7. BMP and LFTs unremarkable. Chest x-ray with hyperinflation consistent with COPD, no active cardiopulmonary disease. DISCHARGE PLAN: The patient is to follow up with her primary care physician for management of her microcytic anemia. She was started on iron tablets to take with vitamin C once a day on an empty stomach. She was educated on need for age- appropriate cancer screening. Of note, she is due for a colonoscopy. She will also follow up with Dr. Tomas. Her Advair was changed to Dulera and she was started on Spiriva inhaler. She is to take a steroid taper, starting with 40 mg and decreasing by 10 mg every 3 days. The patient was given return precautions when she should seek emergent care. She is to resume healthy diet low on processed foods with a normal level of activity as tolerated. DISPOSITION: To home. CONDITION: Improved. TIME SPENT: Approximately 60 minutes spent on discharge of this patient; more than half of which was spent with care, coordination or at bedside for interview and exam. [id number]/[facility] #: [id number] ALEXUS
== END 2018-06-27 13:30 | disposition home or self-care (01) | DRG 140 ==
LOC: ED 06:37 → MED 10:58
PROVIDERS: ADMIT Internal Medicine; ATTEND Internal Medicine
DX: J44.1 Chronic obstructive pulmonary disease with (acute) exacerbation (principal); J96.01 Acute respiratory failure with hypoxia; D50.9 Iron deficiency anemia, unspecified; F41.9 Anxiety disorder, unspecified; Z87.891 Personal history of nicotine dependence; Z79.51 Long term (current) use of inhaled steroids; Z79.52 Long term (current) use of systemic steroids; Z79.899 Other long term (current) drug therapy; Z82.5 Family history of asthma and other chronic lower respiratory diseases; Z81.2 Family history of tobacco abuse and dependence
CPT/HCPCS: 36415; 71046; 80053; 82728; 83540; 83550; 83735; 85025; 94640; 99284; A9270-GY; J1650; J2930; J3475; J7512

== ENCOUNTER 2018-06-28 18:27 | Inpatient (IN) | payer BC ==
[2018-06-28] MEDS ORDERED: methylPREDNISolone 125 MG* 2 ML VIAL IV ONE (18:35)
[2018-06-28] MEDS ORDERED: NS 0.9% 1000 ML** 1,000 ML IV ONE (18:35)
[2018-06-28] MEDS ORDERED: Albuterol/Ipratropium NEB.SOL* Albuterol 2.5 MG/Ipratropium 0.5 MG 3 ML ONE (18:40)
--- NOTE | 2018-06-28 18:41 | ED ---
Shortness of Breath - HPI Summary HPI Summary: This patient is a 52 year old F presenting to ED with a chief complaint of SOB since this morning. The patient rates the pain 0/10 in severity. Symptoms aggravated by nothing. Symptoms alleviated by nothing. Patient was discharged from inpatient hospital yesterday. She used her nebulizer treatment before coming here today. Patient reports productive cough and tightness in chest. Patient denies smoking today and she is not on antibiotics. PMHx of asthma, COPD , PNA, seasonal allergies, anxiety, depression, eating disorder, bipolar disorder, and suicide attempt but no DM, thyroid disease, HTN, renal disease. FHx of HTN, respiratory disease, blood disorder, bipolar, depression, anxiety, asthma, CAD, COPD, CA. Patient rarely uses alcohol, does not use substances, and is a former cigarette smoker. - History of Current Complaint Chief Complaint: EDShortnessOfBreath Hx Obtained From: Patient Onset/Duration: Lasting Hours - This morning, Still Present Timing: Constant Current Severity: None Aggrevating Factors: Nothing Alleviating Factors: Nothing Associated Signs & Symptoms: Cough (Productive), Chest Pain Unrelated to Cough - Tightness in chest - Allergy/Home Medications Allergies/Adverse Reactions: Allergies Allergy/AdvReac Type Severity Reaction Status Date / Time No Known Allergies Allergy Verified 06/28/18 18:33 PMH/Surg Hx/FS Hx/Imm Hx Previously Healthy: No Endocrine/Hematology History: Denies: Hx Anticoagulant Therapy, Hx Diabetes, Hx Thyroid Disease, Hx Unexplained Bleeding Cardiovascular History: Denies: Hx Hypertension, Hx Pacemaker/ICD Respiratory History: Reports: Hx Asthma, Hx Pneumonia, Hx Seasonal Allergies Denies: Hx Chronic Obstructive Pulmonary Disease (COPD), Hx Lung Cancer, Hx Sleep Apnea History: Denies: Hx Renal Disease Sensory History: Denies: Hx Cataracts, Hx Contacts or Glasses, Hx Eye Injury, Hx Eye Prosthesis, Hx Glaucoma, Hx Legally Blind, Hx Macular Degeneration, Hx Vision Problem, Hx Deafness, Hx Hearing Aid, Hx Hearing Problem, Other Sensory Impairments Opthamlomology History: Denies: Hx Cataracts, Hx Contacts or Glasses, Hx Eye Injury, Hx Eye Prosthesis, Hx Glaucoma, Hx Legally Blind, Hx Macular Degeneration, Hx Vision Problem, Other Sensory Impairments Neurological History: Denies: Hx Dementia, Hx Developmental Delay, Hx Headaches, Hx Migraine, Hx Seizures, Hx Spinal Cord Injury Psychiatric History: Reports: Hx Anxiety, Hx Eating Disorder - Has purged lately and hasn't done that in 20 years., Hx Depression, Hx Inpatient Treatment , Hx Community Mental Health Tx, Hx Bipolar Disorder, Hx Suicide Attempt Denies: Hx of Violent Episodes Against Others, Hx Substance Abuse - Immunization History Date of Influenza Vaccine: Mar 2018 Infectious Disease History: No Infectious Disease History: Denies: Hx Clostridium Difficile, Hx Hepatitis, Hx Human Immunodeficiency Virus (HIV), Hx of Known/Suspected MRSA, Hx Shingles, Hx Tuberculosis, Traveled Outside the [place] in Last 30 Days - Family History Known Family History: Positive: Hypertension, Respiratory Disease, Blood Disorder - grandfather with clotting, Other - bipolar, depression, anxiety, asthma, CAD, COPD, CA - Social History Alcohol Use: Rare Alcohol Amount: once a month, if that. one glass of wine Hx Substance Use: No Substance Use Type: Reports: None Hx Tobacco Use: Yes Smoking Status (MU): Former Smoker Type: Cigarettes Review of Systems Positive: Chest Pain - Tightness Positive: Shortness Of Breath, Cough - Productive All Other Systems Reviewed And Are Negative: Yes Physical Exam - Summary Physical Exam Summary: VITAL SIGNS: Reviewed. GENERAL: Patient is a well-developed and nourished female who is lying comfortable in the stretcher. Patient is in acute respiratory distress. She speaks in short sentences. HEAD AND FACE: No signs of trauma. No ecchymosis, hematomas or skull depressions. No sinus tenderness. EYES: PERRLA, EOMI x 2, No injected conjunctiva, no nystagmus. EARS: Hearing grossly intact. Ear canals and tympanic membranes are within normal limits. MOUTH: Oropharynx within normal limits. NECK: Supple, trachea is midline, no adenopathy, no JVD, no carotid bruit, no c- spine tenderness, neck with full ROM. CHEST: Symmetric, no tenderness at palpation LUNGS: Decreased breath sounds bilaterally with wheezing. CVS: Regular rate and rhythm, S1 and S2 present, no murmurs or gallops appreciated. ABDOMEN: Soft, non-tender. No signs of distention. No rebound no guarding, and no masses palpated. Bowel sounds are normal. EXTREMITIES: FROM in all major joints, no edema, no cyanosis or clubbing. NEURO: Alert and oriented x 3. No acute neurological deficits. Speech is normal and follows commands. SKIN: Dry and warm Triage Information Reviewed: Yes Vital Signs On Initial Exam: Initial Vitals Temp Pulse Resp BP Pulse Ox 99.3 F 120 26 103/86 94 06/28/18 18:29 06/28/18 18:29 06/28/18 18:29 06/28/18 18:29 06/28/18 18:29 Vital Signs Reviewed: Yes Diagnostics - Vital Signs Vital Signs Temp Pulse Resp BP Pulse Ox 06/28/18 18:29 99.3 F 120 26 103/86 94 - Laboratory Result Diagrams: 06/29/18 07:30 06/29/18 07:30 Lab Statement: Any lab studies that have been ordered have been reviewed, and results considered in the medical decision making process. - Radiology CXR Radiology Interpretation Completed By: ED Physician Summary of Radiographic Findings: Hyper-inflated lungs consistent with COPD and asthma. Pending official radiology review. - EKG 1843 Cardiac Rate: Tachycardia - 117 BPM EKG Rhythm: Sinus Tachycardia ST Segment: Normal EKG Comparison: No Significant Change - Similar to EKG taken 06/05/18 Summary of EKG Findings: Sinus tachycardia at 117 BPM, no ST elevations, similar to previous EKG done on 06/05/18 Course/Dx - Course Assessment/Plan: This patient is a 52-year-old female who presents to the emergency department with a chief complaint of shortness of breath. The patient has history of Asthma and COPD and she was admitted and discharged from the hospital yesterday afternoon for an acute exacerbation of the COPD. She reports that today she developed again shortness of breath. She took her medications without any significant improvement of symptoms. Therefore she decided to come to the ED for further workup and management. Patients blood work without any significant abnormality except for WBC of 13.8, hemoglobin 11.9 , hematocrit 38 and platelets 372. Glucose is 180, lactic acid is 3, CPK-MB is 86.8 and troponin 0.29. CRP is 8.03. The patient continues to reply that she doesnt have any chest pain. Chest x-ray as a sinus tachycardia [address] elevations. In the ED course the patient was given aspirin, the patient was given Solu-Medrol and DuoNebs. Patient continues to deny chest pain therefore I held a nitroglycerin. I also held the beta jesus since the patient is having an acute exacerbation of asthma. Because of the increased troponin I discussed my physical exam and findings with Dr. Kelly from cardiology and he will consult. I also discussed my physical exam and findings with Dr. Richardson from the hospital services who will be admit the patient to his service for further workup and management. The patient is hemodynamically stable alert and oriented 3. - Diagnoses Provider Diagnoses: Asthma exacerbation, Hypoxia - Physician Notifications Discussed Care of Patient With: Luis A Kelly Time Discussed With Above Provider: 20:15 Instructed by Provider To: Other - Discussed case with Dr. Kelly, mopper, who will consult with the patient. 2019: Discussed patient case with Dr. Osito Richardson, hospitalist, who accepted the patient for admission. Discharge - Sign-Out/Discharge Documenting (check all that apply): Patient Departure - Admit Patient Received Moderate/Deep Sedation with Procedure: No - Discharge Plan Condition: Stable Disposition: ADMITTED TO [facility] - Billing Disposition and Condition Condition: STABLE Disposition: Admitted to [facility] - Attestation Statements Document Initiated by Penelopeibe: Yes Documenting Scribe: Den Corrigan Provider For Whom [place] is Documenting (Include Credential): Trev Villarreal MD Scribe Attestation: I, Den oCrrigan, scribed for Trev Villarreal MD on 06/29/18 at 1039. Scribe Documentation Reviewed: Yes Provider Attestation: The documentation as recorded by the Den laws accurately reflects the service I personally performed and the decisions made by me, Trev Villarreal MD Status of Scribe Document: Viewed
[2018-06-28] MEDS: Albuterol/Ipratropium NEB.SOL* Albuterol 2.5 MG/Ipratropium 0.5 MG 3 ML INH SCH ×4 (18:47→23:09)
[2018-06-28 18:59] LABS: ABS Basophils 0.1 10^3/ul (0-0.2); ABS Lymphocytes 1.3 10^3/ul (1.0-4.8); ABS Monocytes 0.3 10^3/ul (0-0.8); ABS Neutrophils 12.1 10^3/ul (1.5-7.7); Eosinophil % 0.1 %; Hematocrit 38 % (35-47); Hemoglobin 11.9 g/dL (12.0-16.0); Lymphocyte % 9.6 %; Mean Corpuscular HGB Conc 32 g/dL (31-36); Mean Corpuscular Hemoglobin 24 pg (27-31); Mean Corpuscular Volume 77 fL (80-97); Platelet Count 372 10^3/uL (150-450); Red Cell Distribution Width 21 % (10.5-15); White Blood Count 13.8 10^3/uL (3.5-10.8)
[2018-06-28 19:17] LABS: ALT 20 U/L (7-52); AST 17 U/L (13-39); Albumin 4.1 g/dL (3.2-5.2); Albumin/Globulin Ratio 1.4 (1-3); Alkaline Phosphatase 102 U/L (34-104); Anion Gap 10 mmol/L (2-11); BUN/Creatinine Ratio 30.8 (8-20); Blood Urea Nitrogen 20 mg/dL (6-24); C Reactive Protein 8.03 mg/L (<8.01); CO2 Carbon Dioxide 23 mmol/L (22-32); Calcium 9.5 mg/dL (8.6-10.3); Chloride 104 mmol/L (101-111); Creatine Kinase 23 U/L (10-223); EGFR African American 116.7 (>60); EGFR Non-African American 96.5 (>60); Glucose 180 mg/dL (70-100); Sodium 137 mmol/L (135-145); Total Protein 7.1 g/dL (6.4-8.9)
[2018-06-28 19:21] LABS: CKMB ng/mL 86.8 ng/mL (0.6-6.3)
[2018-06-28] MEDS ORDERED: Aspirin 81 mg CHEW TAB* 81 MG TAB.CHEW PO ONE (20:05)
[2018-06-28 20:25] LABS: Troponin I 0.01 ng/mL (<0.04)
[2018-06-28] MEDS ORDERED: Ondansetron INJ* 2 MG/ML VIAL IV PRN (21:21)
[2018-06-28] MEDS ORDERED: Acetaminophen TAB* 325 MG PO PRN (21:21)
[2018-06-28] MEDS ORDERED: Albuterol 2.5 MG/3 ML NEB.SOL* (0.083%) INH PRN (21:21)
[2018-06-28] MEDS ORDERED: Benzonatate CAP* 100 MG PO PRN (21:21)
[2018-06-28] MEDS: Melatonin 3 MG TAB PO PRN (22:35)
[2018-06-28] MEDS: Heparin VIAL(*) 5000 UNITS/ML VIAL (FIVE THOUSAND) SUBCUT SCH (22:35)
[2018-06-28] MEDS: Montelukast Sodium TAB* 10 MG PO SCH (22:35)
[2018-06-28] MEDS: Cetirizine* 10 MG TAB PO SCH (22:35)
[2018-06-28] MEDS: Levofloxacin 750 MG IVPREMIX(* 750 MG/150 ML BAG IVPB SCH (22:46)
--- NOTE | 2018-06-29 00:08 | HP ---
CC: FRANCIA Malagon; Dr. Janet Tomas * ADMISSION HISTORY AND PHYSICAL: DATE OF ADMISSION: 06/28/18. PRIMARY CARE PROVIDER: FRANCIA Malagon. MY ATTENDING WHILE IN THE HOSPITAL: Dr. Tone Richardson.* (DICTATED BY LAURA CLAY) CONSULTING PAMPHLET DISTRIBUTOR: Dr. Janet Tomas. CHIEF COMPLAINT: Severe shortness of breath x1 day. HISTORY OF PRESENT ILLNESS: Ms. Olvera is a 52-year-old female with a past medical history significant for asthma, COPD, significant smoking history as well as anxiety who has had a very difficult course over the last several months having been admitted to this hospital with hypoxic respiratory failure in March, then again in May, and then again in the beginning of June. The patient was treated in this hospital initially with IV steroids and then oral steroids with marked and rapid improvement in her symptoms, being able to be weaned off of oxygen. The patient was seen in consultation at that time by Dr. Janet Tomas of pulmonology, who was concerned about findings on the patient' s CT scan with mild bronchiectasis and possible bronchopulmonary aspergillosis. The patient was discharged on 06/27/18 with the plan for close followup with pulmonology. The patient when she got home felt well for less than a day mainly in the evening and then on the morning of 06/28/18, despite taking her steroids; scheduled inhalers; and rescue inhalers, she still was markedly short of breath, being unable to walk greater than approximately 20 feet without becoming short of breath to the point of needing to stop and catch her breath. The patient was also presyncopal several times and dizzy upon standing with exertion. The patient has been feeling hot and cold. The patient feels like her heart is pounding in her chest. The patient denies chest pain. The patient denies nausea, vomiting, abdominal pain, diarrhea, or pain with urination. The patient denies swelling in her legs. The patient does not have sick contacts recently. The patient in the emergency department was placed on oxygen, but then was weaned off of this with her oxygen saturation staying in the low 90s. The patient was then ambulated and her oxygen saturation dropped down below 90% while walking and the patient again felt incredibly short of breath and needed oxygen again to recover from this. The patient in the emergency department initially had an elevated lactic acid, elevated white blood cell count likely related to steroid therapy, and a hemoglobin consistent with her previous findings. Due to concern for recurrence of the patient's asthma/COPD exacerbation, we were asked to evaluate the patient for admission to the hospital. The patient had been noting over the past several weeks significant cough with sputum production of large amounts of tenacious green sputum and states she has not been treated with Levaquin to her knowledge. PAST MEDICAL HISTORY: Asthma, COPD, and anxiety. PAST SURGICAL HISTORY: None. MEDICATIONS: Unchanged from discharge: 1. Paroxetine 40 mg p.o. daily. 2. Ventolin 2 puffs inhalation q.4 hours as needed. 3. Albuterol nebulizer 2.5 mg inhalation q.4 hours as needed. 4. Melatonin 3 mg p.o. at bedtime as needed. 5. Ascorbic acid 500 mg p.o. daily. 6. Ferrous sulfate 325 mg p.o. daily. 7. Prednisone 40 mg p.o. daily with taper. 8. Tiotropium 1 application topical daily. 9. Dulera 200/5 two puffs inhalation b.i.d. ALLERGIES: No known drug allergies. FAMILY HISTORY: The patient's mother is alive and has COPD. The patient's father is oxygen dependent, but for unknown cause. The patient's grandparents apparently all of heart disease. The patient has 1 sibling who is alive and healthy. SOCIAL HISTORY: The patient has a [id number] history of smoking, quitting in March 2018. The patient drinks rare alcohol. No illicit drug use. 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 The patient lives with her long-term partner/fiance and has 1 grown child. REVIEW OF SYSTEMS: A 14-point review of systems was reviewed with the patient and is negative, except as above in the HPI. PHYSICAL EXAMINATION GENERAL: The patient is a 52-year-old female who appears stated age and is sitting in bed, with significant increased work of breathing. VITAL SIGNS: Temperature 99.3, pulse rate 110, respiratory rate 22, oxygen saturation 93% on 4 L, blood pressure 103/86. HEENT: Head: Normocephalic, atraumatic. Sclerae anicteric. No conjunctival injection. Nasal mucosa moist. Oral mucosa moist. No pharyngeal erythema, discharge, or exudate. NECK: Supple, nontender. No lymphadenopathy. No carotid bruits auscultated. No JVD. RESPIRATORY: Severe expiratory wheezes throughout in all lung [place], poor air exchange, negative test for consolidation. CARDIAC: Tachycardic. No clicks, murmurs, gallops, or rubs. Pulses are 2+ in the bilateral dorsalis pedis, posterior tibialis and radial areas. ABDOMEN: Soft, nontender, nondistended. Bowel sounds present and normoactive in all 4 quadrants. No hepatosplenomegaly. No abdominal bruits auscultated. No hepatojugular reflux. GENITOURINARY: No suprapubic or CVA tenderness. NEURO: Cranial nerves II through XII intact. No focal deficits. Alert and oriented x3. PSYCHIATRIC: Pleasant and cooperative. SKIN: Clean, dry, and intact. No rash. DIAGNOSTIC STUDIES/LAB DATA: Laboratory Data: White blood cell count 13.8, hemoglobin 11.9, platelet count 272. Sodium 137, potassium 4.0, chloride 104, carbon dioxide 23, anion gap 10, BUN 20, creatinine 0.65, glucose 180, lactic acid 3.0, calcium 9.5. Bilirubin 0.2, AST 17, ALT 20, alkaline phosphatase 102. Creatine kinase 23, CK-MB is 86.8. Troponin I 0.01. CRP 8.03. BNP 41. Protein 7.1, albumin 4.1, globulin 3.0. Studies: Chest x-ray to this provider's view shows hyperinflation. No active cardiopulmonary disease, no infiltrates. EKG shows tachycardia. No ST elevation or depression, normal axis. Possible right atrial enlargement. Compared to previous exam, there are no significant changes. ASSESSMENT AND PLAN: Ms. Olvera is a 52-year-old female with a past medical history significant for asthma, chronic obstructive pulmonary disease with a recent course of frequent asthma/chronic obstructive pulmonary disease exacerbations which recurs severely whenever the patient is begun to taper on her steroids. The patient again is needing supplemental oxygen to maintain her oxygen saturation above 90% with ambulation, has significant wheezing and poor air exchange on lung exam and will be admitted to the hospital for treatment of her recurrent asthma/chronic obstructive pulmonary disease exacerbation and further evaluation of the cause of her refractory reactive airway disease. 1. Asthma/chronic obstructive pulmonary disease exacerbation. The patient is again wheezing with very poor air exchange and is desaturating with oxygen with severely limited exercise tolerance. The patient is already on treatment with oral steroids. The patient's symptoms persisted after 3 DuoNeb treatments in the emergency department and methylprednisolone. The patient will be continued on scheduled DuoNebs, albuterol inhalers in between as needed, expectorants for her tenacious sputum, and IV steroids will be reinstituted with tapering as needed again. The patient will be continued on her home inhalers. The patient due to her tenacious green sputum and the findings of bronchiectasis on CT scan may be colonized with pseudomonas, causing her refractory reactive airway disease symptoms. The patient will be treated with Levaquin as a therapeutic trial to see if this can decrease the severity of her reactive airway disease. The patient will also have an aspergillus IgE antibody sent due to concern from Dr. Tomas's most recent consultation for respiratory aspergillosis. Re- consultation with Dr. Tomas for a possible therapeutic trial or therapy of the patient's aspergillosis if confirmed should be considered. 2. Anxiety. The patient appears anxious, but this may be related to the patient's inhaler use. The patient does not take anything for anxiety as needed. Continue paroxetine. 3. DVT prophylaxis. The patient will have heparin subcu. 4. FEN. The patient will have a regular unrestricted diet and has no indication for fluids. 5. Code status. The patient will be a full code. TIME SPENT: Approximately 60 minutes were spent on the admission of this patient, 30 of which were spent [id number] with the patient obtaining history and physical and discussing treatment plan. The plan has been discussed with my attending, Dr. Tone Richardson, and he is in agreement. LAURA CLAY [id number]/[facility] #: [id number] ALEXUS
[2018-06-29] MEDS: Heparin VIAL(*) 5000 UNITS/ML VIAL (FIVE THOUSAND) SUBCUT SCH (05:29)
[2018-06-29] MEDS: Albuterol/Ipratropium NEB.SOL* Albuterol 2.5 MG/Ipratropium 0.5 MG 3 ML INH SCH ×7 (05:30→23:16)
[2018-06-29] MEDS ORDERED: methylPREDNISolone 125 MG* 2 ML VIAL IV SCH (06:00)
[2018-06-29] MEDS: Mometasone/Formoter 200/5 MDI INH SCH ×2 (07:59→19:33)
[2018-06-29] MEDS: Tiotropium CAP.INH* CAP.INH/18 MCG (USE ORDER SET !) INH SCH (07:59)
[2018-06-29 08:00] LABS: ABS Lymphocytes 1.1 10^3/ul (1.0-4.8); ABS Monocytes 0.3 10^3/ul (0-0.8); ABS Neutrophils 14.9 10^3/ul (1.5-7.7); Hematocrit 38 % (35-47); Hemoglobin 12.1 g/dL (12.0-16.0); Lymphocyte % 6.8 %; Mean Corpuscular HGB Conc 32 g/dL (31-36); Mean Corpuscular Hemoglobin 24 pg (27-31); Mean Corpuscular Volume 77 fL (80-97); Mean Platelet Volume 8.1 fL (7.4-10.4); Platelet Count 372 10^3/uL (150-450); Red Blood Count 4.97 10^6 /uL (3.70-4.87); Red Cell Distribution Width 20 % (10.5-15); White Blood Count 16.3 10^3/uL (3.5-10.8)
[2018-06-29 08:20] LABS: BUN/Creatinine Ratio 25.5 (8-20); Calcium 9.2 mg/dL (8.6-10.3); EGFR African American 141.6 (>60); Potassium 4.3 mmol/L (3.5-5.0)
[2018-06-29] MEDS: Ferrous Sulfate TAB* 325 MG PO SCH (08:27)
[2018-06-29] MEDS: PARoxetine HCL TAB* 40 MG PO SCH (08:27)
[2018-06-29] MEDS: Ascorbic Acid TAB* 500 MG PO SCH (08:27)
[2018-06-29] MEDS: Cetirizine* 10 MG TAB PO SCH (08:27)
[2018-06-29] MEDS ORDERED: guaiFENesin ER TAB 600 MG PO SCH (09:00)
[2018-06-29] MEDS ORDERED: Spiriva Inhaler DEVICE* 1 EACH DEVICE INH ONE (09:00)
[2018-06-29] MEDS ORDERED: guaiFENesin ER TAB 600 MG PO PRN (10:21)
--- NOTE | 2018-06-29 13:15 | PN ---
Subjective Date of Service: 06/29/18 Interval History: Admitted last night. Feels better after IV steroids, levaquin, and nebs. Not on oxygen. Very tired. Wheezing feels improved. Objective Active Medications: Acetaminophen (Tylenol Tab*) 650 mg PO Q6H PRN PRN Reason: FEVER/PAIN Albuterol (Ventolin 2.5 Mg/3 Ml Neb.Viktoriya*) 2.5 mg INH Q2H PRN PRN Reason: SOB/WHEEZING Albuterol/Ipratropium (Duoneb (Albuterol 2.5 Mg/Ipratropium 0.5 Mg)) 1 neb INH [id number] AWAKE [facility] Last Admin: 06/29/18 11:22 Dose: Not Given Ascorbic Acid (Vitamin C Tab*) 500 mg PO DAILY@0700 [facility] Last Admin: 06/29/18 08:27 Dose: 500 mg Benzonatate (Tessalon Cap*) 100 mg PO BID PRN PRN Reason: COUGH Last Admin: 06/28/18 22:35 Dose: 100 mg Cetirizine HCl (Zyrtec*) 10 mg PO DAILY [facility]; Protocol Last Admin: 06/29/18 08:27 Dose: 10 mg Enoxaparin Sodium (Lovenox(*)) 40 mg SUBCUT BEDTIME [facility] Ferrous Sulfate (Ferrous Sulfate Tab*) 325 mg PO DAILY@0700 [facility] Last Admin: 06/29/18 08:27 Dose: 325 mg Guaifenesin (Mucinex*) 1,200 mg PO BID PRN PRN Reason: COUGH Levofloxacin/Dextrose (Levaquin 750 Mg Ivpremix(*)) 750 mg in 150 mls @ 100 mls /hr IVPB Q24H [facility] Last Admin: 06/28/18 22:46 Dose: 100 mls/hr Melatonin (Melatonin) 3 mg PO BEDTIME PRN PRN Reason: SLEEP Last Admin: 06/28/18 22:35 Dose: 3 mg Mometasone Furoate/Formoterol Fumar (Dulera 200/5 Mdi*) 2 puff INH BID [facility] Last Admin: 06/29/18 07:59 Dose: 2 puff Montelukast Sodium (Singulair Tab*) 10 mg PO BEDTIME [facility] Last Admin: 06/28/18 22:35 Dose: 10 mg Ondansetron HCl (Zofran Inj*) 4 mg IV Q6H PRN PRN Reason: NAUSEA Paroxetine HCl (Paxil Tab*) 40 mg PO DAILY [facility] Last Admin: 06/29/18 08:27 Dose: 40 mg Prednisone (Deltasone Tab*) 40 mg PO DAILY [facility] Tiotropium [place] (Spiriva Cap.Inh*) 1 cap INH DAILY [facility] Last Admin: 06/29/18 07:59 Dose: 1 cap Vital Signs - 8 hr 06/29/18 06/29/18 06/29/18 07:34 08:00 09:07 Temperature 97.9 F Pulse Rate 92 98 Respiratory 14 18 Rate Blood Pressure 131/107 (mmHg) O2 Sat by Pulse 97 98 94 Oximetry 06/29/18 06/29/18 06/29/18 10:44 11:59 12:00 Temperature 97.9 F Pulse Rate 105 Respiratory 16 Rate Blood Pressure 135/73 140/77 (mmHg) O2 Sat by Pulse 93 Oximetry Oxygen Devices in Use Now: None Appearance: appears tired, nontoxic; without increased WOB Ears/Nose/Mouth/Throat: Mucous Membranes Moist Respiratory: - - decent air-entry; mild expiratory wheeze on R Cardiovascular: RRR Abdominal: NL Sounds; No Tenderness; No Distention Result Diagrams: 06/29/18 07:30 06/29/18 07:30 Assess/Plan/Problems-Billing Assessment: 52W with asthma, likely COPD given significant smoking history (quit 3 months ago), anxiety, Fe-def anemia, presents with quick recurrence of SOB/wheeze after recent discharge for asthma/COPD exacerbation. Found with hypoxia, tachycardia, wheezing, poor air exchange, but without fever or CXR findings. WBC difficult to interpret in setting of frequent steroids. - Patient Problems (1) Asthma exacerbation Comment: likely COPD component as well. Symptoms suddenly worsened after achieving significant improvement and being able to come off oxygen, despite not changing medications or decreasing steroids. Concern previously for possible bronchiectasis and/or bronchopulmonary aspergillosis. - Dr. Tomas consulted - aspergilosis IgE sent; trying to send [id number] - cont IV Levofloxacin in case of bacterial infection - steroids, nebs, already on LAMA/LABA/ICS (2) Anxiety Comment: - cont home SSRI (3) Iron deficiency anemia Comment: - cont ferrous sulfate and vit C - discussed need for age-appropriate cancer screeing in clinic - has not had a c -scope yet
[2018-06-29 19:18] LABS: Urine Appearance Clear; Urine Bilirubin Negative (Negative); Urine Blood Negative (Negative); Urine Color Yellow; Urine Glucose Negative (Negative); Urine Ketones Trace (Negative); Urine Nitrite Negative (Negative); Urine Protein Negative (Negative); Urine Specific Gravity 1.025 (1.010-1.030); Urine Urobilinogen Negative (Negative)
[2018-06-29] MEDS: Montelukast Sodium TAB* 10 MG PO SCH (22:06)
[2018-06-29] MEDS: Levofloxacin 750 MG IVPREMIX(* 750 MG/150 ML BAG IVPB SCH (22:07)
[2018-06-29] MEDS: Enoxaparin(*) 40 MG/0.4 ML SYR SUBCUT SCH (22:19)
[2018-06-30] MEDS: Albuterol/Ipratropium NEB.SOL* Albuterol 2.5 MG/Ipratropium 0.5 MG 3 ML INH SCH ×2 (04:23→07:46)
[2018-06-30] MEDS: Ferrous Sulfate TAB* 325 MG PO SCH (07:38)
[2018-06-30] MEDS: predniSONE TAB* 20 MG PO SCH (07:38)
[2018-06-30] MEDS: PARoxetine HCL TAB* 40 MG PO SCH (07:38)
[2018-06-30] MEDS: Cetirizine* 10 MG TAB PO SCH (07:39)
[2018-06-30] MEDS: Ascorbic Acid TAB* 500 MG PO SCH (07:39)
[2018-06-30] MEDS: Tiotropium CAP.INH* CAP.INH/18 MCG (USE ORDER SET !) INH SCH (07:46)
[2018-06-30] MEDS: Mometasone/Formoter 200/5 MDI INH SCH ×2 (07:46→19:27)
[2018-06-30] MEDS ORDERED: Albuterol/Ipratropium NEB.SOL* Albuterol 2.5 MG/Ipratropium 0.5 MG 3 ML INH PRN (07:53)
--- NOTE | 2018-06-30 11:21 | PN ---
Subjective Date of Service: 06/30/18 Interval History: Had a good night. Slept. SOB and wheezing nearly resolved. Still on IV levaquin. Seen by Dr. Tomas this AM. First dose of oral steroids was this morning. Objective Active Medications: Acetaminophen (Tylenol Tab*) 650 mg PO Q6H PRN PRN Reason: FEVER/PAIN Albuterol (Ventolin 2.5 Mg/3 Ml Neb.Viktoriya*) 2.5 mg INH Q2H PRN PRN Reason: SOB/WHEEZING Albuterol/Ipratropium (Duoneb (Albuterol 2.5 Mg/Ipratropium 0.5 Mg)) 1 neb INH [id number] AWAKE PRN PRN Reason: SOB/WHEEZING Ascorbic Acid (Vitamin C Tab*) 500 mg PO DAILY@0700 [facility] Last Admin: 06/30/18 07:39 Dose: 500 mg Benzonatate (Tessalon Cap*) 100 mg PO BID PRN PRN Reason: COUGH Last Admin: 06/28/18 22:35 Dose: 100 mg Cetirizine HCl (Zyrtec*) 10 mg PO DAILY [facility]; Protocol Last Admin: 06/30/18 07:39 Dose: 10 mg Enoxaparin Sodium (Lovenox(*)) 40 mg SUBCUT BEDTIME [facility] Last Admin: 06/29/18 22:19 Dose: 40 mg Ferrous Sulfate (Ferrous Sulfate Tab*) 325 mg PO DAILY@0700 [facility] Last Admin: 06/30/18 07:38 Dose: 325 mg Guaifenesin (Mucinex*) 1,200 mg PO BID PRN PRN Reason: COUGH Levofloxacin/Dextrose (Levaquin 750 Mg Ivpremix(*)) 750 mg in 150 mls @ 100 mls /hr IVPB Q24H [facility] Last Admin: 06/29/18 22:07 Dose: 100 mls/hr Melatonin (Melatonin) 3 mg PO BEDTIME PRN PRN Reason: SLEEP Last Admin: 06/28/18 22:35 Dose: 3 mg Mometasone Furoate/Formoterol Fumar (Dulera 200/5 Mdi*) 2 puff INH BID [facility] Last Admin: 06/30/18 07:46 Dose: 2 puff Montelukast Sodium (Singulair Tab*) 10 mg PO BEDTIME [facility] Last Admin: 06/29/18 22:06 Dose: 10 mg Ondansetron HCl (Zofran Inj*) 4 mg IV Q6H PRN PRN Reason: NAUSEA Paroxetine HCl (Paxil Tab*) 40 mg PO DAILY [facility] Last Admin: 06/30/18 07:38 Dose: 40 mg Prednisone (Deltasone Tab*) 40 mg PO DAILY [facility] Last Admin: 06/30/18 07:38 Dose: 40 mg Tiotropium [place] (Spiriva Cap.Inh*) 1 cap INH DAILY [facility] Last Admin: 06/30/18 07:46 Dose: 1 cap Vital Signs - 8 hr 06/30/18 06/30/18 06/30/18 07:29 07:48 08:00 Temperature 97.5 F Pulse Rate 82 83 Respiratory 18 18 18 Rate Blood Pressure 138/92 (mmHg) O2 Sat by Pulse 94 98 Oximetry Oxygen Devices in Use Now: None Respiratory: - - now L lower lung field with expiratory wheeze; air movement improved Cardiovascular: RRR Abdominal: NL Sounds; No Tenderness; No Distention Skin: No Rash or Ulcers Neurological: Alert and Oriented x 3 Result Diagrams: 06/29/18 07:30 06/29/18 07:30 Assess/Plan/Problems-Billing Assessment: 52W with asthma, likely COPD given significant smoking history (quit 3 months ago), anxiety, Fe-def anemia, presents with quick recurrence of SOB/wheeze after recent discharge for asthma/COPD exacerbation. Found with hypoxia, tachycardia, wheezing, poor air exchange, but without fever or CXR findings. WBC difficult to interpret in setting of frequent steroids. - Patient Problems (1) Asthma exacerbation Comment: likely COPD component as well. Symptoms suddenly worsened after achieving significant improvement and being able to come off oxygen, despite not changing medications or decreasing steroids. Concern previously for possible bronchiectasis and/or bronchopulmonary aspergillosis vs pseudomonas. - Dr. Tomas consulted - procalcitonin, aspergilosis IgE, and b-D-glucan sent; unclear why sputum not collected - cont IV Levofloxacin (5/4 - ) in case of bacterial infection - steroids, nebs, already on LAMA/LABA/ICS (2) Anxiety Comment: - cont home SSRI (3) Iron deficiency anemia Comment: - cont ferrous sulfate and vit C - discussed need for age-appropriate cancer screeing in clinic - has not had a c -scope yet
[2018-06-30] MEDS: Montelukast Sodium TAB* 10 MG PO SCH (21:05)
[2018-06-30] MEDS: Enoxaparin(*) 40 MG/0.4 ML SYR SUBCUT SCH (21:06)
[2018-06-30] MEDS: Levofloxacin 750 MG IVPREMIX(* 750 MG/150 ML BAG IVPB SCH (22:02)
--- NOTE | 2018-06-30 23:48 | CONS ---
PULMONARY CONSULTATION REPORT: DATE OF CONSULT: 06/30/18 CONSULTATION REQUESTED BY: Dr. Catie Soto. REASON FOR CONSULTATION: Evaluation of asthma exacerbation. HISTORY OF PRESENT ILLNESS: Patient is a 52-year-old female with history of asthma, allergies, known to me from recent inpatient evaluation when she was admitted for acute asthma exacerbation. Patient was discharged on 06/27/18, returns back for evaluation of worsening shortness of breath. Patient reports having cough productive of thick phlegm. Patient reports that she started feeling better when she was in the hospital. Her symptoms started to worsen soon after she got discharged home. She had significant dyspnea with minimal exertion. Patient also reported palpitations and dizziness. Patient denied nausea, vomiting, abdominal pain. Patient was found to be having significant tightness in the chest. She was hypoxemic in the past, has not been requiring oxygen now. Patient is also with anxiety issues. Patient reports feeling better this morning. PAST MEDICAL HISTORY: Asthma, COPD, anxiety. MEDICATIONS: 1. Paroxetine. 2. Ventolin. 3. Albuterol. 4. Melatonin. 5. Ascorbic acid. 6. Ferrous sulfate. 7. Prednisone. 8. Tiotropium. 9. Dulera. ALLERGIES: No known drug allergies. FAMILY HISTORY: Mother is alive and has COPD. Father is oxygen dependent with unknown cause. SOCIAL HISTORY: A [id number] smoking, quit in March 2018. No alcohol or drug abuse. REVIEW OF SYSTEMS: All 14 systems reviewed as per HPI. PHYSICAL EXAM: The patient in bed, in no apparent distress, slightly anxious. Vital Signs: Temperature 98.1, pulse 107 beats per minute, respiratory rate 20 per minute, O2 sat 94% on room air, blood pressure 142/86. HEENT: Pupils equal , reactive to light. Mucous membranes moist. Lungs: Diminished air entry bilaterally. Scattered wheeze present. Cardiovascular: S1, S2 present, regular. Abdomen: Soft, nontender, nondistended. Bowel sounds present. Extremities: Normal range of motion. Skin: No rash or bruises. Neuro: Alert , awake, no focal deficits. DIAGNOSTIC STUDIES/LAB DATA: Laboratory Exam: WBC count 16.3, hemoglobin 12.1 , hematocrit 38, platelet count of 372. Sodium 137, potassium 4.3, chloride 105 , bicarb 26, BUN 14, creatinine 0.55, lactic acid is 3 on admission and improved to 1.9. Troponin x2 is within normal limits. BNP is within normal limits. Chest x-ray was personally reviewed. No evidence of acute airspace opacities. IMPRESSION AND RECOMMENDATIONS: A 52-year-old female with history of asthma and allergies. She has been having worsening asthma symptoms since February. Patient with readmission within couple of days of discharge with acute shortness of breath again. The patient with significant wheezing on auscultation, being treated for acute asthma exacerbation. I do not think there is any alternative etiology of her shortness of breath. She does have significant wheeze on auscultation, though not as worse as last time. She is not hypoxemic. I do not think there is pulmonary embolism playing a role. She does have a component of anxiety, which might be also affecting her asthma control. She is on a good dose of steroids. She is receiving nebulizers as needed. Would continue with prolonged prednisone taper. Patient was provided with reinforcement. Suspected allergic bronchopulmonary aspergillosis given evidence of mild bronchiectasis noted on previous CT. Allergic bronchopulmonary aspergillosis evaluation would be limited when patient is on steroids. We will send necessary workup as outpatient. Steroids are usual management options for allergic bronchopulmonary aspergillosis. She does not have elevated eosinophils. Optimal control of allergies was discussed. Thank you for allowing me to participate in the care of your patient. We will follow up with you. [id number]/[facility] #: [id number] ALEXUS
[2018-07-01] MEDS: Melatonin 3 MG TAB PO PRN (01:25)
[2018-07-01] MEDS: Ascorbic Acid TAB* 500 MG PO SCH (06:19)
[2018-07-01] MEDS: Ferrous Sulfate TAB* 325 MG PO SCH (06:19)
[2018-07-01 06:51] LABS: Hematocrit 35 % (35-47); Hemoglobin 11.1 g/dL (12.0-16.0); Mean Corpuscular HGB Conc 32 g/dL (31-36); Mean Corpuscular Hemoglobin 24 pg (27-31); Mean Corpuscular Volume 77 fL (80-97); Mean Platelet Volume 8.1 fL (7.4-10.4); Platelet Count 335 10^3/uL (150-450); Red Blood Count 4.56 10^6 /uL (3.70-4.87); Red Cell Distribution Width 21 % (10.5-15); White Blood Count 13.2 10^3/uL (3.5-10.8)
[2018-07-01 07:13] LABS: BUN/Creatinine Ratio 31.7 (8-20); Calcium 8.6 mg/dL (8.6-10.3); EGFR Non-African American 105.8 (>60); Potassium 3.8 mmol/L (3.5-5.0)
[2018-07-01] MEDS: Tiotropium CAP.INH* CAP.INH/18 MCG (USE ORDER SET !) INH SCH (07:22)
[2018-07-01] MEDS: Mometasone/Formoter 200/5 MDI INH SCH (07:23)
[2018-07-01 07:37] VITALS: BP 149/94
[2018-07-01] MEDS: Cetirizine* 10 MG TAB PO SCH (08:08)
[2018-07-01] MEDS: PARoxetine HCL TAB* 40 MG PO SCH (08:08)
[2018-07-01] MEDS: predniSONE TAB* 20 MG PO SCH (08:09)
--- NOTE | 2018-07-01 14:34 | DS ---
CC: Eleanor Champagne NP; Dr. Tomas.* DISCHARGE SUMMARY: DATE OF ADMISSION: 06/28/18 DATE OF DISCHARGE: 07/01/18 PRIMARY CARE PROVIDER: Eleanor Champagne NP. AUTOMATIC I THREADING MACHINE FEEDER: Dr. Tomas. 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 SECONDARY DIAGNOSES: 1. Asthma. 2. Chronic obstructive pulmonary disease. 3. Anxiety. DISCHARGE MEDICATIONS: 1. Spiriva 1 puff inhaled daily. 2. Paxil 40 mg p.o. daily. 3. Dulera 200/5 two puff inhaled twice daily. 4. Melatonin 3 mg p.o. at bedtime p.r.n. insomnia. 5. Ferrous sulfate 325 mg p.o. daily. 6. Ascorbic acid 500 mg p.o. daily. 7. Albuterol 2 puffs inhaled q.4 hours p.r.n. shortness of breath. 8. Albuterol 1 neb inhaled q.4 hours p.r.n. shortness of breath. 9. Prednisone 40 mg p.o. daily x5 days tapering by 10 mg every 5 days until done. 10. Guaifenesin ER 1200 mg p.o. b.i.d. p.r.n. congestion. HOSPITAL COURSE: Ms. Olvera is a 52-year-old female who was hospitalized initially from 06/25/18 through 06/27/18 where she was treated for an asthma exacerbation. She re-presented to the emergency room on 06/30/18 with complaints of acute worsening of her shortness of breath while at home. The patient was again seen in consultation by Dr. Tomas this hospitalization. It was felt that the patient is likely suffering from an allergic bronchopulmonary aspergillosis and the mainstay of treatment for this is steroids. The patient does state that overall she is feeling improved now compared to when she presented to the emergency room and even better than when she left the hospital the first around. The patient has been up and ambulating in the hallway without any significant shortness of breath, though she does continue to have mild shortness of breath with this. We discussed that likely she will continue to have shortness of breath for some period of time after her hospitalization while treating the allergic bronchopulmonary aspergillosis. The patient's vital signs are stable. She is not tachycardic, she is not tachypneic. She is saturating well on room air. She does have a mildly elevated white blood cell count of 13,200 on the day of discharge; however, this is likely related to her steroid use. The remainder of her labs are appropriate. On the day of discharge, the patient is awake, alert, and oriented; lying in bed ; in no acute distress. Cardiac: Normal S1 and S2. Regular rate and rhythm. Lungs are clear. There is no wheezing noted. There is very good air movement noted throughout. Abdomen: Bowel sounds present. Abdomen is soft, nontender, and nondistended. Musculoskeletal: There is full active range of motion of all 4 extremities. FOLLOWUP CONCERNS: The patient is being discharged home today 07/01/18. Activity level is as tolerated. Diet is regular. CONDITION ON DISCHARGE: Stable. FOLLOWUP: The patient is to follow up with Eleanor Champagne in the next 4 to 7 days and has an appointment scheduled with Dr. Tomas for 07/30/18 at 11 a.m. I have asked that the patient also be placed on the cancelation list to be moved up on the schedule if possible. TIME SPENT: Thirty-five minutes was spent discharging this patient. [id number]/[facility] #: [id number] MTDD
== END 2018-07-01 11:45 | disposition home or self-care (01) | DRG 142 ==
LOC: ED 18:27 → MED 21:21 → OBSVTOIN 06-30 14:00
PROVIDERS: ADMIT Internal Medicine; ATTEND Hospitalist
DX: B44.81 Allergic bronchopulmonary aspergillosis (principal); J45.901 Unspecified asthma with (acute) exacerbation; F41.9 Anxiety disorder, unspecified; R09.02 Hypoxemia; F50.9 Eating disorder, unspecified; D50.9 Iron deficiency anemia, unspecified; J47.9 Bronchiectasis, uncomplicated; Z68.32 Body mass index [BMI] 32.0-32.9, adult; Z91.5 Personal history of self-harm; Z82.49 Family history of ischemic heart disease and other diseases of the circulatory system; Z82.5 Family history of asthma and other chronic lower respiratory diseases; Z81.8 Family history of other mental and behavioral disorders; Z87.891 Personal history of nicotine dependence
CPT/HCPCS: 36415; 71046; 80048; 80053; 81003; 82550; 82553; 83605; 83735; 83880; 84145; 84484; 85025; 85027; 86003; 86140; 87449; 93005; 94640; 99284; A9270-GY; J1644; J1650; J2930; J7512

== ENCOUNTER 2018-12-14 23:09 | Emergency (ER) | payer BC ==
--- OUTSIDE RECORDS SUMMARY | 2018-12-14 23:19 | XMS REPORT | Summary of Care ---
:1965 Author Organization [facility] Address [address] [place] [address] Care Team Providers Name Role Phone Den Scott MD Primary Care Provider Joey Gentile MD Unavailable Reason for Visit Reason Comments Check Up Asthma f/u, cold symptons and fatigue. Encounter Details Date Type Department Care Team Description 11/12/2018 Office Visit [facility] Eleanor Champagne, Moderate persistent asthma with acute exacerbation (Primary Dx); Practice P[facility] MONITOR [facility]xiety [address] [place], [place] [id number] [place] [id number] [phone] Allergies Active Allergy Reactions Severity Noted Date Comments Mold Respiratory Reaction 07/04/2018 documented as of this encounter (statuses as of 11/12/2018) Medications Medication Sig Dispensed Refills Start End Date Status Date albuterol 3 mL by 100 vial 2 Active (PROVENTIL, Inhalation-SVN 9 VENTOLIN) (2.5 route EVERY MG/3ML) 0.083% FOUR HOURS Inhalation Nebu NEEDED Soln (wheezing). Tiotropium [place] Take by 0 Active Monohydrate inhalation (SPIRIVA RESPIMAT DAILY. IN)Indications: Moderate persistent asthma with acute exacerbation Mometasone Take 2 INHL by 3 Inhaler 3 Active Furo-Formoterol Fum inhalation 9 (DULERA) 200-5 DAILY. MCG/ACT Inhalation AerosolIndications: Moderate persistent asthma with acute exacerbation albuterol HFA INHALE 2 PUFFS 18 g 5 Active (VENTOLIN) 108 (90 BY MOUTH EVERY 9 Base) MCG/ACT 4 HOURS Inhalation Aero NEEDED FOR SolnIndications: COUGH Moderate persistent asthma with acute exacerbation paroxetine (PAXIL) TAKE 1 TABLET 30 Tab 5 Active 40 MG Oral BY MOUTH EVERY 9 TabIndications: DAY Panic disorder with agoraphobia and moderate panic attacks montelukast TAKE 1 TABLET 90 Tab 0 Active (SINGULAIR) 10 MG BY MOUTH ONCE 9 Oral DAILY TabIndications: Moderate asthma, unspecified whether complicated, unspecified whether persistent predniSONE Take 1 Tab by 10 Tab 0 11/18/19 Active (DELTASONE) 20 MG mouth TWICE 9 19 Oral DAILY for 5 TabIndications: days. Moderate persistent asthma with acute exacerbation clarithromycin Take 1 Tab by 20 Tab 0 Active (BIAXIN) 500 MG mouth TWICE 9 Oral DAILY. TabIndications: Moderate persistent asthma with acute exacerbation ALPRAZolam (XANAX) Take 1 Tab by 90 Tab 0 Active 0.5 MG Oral mouth THREE 9 TabIndications: TIMES DAILY Anxiety NEEDED (anxiety). Max Daily Amount: 1.5 mg. 1-2 tabs as directed benzonatate Take 1 Cap by 30 Cap 0 11/13/19 Discontinued (TESSALON PERLES) mouth THREE 8 19 100 MG Oral TIMES DAILY CapIndications: NEEDED for Moderate persistent cough. asthma with acute exacerbation guaifenesin Take 600 mg by 0 11/13/19 Discontinued (MUCINEX) 600 MG mouth TWICE 19 Oral TABLET SR 12 DAILY. HRIndications: Productive cough predniSONE DIRECTED. 0 11/13/19 Discontinued (DELTASONE) 10 MG 9 19 Oral TabIndications: Moderate persistent asthma with acute exacerbation ALPRAZolam (XANAX) Take 1 Tab by 90 Tab 0 07/08/201 09/18/20 Discontinued 0.5 MG Oral mouth EVERY 9 19 (Reorder) TabIndications: BEDTIME Anxiety NEEDED (anxiety). Max Daily Amount: 0.5 mg. documented as of this encounter (statuses as of 11/12/2018) Active Problems Problem Noted Date Over weight 02/07/2009 Overview: BMI 30 02/02 Tobacco use disorder 02/07/2009 Overview: 1 packs per day began age 22. Cut down 02/02: 1/2 packs per day Panic disorder with agoraphobia and moderate panic attacks 02/07/2009 Overview: Paxil treatment began 2005-. Moderate persistent asthma 02/07/2009 Overview: [facility] emergency room visit springJanuary 03. documented as of this encounter (statuses as of 11/12/2018) Resolved Problems Problem Noted Date Resolved Date Bipolar disorder 07/21/2010 10/22/2016 Overview: [facility] Agustina Abreu [facility] documented as of this encounter (statuses as of 11/12/2018) Immunizations Name Administration Dates Next Due H1N1 Intranasal Adult 02/07/2009 Influenza (IM) Preservative Free 02/07/2009 MMR VACCINE 07/21/2010 PNEUMOCOCCAL POLYSACCHARIDE VACCINE 07/21/2010 documented as of this encounter Social History Tobacco Use Types Packs/Day Years Used Date Former Smoker Cigarettes 0.5 Quit: 06/07/2018 Smokeless Tobacco: Never Used Comments: began age 22-1 ppd Alcohol Use Drinks/Week oz/Week Comments No Sex Assigned at Date Recorded Not on file Job Start Date Occupation Industry Not on file Not on file Not on file Travel History Travel Start Travel End No recent travel history available. documented as of this encounter Last Filed Vital Signs Vital Sign Reading Time Taken Comments Blood Pressure 145/88 11/12/2018 1:13 PM EDT Pulse 64 11/12/2018 1:13 PM EDT Temperature 37.2 11/12/2018 1:13 PM EDT C (99 F) Respiratory Rate - - Oxygen Saturation 97% 11/12/2018 1:13 PM EDT Inhaled Oxygen Concentration - - Weight 88.9 kg (196 lb) 11/12/2018 1:13 PM EDT Height 167.6 cm (5' 6") 11/12/2018 1:13 PM EDT Body Mass Index 31.64 11/12/2018 1:13 PM EDT documented in this encounter Patient Instructions Patient InstructionsEleanor Champagne FNP - 11/12/2018 1:00 PM EDTMedication as directed Use Xanax as needed for sleep and anxiety Call Pulmonology for follow up Get flu vaccine 1: 34 PM EDT documented in this encounter Progress Notes Eleanor Champagne FNP - 11/12/2018 1:00 PM EDT PATIENT: Kate Olvera : 1965 DATE OF SERVICE: 11/12/2018 CHIEF COMPLAINT: Chief Complaint Patient presents with Check Up Asthma f/u, cold symptons and fatigue. Subjective HISTORY OF PRESENT ILLNESS: Kate Olvera is a 53-y.o. female. HPI Increased asthma sx , cough. Using Albuterol as well as routine maintanence meds. Poor sleep for over a week History reviewed. No pertinent past medical history. Family History Problem Relation Age of Onset Breast Cancer Maternal Aunt 3aunts Breast Cancer Maternal Grandmother Breast Cancer Other cousin Current Outpatient Medications Medication Sig albuterol (PROVENTIL, VENTOLIN) (2.5 MG/3ML) 0.083% Inhalation Nebu Soln 3 mL by Inhalation-SVN route EVERY FOUR HOURS NEEDED (wheezing). albuterol HFA (VENTOLIN) 108 (90 Base) MCG/ACT Inhalation Aero Soln INHALE 2 PUFFS BY MOUTH EVERY 4 HOURS NEEDED FOR COUGH ALPRAZolam (XANAX) 0.5 MG Oral Tab Take 1 Tab by mouth THREE TIMES DAILY NEEDED (anxiety).Max Daily Amount: 1.5 mg. 1-2 tabs as directed clarithromycin (BIAXIN) 500 MG Oral Tab Take 1 Tab by mouth TWICE DAILY. Mometasone Furo-Formoterol Fum (DULERA) 200-5 MCG/ACT Inhalation Aerosol Take 2 INHL by inhalation DAILY. montelukast (SINGULAIR) 10 MG Oral Tab TAKE 1 TABLET BY MOUTH ONCE DAILY paroxetine (PAXIL) 40 MG Oral Tab TAKE 1 TABLET BY MOUTH EVERY DAY predniSONE (DELTASONE) 20 MG Oral Tab Take 1 Tab by mouth TWICE DAILY for 5 days. Tiotropium [place] Monohydrate (SPIRIVA RESPIMAT IN) Take by inhalation DAILY. No current facility-administered medications for this visit. Allergies Allergen Reactions Mold Respiratory Reaction Social History Socioeconomic History Marital status: Single Spouse name: Not on file Number of children: Not on file Years of education: Not on file Highest education level: Not on file Occupational History Not on file Social Needs Financial resource strain: Not on file Food insecurity: Worry: Not on file Inability: Not on file Transportation needs: Medical: Not on file Non-medical: Not on file Tobacco Use Smoking status: Former Smoker Packs/day: 0.50 Types: Cigarettes Last attempt to quit: 06/07/2018 Years since quittin.4 Smokeless tobacco: Never Used Tobacco comment: began age 22-1 ppd Substance and Sexual Activity Alcohol use: No Drug use: Not on file Sexual activity: Not Currently Lifestyle Physical activity: Days per week: Not on file Minutes per session: Not on file Stress: Not on file Relationships Social connections: Talks on phone: Not on file Gets together: Not on file Attends shinto service: Not on file Active member of club or organization: Not on file Attends meetings of clubs or organizations: Not on file Relationship status: Not on file Intimate partner violence: Fear of current or ex partner: Not on file Emotionally abused: Not on file Physically abused: Not on file Forced sexual activity: Not on file Other Topics Concern Back Care Not Asked Bike Helmet Not Asked Blood Transfusions Not Asked Caffeine Concern Yes Comment: drinks too much coffee Exercise Yes Comment: moderate walk once daily-mall walk 30 minutes Hobby Hazards Not Asked International Travel Not Asked Service Not Asked Occupational Exposure Not Asked Seat Belt Not Asked Self-Exams Not Asked Sleep Concern No Special Diet No Stress Concern Yes Comment: separation Weight Concern Yes Comment: would like to lose wt down to 140 lbs Social History Narrative Lives in [place], [place] Lives with Mother Work at [employer] from 1 12 year old daughter. REVIEW OF SYSTEMS: Review of Systems Constitutional: Positive for malaise/fatigue. Negative for fever. HENT: Negative for ear pain, sinus pain and sore throat. Respiratory: Positive for cough, shortness of breath and wheezing. Negative for sputum production. Psychiatric/Behavioral: Negative for hallucinations, substance abuse and suicidal ideas. The patientis nervous/anxious and has insomnia. Objective PHYSICAL EXAM: VITALS: BP 145/88 | Pulse 64 | Temp 99 F (37.2 C) | Ht 5' 6" (1.676 m) | Wt 196 lb (88.9 kg) | SpO2 97% | BMI 31.64 kg/m Body mass index is 31.64 kg/m. Physical Exam Constitutional: She is oriented to person, place, and time. Vital signs are normal. She appears well-developed and well-nourished. HENT: Head: Normocephalic and atraumatic. Right Ear: Tympanic membrane normal. Left Ear: Tympanic membrane normal. Nose: Nose normal. Mouth/Throat: Uvula is midline and oropharynx is clear and moist. Eyes: Pupils are equal, round, and reactive to light. EOM are normal. Neck: Normal range of motion. No JVD present. Cardiovascular: Normal rate and regular rhythm. Pulmonary/Chest: Effort normal. No respiratory distress. She has wheezes. She has no rales. Lymphadenopathy: She has no cervical adenopathy. Neurological: She is alert and oriented to person, place, and time. No cranial nerve deficit or sensory deficit. Gait normal. Skin: Skin is warm and dry. Capillary refill takes less than 2 seconds. She is not diaphoretic. No cyanosis. No pallor. Psychiatric: Her speech is normal and behavior is normal. Her mood appears anxious. She expresses nosuicidal plans and no homicidal plans. Feels breathing issues are worsening anxiety - not sleeping well - will refill Xanax and monitor Vitals reviewed. ASSESSMENT / IMPRESSION: ICD-9-CM ICD-10-CM 1. Moderate persistent asthma with acute exacerbation 493.92 J45.41 predniSONE ( DELTASONE) 20 MG Oral Tab clarithromycin (BIAXIN) 500 MG Oral Tab 2. Anxiety 300.00 F41.9 ALPRAZolam (XANAX) 0.5 MG Oral Tab Plan Medication as directed Use Xanax as needed for sleep and anxiety Call Pulmonology for follow up Get flu vaccine Author: FRANCIA Malagon 11/12/2018 13:50 documented in this encounter Plan of Treatment Health Maintenance Due Date Last Done Comments DEPRESSION SCREENING 1979 MAMMOGRAM (SCREENING) 11/21/2016 11/22/2015, 11/22/2015, 11/05/2013, Additional history exists COLONOSCOPY SCREENING 08/23/2017 ZOSTER IMMUNIZATION SERIES 08/23/2017 (1 of 2) DIABETES SCREENING 10/22/2017 10/22/2016 INFLUENZA VACCINE (#1) 2018 02/07/2009, 02/07/2009 PAP SMEAR 11/21/2018 11/22/2015, 11/22/2015, 11/22/2015, Additional history exists LIPID DISORDER SCREENING 10/22/2021 10/22/2016 PNEUMOCOCCAL 0-64 YRS Completed 07/21/2010 HPV IMMUNIZATION SERIES Aged Out No longer eligible based on patient's age to complete this topic MENINGOCOCCAL VACCINE IMM Aged Out No longer eligible based on patient's age to complete this topic documented as of this encounter Results Not on filedocumented in this encounter Visit Diagnoses Diagnosis Moderate persistent asthma with acute exacerbation - Primary Anxiety Anxiety state, unspecified documented in this encounter Insurance Payer Benefit Plan / Subscriber ID Effective Dates Phone Address Type Group [employer]CE[employer] BCBS EXCELLUS BCBS xxxxxxxxxxxx 2018-Presen Excellus t BCBS NATIONAL BCBS NATIONAL xxxxxxxxxxxx 2018-Presen Blue t Cross/Blue Shield (Home) [place] [phone] [place], [place] (Work) [id number] documented as of this encounter
[2018-12-14] MEDS ORDERED: Magnesium Sulfate 2 GM IV* 2 GM/50 ML BAG IVPB ONE (23:25)
[2018-12-14] MEDS ORDERED: methylPREDNISolone 125 MG* 2 ML VIAL IV ONE (23:25)
[2018-12-14] MEDS ORDERED: Albuterol/Ipratropium NEB.SOL* Albuterol 2.5 MG/Ipratropium 0.5 MG 3 ML INH ONE (23:25)
--- NOTE | 2018-12-14 23:34 | ED ---
Shortness of Breath - HPI Summary HPI Summary: 53 year old female presents with shortness of breath for the past week. She states that she's been having a cough. She states that a week ago she was diagnosed with bronchitis and was placed on steroid. she states that she seemed it better but this past week has been getting worse. She admits to sinus congestion. She denies any fevers. She states that she is scared to take her nebulizer machine as she had a bacterial infection last time she used it. no recent travel. She denies any pain or swelling in her calf muscles. - History of Current Complaint Chief Complaint: EDShortnessOfBreath Time Seen by Provider: 12/14/18 23:20 - Allergy/Home Medications Allergies/Adverse Reactions: Allergies Allergy/AdvReac Type Severity Reaction Status Date / Time No Known Allergies Allergy Verified 12/14/18 23:12 Home Medications: Home Medications Xanax 0.25 mg PO TID PRN 12/14/18 [History Confirmed 12/14/18] PMH/Surg Hx/FS Hx/Imm Hx Endocrine/Hematology History: Denies: Hx Anticoagulant Therapy, Hx Diabetes, Hx Thyroid Disease, Hx Unexplained Bleeding Cardiovascular History: Denies: Hx Hypertension, Hx Pacemaker/ICD Respiratory History: Reports: Hx Asthma, Hx Pneumonia, Hx Seasonal Allergies Denies: Hx Chronic Obstructive Pulmonary Disease (COPD), Hx Lung Cancer, Hx Sleep Apnea History: Denies: Hx Renal Disease Sensory History: Denies: Hx Cataracts, Hx Contacts or Glasses, Hx Eye Injury, Hx Eye Prosthesis, Hx Glaucoma, Hx Legally Blind, Hx Macular Degeneration, Hx Vision Problem, Hx Deafness, Hx Hearing Aid, Hx Hearing Problem, Other Sensory Impairments Opthamlomology History: Denies: Hx Cataracts, Hx Contacts or Glasses, Hx Eye Injury, Hx Eye Prosthesis, Hx Glaucoma, Hx Legally Blind, Hx Macular Degeneration, Hx Vision Problem, Other Sensory Impairments Neurological History: Denies: Hx Dementia, Hx Developmental Delay, Hx Headaches, Hx Migraine, Hx Seizures, Hx Spinal Cord Injury Psychiatric History: Reports: Hx Anxiety, Hx Eating Disorder - Has purged lately and hasn't done that in 20 years., Hx Depression, Hx Inpatient Treatment , Hx Community Mental Health Tx, Hx Bipolar Disorder, Hx Suicide Attempt Denies: Hx of Violent Episodes Against Others, Hx Substance Abuse - Immunization History Date of Influenza Vaccine: Mar 2018 Infectious Disease History: No Infectious Disease History: Denies: Hx Clostridium Difficile, Hx Hepatitis, Hx Human Immunodeficiency Virus (HIV), Hx of Known/Suspected MRSA, Hx Shingles, Hx Tuberculosis, Traveled Outside the [place] in Last 30 Days - Family History Known Family History: Positive: Hypertension, Respiratory Disease, Blood Disorder - grandfather with clotting, Other - bipolar, depression, anxiety, asthma, CAD, COPD, CA - Social History Alcohol Use: Rare Alcohol Amount: once a month, if that. one glass of wine Hx Substance Use: No Substance Use Type: Reports: None Hx Tobacco Use: Yes Smoking Status (MU): Former Smoker Type: Cigarettes Review of Systems Negative: Fever Positive: Chest Pain Positive: Shortness Of Breath, Cough Negative: Abdominal Pain All Other Systems Reviewed And Are Negative: Yes Physical Exam Triage Information Reviewed: Yes Vital Signs On Initial Exam: Initial Vitals Temp Pulse Resp BP Pulse Ox 100 F 121 22 152/107 98 12/14/18 23:11 12/14/18 23:11 12/14/18 23:11 12/14/18 23:11 12/14/18 23:11 Vital Signs Reviewed: Yes Appearance: Positive: Well-Appearing Skin: Positive: Warm, Dry Head/Face: Positive: Normal Head/Face Inspection Eyes: Positive: Normal, EOMI, GLENN, Conjunctiva Clear ENT: Positive: Normal ENT inspection, Pharynx normal, TMs normal Respiratory/Lung Sounds: Positive: Decreased Breath Sounds, Wheezes Cardiovascular: Positive: Normal, RRR Abdomen Description: Positive: Nontender, Soft Bowel Sounds: Positive: Present Neurological: Positive: Normal Psychiatric: Positive: Normal Procedures - Sedation Patient Received Moderate/Deep Sedation with Procedure: No Diagnostics - Vital Signs Vital Signs Temp Pulse Resp BP Pulse Ox 12/14/18 23:26 99.5 F 12/14/18 23:11 100 F 121 22 152/107 98 - Laboratory Result Diagrams: 12/14/18 23:53 12/14/18 23:52 Lab Statement: Any lab studies that have been ordered have been reviewed, and results considered in the medical decision making process. - Radiology chest Radiology Interpretation Completed By: ED Physician Summary of Radiographic Findings: no pneumonia - EKG No standard instances Cardiac Rate: NL, Tachycardia EKG Rhythm: Sinus Tachycardia EKG Comparison: No Significant Change Summary of EKG Findings: sinus tachycardia Re-Evaluation - Re-Evaluation First Eval Re-Evaluation Time: 00:17 Change: Improved Comment: feeling better, states mostly sinus congestion, will treat with dose of afrin Second Eval Re-Evaluation Time: 01:26 Change: Improved Comment: feeling better Course/Dx - Course Course Of Treatment: 53 year old female presents with shortness of breath for the past week. She states that she's been having a cough. She states that a week ago she was diagnosed with bronchitis and was placed on steroid. she states that she seemed it better but this past week has been getting worse. She admits to sinus congestion. She denies any fevers. She states that she is scared to take her nebulizer machine as she had a bacterial infection last time she used it. no recent travel. She denies any pain or swelling in her calf muscles. on exam decreased breath sounds noted. ekg sinus tachycardia. wbc 13. d-dimer neg. troponin normal. gave two breathing treatments, mg and solumedrol and feeling better. patient states having alot of issues with sinus congestion as sinus congestion has been present a week and getting worst will treat as sinus infection with augmentin. will treat sinus congestion with afrin for two days only and placed on flonase. told to follow up with dr maxwell about asthma. patient understand and agrees with plan. - Diagnoses Differential Diagnosis/HQI/PQRI: Positive: Asthma, Bronchitis, Pneumonia Provider Diagnoses: Sinusitis, Asthma Discharge ED - Sign-Out/Discharge Documenting (check all that apply): Patient Departure - Discharge Plan Condition: Good Disposition: HOME Prescriptions: Amoxicillin/Clavulanate TAB* [Augmentin TAB 875*] 875 mg PO BID #19 tab Fluticasone NASAL SPRAY 50MCG* [Flonase NASAL SPRAY 50MCG*] 1 spray BOTH NARES BID #1 btl predniSONE TAB* [Deltasone TAB*] 50 mg PO DAILY #5 tab Patient Education Materials: Sinusitis (ED) Forms: *Work Release Referrals: Eleanor Champagne NP [Primary Care Provider] - Janet Maxwell MD [Medical Doctor] - Additional Instructions: take afrin two spray twice a day for 2 days, do not exceed two days take flonase one spray each nostril twice a day take Augmentin twice a day for 10 days take prednisone once a day for 5 days take inhaler or nebulizer every 4 hours follow up with dr maxwell within 5 days Return to ED if develop any new or worsening symptoms - Billing Disposition and Condition Condition: GOOD Disposition: Home
[2018-12-14] MEDS ORDERED: Ketorolac INJ* 30 MG/ML 1 ML VIAL IV PUSH ONE (23:57)
[2018-12-15 00:01] LABS: ABS Basophils 0.1 10^3/ul (0-0.2); ABS Eosinophils 0.7 10^3/ul (0-0.6); ABS Lymphocytes 1.4 10^3/ul (1.0-4.8); ABS Monocytes 0.7 10^3/ul (0-0.8); ABS Neutrophils 10.8 10^3/ul (1.5-7.7); Hematocrit 38 % (35-47); Hemoglobin 11.9 g/dL (12.0-16.0); Lymphocyte % 10.2 %; Mean Corpuscular HGB Conc 31 g/dL (31-36); Mean Corpuscular Hemoglobin 24 pg (27-31); Mean Corpuscular Volume 76 fL (80-97); Mean Platelet Volume 7.9 fL (7.4-10.4); Platelet Count 309 10^3/uL (150-450); Red Cell Distribution Width 20 % (10-15); White Blood Count 13.7 10^3/uL (3.5-10.8)
[2018-12-15] MEDS ORDERED: Oxymetazoline 0.05% NASAL SPR* 15 ML BTL BOTH NARES ONE (00:13)
[2018-12-15] MEDS ORDERED: Albuterol/Ipratropium NEB.SOL* Albuterol 2.5 MG/Ipratropium 0.5 MG 3 ML INH ONE (00:15)
[2018-12-15 00:18] LABS: Albumin/Globulin Ratio 1.3 (1-3); BUN/Creatinine Ratio 14.5 (8-20); C Reactive Protein 7.58 mg/L (<8.01); Calcium 9.4 mg/dL (8.6-10.3); EGFR African American 97.1 (>60); EGFR Non-African American 80.2 (>60); Globulin 3.1 g/dL (2-4); Magnesium 1.8 mg/dL (1.9-2.7); Potassium 3.6 mmol/L (3.5-5.0); Total Bilirubin 0.3 mg/dL (0.2-1.0); Total Protein 7.1 g/dL (6.4-8.9)
[2018-12-15 01:14] VITALS: BP 146/88
[2018-12-15] MEDS ORDERED: Amoxicillin/Clavulanate TAB* 875 MG PO ONE (01:20)
== END 2018-12-15 01:32 | disposition home or self-care (01) ==
LOC: ED 23:09
DX: J32.9 Chronic sinusitis, unspecified (principal); J45.909 Unspecified asthma, uncomplicated; R07.9 Chest pain, unspecified; R05 Cough; Z87.891 Personal history of nicotine dependence; Z79.899 Other long term (current) drug therapy
CPT/HCPCS: 36415; 71046; 80053; 83605; 83735; 83880; 84484; 85025; 85379; 86140; 87040; 93005; 99283; A9270-GY; J1885; J2930; J3475

== ENCOUNTER 2018-12-16 01:44 | Inpatient (IN) | payer BC ==
[2018-12-16] MEDS ORDERED: Albuterol/Ipratropium NEB.SOL* Albuterol 2.5 MG/Ipratropium 0.5 MG 3 ML INH ONE ×2 (01:49→02:07)
[2018-12-16] MEDS ORDERED: LORazepam TAB(*) 1 MG PO ONE (01:50)
[2018-12-16] MEDS ORDERED: Magnesium Sulfate 2 GM IV* 2 GM/50 ML BAG IVPB ONE (01:50)
[2018-12-16] MEDS ORDERED: methylPREDNISolone 125 MG* 2 ML VIAL IV ONE (01:50)
--- NOTE | 2018-12-16 01:55 | ED ---
Shortness of Breath - HPI Summary HPI Summary: 53-year-old female presents with a history of asthma with shortness of breath for the past week. She was seen here yesterday and was started on steroids and breathing treatments and Augmentin for sinusitis. She states that the pressure is better in her nasal passageway but now symptoms have moved to her lungs. She has been having worsening shortness breath. She tried her nebulizer at home without relief. She denies any fevers. She admits to sinus congestion. She admits to occasional headache. No chest pain currently. No abdominal pain. No nausea and no vomiting. - History of Current Complaint Chief Complaint: EDShortnessOfBreath Time Seen by Provider: 12/16/18 01:49 - Allergy/Home Medications Allergies/Adverse Reactions: Allergies Allergy/AdvReac Type Severity Reaction Status Date / Time No Known Allergies Allergy Verified 12/16/18 02:01 PMH/Surg Hx/FS Hx/Imm Hx Endocrine/Hematology History: Denies: Hx Anticoagulant Therapy, Hx Diabetes, Hx Thyroid Disease, Hx Unexplained Bleeding Cardiovascular History: Denies: Hx Hypertension, Hx Pacemaker/ICD Respiratory History: Reports: Hx Asthma, Hx Pneumonia, Hx Seasonal Allergies Denies: Hx Chronic Obstructive Pulmonary Disease (COPD), Hx Lung Cancer, Hx Sleep Apnea History: Denies: Hx Renal Disease Sensory History: Denies: Hx Cataracts, Hx Contacts or Glasses, Hx Eye Injury, Hx Eye Prosthesis, Hx Glaucoma, Hx Legally Blind, Hx Macular Degeneration, Hx Vision Problem, Hx Deafness, Hx Hearing Aid, Hx Hearing Problem, Other Sensory Impairments Opthamlomology History: Denies: Hx Cataracts, Hx Contacts or Glasses, Hx Eye Injury, Hx Eye Prosthesis, Hx Glaucoma, Hx Legally Blind, Hx Macular Degeneration, Hx Vision Problem, Other Sensory Impairments Neurological History: Denies: Hx Dementia, Hx Developmental Delay, Hx Headaches, Hx Migraine, Hx Seizures, Hx Spinal Cord Injury Psychiatric History: Reports: Hx Anxiety, Hx Eating Disorder - Has purged lately and hasn't done that in 20 years., Hx Depression, Hx Inpatient Treatment , Hx Community Mental Health Tx, Hx Bipolar Disorder, Hx Suicide Attempt Denies: Hx of Violent Episodes Against Others, Hx Substance Abuse - Immunization History Date of Influenza Vaccine: Mar 2018 Infectious Disease History: No Infectious Disease History: Denies: Hx Clostridium Difficile, Hx Hepatitis, Hx Human Immunodeficiency Virus (HIV), Hx of Known/Suspected MRSA, Hx Shingles, Hx Tuberculosis, Traveled Outside the [place] in Last 30 Days - Family History Known Family History: Positive: Hypertension, Respiratory Disease, Blood Disorder - grandfather with clotting, Other - bipolar, depression, anxiety, asthma, CAD, COPD, CA - Social History Alcohol Use: Rare Alcohol Amount: once a month, if that. one glass of wine Hx Substance Use: No Substance Use Type: Reports: None Hx Tobacco Use: Yes Smoking Status (MU): Former Smoker Type: Cigarettes Review of Systems Negative: Fever Negative: Chest Pain Positive: Shortness Of Breath, Cough Positive: Anxious All Other Systems Reviewed And Are Negative: Yes Physical Exam Triage Information Reviewed: Yes Vital Signs On Initial Exam: Initial Vitals Temp Pulse Resp BP Pulse Ox 98.4 F 111 24 149/105 98 12/16/18 01:44 12/16/18 01:44 12/16/18 01:44 12/16/18 01:44 12/16/18 01:44 Vital Signs Reviewed: Yes Appearance: Positive: Well-Appearing Skin: Positive: Warm, Dry Head/Face: Positive: Normal Head/Face Inspection Eyes: Positive: Normal, Conjunctiva Clear ENT: Positive: Pharynx normal Respiratory/Lung Sounds: Positive: Decreased Breath Sounds, Wheezes Cardiovascular: Positive: Normal, RRR Abdomen Description: Positive: Nontender, Soft Bowel Sounds: Positive: Present Musculoskeletal: Positive: Normal Neurological: Positive: Normal Psychiatric: Positive: Normal Diagnostics - Vital Signs Vital Signs Temp Pulse Resp BP Pulse Ox 12/16/18 01:54 23 12/16/18 01:44 98.4 F 111 24 149/105 98 - Laboratory Result Diagrams: 12/16/18 01:58 12/16/18 01:58 Lab Statement: Any lab studies that have been ordered have been reviewed, and results considered in the medical decision making process. - EKG No standard instances Cardiac Rate: Tachycardia EKG Rhythm: Sinus Tachycardia EKG Comparison: No Significant Change Summary of EKG Findings: sinus tachycardia Re-Evaluation - Re-Evaluation First Eval Re-Evaluation Time: 02:36 Change: Improved Comment: still wheezing, will do a continous neb Course/Dx - Course Course Of Treatment: 53-year-old female presents with a history of asthma with shortness of breath for the past week. She was seen here yesterday and was started on steroids and breathing treatments and Augmentin for sinusitis. She states that the pressure is better in her nasal passageway but now symptoms have moved to her lungs. She has been having worsening shortness breath. She tried her nebulizer at home without relief. She denies any fevers. She admits to sinus congestion. She admits to occasional headache. No chest pain currently. No abdominal pain. No nausea and no vomiting. On exam wheezing and decreased breath sounds heard. Just had a chest x-ray yesterday. neg d- dimer yesterday. gave breathing treatment with some improvement. still is wheezing. gave steriods and mg. patient is alot worst than yesterday so will discuss with hospitalist. spoke with dr brown who agrees to admit. - Diagnoses Differential Diagnosis/HQI/PQRI: Positive: Asthma, Bronchitis, Pneumonia Provider Diagnoses: Asthma Discharge ED - Sign-Out/Discharge Documenting (check all that apply): Patient Departure - Discharge Plan Condition: Stable Disposition: ADMITTED TO [facility] Referrals: Eleanor Champagne NP [Primary Care Provider] - - Billing Disposition and Condition Condition: STABLE Disposition: Admitted to [facility]
[2018-12-16] MEDS ORDERED: Albuterol/Ipratropium NEB.SOL* Albuterol 2.5 MG/Ipratropium 0.5 MG 3 ML ONE (02:08)
[2018-12-16] MEDS ORDERED: Albuterol 2.5 MG/3 ML NEB.SOL* (0.083%) INH ONE (02:20)
[2018-12-16 02:28] LABS: Albumin 4.1 g/dL (3.2-5.2); Albumin/Globulin Ratio 1.2 (1-3); BUN/Creatinine Ratio 21.9 (8-20); C Reactive Protein 12.69 mg/L (<8.01); Calcium 9.1 mg/dL (8.6-10.3); EGFR African American 118.4 (>60); EGFR Non-African American 97.8 (>60); Globulin 3.3 g/dL (2-4); Magnesium 1.9 mg/dL (1.9-2.7); Potassium 3.9 mmol/L (3.5-5.0); Total Bilirubin 0.3 mg/dL (0.2-1.0); Total Protein 7.4 g/dL (6.4-8.9)
[2018-12-16 02:29] LABS: Troponin I 0.01 ng/mL (<0.04)
[2018-12-16] MEDS ORDERED: Albuterol 0.5% CONC NEB.SOL* 5 MG/ML 20 ml BOT INH ONE (02:33)
[2018-12-16 02:36] LABS: ABS Lymphocytes 0.6 10^3/ul (1.0-4.8); ABS Monocytes 0.2 10^3/ul (0-0.8); ABS Neutrophils 11.9 10^3/ul (1.5-7.7); Eosinophil % 0.1 %; Hematocrit 40 % (35-47); Hemoglobin 12.7 g/dL (12.0-16.0); Lymphocyte % 4.4 %; Mean Corpuscular HGB Conc 32 g/dL (31-36); Mean Corpuscular Hemoglobin 24 pg (27-31); Mean Corpuscular Volume 76 fL (80-97); Mean Platelet Volume 8.2 fL (7.4-10.4); Platelet Count 303 10^3/uL (150-450); Red Blood Count 5.27 10^6 /uL (3.70-4.87); Red Cell Distribution Width 19 % (10-15); White Blood Count 12.7 10^3/uL (3.5-10.8)
[2018-12-16] MEDS ORDERED: Ondansetron INJ* 2 MG/ML VIAL IV PRN (03:35)
[2018-12-16] MEDS ORDERED: Acetaminophen TAB* 325 MG PO PRN (03:35)
[2018-12-16] MEDS ORDERED: NS 0.9% 1000 ML** 1,000 ML IV SCH (03:45)
--- NOTE | 2018-12-16 06:04 | HP ---
CC: Eleanor Champagne NP at [facility]; Dr. Tomas * ADMISSION HISTORY AND PHYSICAL: DATE OF ADMISSION: 12/16/18 PRIMARY CARE PROVIDER: Eleanor Champagne NP at [facility]. HEALTHCARE PROXY: Her . CODE STATUS: Full. SOURCE OF INFORMATION: History obtained from interview with the patient. RELIABILITY: Good. CHIEF COMPLAINT: Shortness of breath. HISTORY OF PRESENT ILLNESS: This is a 53-year-old female with a past medical history of asthma with frequent hospitalizations this year, at least four by her count, although no history of intubation. She was well until approximately 1 month prior when she was feeling well until her allergy started and the weather got colder. She notes both are triggers for her asthma. She has increased difficulty of breathing since that time. However, much worse over the last 2 to 3 days. She saw her PCP for "bronchitis." Yesterday, she had more congestion and presented to the emergency room. She was treated with nebulizers and given Augmentin. She went home and was feeling better again; however, 3 to 4 p.m. she noted worsening breathing. She used 2 to 3 nebulizers as well as her cold puffer without help and presented to the emergency room. Prior to today, she was waking up "a lot overnight" and using her nebulizer innumerable times. She did feel warm and sweaty, but did not note any objective fevers nor shaking chills. She has been coughing today. She works in [employer] and notes many people have been sick. In the emergency room, she received IV steroids, magnesium, and 3 rounds of nebulizers with some improvement. PAST MEDICAL HISTORY: Includes asthma, anxiety, eating disorder, depression, bipolar disorder. MEDICATIONS: Home medications include: 1. Xanax 0.25 mg three times a day as needed. 2. Spiriva 1 cap inhale daily. 3. Paxil 40 mg daily. 4. Dulera 200/5 two puffs twice daily. 5. Fluticasone nasal spray once per both nares twice daily. 6. Albuterol HFA and nebulizers. 7. She was prescribed Augmentin yesterday for presumptive bronchitis. ALLERGIES: No known drug allergies. FAMILY HISTORY: Hypertension, bipolar disorder, depression, and asthma. SOCIAL HISTORY: Former tobacco. Smoked one pack per day for 25 years until June of this year. Rare alcohol. Employed at [employer]. REVIEW OF SYSTEMS: As per HPI, otherwise all other systems negative. PHYSICAL EXAMINATION GENERAL: Sitting up in bed, talks in full sentences although with some effort. She is intermittently using accessory muscles of respirations around the neck, but she is comfortable, breathing much more calmly when not answering this author's questions. VITAL SIGNS: When seen by this author, 154/94, heart rate is 117, respiratory rate is 28, 94% on 3 L, T-max is 98.4. HEENT: Her oropharynx is clear. She has dry mucous membranes. Sclerae are anicteric. LUNGS: Diffusely wheezy anteriorly and posteriorly. HEART: She has tachycardic heart rate. Difficult to auscultate murmurs. Has regular rate and rhythm. No murmurs, rubs, or gallops. ABDOMEN: Soft, nontender, nondistended. EXTREMITIES: Warm and well perfused. She has less than 2-second cap refill. NEUROLOGIC: She is alert and oriented x3. She has no anxiety, agitation or depression. DIAGNOSTIC STUDIES/LAB DATA: Labs were reviewed. White blood cell count is 12.7, hemoglobin is also 12.7, platelets 303. CRP of 12.6. Chest x-ray from 02/13/19, hyperinflation consistent with COPD. No active cardiopulmonary disease. She does have PFTs from July of 2018. Her FEV1 pre bronchodilator is 66 and post bronchodilator is 77% predicted for a 17% change consistent with asthma. EKG sinus tachycardia. No ST or T-wave changes. ASSESSMENT AND PLAN: This is a 53-year-old female with past medical history of asthma with multiple exacerbations this year, presented to the hospital in the setting of sinus congestion this week with difficulty breathing. 1. Shortness of breath. Suspect asthma exacerbation in the setting of known history of triggers that include likely viral exacerbation as well as "change in weather" and diffuse wheezing on exam. Has received high dose steroids in the emergency room, magnesium, as well as albuterol. We will continue albuterol , transition steroids to oral, starting in at least 24 hours. I have asked the ED to obtain a peak flow and I will continue q.4 while awake as well as DuoNeb q.4 hours while awake. Continue all other home medications. 2. Depression. Continue Paxil. 3. Anxiety. Continue Xanax p.r.n. 4. DVT prophylaxis is Lovenox. [id number]/[facility] #: [id number] ALEXUS
[2018-12-16] MEDS: Albuterol/Ipratropium NEB.SOL* Albuterol 2.5 MG/Ipratropium 0.5 MG 3 ML INH SCH ×4 (07:26→19:51)
[2018-12-16] MEDS: Mometasone/Formoter 200/5 MDI INH SCH ×2 (07:27→19:52)
[2018-12-16] MEDS: SPIRIVA Respimat* (tiotropium) 2.5 mcg/inh Inhaler INH SCH (07:30)
[2018-12-16] MEDS: PARoxetine HCL TAB* 40 MG PO SCH (09:56)
[2018-12-16] MEDS: Enoxaparin(*) 40 MG/0.4 ML SYR SUBCUT SCH (09:56)
[2018-12-16] MEDS: Fluticasone NASAL SPRAY 50MCG* 16 gm SPRAY BTL BOTH NARES SCH ×2 (09:57→20:16)
[2018-12-16] MEDS: ALPRAZolam TAB* 0.25 MG PO PRN ×2 (10:07→19:23)
[2018-12-16] MEDS: Morphine INJ* 2 MG/ML 1 ML SYRINGE (TWO MG - NEW SYRINGE VERSION) IV PRN ×2 (12:57→19:21)
[2018-12-16] MEDS: guaiFENesin ER TAB 600 MG PO SCH ×2 (12:57→20:17)
[2018-12-16] MEDS: methylPREDNISolone SOD 40 MG* 1 ML VIAL IV SCH ×2 (12:57→20:18)
--- NOTE | 2018-12-16 13:31 | CONS ---
PULMONARY CONSULTATION REPORT: DATE OF CONSULT: 12/16/18 CONSULTATION REQUESTED BY: LARUA Deal REASON FOR CONSULTATION: Evaluation of asthma. HISTORY OF PRESENT ILLNESS: The patient is a 53-year-old obese female with history of asthma and prior hospitalization for acute asthma exacerbation with history of anxiety, bipolar disorder. The patient presents for evaluation of worsening shortness of breath. The patient has been having worsening shortness of breath over the past 2 weeks. The patient reports sick contacts. The patient denies fevers, reports chills. She has been also having cough, productive of thick phlegm, has difficulty expectorating the phlegm. She also has sinus issues recently, was evaluated in the emergency room a couple of days back, was treated with nebulizers and was given Augmentin. She has been using her nebulizers 3 to 4 times per day without any benefit. She has significant worsening of shortness of breath and presented for further evaluation. The patient was given neb treatments, IV steroid, and magnesium and was admitted for asthma exacerbation. The patient reports significant shortness of breath. She has been tachypneic and using accessory muscles of respiration. No fevers documented here. Chest x-ray was personally reviewed by me, no evidence of hyperinflation. CT chest from prior admission in June was personally reviewed - evidence of mild bronchiectasis centrally and in the left lower lobe with no other suspicious nodules or masses. She is a former smoker, quit successfully early this year. Her last hospitalization was in June for acute asthma exacerbation. She has been doing well until this episode now. She has been compliant with her maintenance inhaler. She has been using Xanax as needed for her anxiety. She does have history of allergies, does not think she is having more issues currently. PAST MEDICAL HISTORY: 1. Asthma. 2. Anxiety. 3. Eating disorder. 4. Depression. 5. Bipolar disorder. MEDICATIONS AT HOME: 1. Xanax. 2. Spiriva. 3. Paxil. 4. Dulera. 5. Fluticasone nasal spray. 6. Albuterol HFA and nebulizers. 7. Augmentin recently started for sinus issues. ALLERGIES: No known drug allergies. FAMILY HISTORY: Hypertension, bipolar disorder, depression, and asthma. SOCIAL HISTORY: Former smoker. Smoked 1 pack per day for 25 years, quit in June of this year. Occasional alcohol intake. REVIEW OF SYSTEMS: All 14 systems reviewed as per HPI. PHYSICAL EXAM: The patient in bed, in mild distress. Vital Signs: Temperature 98.6, pulse 121 beats per minute, respiratory rate 23 per minute, O2 sat 95% to 96% on 3 L, blood pressure 120/80. HEENT: Pupils equal and reactive to light. Mucous membranes moist. Lungs: Diminished air entry bilaterally, end expiratory wheeze present. Cardiovascular: S1, S2 present, regular. Abdomen: Soft, nontender, nondistended. Bowel sounds present. Extremities: Normal range of motion. Skin: No rash or bruises. Neuro: Alert , awake, oriented x3, appears anxious. DIAGNOSTIC STUDIES/LAB DATA: WBC count 12.7, hemoglobin 12.7, hematocrit 40, platelet count 303. Sodium 138, potassium 3.9, chloride 107, bicarb 22. BUN 14 , creatinine 0.64. CRP is slightly elevated at 12.69. BNP within normal limits. Influenza A and B antigen was ordered, pending at this time. Chest x-ray was personally reviewed by me - evidence of hyperinflation with no suspicious air space opacities. IMPRESSION AND RECOMMENDATIONS: 53-year-old female with anxiety disorder, asthma, allergies, admitted with acute asthma exacerbation. The patient had 4 asthma exacerbations this month. The patient was hospitalized in June for acute asthma exacerbation, has been doing well until recently. She was at [facility] and has sick exposures. The patient appears to be having acute asthma exacerbation secondary to viral bronchitis. Her anxiety also complicates her situation. She is tachypneic, tachycardic, and hypoxemic. She was initiated on steroids, would recommend changing that to IV. Continue with round-the- clock DuoNeb. The patient also with trouble expectorating the phlegm, would benefit from MetaNeb. Will also provide the patient with Flutter device with the instructions on usage. Would add Mucinex for mobilization of secretions. Given significant anxiety and respiratory distress, would try morphine at a low dose. The patient would need close observation. I have discussed noninvasive ventilation in case her condition worsens. The patient agreeable. At this time, I would try morphine and the nebs and assess her response. If the patient appears to be tiring out, then would need a blood gas and also BiPAP and transfer to ICU. I have also discussed possible intubation if her symptoms worsen. Above recommendations were all discussed with Marlen Oden. Thank you for allowing me to participate in the care of your patient. Will follow up with you. [id number]/[facility] #: [id number] ALEXUS
--- NOTE | 2018-12-16 13:41 | PN ---
Subjective Date of Service: 12/16/18 Interval History: Patient with continued tachypnea which was not relieved by duoneb according to respiratory therapist. Patient was given xanax and she reported some relief to ZHANNA Mcginnis. By time of my evaluation, her breathing has slowed down some but she still feels short of breath and feels unable to take deep breathing. She denies chest pain, fever/chills, abd pain, lightheadednes/dizziness. She has had nasal congestion for several weeks but recalls that there was a period of 3-4 days where it was resolved and then returned. Reports productive cough. She agrees that there is a component of anxiety and she has had worsened anxiety lately due to multiple social stressors, including work and finances. Objective Active Medications: Acetaminophen (Tylenol Tab*) 650 mg PO Q4H PRN PRN Reason: PAIN - MILD Albuterol/Ipratropium (Duoneb (Albuterol 2.5 Mg/Ipratropium 0.5 Mg)) 1 neb INH [id number] AWAKE [facility] Last Admin: 12/16/18 10:53 Dose: 1 neb Alprazolam (Xanax Tab*) 0.25 mg PO TID PRN PRN Reason: ANXIETY Last Admin: 12/16/18 10:07 Dose: 0.25 mg Enoxaparin Sodium (Lovenox(*)) 40 mg SUBCUT Q24H [facility] Last Admin: 12/16/18 09:56 Dose: 40 mg Fluticasone Propionate (Flonase Nasal [place] 50mcg*) 1 spray BOTH NARES BID [facility] Last Admin: 12/16/18 09:57 Dose: 1 spray Guaifenesin (Mucinex*) 600 mg PO BID [facility] Last Admin: 12/16/18 12:57 Dose: 600 mg Methylprednisolone Sodium Succinate (Solu-Medrol 40 Mg) 40 mg IV Q8H [facility] Last Admin: 12/16/18 12:57 Dose: 40 mg Mometasone Furoate/Formoterol Fumar (Dulera 200/5 Mdi*) 2 puff INH BID [facility] Last Admin: 12/16/18 07:27 Dose: 2 puff Morphine Sulfate (Morphine Inj (Syringe))*) 2 mg IV Q4H PRN PRN Reason: SOB breakthrough Last Admin: 12/16/18 12:57 Dose: 2 mg Ondansetron HCl (Zofran Inj*) 4 mg IV Q4H PRN PRN Reason: NAUSEA/VOMITING Paroxetine HCl (Paxil Tab*) 40 mg PO DAILY [facility] Last Admin: 12/16/18 09:56 Dose: 40 mg Tiotropium [place] (Spiriva Respimat 2.5 Mcg) 2 puff INH DAILY [facility] Last Admin: 12/16/18 07:30 Dose: 2 puff Vital Signs - 8 hr 12/16/18 12/16/18 12/16/18 07:34 07:40 10:07 Temperature 97.7 F Pulse Rate 115 121 Respiratory 18 22 21 Rate Blood Pressure 130/55 (mmHg) O2 Sat by Pulse 99 91 Oximetry 12/16/18 12/16/18 12/16/18 11:00 11:30 11:40 Temperature 98.6 F Pulse Rate 118 129 121 Respiratory 18 22 23 Rate Blood Pressure 166/125 120/80 (mmHg) O2 Sat by Pulse 98 94 96 Oximetry 12/16/18 12/16/18 12:00 12:57 Temperature Pulse Rate Respiratory 23 23 Rate Blood Pressure (mmHg) O2 Sat by Pulse Oximetry Oxygen Devices in Use Now: Nasal Cannula Appearance: Overwhite, white female, who appears older than stated age, sitting upright in bed, tachypneic but not using accessory muscles with respirations Eyes: No Scleral Icterus Ears/Nose/Mouth/Throat: Mucous Membranes Moist Neck: NL Appearance and Movements; NL JVP Respiratory: Symmetrical Chest Expansion and Respiratory Effort, - - diffuse inspiratory wheezing throughout posteriorly and anteriorly Cardiovascular: NL Sounds; No Murmurs; No JVD, RRR Abdominal: - - abd soft, nontender, nondistended Extremities: No Edema, No Clubbing, Cyanosis Skin: No Rash or Ulcers Neurological: Alert and Oriented x 3, NL Muscle Strength and Tone Result Diagrams: 12/16/18 01:58 12/16/18 01:58 Assess/Plan/Problems-Billing Assessment: 53 yo female with PMHx asthma, anxiety, depression, eating disorder, and bipolar disorder presents with shortness of breath which has been worsening. - Patient Problems (1) Asthma exacerbation Current Visit: No Status: Acute Code(s): J45.901 - UNSPECIFIED ASTHMA WITH ( ACUTE) EXACERBATION SNOMED Code(s): 439541840 Comment: -PFTs in July 2018 with reversibility to bronchidilators, consistent with asthma -received solumedrol and IV magnesium in ED -quite tachypneic this morning despite the duonebs and xanax, ordering prn morphine per Dr. Tomas's recommendation. Appreciate her involvement -changing prednisone back to IV solumedrol TID -adding metanebs with duonebs -anxiety is likely a major component contributing to tachypnea -will continue to closely monitor. If morphine is not helpful patient may need BiPAP, though she is not hypoxic on 2L oxygen and was not hypoxic in the ED -though CXR was taken 12/14/18, will repeat again today to rule out pneumonia, especially considering productive cough. CXR does not appear to have consolidation. -continue dulera, spiriva -on 2L O2 though she was never hypoxic, will attempt to wean (2) Anxiety Current Visit: No Status: Acute Code(s): F41.9 - ANXIETY DISORDER, UNSPECIFIED SNOMED Code(s): 12439280 Comment: -continue home paxil and xanax -discussed with patient that she should follow up with PCP about perhap adjusting management as she has frequent anxiety symptoms at home. Should consider therapy in conjunction (3) Nasal congestion Current Visit: Yes Status: Acute Code(s): R09.81 - NASAL CONGESTION SNOMED Code(s): 43957293 Comment: -likely back to back viral URIs. Multiple sick contacts at work -not continuing augmentin which was started in ED visit 2 days before admission -flonase and cetirizine -likely contributing to postnasal drip, ordered mucinex (4) Bipolar disorder Current Visit: Yes Status: Acute Code(s): F31.9 - BIPOLAR DISORDER, UNSPECIFIED SNOMED Code(s): 40853959 Comment: -the patient is not on a mood stabilizer and her anxiety and depression is managed only by her PCP, so I question if this is medical record error (5) DVT prophylaxis Current Visit: No Status: Acute Code(s): ILE6408 - SNOMED Code(s): 449534921 Comment: - Lovenox (6) Full code status Current Visit: No Status: Acute Code(s): Z78.9 - OTHER SPECIFIED HEALTH STATUS SNOMED Code(s): 892298994 Status and Disposition: Anticipate d/c home when medically stable
[2018-12-16 14:05] LABS: Influenza A Molecular NEGATIVE (Negative); Influenza B Molecular NEGATIVE (Negative)
[2018-12-16] MEDS: Cetirizine* 10 MG TAB PO SCH (15:37)
[2018-12-16] MEDS: Docusate CAP* 100 MG PO PRN (20:17)
[2018-12-16] MEDS: Senna TAB 8.6 mg* TAB PO PRN (20:17)
[2018-12-17] MEDS: Morphine INJ* 2 MG/ML 1 ML SYRINGE (TWO MG - NEW SYRINGE VERSION) IV PRN ×5 (00:01→20:02)
[2018-12-17] MEDS: Albuterol/Ipratropium NEB.SOL* Albuterol 2.5 MG/Ipratropium 0.5 MG 3 ML INH SCH ×6 (00:04→19:32)
[2018-12-17] MEDS: methylPREDNISolone SOD 40 MG* 1 ML VIAL IV SCH ×3 (04:16→20:03)
[2018-12-17] MEDS: SPIRIVA Respimat* (tiotropium) 2.5 mcg/inh Inhaler INH SCH (07:47)
[2018-12-17] MEDS: Mometasone/Formoter 200/5 MDI INH SCH ×2 (07:49→19:32)
[2018-12-17] MEDS ORDERED: predniSONE TAB* 50 MG PO SCH (09:00)
[2018-12-17] MEDS: ALPRAZolam TAB* 0.25 MG PO PRN ×3 (09:06→20:03)
[2018-12-17] MEDS: Fluticasone NASAL SPRAY 50MCG* 16 gm SPRAY BTL BOTH NARES SCH ×2 (09:54→20:03)
[2018-12-17] MEDS: Cetirizine* 10 MG TAB PO SCH (09:54)
[2018-12-17] MEDS: PARoxetine HCL TAB* 40 MG PO SCH (09:54)
[2018-12-17] MEDS: Enoxaparin(*) 40 MG/0.4 ML SYR SUBCUT SCH (09:54)
[2018-12-17] MEDS: guaiFENesin ER TAB 600 MG PO SCH ×2 (09:54→20:03)
--- NOTE | 2018-12-17 14:42 | PN ---
Progress Note - Progress Note Date of Service: 12/17/18 - Pulm f/u note Note: Pt seen and examined at bedside. Pt reports feeling better. Had episode of significant cough, was able to expectorate thick white phleghm. Became very dyspneic after the episode, Morphine administered with relief. Active Medications Generic Name Dose Route Start Last Admin Trade Name Freq PRN Reason Stop Dose Admin Acetaminophen 650 mg 12/16/18 03:35 Tylenol Tab* PO Q4H PRN PAIN - MILD Albuterol/Ipratropium 1 neb 12/17/18 15:00 Duoneb (Albuterol 2.5 Mg/Ipratropium 0.5 Mg) INH [id number] AWAKE MISBHA Alprazolam 0.25 mg 12/16/18 03:33 12/17/18 09:06 Xanax Tab* PO 0.25 mg TID PRN Administration ANXIETY Cetirizine HCl 10 mg 12/16/18 14:00 12/17/18 09:54 Zyrtec* PO 10 mg DAILY MISBAH Administration Docusate Sodium 100 mg 12/16/18 18:21 12/16/18 20:17 Colace Cap* PO 100 mg DAILY PRN Administration CONSTIPATION Enoxaparin Sodium 40 mg 12/16/18 09:00 12/17/18 09:54 Lovenox(*) SUBCUT 40 mg Q24H MISBAH Administration Fluticasone Propionate 1 spray 12/16/18 09:00 12/17/18 09:54 Flonase Nasal [place] 50mcg* BOTH NARES 1 spray BID MISBAH Administration Guaifenesin 600 mg 12/16/18 13:00 12/17/18 09:54 Mucinex* PO 600 mg BID MISBAH Administration Methylprednisolone Sodium Succinate 40 mg 12/16/18 13:00 12/17/18 12:37 Solu-Medrol 40 Mg IV 40 mg Q8H MISBAH Administration Mometasone Furoate/Formoterol Fumar 2 puff 12/16/18 09:00 12/17/18 07:49 Dulera 200/5 Mdi* INH 2 puff BID MISBAH Administration Morphine Sulfate 2 mg 12/16/18 12:27 12/17/18 13:50 Morphine Inj (Syringe))* IV 2 mg Q4H PRN Administration SOB breakthrough Ondansetron HCl 4 mg 12/16/18 03:35 Zofran Inj* IV Q4H PRN NAUSEA/VOMITING Paroxetine HCl 40 mg 12/16/18 09:00 12/17/18 09:54 Paxil Tab* PO 40 mg DAILY MISBAH Administration Senna 1 tab 12/16/18 18:21 12/16/18 20:17 Senokot 8.6 Mg Tab* PO 1 tab BEDTIME PRN Administration CONSTIPATION Tiotropium [place] 2 puff 12/16/18 09:00 12/17/18 07:47 Spiriva Respimat 2.5 Mcg INH 2 puff DAILY MISBAH Administration Vital Signs Temp Pulse Resp BP Pulse Ox 97.4 F 101 24 145/82 97 12/17/18 10:54 12/17/18 10:54 12/17/18 13:50 12/17/18 10:54 12/17/18 10:54 O/E: Pt in NAD HEENT: PERRLA, no JVD Lungs: Diminished air entry b/l, exp wheeze+ CVS: S1, S2+, regular Abd: Soft, BS+ Ext: Normal ROM Skin: No rash Neuro: NO focal deficits Labs: no new labs I/R: 53 y o f former smoker with h/o asthma, anxiety a/w worsening SOB, after failing out pt treatment and is being treated for severe asthma exacerbation Pt with slow improvement Has exp wheeze still, slightly improved Metanebs helpful in clearing secretions, though tiring out Will c/w solumderol at current dose She is on Dulera and Spiriva out pt, reports significant benefit from the combination Has very high copay with her inhalers, will need prior auth Has successfully quit smoking in June 2018 Anxiety exacerbated her breathing Is benefitting from Xanax however needing it tid and effect wears off She would benefit from long acting anxiety medication Is needing intermittent morphine for tachypnea OOB to chair as tolerated DVT x
[2018-12-17] MEDS ORDERED: Albuterol/Ipratropium NEB.SOL* Albuterol 2.5 MG/Ipratropium 0.5 MG 3 ML INH SCH (19:00)
--- NOTE | 2018-12-17 19:58 | PN ---
Subjective Date of Service: 12/17/18 Interval History: Patient feels minimally improved today though anxiety is persistent. She continues to have productive cough. Denies fever/chills, chest pain, abd pain, dizziness/lightheadedness. Her breathing feels comfortable at rest at time of eval but states she feels "wheezy." We discussed the low cost option of nebulized ipratropium instead of spiriva which is high cost to her, and she is agreeable to TID nebulizers at home. Objective Active Medications: Acetaminophen (Tylenol Tab*) 650 mg PO Q4H PRN PRN Reason: PAIN - MILD Albuterol/Ipratropium (Duoneb (Albuterol 2.5 Mg/Ipratropium 0.5 Mg)) 1 neb INH [id number] AWAKE [facility] Last Admin: 12/17/18 19:32 Dose: 1 neb Alprazolam (Xanax Tab*) 0.25 mg PO TID PRN PRN Reason: ANXIETY Last Admin: 12/17/18 15:24 Dose: 0.25 mg Buspirone HCl (Buspar Tab*) 5 mg PO TID [facility] Cetirizine HCl (Zyrtec*) 10 mg PO DAILY [facility] Last Admin: 12/17/18 09:54 Dose: 10 mg Docusate Sodium (Colace Cap*) 100 mg PO DAILY PRN PRN Reason: CONSTIPATION Last Admin: 12/16/18 20:17 Dose: 100 mg Enoxaparin Sodium (Lovenox(*)) 40 mg SUBCUT Q24H [facility] Last Admin: 12/17/18 09:54 Dose: 40 mg Fluticasone Propionate (Flonase Nasal [place] 50mcg*) 1 spray BOTH NARES BID [facility] Last Admin: 12/17/18 09:54 Dose: 1 spray Guaifenesin (Mucinex*) 600 mg PO BID [facility] Last Admin: 12/17/18 09:54 Dose: 600 mg Methylprednisolone Sodium Succinate (Solu-Medrol 40 Mg) 40 mg IV Q8H [facility] Last Admin: 12/17/18 12:37 Dose: 40 mg Mometasone Furoate/Formoterol Fumar (Dulera 200/5 Mdi*) 2 puff INH BID [facility] Last Admin: 12/17/18 19:32 Dose: 2 puff Morphine Sulfate (Morphine Inj (Syringe))*) 2 mg IV Q4H PRN PRN Reason: SOB breakthrough Last Admin: 12/17/18 13:50 Dose: 2 mg Ondansetron HCl (Zofran Inj*) 4 mg IV Q4H PRN PRN Reason: NAUSEA/VOMITING Paroxetine HCl (Paxil Tab*) 40 mg PO DAILY [facility] Last Admin: 12/17/18 09:54 Dose: 40 mg Senna (Senokot 8.6 Mg Tab*) 1 tab PO BEDTIME PRN PRN Reason: CONSTIPATION Last Admin: 12/16/18 20:17 Dose: 1 tab Tiotropium [place] (Spiriva Respimat 2.5 Mcg) 2 puff INH DAILY [facility] Last Admin: 12/17/18 07:47 Dose: 2 puff Vital Signs - 8 hr 12/17/18 12/17/18 12/17/18 12:02 13:06 13:50 Temperature Pulse Rate 132 Respiratory 23 20 24 Rate Blood Pressure 141/80 (mmHg) O2 Sat by Pulse 95 Oximetry 12/17/18 12/17/18 12/17/18 14:46 14:47 15:14 Temperature 97.4 F Pulse Rate 105 98 Respiratory 15 22 18 Rate Blood Pressure 156/96 (mmHg) O2 Sat by Pulse 95 94 Oximetry 12/17/18 12/17/18 12/17/18 15:24 18:19 19:33 Temperature Pulse Rate 111 Respiratory 22 20 20 Rate Blood Pressure (mmHg) O2 Sat by Pulse 97 Oximetry Oxygen Devices in Use Now: Nasal Cannula Appearance: Obese, white female, laying in bed, appearing in NAD Eyes: No Scleral Icterus, - - PERRL Ears/Nose/Mouth/Throat: Mucous Membranes Moist Neck: NL Appearance and Movements; NL JVP Respiratory: Symmetrical Chest Expansion and Respiratory Effort, - - inspiratory and expiratory wheezing; no tachypnea, not using accessory muscles with respirations Cardiovascular: NL Sounds; No Murmurs; No JVD, RRR Abdominal: - - abd soft, nontender, nondistended Extremities: No Edema, No Clubbing, Cyanosis Skin: No Rash or Ulcers Neurological: Alert and Oriented x 3, NL Muscle Strength and Tone Result Diagrams: 12/16/18 01:58 12/16/18 01:58 Assess/Plan/Problems-Billing Assessment: 53 yo female with PMHx asthma, anxiety, depression, eating disorder, and bipolar disorder presents with shortness of breath which has been worsening. - Patient Problems (1) Asthma exacerbation Current Visit: No Status: Acute Code(s): J45.901 - UNSPECIFIED ASTHMA WITH ( ACUTE) EXACERBATION SNOMED Code(s): 631674353 Comment: -PFTs in July 2018 with reversibility to bronchidilators, consistent with asthma. CXR without evidence of PNA -received solumedrol and IV magnesium in ED -Appreciate Dr. Tomas's consultation -continue solumedrol TID, dulera, spiriva, and prn morphine -adding metanebs with duonebs -anxiety is likely a major component contributing to tachypnea -on 2L O2, will attempt to wean -at d/c will get ipratropium nebs TID and advair HFA high dose as most cost effective for patient (advair diskus is ~$300 and her current home dulera is also too high cost) (2) Anxiety Current Visit: No Status: Acute Code(s): F41.9 - ANXIETY DISORDER, UNSPECIFIED SNOMED Code(s): 40017724 Comment: -continue home paxil and xanax -discussed with patient that she should follow up with PCP about perhap adjusting management as she has frequent anxiety symptoms at home. Should consider therapy in conjunction -added buspar TID (3) Nasal congestion Current Visit: Yes Status: Acute Code(s): R09.81 - NASAL CONGESTION SNOMED Code(s): 49111023 Comment: -likely back to back viral URIs. Multiple sick contacts at work -not continuing augmentin which was started in ED visit 2 days before admission -mucinex, flonase, and cetirizine (4) Bipolar disorder Current Visit: Yes Status: Acute Code(s): F31.9 - BIPOLAR DISORDER, UNSPECIFIED SNOMED Code(s): 53751499 Comment: -the patient is not on a mood stabilizer and her anxiety and depression is managed only by her PCP, so I question if this is medical record error (5) DVT prophylaxis Current Visit: No Status: Acute Code(s): NDY2178 - SNOMED Code(s): 112059352 Comment: - Lovenox (6) Full code status Current Visit: No Status: Acute Code(s): Z78.9 - OTHER SPECIFIED HEALTH STATUS SNOMED Code(s): 819100887 Status and Disposition: Anticipate d/c home when medically stable
[2018-12-17] MEDS: busPIRone TAB* 5 MG PO SCH (20:55)
[2018-12-18] MEDS: Morphine INJ* 2 MG/ML 1 ML SYRINGE (TWO MG - NEW SYRINGE VERSION) IV PRN ×3 (03:57→18:02)
[2018-12-18] MEDS: Albuterol/Ipratropium NEB.SOL* Albuterol 2.5 MG/Ipratropium 0.5 MG 3 ML INH SCH ×7 (04:16→23:48)
[2018-12-18] MEDS: methylPREDNISolone SOD 40 MG* 1 ML VIAL IV SCH ×3 (05:00→19:46)
[2018-12-18] MEDS: SPIRIVA Respimat* (tiotropium) 2.5 mcg/inh Inhaler INH SCH (07:44)
[2018-12-18] MEDS: Mometasone/Formoter 200/5 MDI INH SCH ×2 (07:58→19:48)
[2018-12-18] MEDS: guaiFENesin ER TAB 600 MG PO SCH ×2 (08:10→19:39)
[2018-12-18] MEDS: Cetirizine* 10 MG TAB PO SCH (08:10)
[2018-12-18] MEDS: Fluticasone NASAL SPRAY 50MCG* 16 gm SPRAY BTL BOTH NARES SCH ×2 (08:10→19:40)
[2018-12-18] MEDS: PARoxetine HCL TAB* 40 MG PO SCH (08:10)
[2018-12-18] MEDS: busPIRone TAB* 5 MG PO SCH ×3 (08:11→19:39)
[2018-12-18] MEDS: Enoxaparin(*) 40 MG/0.4 ML SYR SUBCUT SCH (08:11)
--- NOTE | 2018-12-18 13:01 | PN ---
Progress Note - Progress Note Date of Service: 12/18/18 - Pulm f/u note Note: Pt seen and examined at bedside. Pt reports feeling slightly better, still getting winded with exertion. Is able to cough up large amounts of phleghm. Active Medications Generic Name Dose Route Start Last Admin Trade Name Freq PRN Reason Stop Dose Admin Acetaminophen 650 mg 12/16/18 03:35 Tylenol Tab* PO Q4H PRN PAIN - MILD Albuterol/Ipratropium 1 neb 12/17/18 15:00 12/18/18 11:06 Duoneb (Albuterol 2.5 Mg/Ipratropium 0.5 Mg) INH 1 neb [id number] AWAKE MISBAH Administration Alprazolam 0.25 mg 12/16/18 03:33 12/17/18 20:03 Xanax Tab* PO 0.25 mg TID PRN Administration ANXIETY Buspirone HCl 5 mg 12/17/18 21:00 12/18/18 08:11 Buspar Tab* PO 5 mg TID [facility]IS[facility] Administration Cetirizine HCl 10 mg 12/16/18 14:00 12/18/18 08:10 Zyrtec* PO 10 mg DAILY MIS[facility]H Administration Docusate Sodium 100 mg 12/16/18 18:21 12/16/18 20:17 Colace Cap* PO 100 mg DAILY PRN Administration CONSTIPATION Enoxaparin Sodium 40 mg 12/16/18 09:00 12/18/18 08:11 Lovenox(*) SUBCUT 40 mg Q24H [facility] Administration Fluticasone Propionate 1 spray 12/16/18 09:00 12/18/18 08:10 Flonase Nasal [place] 50mcg* BOTH NARES 1 spray BID [facility] Administration Guaifenesin 600 mg 12/16/18 13:00 12/18/18 08:10 Mucinex* PO 600 mg BID MIS[facility] Administration Methylprednisolone Sodium Succinate 40 mg 12/16/18 13:00 12/18/18 05:00 Solu-Medrol 40 Mg IV 40 mg Q8H [facility] Administration Mometasone Furoate/Formoterol Fumar 2 puff 12/16/18 09:00 12/18/18 07:58 Dulera 200/5 Mdi* INH Not Given BID [facility]IS[facility] Morphine Sulfate 2 mg 12/16/18 12:27 12/18/18 03:57 Morphine Inj (Syringe))* IV 2 mg Q4H PRN Administration SOB breakthrough Ondansetron HCl 4 mg 12/16/18 03:35 Zofran Inj* IV Q4H PRN NAUSEA/VOMITING Paroxetine HCl 40 mg 12/16/18 09:00 12/18/18 08:10 Paxil Tab* PO 40 mg DAILY [facility]IS[facility] Administration Senna 1 tab 12/16/18 18:21 12/16/18 20:17 Senokot 8.6 Mg Tab* PO 1 tab BEDTIME PRN Administration CONSTIPATION Tiotropium [place] 2 puff 12/16/18 09:00 12/18/18 07:44 Spiriva Respimat 2.5 Mcg INH 2 puff DAILY [facility] Administration Vital Signs Temp Pulse Resp BP Pulse Ox 97.7 F 109 21 137/75 99 12/18/18 10:58 12/18/18 11:08 12/18/18 11:08 12/18/18 10:58 12/18/18 11:08 O/E: Pt in NAD, sitting up in bed HEENT: PERRLA, no JVD Lungs: Diminished air entry b/l, exp wheeze+, slightly improved CVS: S1, S2+, regular Abd: Soft, BS+, NT Ext: Normal ROM Skin: No rash Neuro: No focal deficits Labs: no new labs I/R: 53 y o f former smoker with h/o asthma, anxiety a/w worsening SOB, after failing out pt treatment and is being treated for severe asthma exacerbation Pt with slow improvement Has exp wheeze still, slightly better aeration today Metanebs helpful in clearing secretions, coughing up large amount of secretions Will c/w solumderol at current dose, will not taper yet She is on Dulera and Spiriva out pt, reports significant benefit from the combination Has very high copay with her inhalers, will need prior auth Will provide samples and obtain auth from her insurance Has successfully quit smoking in June 2018 Anxiety exacerbates her breathing Is benefitting from Xanax however needing it tid and effect wears off, long acting Xanax is not formulary Morphine prn for tachypnea OOB to chair as tolerated DVT x
[2018-12-18] MEDS: ALPRAZolam TAB* 0.25 MG PO PRN (19:40)
--- NOTE | 2018-12-18 19:54 | PN ---
Subjective Date of Service: 12/18/18 Interval History: Patient feeling her breathing is far improved at rest today, but still feels significantly short of breath with exertion. Feels her anxiety is more stable today as well. Experiences some chest pain when she is having a "coughing fit." Still has productive cough with about the same frequency. Denies fever/chills, otherwise chest pain, abd pain, lightheadedness/dizziness. Objective Active Medications: Acetaminophen (Tylenol Tab*) 650 mg PO Q4H PRN PRN Reason: PAIN - MILD Albuterol/Ipratropium (Duoneb (Albuterol 2.5 Mg/Ipratropium 0.5 Mg)) 1 neb INH [id number] AWAKE [facility] Last Admin: 12/18/18 18:17 Dose: 1 neb Alprazolam (Xanax Tab*) 0.25 mg PO TID PRN PRN Reason: ANXIETY Last Admin: 12/18/18 19:40 Dose: 0.25 mg Buspirone HCl (Buspar Tab*) 5 mg PO TID [facility] Last Admin: 12/18/18 19:39 Dose: 5 mg Cetirizine HCl (Zyrtec*) 10 mg PO DAILY [facility] Last Admin: 12/18/18 08:10 Dose: 10 mg Docusate Sodium (Colace Cap*) 100 mg PO DAILY PRN PRN Reason: CONSTIPATION Last Admin: 12/16/18 20:17 Dose: 100 mg Enoxaparin Sodium (Lovenox(*)) 40 mg SUBCUT Q24H [facility] Last Admin: 12/18/18 08:11 Dose: 40 mg Fluticasone Propionate (Flonase Nasal [place] 50mcg*) 1 spray BOTH NARES BID [facility] Last Admin: 12/18/18 19:40 Dose: 1 spray Guaifenesin (Mucinex*) 600 mg PO BID [facility] Last Admin: 12/18/18 19:39 Dose: 600 mg Methylprednisolone Sodium Succinate (Solu-Medrol 40 Mg) 40 mg IV Q8H [facility] Last Admin: 12/18/18 19:46 Dose: 40 mg Mometasone Furoate/Formoterol Fumar (Dulera 200/5 Mdi*) 2 puff INH BID [facility] Last Admin: 12/18/18 19:48 Dose: Not Given Morphine Sulfate (Morphine Inj (Syringe))*) 2 mg IV Q4H PRN PRN Reason: SOB breakthrough Last Admin: 12/18/18 18:02 Dose: 2 mg Ondansetron HCl (Zofran Inj*) 4 mg IV Q4H PRN PRN Reason: NAUSEA/VOMITING Paroxetine HCl (Paxil Tab*) 40 mg PO DAILY [facility] Last Admin: 12/18/18 08:10 Dose: 40 mg Senna (Senokot 8.6 Mg Tab*) 1 tab PO BEDTIME PRN PRN Reason: CONSTIPATION Last Admin: 12/16/18 20:17 Dose: 1 tab Tiotropium [place] (Spiriva Respimat 2.5 Mcg) 2 puff INH DAILY [facility] Last Admin: 12/18/18 07:44 Dose: 2 puff Vital Signs - 8 hr 12/18/18 12/18/18 12/18/18 13:30 14:30 17:01 Temperature 98.6 F Pulse Rate 108 Respiratory 20 20 16 Rate Blood Pressure 159/95 (mmHg) O2 Sat by Pulse 95 Oximetry 12/18/18 12/18/18 12/18/18 18:02 18:18 18:23 Temperature Pulse Rate 111 113 Respiratory 28 24 24 Rate Blood Pressure (mmHg) O2 Sat by Pulse 98 99 Oximetry 12/18/18 19:40 Temperature Pulse Rate Respiratory 24 Rate Blood Pressure (mmHg) O2 Sat by Pulse Oximetry Oxygen Devices in Use Now: Nasal Cannula Appearance: Obese, white female, laying in hospital bed, in NAD Eyes: No Scleral Icterus, PERRLA Ears/Nose/Mouth/Throat: Mucous Membranes Moist Neck: NL Appearance and Movements; NL JVP Respiratory: Symmetrical Chest Expansion and Respiratory Effort, - - inspiratory and expiratory wheezing; not using accessory muscles to breathe, no tachypnea Cardiovascular: NL Sounds; No Murmurs; No JVD, RRR Abdominal: - - abd soft, nontender, nondistended Extremities: No Edema, No Clubbing, Cyanosis Skin: - - skin warm, dry, intact Neurological: Alert and Oriented x 3, NL Gait, NL Muscle Strength and Tone Result Diagrams: 12/16/18 01:58 12/16/18 01:58 Assess/Plan/Problems-Billing Assessment: 53 yo female with PMHx asthma, anxiety, depression, eating disorder, and bipolar disorder presents with shortness of breath which has been worsening. - Patient Problems (1) Asthma exacerbation Current Visit: No Status: Acute Code(s): J45.901 - UNSPECIFIED ASTHMA WITH ( ACUTE) EXACERBATION SNOMED Code(s): 783160872 Comment: -PFTs in July 2018 with reversibility to bronchidilators, consistent with asthma. CXR without evidence of PNA -received solumedrol and IV magnesium in ED -Appreciate Dr. Tomas's consultation, continuing current management for now -continue solumedrol TID, dulera, spiriva, prn morphine, metanebs with duonebs -at d/c will get ipratropium nebs TID (to replace home spiriva) and advair HFA high dose (to replace home dulera) as most cost effective for patient. Dr. Tomas is also looking into providing samples to patient. Medication cost has been a significant barrier to medication adherence for this patient -Nursing attempted ambulation and was hypoxic on room air, though O2 sats good on room air at rest. This is an improvement (2) Anxiety Current Visit: No Status: Acute Code(s): F41.9 - ANXIETY DISORDER, UNSPECIFIED SNOMED Code(s): 98973627 Comment: -continue home paxil and xanax -previously discussed with patient that she should follow up with PCP about perhap adjusting management as she has frequent anxiety symptoms at home. Should consider therapy in conjunction -continue buspar TID (3) Nasal congestion Current Visit: Yes Status: Acute Code(s): R09.81 - NASAL CONGESTION SNOMED Code(s): 58697624 Comment: -likely back to back viral URIs. Multiple sick contacts at work -not continuing augmentin which was started in ED visit 2 days before admission -mucinex, flonase, and cetirizine (4) Bipolar disorder Current Visit: Yes Status: Acute Code(s): F31.9 - BIPOLAR DISORDER, UNSPECIFIED SNOMED Code(s): 80752864 Comment: -the patient is not on a mood stabilizer and her anxiety and depression is managed only by her PCP, so I question if this is medical record error (5) DVT prophylaxis Current Visit: No Status: Acute Code(s): SAS0553 - SNOMED Code(s): 382389528 Comment: - Lovenox (6) Full code status Current Visit: No Status: Acute Code(s): Z78.9 - OTHER SPECIFIED HEALTH STATUS SNOMED Code(s): 444986142 Status and Disposition: Anticipate d/c home when medically stable
[2018-12-19] MEDS: Morphine INJ* 2 MG/ML 1 ML SYRINGE (TWO MG - NEW SYRINGE VERSION) IV PRN ×5 (00:54→21:13)
[2018-12-19] MEDS: Docusate CAP* 100 MG PO PRN ×2 (00:56→08:49)
[2018-12-19] MEDS: Senna TAB 8.6 mg* TAB PO PRN ×2 (00:56→08:48)
[2018-12-19] MEDS: Albuterol/Ipratropium NEB.SOL* Albuterol 2.5 MG/Ipratropium 0.5 MG 3 ML INH SCH ×7 (00:59→23:02)
[2018-12-19] MEDS ORDERED: Mineral Oil, LAXITIVE* 30 ML UDC PO ONE (01:05)
[2018-12-19] MEDS: methylPREDNISolone SOD 40 MG* 1 ML VIAL IV SCH ×3 (05:35→21:14)
[2018-12-19] MEDS: Mometasone/Formoter 200/5 MDI INH SCH ×2 (07:15→23:04)
[2018-12-19] MEDS: guaiFENesin ER TAB 600 MG PO SCH ×2 (08:48→21:12)
[2018-12-19] MEDS: busPIRone TAB* 5 MG PO SCH ×3 (08:48→21:12)
[2018-12-19] MEDS: PARoxetine HCL TAB* 40 MG PO SCH (08:48)
[2018-12-19] MEDS: ALPRAZolam TAB* 0.25 MG PO PRN ×2 (08:48→21:12)
[2018-12-19] MEDS: Cetirizine* 10 MG TAB PO SCH (08:49)
[2018-12-19] MEDS: Enoxaparin(*) 40 MG/0.4 ML SYR SUBCUT SCH (08:49)
[2018-12-19] MEDS: Fluticasone NASAL SPRAY 50MCG* 16 gm SPRAY BTL BOTH NARES SCH ×2 (08:49→21:14)
[2018-12-19] MEDS ORDERED: Influenza VAC *QUAD* 2019-20* 0.5 ML SYRINGE IM ONE (09:00)
[2018-12-19 09:33] LABS: ABS Lymphocytes 1.1 10^3/ul (1.0-4.8); ABS Monocytes 0.3 10^3/ul (0-0.8); ABS Neutrophils 9.8 10^3/ul (1.5-7.7); Eosinophil % 0.1 %; Hematocrit 36 % (35-47); Hemoglobin 11.4 g/dL (12.0-16.0); Mean Corpuscular HGB Conc 31 g/dL (31-36); Mean Corpuscular Hemoglobin 24 pg (27-31); Mean Corpuscular Volume 76 fL (80-97); Mean Platelet Volume 8.1 fL (7.4-10.4); Platelet Count 290 10^3/uL (150-450); Red Blood Count 4.78 10^6 /uL (3.70-4.87); Red Cell Distribution Width 19 % (10-15); White Blood Count 11.3 10^3/uL (3.5-10.8)
[2018-12-19 10:35] LABS: Calcium 8.9 mg/dL (8.6-10.3); Potassium 3.8 mmol/L (3.5-5.0)
[2018-12-19 10:41] LABS: BUN/Creatinine Ratio 33.3 (8-20); EGFR African American 135.3 (>60); EGFR Non-African American 111.8 (>60)
[2018-12-19] MEDS: SPIRIVA Respimat* (tiotropium) 2.5 mcg/inh Inhaler INH SCH (11:03)
[2018-12-19] MEDS ORDERED: Sodium Phosphate ADULT ENEMA* 118 ml bottle PR PRN (14:16)
[2018-12-19] MEDS ORDERED: Azithromycin 500 mg/250 ml NS 500 MG/250 ML BAG IVPB ONE (15:17)
--- NOTE | 2018-12-19 15:17 | PN ---
Subjective Date of Service: 12/19/18 Interval History: Ms. Gooden is not feeling any better today. She is still SOB at rest, much worse with exertion. She has been able to ambulate to the bathroom with difficulty. She does admit to anxiety. She is concerned that she is not improving as quickly as she normally does while hospitalized. Denies CP. Sleeping well. No concerns from nursing. Family History: Unchanged from Admission Social History: Unchanged from Admission Past Medical History: Unchanged from Admission Objective Active Medications: Acetaminophen (Tylenol Tab*) 650 mg PO Q4H PRN PAIN - MILD Albuterol/Ipratropium (Duoneb (Albuterol 2.5 Mg/Ipratropium 0.5 Mg)) 1 neb INH [id number] AWAKE [facility]IS[facility] Alprazolam (Xanax Tab*) 0.25 mg PO TID PRN ANXIETY Buspirone HCl (Buspar Tab*) 5 mg PO TID [facility] Cetirizine HCl (Zyrtec*) 10 mg PO DAILY [facility] Docusate Sodium (Colace Cap*) 100 mg PO DAILY PRN CONSTIPATION Enoxaparin Sodium (Lovenox(*)) 40 mg SUBCUT Q24H [facility] Fluticasone Propionate (Flonase Nasal [place] 50mcg*) 1 spray BOTH NARES BID [facility] Guaifenesin (Mucinex*) 600 mg PO BID [facility] Methylprednisolone Sodium Succinate (Solu-Medrol 40 Mg) 40 mg IV Q8H [facility] Mometasone Furoate/Formoterol Fumar (Dulera 200/5 Mdi*) 2 puff INH BID [facility] Morphine Sulfate (Morphine Inj (Syringe))*) 2 mg IV Q4H PRN SOB breakthrough Ondansetron HCl (Zofran Inj*) 4 mg IV Q4H PRN NAUSEA/VOMITING Paroxetine HCl (Paxil Tab*) 40 mg PO DAILY [facility] Senna (Senokot 8.6 Mg Tab*) 1 tab PO BEDTIME PRN CONSTIPATION Sodium Biphosphate/Sodium Phosphate (Fleet Enema*) 1 bottle [place] DAILY PRN CONSTIPATION Tiotropium [place] (Spiriva Respimat 2.5 Mcg) 2 puff INH DAILY [facility] Vital Signs - 8 hr 12/19/18 12/19/18 12/19/18 07:15 08:00 08:48 Temperature 97.8 F Pulse Rate 98 Respiratory 20 20 20 Rate Blood Pressure 150/99 (mmHg) O2 Sat by Pulse 96 Oximetry 12/19/18 12/19/18 12/19/18 08:49 10:36 10:50 Temperature Pulse Rate Respiratory 22 20 20 Rate Blood Pressure (mmHg) O2 Sat by Pulse Oximetry 12/19/18 12/19/18 12/19/18 11:03 11:15 13:22 Temperature 97.3 F Pulse Rate 106 103 Respiratory 18 18 18 Rate Blood Pressure 145/89 (mmHg) O2 Sat by Pulse 98 94 Oximetry 12/19/18 14:50 Temperature Pulse Rate 106 Respiratory 18 Rate Blood Pressure (mmHg) O2 Sat by Pulse 99 Oximetry Oxygen Devices in Use Now: Nasal Cannula - 2L Appearance: Middle-aged female sitting in bed in NAD but dyspneic Ears/Nose/Mouth/Throat: Mucous Membranes Moist Neck: NL Appearance and Movements; NL JVP, Trachea Midline Respiratory: Symmetrical Chest Expansion and Respiratory Effort, - - Inspiratory and expiratory wheezing throughout Cardiovascular: NL Sounds; No Murmurs; No JVD, RRR Abdominal: NL Sounds; No Tenderness; No Distention Neurological: Alert and Oriented x 3 Lines/Tubes/Other Access: Clean, Dry and Intact Peripheral IV Nutrition: Taking PO's Result Diagrams: 12/19/18 09:27 12/19/18 09:27 Assess/Plan/Problems-Billing Assessment: Ms. Gooden is a 53 yo F with PMH of asthma, anxiety, depression, eating disorder , and bipolar disorder; who presented with worsening SOB, admitted for asthma exacerbation. - Patient Problems (1) Asthma exacerbation Code(s): J45.901 - UNSPECIFIED ASTHMA WITH (ACUTE) EXACERBATION Comment: - Hypoxic to 87% on RA at rest today during exam - PFTs in July 2018 with reversibility to bronchidilators, consistent with asthma - CXR on admission without evidence of PNA - Appreciate Pulmonology consult; recommends continuing current management for now - Medication cost has been a significant barrier to medication adherence for this patient; at d/c will get ipratropium nebs TID (to replace home Spiriva) and Advair HFA high dose (to replace home Dulera) as most cost effective for patient; Dr. Tomas is also looking into providing samples to patient - Repeat CXR today - Continue Solu-medrol, Dulera, Spiriva, morphine PRN, Metanebs with Duonebs; add Azithromycin for likely colonization (2) Anxiety Code(s): F41.9 - ANXIETY DISORDER, UNSPECIFIED Comment: - Patient should follow up with PCP about perhap adjusting management as she has frequent anxiety symptoms at home; should also consider therapy in conjunction - Continue busprione, paroxetine, alprazolam (3) DVT prophylaxis Code(s): SNF3357 - Comment: - Lovenox (4) Full code status Code(s): Z78.9 - OTHER SPECIFIED HEALTH STATUS Comment: Status and Disposition: Inpatient. Anticipate d/c home when medically stable. Attending: Woo Smith
[2018-12-20] MEDS: Albuterol/Ipratropium NEB.SOL* Albuterol 2.5 MG/Ipratropium 0.5 MG 3 ML INH SCH ×7 (03:09→23:39)
[2018-12-20] MEDS: Morphine INJ* 2 MG/ML 1 ML SYRINGE (TWO MG - NEW SYRINGE VERSION) IV PRN ×3 (04:47→19:47)
[2018-12-20] MEDS: methylPREDNISolone SOD 40 MG* 1 ML VIAL IV SCH ×3 (04:47→19:32)
[2018-12-20] MEDS: Mometasone/Formoter 200/5 MDI INH SCH ×2 (07:09→19:22)
[2018-12-20] MEDS: SPIRIVA Respimat* (tiotropium) 2.5 mcg/inh Inhaler INH SCH (07:09)
[2018-12-20] MEDS: Fluticasone NASAL SPRAY 50MCG* 16 gm SPRAY BTL BOTH NARES SCH ×2 (08:22→19:34)
[2018-12-20] MEDS: Cetirizine* 10 MG TAB PO SCH (08:23)
[2018-12-20] MEDS: Enoxaparin(*) 40 MG/0.4 ML SYR SUBCUT SCH (08:23)
[2018-12-20] MEDS: busPIRone TAB* 5 MG PO SCH ×3 (08:23→19:35)
[2018-12-20] MEDS: guaiFENesin ER TAB 600 MG PO SCH ×2 (08:23→19:35)
[2018-12-20] MEDS: PARoxetine HCL TAB* 40 MG PO SCH (08:23)
--- NOTE | 2018-12-20 15:08 | PN ---
Subjective Date of Service: 12/20/18 Interval History: Ms. Gooden is not feeling any better today. She remains very SOB, worse with exertion. She is coughing up a moderate amount of sputum and thinks the Metanebs are helpful. She has been walking to the bathroom without oxygen to "push" herself. Denies CP, N/V. She is concerned about her slow response to treatment. No concerns from nursing. Family History: Unchanged from Admission Social History: Unchanged from Admission Past Medical History: Unchanged from Admission Objective Active Medications: Acetaminophen (Tylenol Tab*) 650 mg PO Q4H PRN PAIN - MILD Albuterol/Ipratropium (Duoneb (Albuterol 2.5 Mg/Ipratropium 0.5 Mg)) 1 neb INH [id number] AWAKE MISBAH Alprazolam (Xanax Tab*) 0.25 mg PO TID PRN ANXIETY Buspirone HCl (Buspar Tab*) 5 mg PO TID MIS[facility]H Cetirizine HCl (Zyrtec*) 10 mg PO DAILY MIS[facility] Docusate Sodium (Colace Cap*) 100 mg PO DAILY PRN CONSTIPATION Enoxaparin Sodium (Lovenox(*)) 40 mg SUBCUT Q24H [facility]IS[facility] Fluticasone Propionate (Flonase Nasal [place] 50mcg*) 1 spray BOTH NARES BID MISBAH Guaifenesin (Mucinex*) 600 mg PO BID MISBAH Methylprednisolone Sodium Succinate (Solu-Medrol 40 Mg) 40 mg IV Q8H [facility] Mometasone Furoate/Formoterol Fumar (Dulera 200/5 Mdi*) 2 puff INH BID [place]IS[place] Morphine Sulfate (Morphine Inj (Syringe))*) 2 mg IV Q4H PRN SOB breakthrough Ondansetron HCl (Zofran Inj*) 4 mg IV Q4H PRN NAUSEA/VOMITING Paroxetine HCl (Paxil Tab*) 40 mg PO DAILY MISBAH Senna (Senokot 8.6 Mg Tab*) 1 tab PO BEDTIME PRN CONSTIPATION Sodium Biphosphate/Sodium Phosphate (Fleet Enema*) 1 bottle [place] DAILY PRN CONSTIPATION Tiotropium [place] (Spiriva Respimat 2.5 Mcg) 2 puff INH DAILY [facility] Vital Signs - 8 hr 12/20/18 12/20/18 12/20/18 07:13 07:14 07:15 Temperature 97.4 F Pulse Rate 103 104 102 Respiratory 16 16 16 Rate Blood Pressure 153/87 (mmHg) O2 Sat by Pulse 94 94 92 Oximetry 12/20/18 12/20/18 12/20/18 08:00 11:05 11:15 Temperature 98.2 F Pulse Rate 115 105 Respiratory 16 181 14 Rate Blood Pressure 160/93 (mmHg) O2 Sat by Pulse 91 95 Oximetry 12/20/18 12/20/18 13:20 14:54 Temperature Pulse Rate 110 Respiratory 18 17 Rate Blood Pressure (mmHg) O2 Sat by Pulse 98 Oximetry Oxygen Devices in Use Now: Nasal Cannula - 3L Appearance: Middle-aged female sitting in bed in NAD, dyspneic Ears/Nose/Mouth/Throat: Mucous Membranes Moist Neck: NL Appearance and Movements; NL JVP, Trachea Midline Respiratory: Symmetrical Chest Expansion and Respiratory Effort, - - Inspiratory and expiratory wheezing throughout Cardiovascular: NL Sounds; No Murmurs; No JVD, RRR Extremities: No Edema Neurological: Alert and Oriented x 3 Lines/Tubes/Other Access: Clean, Dry and Intact Peripheral IV Nutrition: Taking PO's Result Diagrams: 12/19/18 09:27 12/19/18 09:27 Assess/Plan/Problems-Billing Assessment: Ms. Gooden is a 53 yo F with PMH of asthma, anxiety, depression, eating disorder , and bipolar disorder; who presented with worsening SOB, admitted for asthma exacerbation. - Patient Problems (1) Asthma exacerbation Code(s): J45.901 - UNSPECIFIED ASTHMA WITH (ACUTE) EXACERBATION Comment: - Saturations in the low 90s on 2-3L - PFTs in July 2018 with reversibility to bronchidilators, consistent with asthma - CXR on admission without evidence of PNA; repeat CXR unremarkable - Appreciate Pulmonology consult; recommends continuing current management for now - Medication cost has been a significant barrier to medication adherence for this patient; at d/c will get ipratropium nebs TID (to replace home Spiriva) and Advair HFA high dose (to replace home Dulera) as most cost effective for patient; Dr. Tomas is also looking into providing samples to patient - Chest CT today d/t slow response to treatment and patient concern - Continue Solu-medrol, Dulera, Spiriva, morphine PRN, Metanebs with Duonebs, azithromycin; mag sulfate x1 today (2) Anxiety Code(s): F41.9 - ANXIETY DISORDER, UNSPECIFIED Comment: - Patient should follow up with PCP about perhap adjusting management as she has frequent anxiety symptoms at home; should also consider therapy in conjunction - Continue busprione, paroxetine, alprazolam (3) DVT prophylaxis Code(s): [id number] - Comment: - Lovenox (4) Full code status Code(s): Z78.9 - OTHER SPECIFIED HEALTH STATUS Comment: Status and Disposition: Inpatient. Anticipate d/c home when medically stable. Attending: Catie Soto
[2018-12-20] MEDS ORDERED: Magnesium Sulfate 2 GM IV* 2 GM/50 ML BAG IVPB ONE (15:10)
[2018-12-20] MEDS: ALPRAZolam TAB* 0.25 MG PO PRN (19:34)
[2018-12-21] MEDS: methylPREDNISolone SOD 40 MG* 1 ML VIAL IV SCH ×3 (03:57→21:21)
[2018-12-21] MEDS: ALPRAZolam TAB* 0.25 MG PO PRN ×3 (03:58→21:20)
[2018-12-21] MEDS: Morphine INJ* 2 MG/ML 1 ML SYRINGE (TWO MG - NEW SYRINGE VERSION) IV PRN ×3 (03:58→21:21)
[2018-12-21] MEDS: Albuterol/Ipratropium NEB.SOL* Albuterol 2.5 MG/Ipratropium 0.5 MG 3 ML INH SCH ×6 (04:10→22:51)
[2018-12-21] MEDS: SPIRIVA Respimat* (tiotropium) 2.5 mcg/inh Inhaler INH SCH (07:02)
[2018-12-21] MEDS: Mometasone/Formoter 200/5 MDI INH SCH ×2 (07:02→19:16)
[2018-12-21] MEDS: cefTRIAXone(*) 1 GM in NS 0.9% 50 ML* 50 ML IVPB SCH (07:44)
[2018-12-21] MEDS: Azithromycin IV(*) 250 MG in NS 0.9% 250 ML* 250 ML IVPB SCH (08:35)
[2018-12-21] MEDS: guaiFENesin ER TAB 600 MG PO SCH ×2 (08:38→21:20)
[2018-12-21] MEDS: Enoxaparin(*) 40 MG/0.4 ML SYR SUBCUT SCH (08:38)
[2018-12-21] MEDS: PARoxetine HCL TAB* 40 MG PO SCH (08:38)
[2018-12-21] MEDS: Cetirizine* 10 MG TAB PO SCH (08:38)
[2018-12-21] MEDS: busPIRone TAB* 5 MG PO SCH ×3 (08:38→21:20)
[2018-12-21] MEDS: Fluticasone NASAL SPRAY 50MCG* 16 gm SPRAY BTL BOTH NARES SCH ×2 (10:45→21:21)
--- NOTE | 2018-12-21 13:04 | PN ---
Subjective Date of Service: 12/21/18 Interval History: Ms. Gooden is feeling a little better today. She is comfortable at rest, but very SOB with exertion. She showered this morning and became very SOB just standing in the shower. Denies CP, dizziness. No concerns from nursing. Family History: Unchanged from Admission Social History: Unchanged from Admission Past Medical History: Unchanged from Admission Objective Active Medications: Acetaminophen (Tylenol Tab*) 650 mg PO Q4H PRN PAIN - MILD Albuterol/Ipratropium (Duoneb (Albuterol 2.5 Mg/Ipratropium 0.5 Mg)) 1 neb INH [id number] AWAKE MISBAH Alprazolam (Xanax Tab*) 0.25 mg PO TID PRN ANXIETY Buspirone HCl (Buspar Tab*) 5 mg PO TID MIS[place]H Cetirizine HCl (Zyrtec*) 10 mg PO DAILY MIS[facility] Docusate Sodium (Colace Cap*) 100 mg PO DAILY PRN CONSTIPATION Enoxaparin Sodium (Lovenox(*)) 40 mg SUBCUT Q24H [facility]IS[facility] Fluticasone Propionate (Flonase Nasal [place] 50mcg*) 1 spray BOTH NARES BID MISBAH Guaifenesin (Mucinex*) 600 mg PO BID MISBAH Azithromycin 250 mg/ Sodium (Chloride) 250 mls @ 250 mls/hr IVPB Q24H [facility]IS[facility] Ceftriaxone Sodium 1 gm/ (Sodium Chloride) 50 mls @ 100 mls/hr IVPB Q24H [facility] Methylprednisolone Sodium Succinate (Solu-Medrol 40 Mg) 40 mg IV Q8H [facility] Mometasone Furoate/Formoterol Fumar (Dulera 200/5 Mdi*) 2 puff INH BID [place]IS[place] Morphine Sulfate (Morphine Inj (Syringe))*) 2 mg IV Q4H PRN SOB breakthrough Ondansetron HCl (Zofran Inj*) 4 mg IV Q4H PRN NAUSEA/VOMITING Paroxetine HCl (Paxil Tab*) 40 mg PO DAILY MISBAH Senna (Senokot 8.6 Mg Tab*) 1 tab PO BEDTIME PRN CONSTIPATION Sodium Biphosphate/Sodium Phosphate (Fleet Enema*) 1 bottle [place] DAILY PRN CONSTIPATION Tiotropium [place] (Spiriva Respimat 2.5 Mcg) 2 puff INH DAILY [facility] Vital Signs - 8 hr 12/21/18 12/21/18 12/21/18 05:15 06:42 07:04 Temperature Pulse Rate 91 Respiratory 18 18 16 Rate Blood Pressure (mmHg) O2 Sat by Pulse 99 Oximetry 12/21/18 12/21/18 12/21/18 07:22 07:51 11:20 Temperature 97.4 F 97.6 F Pulse Rate 92 108 Respiratory 14 16 20 Rate Blood Pressure 152/96 152/94 (mmHg) O2 Sat by Pulse 92 96 Oximetry 12/21/18 12:31 Temperature Pulse Rate 112 Respiratory 16 Rate Blood Pressure (mmHg) O2 Sat by Pulse 99 Oximetry Oxygen Devices in Use Now: Nasal Cannula - 2L Appearance: Middle-aged female sitting in bed in NAD, mildly dyspneic Ears/Nose/Mouth/Throat: Mucous Membranes Moist Neck: NL Appearance and Movements; NL JVP, Trachea Midline Respiratory: Symmetrical Chest Expansion and Respiratory Effort, - - Expiratory wheezing throughout, improved from yesterday Cardiovascular: NL Sounds; No Murmurs; No JVD, RRR Neurological: Alert and Oriented x 3 Lines/Tubes/Other Access: Clean, Dry and Intact Peripheral IV Nutrition: Taking PO's Result Diagrams: 12/19/18 09:27 12/19/18 09:27 Assess/Plan/Problems-Billing Assessment: Ms. Gooden is a 53 yo F with PMH of asthma, anxiety, depression, eating disorder , and bipolar disorder; who presented with worsening SOB, admitted for asthma exacerbation. - Patient Problems (1) Asthma exacerbation Code(s): J45.901 - UNSPECIFIED ASTHMA WITH (ACUTE) EXACERBATION Comment: - Saturations in the low 90s on 2-3L - PFTs in July 2018 with reversibility to bronchidilators, consistent with asthma - CXR on admission without evidence of PNA; repeat CXR unremarkable - Appreciate Pulmonology consult; recommends continuing current management for now - Medication cost has been a significant barrier to medication adherence for this patient; at d/c will get ipratropium nebs TID (to replace home Spiriva) and Advair HFA high dose (to replace home Dulera) as most cost effective for patient; Dr. Tomas is also looking into providing samples to patient - Continue Solu-medrol, Dulera, Spiriva, morphine PRN, Metanebs with Duonebs (2) Pneumonia Code(s): J18.9 - PNEUMONIA, UNSPECIFIED ORGANISM Comment: - CXR unremarkable, but CT shows right middle lobe infiltrate - Continue azithromycin; start ceftriaxone (3) Anxiety Code(s): F41.9 - ANXIETY DISORDER, UNSPECIFIED Comment: - Patient should follow up with PCP about perhap adjusting management as she has frequent anxiety symptoms at home; should also consider therapy in conjunction - Continue busprione, paroxetine, alprazolam (4) DVT prophylaxis Code(s): [id number] - Comment: - Lovenox (5) Full code status Code(s): Z78.9 - OTHER SPECIFIED HEALTH STATUS Comment: Status and Disposition: Inpatient. Anticipate d/c home when medically stable. Attending: Catie Soto
[2018-12-22] MEDS: Albuterol/Ipratropium NEB.SOL* Albuterol 2.5 MG/Ipratropium 0.5 MG 3 ML INH SCH ×6 (03:31→22:55)
[2018-12-22] MEDS: ALPRAZolam TAB* 0.25 MG PO PRN ×2 (06:19→21:34)
[2018-12-22] MEDS: Morphine INJ* 2 MG/ML 1 ML SYRINGE (TWO MG - NEW SYRINGE VERSION) IV PRN ×2 (06:20→18:13)
[2018-12-22] MEDS: methylPREDNISolone SOD 40 MG* 1 ML VIAL IV SCH ×3 (06:21→21:38)
[2018-12-22 06:45] LABS: BUN/Creatinine Ratio 43.3 (8-20); EGFR African American 127.5 (>60); EGFR Non-African American 105.4 (>60); Potassium 4.3 mmol/L (3.5-5.0)
[2018-12-22] MEDS: cefTRIAXone(*) 1 GM in NS 0.9% 50 ML* 50 ML IVPB SCH (07:55)
[2018-12-22] MEDS: Azithromycin IV(*) 250 MG in NS 0.9% 250 ML* 250 ML IVPB SCH (08:50)
[2018-12-22] MEDS: busPIRone TAB* 5 MG PO SCH ×3 (08:50→21:35)
[2018-12-22] MEDS: PARoxetine HCL TAB* 40 MG PO SCH (08:50)
[2018-12-22] MEDS: Cetirizine* 10 MG TAB PO SCH (08:50)
[2018-12-22] MEDS: Fluticasone NASAL SPRAY 50MCG* 16 gm SPRAY BTL BOTH NARES SCH ×2 (08:50→21:35)
[2018-12-22] MEDS: guaiFENesin ER TAB 600 MG PO SCH ×2 (08:50→21:34)
[2018-12-22] MEDS: Enoxaparin(*) 40 MG/0.4 ML SYR SUBCUT SCH (08:50)
[2018-12-22] MEDS: SPIRIVA Respimat* (tiotropium) 2.5 mcg/inh Inhaler INH SCH (09:03)
[2018-12-22] MEDS: Mometasone/Formoter 200/5 MDI INH SCH ×2 (09:20→19:23)
--- NOTE | 2018-12-22 14:33 | PN ---
Subjective Date of Service: 12/22/18 Interval History: Ms. Gooden initially reported that she was not feeling any better today, but then admitted to feeling less SOB at rest. She feels slightly better when up ambulating, but still quite SOB. Denies CP. No concerns from nursing. Family History: Unchanged from Admission Social History: Unchanged from Admission Past Medical History: Unchanged from Admission Objective Active Medications: Acetaminophen (Tylenol Tab*) 650 mg PO Q4H PRN PAIN - MILD Albuterol/Ipratropium (Duoneb (Albuterol 2.5 Mg/Ipratropium 0.5 Mg)) 1 neb INH [id number] AWAKE MISBAH Alprazolam (Xanax Tab*) 0.25 mg PO TID PRN ANXIETY Buspirone HCl (Buspar Tab*) 5 mg PO TID MISBAH Cetirizine HCl (Zyrtec*) 10 mg PO DAILY MISBAH Docusate Sodium (Colace Cap*) 100 mg PO DAILY PRN CONSTIPATION Enoxaparin Sodium (Lovenox(*)) 40 mg SUBCUT Q24H MIS[facility]H Fluticasone Propionate (Flonase Nasal [place] 50mcg*) 1 spray BOTH NARES BID MISBAH Guaifenesin (Mucinex*) 600 mg PO BID MISBAH Azithromycin 250 mg/ Sodium (Chloride) 250 mls @ 250 mls/hr IVPB Q24H MIS[facility]H Ceftriaxone Sodium 1 gm/ (Sodium Chloride) 50 mls @ 100 mls/hr IVPB Q24H [facility] Methylprednisolone Sodium Succinate (Solu-Medrol 40 Mg) 40 mg IV Q8H MIS[facility] Mometasone Furoate/Formoterol Fumar (Dulera 200/5 Mdi*) 2 puff INH BID MIS[place]H Morphine Sulfate (Morphine Inj (Syringe))*) 2 mg IV Q4H PRN SOB breakthrough Ondansetron HCl (Zofran Inj*) 4 mg IV Q4H PRN NAUSEA/VOMITING Paroxetine HCl (Paxil Tab*) 40 mg PO DAILY MISBAH Senna (Senokot 8.6 Mg Tab*) 1 tab PO BEDTIME PRN CONSTIPATION Sodium Biphosphate/Sodium Phosphate (Fleet Enema*) 1 bottle [place] DAILY PRN CONSTIPATION Tiotropium [place] (Spiriva Respimat 2.5 Mcg) 2 puff INH DAILY [facility] Vital Signs - 8 hr 12/22/18 12/22/18 12/22/18 07:00 08:00 08:07 Temperature 97.7 F Pulse Rate 90 Respiratory 18 18 18 Rate Blood Pressure 152/90 (mmHg) O2 Sat by Pulse 98 Oximetry 12/22/18 12/22/18 12/22/18 09:15 11:03 13:53 Temperature 97.4 F Pulse Rate 115 103 111 Respiratory 15 18 15 Rate Blood Pressure 151/76 (mmHg) O2 Sat by Pulse 95 94 97 Oximetry Oxygen Devices in Use Now: Nasal Cannula - 1L Appearance: Middle-aged female sitting in bed in NAD Ears/Nose/Mouth/Throat: Mucous Membranes Moist Neck: NL Appearance and Movements; NL JVP, Trachea Midline Respiratory: Symmetrical Chest Expansion and Respiratory Effort, - - Expiratory wheezing throughout, worst in upper lobes, significantly improved from yesterday Cardiovascular: NL Sounds; No Murmurs; No JVD, RRR Neurological: Alert and Oriented x 3 Lines/Tubes/Other Access: Clean, Dry and Intact Peripheral IV Nutrition: Taking PO's Result Diagrams: 12/19/18 09:27 12/22/18 05:38 Assess/Plan/Problems-Billing Assessment: Ms. Gooden is a 53 yo F with PMH of asthma, anxiety, depression, eating disorder , and bipolar disorder; who presented with worsening SOB, admitted for asthma exacerbation. - Patient Problems (1) Asthma exacerbation Code(s): J45.901 - UNSPECIFIED ASTHMA WITH (ACUTE) EXACERBATION Comment: - Saturations in the 90s on 1L - PFTs in July 2018 with reversibility to bronchidilators, consistent with asthma - CXR on admission without evidence of PNA; repeat CXR unremarkable - Appreciate Pulmonology consult; recommends continuing current management for now - Medication cost has been a significant barrier to medication adherence for this patient; at d/c will get ipratropium nebs TID (to replace home Spiriva) and Advair HFA high dose (to replace home Dulera) as most cost effective for patient; Dr. Tomas is also looking into providing samples to patient - Continue Dulera, Spiriva, morphine PRN, Metanebs with Duonebs; change to prednisone tomorrow (2) Pneumonia Code(s): J18.9 - PNEUMONIA, UNSPECIFIED ORGANISM Comment: - CXR unremarkable, but CT shows right middle lobe infiltrate - Sputum culture growing only normal keanu - Continue azithromycin, ceftriaxone (3) Acute respiratory failure with hypoxia Code(s): J96.01 - ACUTE RESPIRATORY FAILURE WITH HYPOXIA Comment: - Now weaned down to 1L - Change from Solu-Medrol to prednisone tomorrow AM (4) Hypertension Code(s): I10 - ESSENTIAL (PRIMARY) HYPERTENSION Comment: - Consistently hypertensive with SBP 140-150s - Suspect this is in part d/t high dose corticosteroids, so will hold off on treatment at this point (5) Anxiety Code(s): F41.9 - ANXIETY DISORDER, UNSPECIFIED Comment: - Patient should follow up with PCP about perhap adjusting management as she has frequent anxiety symptoms at home; should also consider therapy in conjunction - Continue busprione, paroxetine, alprazolam (6) DVT prophylaxis Code(s): [id number] - Comment: - Lovenox (7) Full code status Code(s): Z78.9 - OTHER SPECIFIED HEALTH STATUS Comment: Status and Disposition: Inpatient. Anticipate d/c home when medically stable, hopefully tomorrow. Attending: Ese Figueroa
[2018-12-23] MEDS: Morphine INJ* 2 MG/ML 1 ML SYRINGE (TWO MG - NEW SYRINGE VERSION) IV PRN ×3 (03:00→20:11)
[2018-12-23] MEDS: Albuterol/Ipratropium NEB.SOL* Albuterol 2.5 MG/Ipratropium 0.5 MG 3 ML INH SCH ×6 (03:21→22:55)
[2018-12-23] MEDS: ALPRAZolam TAB* 0.25 MG PO PRN ×2 (03:35→20:12)
[2018-12-23] MEDS: cefTRIAXone(*) 1 GM in NS 0.9% 50 ML* 50 ML IVPB SCH (07:53)
[2018-12-23] MEDS: Enoxaparin(*) 40 MG/0.4 ML SYR SUBCUT SCH (07:56)
[2018-12-23] MEDS: Cetirizine* 10 MG TAB PO SCH (07:57)
[2018-12-23] MEDS: PARoxetine HCL TAB* 40 MG PO SCH (07:57)
[2018-12-23] MEDS: busPIRone TAB* 5 MG PO SCH ×3 (07:57→20:12)
[2018-12-23] MEDS: Fluticasone NASAL SPRAY 50MCG* 16 gm SPRAY BTL BOTH NARES SCH ×2 (07:57→20:16)
[2018-12-23] MEDS: guaiFENesin ER TAB 600 MG PO SCH ×2 (07:57→20:12)
[2018-12-23] MEDS: predniSONE TAB* 20 MG PO SCH (07:57)
[2018-12-23] MEDS: Mometasone/Formoter 200/5 MDI INH SCH ×2 (08:16→19:05)
[2018-12-23] MEDS: SPIRIVA Respimat* (tiotropium) 2.5 mcg/inh Inhaler INH SCH (08:16)
[2018-12-23] MEDS: Azithromycin IV(*) 250 MG in NS 0.9% 250 ML* 250 ML IVPB SCH (08:45)
[2018-12-23] MEDS ORDERED: Magnesium Sulfate 2 GM IV* 2 GM/50 ML BAG IVPB ONE (13:56)
--- NOTE | 2018-12-23 14:02 | PN ---
Subjective Date of Service: 12/23/18 Interval History: Ms. Gooden is feeling a little better today. She was able to ambulate about jail around the unit on RA, dropping to 88%, but she felt very SOB and needed to sit prior to returning to her room. She is frustrated that she is not improving as quickly as she normally does. Denies CP. No concerns from nursing. Family History: Unchanged from Admission Social History: Unchanged from Admission Past Medical History: Unchanged from Admission Objective Active Medications: Acetaminophen (Tylenol Tab*) 650 mg PO Q4H PRN PAIN - MILD Albuterol/Ipratropium (Duoneb (Albuterol 2.5 Mg/Ipratropium 0.5 Mg)) 1 neb INH [id number] AWAKE MISBAH Alprazolam (Xanax Tab*) 0.25 mg PO TID PRN ANXIETY Azithromycin (Zithromax Tab*) 250 mg PO DAILY MISBAH Buspirone HCl (Buspar Tab*) 5 mg PO TID MIS[facility] Cetirizine HCl (Zyrtec*) 10 mg PO DAILY MIS[facility] Docusate Sodium (Colace Cap*) 100 mg PO DAILY PRN CONSTIPATION Enoxaparin Sodium (Lovenox(*)) 40 mg SUBCUT Q24H [facility] Fluticasone Propionate (Flonase Nasal [place] 50mcg*) 1 spray BOTH NARES BID MISBAH Guaifenesin (Mucinex*) 600 mg PO BID MISBAH Ceftriaxone Sodium 1 gm/ (Sodium Chloride) 50 mls @ 100 mls/hr IVPB Q24H [facility] Mometasone Furoate/Formoterol Fumar (Dulera 200/5 Mdi*) 2 puff INH BID [place] Morphine Sulfate (Morphine Inj (Syringe))*) 2 mg IV Q4H PRN SOB breakthrough Ondansetron HCl (Zofran Inj*) 4 mg IV Q4H PRN NAUSEA/VOMITING Paroxetine HCl (Paxil Tab*) 40 mg PO DAILY [facility] OF [facility] Prednisone (Deltasone Tab*) 60 mg PO DAILY MISBAH Senna (Senokot 8.6 Mg Tab*) 1 tab PO BEDTIME PRN CONSTIPATION Sodium Biphosphate/Sodium Phosphate (Fleet Enema*) 1 bottle [place] DAILY PRN CONSTIPATION Tiotropium [place] (Spiriva Respimat 2.5 Mcg) 2 puff INH DAILY [facility] Vital Signs - 8 hr 12/23/18 12/23/18 12/23/18 06:28 07:15 08:00 Temperature 97.4 F Pulse Rate 96 Respiratory 18 20 20 Rate Blood Pressure 158/99 (mmHg) O2 Sat by Pulse 98 Oximetry 12/23/18 12/23/18 12/23/18 08:18 08:19 11:15 Temperature 97.7 F Pulse Rate 88 88 112 Respiratory 16 16 20 Rate Blood Pressure 150/90 (mmHg) O2 Sat by Pulse 98 98 92 Oximetry 12/23/18 12/23/18 11:34 11:54 Temperature Pulse Rate 113 Respiratory 22 18 Rate Blood Pressure (mmHg) O2 Sat by Pulse 92 Oximetry Oxygen Devices in Use Now: Nasal Cannula - 1.5L Appearance: Middle-aged female sitting in chair in NAD Ears/Nose/Mouth/Throat: Mucous Membranes Moist Neck: NL Appearance and Movements; NL JVP, Trachea Midline Respiratory: Symmetrical Chest Expansion and Respiratory Effort, - - Diminished , scattered wheezing significantly improved from prior Cardiovascular: NL Sounds; No Murmurs; No JVD, RRR Extremities: No Edema Neurological: Alert and Oriented x 3 Lines/Tubes/Other Access: Clean, Dry and Intact Peripheral IV Nutrition: Taking PO's Result Diagrams: 12/19/18 09:27 12/22/18 05:38 Assess/Plan/Problems-Billing Assessment: Ms. Gooden is a 53 yo F with PMH of asthma, anxiety, depression, eating disorder , and bipolar disorder; who presented with worsening SOB, admitted for asthma exacerbation. - Patient Problems (1) Asthma exacerbation Code(s): J45.901 - UNSPECIFIED ASTHMA WITH (ACUTE) EXACERBATION Comment: - Saturations in the 90s on 1.5L - Clinically she appears to be improving as wheezing has decreased and O2 sat tolerated ambulating on RA, though she was very SOB with ambulation - PFTs in July 2018 with reversibility to bronchidilators, consistent with asthma - Appreciate Pulmonology consult; recommends continuing current management for now - Medication cost has been a significant barrier to medication adherence for this patient; at d/c will get ipratropium nebs TID (to replace home Spiriva) and Advair HFA high dose (to replace home Dulera) as most cost effective for patient; Dr. Tomas is also looking into providing samples to patient - Continue Dulera, Spiriva, morphine PRN, Metanebs with Duonebs, prednisone (2) Pneumonia Code(s): J18.9 - PNEUMONIA, UNSPECIFIED ORGANISM Comment: - CXR unremarkable, but CT shows right middle lobe infiltrate - Sputum culture growing only normal keanu - Continue azithromycin, ceftriaxone (3) Acute respiratory failure with hypoxia Code(s): J96.01 - ACUTE RESPIRATORY FAILURE WITH HYPOXIA Comment: - Now weaned down to 1.5L - Continue prednisone (4) Hypertension Code(s): I10 - ESSENTIAL (PRIMARY) HYPERTENSION Comment: - Consistently hypertensive with SBP 140-150s - Suspect this is in part d/t high dose corticosteroids and anxiety, so will hold off on treatment at this point (5) Anxiety Code(s): F41.9 - ANXIETY DISORDER, UNSPECIFIED Comment: - Patient should follow up with PCP about perhap adjusting management as she has frequent anxiety symptoms at home; should also consider therapy in conjunction - Continue busprione, paroxetine, alprazolam (6) DVT prophylaxis Code(s): [id number] - Comment: - Lovenox (7) Full code status Code(s): Z78.9 - OTHER SPECIFIED HEALTH STATUS Comment: Status and Disposition: Inpatient. Anticipate d/c home when medically stable, hopefully in the next 1-2 days. Attending: Ese Figueroa
[2018-12-24] MEDS: Albuterol/Ipratropium NEB.SOL* Albuterol 2.5 MG/Ipratropium 0.5 MG 3 ML INH SCH ×3 (02:59→08:30)
[2018-12-24] MEDS: Morphine INJ* 2 MG/ML 1 ML SYRINGE (TWO MG - NEW SYRINGE VERSION) IV PRN (03:59)
[2018-12-24] MEDS: cefTRIAXone(*) 1 GM in NS 0.9% 50 ML* 50 ML IVPB SCH (08:11)
[2018-12-24] MEDS: Fluticasone NASAL SPRAY 50MCG* 16 gm SPRAY BTL BOTH NARES SCH (08:18)
[2018-12-24] MEDS: guaiFENesin ER TAB 600 MG PO SCH (08:18)
[2018-12-24] MEDS: PARoxetine HCL TAB* 40 MG PO SCH (08:18)
[2018-12-24] MEDS: Cetirizine* 10 MG TAB PO SCH (08:19)
[2018-12-24] MEDS: predniSONE TAB* 20 MG PO SCH (08:19)
[2018-12-24] MEDS: busPIRone TAB* 5 MG PO SCH (08:19)
[2018-12-24] MEDS: Enoxaparin(*) 40 MG/0.4 ML SYR SUBCUT SCH (08:28)
[2018-12-24] MEDS: SPIRIVA Respimat* (tiotropium) 2.5 mcg/inh Inhaler INH SCH (08:31)
[2018-12-24] MEDS ORDERED: Albuterol/Ipratropium NEB.SOL* Albuterol 2.5 MG/Ipratropium 0.5 MG 3 ML INH PRN (08:36)
[2018-12-24] MEDS: Mometasone/Formoter 200/5 MDI INH SCH (08:39)
[2018-12-24] MEDS ORDERED: Azithromycin TAB* 250 MG PO SCH (09:00)
[2018-12-24 11:17] VITALS: BP 134/87
--- NOTE | 2018-12-24 13:19 | PN ---
Progress Note - Progress Note Date of Service: 12/24/18 - Pulm f/u note Note: patient seen and examined at bedside this morning. Patient reports improvement in symptoms. She still reports dyspnea with minimal exertion. Reports improvement in cough. She was able to expectorate a lot of phlegm with the meta nebs. PARoxetine HCL TAB* [Paxil TAB*] 40 mg PO DAILY Albuterol HFA INHALER* [Ventolin HFA Inhaler*] 2 puff INH Q4H PRN Albuterol 2.5MG/3ML (0.083%)* [Ventolin 2.5 MG/3 ML NEB.KASANDRA*] 2.5 mg INH Q4HR PRN Xanax 0.25 mg PO TID PRN 12/14/18 Fluticasone NASAL SPRAY 50MCG* [Flonase NASAL SPRAY 50MCG*] 1 spray BOTH NARES BID Ipratropium 0.5MG/2.5ML NEB* [Atrovent 0.5 MG NEB.KASANDRA*] 0.5 mg INH Q8H #90 neb.soln Fluticas/Salmet 230/21 HFA(NF) [Advair HFA 23O/21 (NF)] 1 puff INH BID Acetaminophen TAB* [Tylenol TAB*] 650 mg PO Q4H PRN Azithromycin TAB* [Zithromax TAB (Z-SAVANNAH) 250 mg Cetirizine* [ZyrTEC 10 MG TAB*] 10 mg PO DAILY busPIRone TAB* [Buspar TAB*] 5 mg PO TID ceFUROXime 250 MG TAB [Ceftin TAB 250 MG(*)] 500 mg PO BID guaiFENesin ER TAB [Mucinex*] 600 mg PO BID predniSONE TAB* [Deltasone 20 MG TAB Vital Signs Temp Pulse Resp BP Pulse Ox 98.1 F 104 20 134/87 94 12/24/18 10:58 12/24/18 10:58 12/24/18 10:58 12/24/18 10:58 12/24/18 10:58 O/E: Pt in NAD, sitting up in bed HEENT: PERRLA, no JVD Lungs: Good a/e b/l CVS: S1, S2+, regular Abd: Soft, BS+, NT Ext: Normal ROM Skin: No rash Neuro: No focal deficits Labs: No new labs I/R: 53 y o f former smoker with h/o asthma, anxiety a/w worsening SOB, after failing out pt treatment and is being treated for severe asthma exacerbation Pt with slow improvement, much improved today No wheezing noted today Metanebs were helpful in clearing secretions She is on Dulera and Spiriva out pt, reports significant benefit from the combination Has very high copay with her inhalers, will need prior auth Will provide samples and obtain auth from her insurance Has successfully quit smoking in June 2018 Anxiety worsens her breathing Is benefitting from Xanax however needing it tid and effect wears off, long acting Xanax is not formulary, also on Paroxetine OOB to chair as tolerated For d/c home today with prednisone taper over 2 weeks Pt to complete abx course Pt requesting letter to stay off work until she is better Will f/u in pulm clinic in 2-3 weeks D/w Torsten Templeton
--- NOTE | 2018-12-25 01:26 | DS ---
CC: Eleanor Champagne NP; Dr. Janet Tomas * DISCHARGE SUMMARY: DATE OF ADMISSION: 12/16/18 DATE OF DISCHARGE: 12/24/18 PRIMARY CARE PROVIDER: Eleanor Champagne NP MY ATTENDING WHILE IN THE HOSPITAL: Dr. Ese Figueroa * (DICTATED BY LAURA CLAY) OUTPATIENT CLEANER HOUSEKEEPING: Dr. Janet Tomas PRIMARY DISCHARGE DIAGNOSES: 1. Asthma exacerbation. 2. Community-acquired pneumonia. SECONDARY DISCHARGE DIAGNOSES: 1. Anxiety. 2. Depression. 3. Bipolar disorder. STUDIES DONE WHILE IN THE HOSPITAL: Chest x-ray from 12/16/18 read as findings consistent with COPD, no evidence for acute disease. Chest x-ray from 12/19/18 read as no evidence for acute cardiopulmonary disease. Chest CT from 12/19/18 read as there is a small infiltrate. MEDICATIONS AT DISCHARGE: 1. Paroxetine 40 mg p.o. daily. 2. Albuterol inhaler 2 puffs inhalation q.4 hours as needed. 3. Ventolin nebulizer 2.5 mg q.4 hours as needed. 4. Fluticasone nasal spray 1 spray both nares b.i.d. 5. Xanax 0.25 mg p.o. t.i.d. as needed. 6. Ipratropium 0.5 mg inhalation q.8 hours nebulizer solution. 7. Advair HFA 230/21 1 puff inhalation b.i.d. 8. Tylenol 650 mg p.o. q.4 hours as needed. 9. Azithromycin 250 mg p.o. daily. 10. Buspirone 5 mg p.o. t.i.d. 11. Cefuroxime 500 mg p.o. b.i.d. x20. 12. Cetirizine 10 mg p.o. daily. 13. Guaifenesin 600 mg p.o. b.i.d. 14. Prednisone 60 mg p.o. daily with taper over 2 weeks. New medications at discharge: 1. Ipratropium. 2. Advair. 3. Tylenol. 4. Azithromycin. 5. Buspirone. 6. Cefuroxime. 7. Cetirizine. 8. Guaifenesin. 9. Prednisone. Medications discontinued at discharge: 1. Prednisone 50 mg p.o. daily. 2. Augmentin. 3. Dulera. 4. Spiriva. Discontinued due to cost concerns. HOSPITAL COURSE: This is a brief summary of the patient's presentation. For more details, please see the history and physical from Dr. Alvin Doyle on . In brief, the patient is a 53-year-old female with past medical history significant for asthma, who presented to the emergency department after 1 month of worsening allergy symptoms and 2 to 3 days of difficulty breathing for which she was seen by her primary care provider. In the emergency department was given nebulizers, Augmentin, and steroids. These did not help. The patient was given IV steroids in the emergency department, as well as magnesium nebulizers. The patient admitted to the hospital, started on high dose IV steroids. The patient was not initially started on antibiotics. The patient was seen in consultation by Dr. Janet Tomas, who agreed with this plan, but stressed that the patient should have inhalers that would work with her insurance and the above medications were figured out to be the most cost effective solution. The patient was started on MetaNeb and flutter valve to help clear secretions. The patient did not improve significantly over the course of several days and eventually a CT of the chest was obtained after 2 negative chest x-rays, which showed a right middle lobe infiltrate. The patient was previously started on azithromycin for its antiinflammatory properties, but then the patient has had ceftriaxone added on. The patient began to improve significantly from 12/20/18 to 12/24/18. The patient was able to be weaned all day off of her oxygen. The patient initially had persistent hypoxia with ambulation, but did not need this either. The patient was able to be tapered down to oral steroids 60 mg daily on 12/23/18. The patient was stable and amenable for discharge on 12/24/18. PHYSICAL EXAM ON THE DAY OF DISCHARGE: General: The patient is a 53-year-old female who appears stated age and sitting comfortable in bed, in no acute distress. Vital Signs: Temperature 98.1, pulse rate 104, respiratory rate 20, oxygen 94% on room air, blood pressure 134/87. HEENT: Head normocephalic, atraumatic. Sclerae anicteric. No conjunctival injection. Nasal mucosa moist. Oral mucosa moist. No pharyngeal erythema, discharge, or exudate. Neck : Supple, nontender. No lymphadenopathy. No carotid bruits auscultated. No JVD. Cardiac: Tachycardia. No clicks, murmurs, gallops, or rubs. Pulses are 2 + in the bilateral dorsalis pedis, posterior tibialis, and radial areas. No bilateral lower extremities edema noted. No calf tenderness. Respiratory: Clear to auscultation bilaterally. No wheezing, rales, or rhonchi. Good air exchange bilaterally. Abdomen: Soft, nontender, nondistended. Bowel sounds present and normoactive in all 4 quadrants. No hepatosplenomegaly. No abdominal bruits auscultated. No hepatojugular reflux. Genitourinary: No suprapubic or CVA tenderness. Skin: Clean, intact. Pustular rash over the upper chest without drainage or open areas. Neuro: Cranial nerves II through XII intact. No focal deficits. Alert and oriented x3. Psychiatric: Pleasant and cooperative. DISCHARGE PLAN BY PROBLEM: 1. Acute asthma exacerbation possibly due to community-acquired pneumonia. The patient will be continued on antibiotics for a total of 5 days of azithromycin and 7 days of cephalosporin therapy. The patient will be continued on nebulizers with her home albuterol nebulizer as well as around the clock ipratropium to replace her tiotropium due to efficacy and cost considerations. The patient is also to be transferred from [facility] to [facility], prescription of which had been sent. The patient will be tapered off steroids starting with prednisone 60 mg for 2 days, 40 mg for 4 days, 20 mg for 4 days, and 10 mg for 4 days, then discontinuation. The patient to follow up with primary care provider in 1 week. 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 The patient should return to hospital for severe shortness of breath, high fevers, not responding to Tylenol and ibuprofen, passing out or other alarming symptoms. 2. Anxiety. Continue the patient's Xanax. The patient has also been started on BuSpar, which she will continue as outpatient as well as the patient's paroxetine, which she has been stabilized for a long period of time. The patient to follow up with primary care provider about this. 3. Allergies. Continue the patient's cetirizine and fluticasone nasal spray. 4. Disposition home. 5. Condition stable. TIME SPENT: Approximately 60 minutes were spent on the discharge of this patient, 30 of which was spent [id number] with the patient obtaining history and physical and discussing treatment plan. LAURA CLAY [id number]/GORAN #: [id number]
== END 2018-12-24 11:55 | disposition home or self-care (01) | DRG 141 ==
LOC: ED 01:44 → MED 03:35 → OBSVTOIN 03:35
PROVIDERS: ADMIT Internal Medicine; ATTEND Internal Medicine
DX: J45.901 Unspecified asthma with (acute) exacerbation (principal); J18.9 Pneumonia, unspecified organism; J96.01 Acute respiratory failure with hypoxia; F41.9 Anxiety disorder, unspecified; F31.9 Bipolar disorder, unspecified; E66.9 Obesity, unspecified; F50.9 Eating disorder, unspecified; I10 Essential (primary) hypertension; Z87.01 Personal history of pneumonia (recurrent); Z68.31 Body mass index [BMI] 31.0-31.9, adult; Z87.891 Personal history of nicotine dependence; Z72.89 Other problems related to lifestyle; Z79.51 Long term (current) use of inhaled steroids
CPT/HCPCS: 36415; 71046; 71250; 80048; 80053; 82272; 83735; 83880; 84484; 85025; 86140; 87070; 87205; 93005; 94640; 94667; 94668; 96365; 96375; 99284; A9270-GY; J0456; J0696; J1650; J2270; J2920; J2930; J3475; J3535; J7512; J7611

== ENCOUNTER 2018-12-28 15:10 | Inpatient (IN) | payer BC ==
--- OUTSIDE RECORDS SUMMARY | 2018-12-28 15:27 | XMS REPORT | Summary of Care ---
:1965 Author Organization [facility] Address [address] [place] [address] Care Team Providers Name Role Phone Den Scott Primary Care Provider Joey Gentile MD Unavailable Reason for Visit Reason Comments Transitional Care Management continues to feel weak and fatigued Encounter Details Date Type Department Care Team Description 12/25/2018 Office Visit [place] [facility] Den Scott, Pneumonia of right lung due to infectious organism, unspecified part of lung (Primary Dx); Medicine Insurance coverage problems; [address] Moderate persistent asthma [place] [address] [place] [address] [phone] Allergies Active Allergy Reactions Severity Noted Date Comments Mold Respiratory Reaction 07/04/2018 documented as of this encounter (statuses as of 12/25/2018) Medications Medication Sig Dispensed Refills Start Date End Date Status albuterol (PROVENTIL, 3 mL by 100 vial 2 06/02/2018 Active VENTOLIN) (2.5 MG/3ML) Inhalation-SVN 0.083% Inhalation Nebu route EVERY FOUR Soln HOURS NEEDED (wheezing). Tiotropium [place] Take by 0 Active Monohydrate (SPIRIVA inhalation DAILY. RESPIMAT IN)Indications: Moderate persistent asthma with acute exacerbation Mometasone Take 2 INHL by 3 Inhaler 3 07/04/2018 Active Furo-Formoterol Fum inhalation DAILY. (DULERA) 200-5 MCG/ACT Inhalation AerosolIndications: Moderate persistent asthma with acute exacerbation albuterol HFA INHALE 2 PUFFS BY 18 g 5 09/22/2018 Active (VENTOLIN) 108 (90 MOUTH EVERY 4 Base) MCG/ACT HOURS NEEDED Inhalation Aero FOR COUGH SolnIndications: Moderate persistent asthma with acute exacerbation paroxetine (PAXIL) 40 TAKE 1 TABLET BY 30 Tab 5 11/10/2018 Active MG Oral MOUTH EVERY DAY TabIndications: Panic disorder with agoraphobia and moderate panic attacks montelukast TAKE 1 TABLET BY 90 Tab 0 11/10/2018 Active (SINGULAIR) 10 MG Oral MOUTH ONCE DAILY TabIndications: Moderate asthma, unspecified whether complicated, unspecified whether persistent clarithromycin Take 1 Tab by 20 Tab 0 11/12/2018 Active (BIAXIN) 500 MG Oral mouth TWICE DAILY. TabIndications: Moderate persistent asthma with acute exacerbation ALPRAZolam (XANAX) 0.5 Take 1 Tab by 90 Tab 0 11/12/2018 Active MG Oral mouth THREE TIMES TabIndications: DAILY NEEDED Anxiety (anxiety). Max Daily Amount: 1.5 mg. 1-2 tabs as directed Acetaminophen Take by mouth. 0 Active (TYLENOL) 325 MG Oral Cap fluticasone-salmeterol Take 1 Puff by 0 Active diskus (ADVAIR) 100-50 inhalation. MCG/DOSE Inhalation AEROSOL POWDER, BREATH ACTIVATED PREDNISONE PO Take 60 mg by 0 Active mouth DAILY. BUSPIRONE HCL PO Take 5 mg by mouth 0 Active THREE TIMES DAILY. cefuroxime (CEFTIN) Take 500 mg by 0 Active 500 MG Oral Tab mouth EVERY TWELVE HOURS. Cetirizine HCl 10 MG Take 10 mg by 0 Active Oral Cap mouth DAILY. Pseudoephedrine-guaiFE Take 600 mg by 0 Active Nesin (GUAIFENESIN mouth TWICE DAILY. 600/PSE 120 PO) fluticasone-salmeterol Take 1 INHL by 60 Each 0 12/25/2018 Active diskus (ADVAIR) 250-50 inhalation TWICE MCG/DOSE Inhalation DAILY. AEROSOL POWDER, BREATH ACTIVATED ipratropium (ATROVENT Take 2 Puffs by 1 Each 3 12/25/2018 Active HFA) 17 MCG/ACT inhalation THREE Inhalation Aero Soln TIMES DAILY. inhalation documented as of this encounter (statuses as of 12/25/2018) Active Problems Problem Noted Date Over weight 02/07/2009 Overview: BMI 30 02/02 Tobacco use disorder 02/07/2009 Overview: 1 packs per day began age 22. Cut down 02/02: 1/2 packs per day Panic disorder with agoraphobia and moderate panic attacks 02/07/2009 Overview: Paxil treatment began 2005-. Moderate persistent asthma 02/07/2009 Overview: [facility] emergency room visit springJanuary 03. documented as of this encounter (statuses as of 12/25/2018) Resolved Problems Problem Noted Date Resolved Date Bipolar disorder 07/21/2010 10/22/2016 Overview: [facility] Agustina Abreu [facility] documented as of this encounter (statuses as of 12/25/2018) Immunizations Name Administration Dates Next Due H1N1 [...] Sign Reading Time Taken Comments Blood Pressure 146/76 12/25/2018 1:27 PM EDT Pulse 127 12/25/2018 1:27 PM EDT Temperature 37.3 12/25/2018 1:27 PM EDT C (99.1 F) Respiratory Rate - - Oxygen Saturation 92% 12/25/2018 1:27 PM EDT Inhaled Oxygen Concentration - - Weight 87.5 kg (193 lb) 12/25/2018 1:27 PM EDT Height 167.6 cm (5' 6") 12/25/2018 1:27 PM EDT Body Mass Index 31.15 12/25/2018 1:27 PM EDT documented in this encounter Patient Instructions Patient InstructionsDen Scott MD - 12/25/2018 1:00 PM EDTwixela inhaler twice daily Instead of advair atrovent metered dose inhaler three times daily When the spiriva runs out Wean off Prednisone and finish up antibiotic documented in this encounter Progress Notes Den Scott MD - 12/25/2018 1:00 PM EDT TCM Statement. Review of the hospitalization: I am seeing for transition of care following hospitalization. The date of discharge was: 12/24 [facility] The discharge diagnosis was Right sided pneumonia and asthma exacerbation She is on zithromax and ceftin and Prednisone taper She feels better mild dry cough no wheeze using albuterol neb and metered dose inhaler as needed about three times daily She was unable to afford advair prescription copay and was unable to afford spiriva in the past due to [email or web address] high copays she had gotten spiriva from [facility] She was told to use generic atrovent metered dose inhaler in [facility] but was not sent home with this prescription . I reviewed the discharge summary, discharge instructions, and pertinent additional documentation obtained during hospitalization. I reconciled the medications. I also reviewed the Transition of Care documentation done by staff. The tests that were not available at the time of discharge were reviewed. Additional tests which are not yet available include: None Patient Active Problem List Diagnosis Over weight Tobacco use disorder Panic disorder with agoraphobia and moderate panic attacks Moderate persistent asthma Outpatient Medications Marked as Taking for the 12/25/18 encounter (Office Visit ) with Den Scott MD Medication Sig Dispense Refill Acetaminophen (TYLENOL) 325 MG Oral Cap Take by mouth. albuterol (PROVENTIL, VENTOLIN) (2.5 MG/3ML) 0.083% Inhalation Nebu Soln 3 mL by Inhalation-SVN route EVERY FOUR HOURS NEEDED (wheezing). 100 vial 2 ALPRAZolam (XANAX) 0.5 MG Oral Tab Take 1 Tab by mouth THREE TIMES DAILY NEEDED (anxiety).Max Daily Amount: 1.5 mg. 1-2 tabs as directed 90 Tab 0 BUSPIRONE HCL PO Take 5 mg by mouth THREE TIMES DAILY. cefuroxime (CEFTIN) 500 MG Oral Tab Take 500 mg by mouth EVERY TWELVE HOURS. Cetirizine HCl 10 MG Oral Cap Take 10 mg by mouth DAILY. fluticasone-salmeterol diskus (ADVAIR) 250-50 MCG/DOSE Inhalation AEROSOL POWDER, BREATH ACTIVATED Take 1 INHL by inhalation TWICE DAILY. 60 Each 0 ipratropium (ATROVENT HFA) 17 MCG/ACT Inhalation Aero Soln inhalation Take 2 Puffs by inhalation THREE TIMES DAILY. 1 Each 3 PREDNISONE PO Take 60 mg by mouth DAILY. Pseudoephedrine-guaiFENesin (GUAIFENESIN 600/PSE 120 PO) Take 600 mg by mouth TWICE DAILY. ROS no new allergy or gastro-intestinal symptoms Exam BP 146/76 Pulse 127 Temp 99.1 F (37.3 C) (Tympanic) Ht 5' 6" (1.676 m ) Wt 193 lb (87.5 kg) SpO2 92% BMI 31.15 kg/m2 Chest is clear, no wheezing or rales. Normal symmetric air entry throughout both lung [place]. No chest wall deformities or tenderness. Mental status exam; she is alert, orient to time, person and place. Normal thought content, speech, affect, mood and dress are noted. ICD-9-CM ICD-10-CM 1. Pneumonia of right lung due to infectious organism, unspecified part of lung finish antibiotic and follow up pulmonary MD 483.8 J18.9 2. Insurance coverage problems use genric wixela metered dose inhaler twice daily Instead of advairand use generic atrovent metered dose inhaler three times daily Instead of spiriva continue SANDRA neb and metered dose inhaler as needed Prednisone wean V60.89 Z59.8 3. Moderate persistent asthma with acute exacerbation see above 493.92 J45.41 Coordination of care. - I am satisfied that appropriate referrals are in place to deal with the problems identified during hospitalization, and that the patient has adequate community resources and support in place. I confirmed the patient's understanding of the diagnosis and plan of care. Specific education that was provided today: Patient Instructions wixela inhaler twice daily Instead of advair atrovent metered dose inhaler three times daily When the spiriva runs out Wean off Prednisone and finish up antibiotic The current and discharge medications were reconciled by me, today The source document was hospital discharge summary documented in this encounter Plan of Treatment Health Maintenance Due Date Last Done Comments MAMMOGRAM (SCREENING) 11/21/2016 11/22/2015, 11/22/2015, 11/05/2013, Additional history exists COLONOSCOPY SCREENING 08/23/2017 ZOSTER IMMUNIZATION SERIES 08/23/2017 (1 of 2) DIABETES SCREENING 10/22/2017 10/22/2016 INFLUENZA VACCINE (#1) 2018 02/07/2009, 02/07/2009 PAP SMEAR 11/21/2018 11/22/2015, 11/22/2015, 11/22/2015, Additional history exists DEPRESSION SCREENING 12/26/2019 12/25/2018 LIPID DISORDER SCREENING 10/22/2021 10/22/2016 PNEUMOCOCCAL 0-64 YRS Completed 07/21/2010 HPV IMMUNIZATION SERIES Aged Out No longer eligible based on patient's age to complete this topic MENINGOCOCCAL VACCINE IMM Aged Out No longer eligible based on patient's age to complete this topic documented as of this encounter Results Not on filedocumented in this encounter Visit Diagnoses Diagnosis Pneumonia of right lung due to infectious organism, unspecified part of lung - Primary Insurance coverage problems Other specified housing or economic circumstances Moderate persistent asthma with acute exacerbation documented in this encounter Insurance Payer Benefit Plan / Subscriber ID Effective Dates Phone Address Type Group [employer] xxxxxxxxxxxx 2018-Present [employer] (Home) [place] [phone] [place], [place] (Work) [id number] documented as of this encounter
[2018-12-28] MEDS ORDERED: NS 0.9% 1000 ML** 1,000 ML IV ONE (16:01)
--- NOTE | 2018-12-28 16:06 | ED ---
Palpitations / Dysrhythmia - HPI Summary HPI Summary: Patient is a 53 y/o F presenting to the ED for a chief complaint of palpitations. Patient states that she also has fatigue, diaphoresis, joint pain , pain with breathing, and SOB. Patient began to feel the palpitations around midday on 12/28/18. Patient denies any aggravating or alleviating factors. Patient was admitted to [facility] for asthma exacerbation and pneumonia, and was discharged on 12/23/18. Patient is currently taking Prednisone and Augmentin for pneumonia. Patient is also taking medications for asthma. Patient last used an inhaler at 10:00 on 12/28/18. - History of Current Complaint Chief Complaint: EDDysrhythmPalp Time Seen by Provider: 12/28/18 15:44 Hx Obtained From: Patient Onset/Duration: Sudden Onset, Lasting Hours - Since midday on 12/28/18, Still Present Severity Initially: Moderate Severity Currently: Moderate Character: Fast Aggravating: Nothing Alleviating: Nothing Associated Signs & Symptoms: Shortness of Breath, Diaphoresis - Allergy/Home Medications Allergies/Adverse Reactions: Allergies Allergy/AdvReac Type Severity Reaction Status Date / Time No Known Allergies Allergy Verified 12/16/18 02:01 PMH/Surg Hx/FS Hx/Imm Hx Previously Healthy: Yes Endocrine/Hematology History: Denies: Hx Anticoagulant Therapy, Hx Diabetes, Hx Thyroid Disease, Hx Unexplained Bleeding Cardiovascular History: Denies: Hx Hypertension, Hx Pacemaker/ICD Respiratory History: Reports: Hx Asthma, Hx Chronic Obstructive Pulmonary Disease (COPD), Hx Pneumonia, Hx Seasonal Allergies Denies: Hx Lung Cancer, Hx Sleep Apnea History: Denies: Hx Renal Disease Sensory History: Denies: Hx Cataracts, Hx Contacts or Glasses, Hx Eye Injury, Hx Eye Prosthesis, Hx Glaucoma, Hx Legally Blind, Hx Macular Degeneration, Hx Vision Problem, Hx Deafness, Hx Hearing Aid, Hx Hearing Problem, Other Sensory Impairments Opthamlomology History: Denies: Hx Cataracts, Hx Contacts or Glasses, Hx Eye Injury, Hx Eye Prosthesis, Hx Glaucoma, Hx Legally Blind, Hx Macular Degeneration, Hx Vision Problem, Other Sensory Impairments EENT History: Denies: Hx Deafness Neurological History: Denies: Hx Dementia, Hx Developmental Delay, Hx Headaches, Hx Migraine, Hx Seizures, Hx Spinal Cord Injury Psychiatric History: Reports: Hx Anxiety, Hx Eating Disorder - Has purged lately and hasn't done that in 20 years., Hx Depression, Hx Inpatient Treatment , Hx Community Mental Health Tx, Hx Bipolar Disorder, Hx Suicide Attempt Denies: Hx of Violent Episodes Against Others, Hx Substance Abuse - Surgical History Surgical History: None Surgery Procedure, Year, and Place: None - Immunization History Date of Influenza Vaccine: Mar 2018 Infectious Disease History: No Infectious Disease History: Denies: Hx Clostridium Difficile, Hx Hepatitis, Hx Human Immunodeficiency Virus (HIV), Hx of Known/Suspected MRSA, Hx Shingles, Hx Tuberculosis, Traveled Outside the [place] in Last 30 Days - Family History Known Family History: Positive: Hypertension, Respiratory Disease, Blood Disorder - grandfather with clotting, Other - bipolar, depression, anxiety, asthma, CAD, COPD, CA - Social History Occupation: Employed Full-time Lives: With Family Alcohol Use: Rare Alcohol Amount: once a month, if that. one glass of wine Hx Substance Use: No Substance Use Type: Reports: None Hx Tobacco Use: Yes Smoking Status (MU): Former Smoker Type: Cigarettes Review of Systems Positive: Fatigue, Skin Diaphoresis Positive: Palpitations Positive: Shortness Of Breath, Other - Positive pain with breathing Positive: Arthralgia - Joint pain All Other Systems Reviewed And Are Negative: Yes Physical Exam - Summary Physical Exam Summary: Appearance: The patient is well-nourished in no acute distress and in no acute pain. Skin: The skin is warm and dry, and skin color reflects adequate perfusion. HEENT: The head is normocephalic and atraumatic. The pupils are equal and reactive. The conjunctivae are clear and without drainage. Nares are patent and without drainage. Mouth reveals moist mucous membranes, and the throat is without erythema and exudate. The external ears are intact. The ear canals are patent and without drainage. The tympanic membranes are intact. Neck: The neck is supple with full range of motion and non-tender. There are no carotid bruits. There is no neck vein distension. Respiratory: Chest is non-tender. Lungs are clear to auscultation and breath sounds are symmetrical and equal. Cardiovascular: Heart is regular rhythm. There is no murmur or rub auscultated. There is no peripheral edema and pulses are symmetrical and equal. Tachycardia. Abdomen: The abdomen is soft and non-tender. There are normal bowel sounds heard in all four quadrants and there is no organomegaly palpated. Musculoskeletal: There is no back tenderness noted. Extremities are non-tender with full range of motion. There is good capillary refill. There is no peripheral edema or calf tenderness elicited. Neurological: Patient is alert and oriented to person, place and time. The patient has symmetrical motor strength in all four extremities. Cranial nerves are grossly intact. Deep tendon reflexes are symmetrical and equal in all four extremities. Triage Information Reviewed: Yes Vital Signs On Initial Exam: Initial Vitals Temp Pulse Resp BP Pulse Ox 98.2 F 120 16 143/87 94 12/28/18 15:11 12/28/18 15:11 12/28/18 15:11 12/28/18 15:11 12/28/18 15:11 Vital Signs Reviewed: Yes Procedures - Sedation Patient Received Moderate/Deep Sedation with Procedure: No Diagnostics - Vital Signs Vital Signs Temp Pulse Resp BP Pulse Ox 12/28/18 15:11 98.2 F 120 16 143/87 94 - Laboratory Result Diagrams: 12/28/18 16:15 12/28/18 16:15 Lab Statement: Any lab studies that have been ordered have been reviewed, and results considered in the medical decision making process. - Radiology Chest X-ray Radiology Interpretation Completed By: Radiologist Summary of Radiographic Findings: Chest X-ray IMPRESSION: Poor inspiration relative to comparison imaging with linear bibasilar airspace opacification which is likely related to subsegmental atelectasis. Reviewed by ED physician. - EKG 16:16 Cardiac Rate: Tachycardia - 122 BPM EKG Rhythm: Sinus Tachycardia ST Segment: Normal Ectopy: None Summary of EKG Findings: EKG at 16:16 shows 122 BPM with sinus tachycardia, normal ST, no ectopy, no STEMI. Reviewed and interpreted by ED physician. Course/Dx - Course Course Of Treatment: Ms. Gooden came in tachycardic. She has had a recent asthma admission and is taking a lot of medications and I suspected initially that was initiated. She also looked mildly dehydrated. She returned with a leukocytosis which may be related to her prednisone use but she met septic criteria at that point. She was given additional fluids and antibiotics while her labs were obtained. She also had a mild lactic acidosis. I spoke with the hospitalist Dr. Mcknight. about admission - Diagnoses Provider Diagnoses: Sepsis - Physician Notifications Discussed Care Of Patient With: Daniela Mcknight - At 18:36, I spoke with Dr. Daniela Mcknight about the patients case and she agrees to admit the patient with a diagnosis of sepsis. Time Discussed With Above Provider: 18:36 Instructed by Provider To: Admit As Inpatient - Critical Care Time Critical Care Time: 30-74 min Discharge ED - Sign-Out/Discharge Documenting (check all that apply): Patient Departure - Admit - Discharge Plan Condition: Stable Disposition: ADMITTED TO [facility] Referrals: Eleanor Champagne, [employer] [Primary Care Provider] - - Billing Disposition and Condition Condition: STABLE Disposition: Admitted to [facility] - Attestation Statements Document Initiated by Scribe: Yes Documenting Scribe: Amy Krishnamurthy Provider For Whom [place] is Documenting (Include Credential): Mark Lopez MD Scribe Attestation: Amy Jenkins, scribed for Mark Lopez MD on 12/28/18 at 1846. Scribe Documentation Reviewed: Yes Provider Attestation: The documentation as recorded by the Amy laws accurately reflects the service I personally performed and the decisions made by me, Mark Lopez MD Status of Scribe Document: Viewed
[2018-12-28 16:20] LABS: ABS Lymphocytes 1.2 10^3/ul (1.0-4.8); ABS Monocytes 0.6 10^3/ul (0-0.8); ABS Neutrophils 16.9 10^3/ul (1.5-7.7); Hematocrit 40 % (35-47); Hemoglobin 12.9 g/dL (12.0-16.0); Lymphocyte % 6.6 %; Mean Corpuscular HGB Conc 32 g/dL (31-36); Mean Corpuscular Hemoglobin 24 pg (27-31); Mean Corpuscular Volume 76 fL (80-97); Mean Platelet Volume 8.1 fL (7.4-10.4); Platelet Count 336 10^3/uL (150-450); Red Blood Count 5.31 10^6 /uL (3.70-4.87); Red Cell Distribution Width 20 % (10-15); White Blood Count 18.8 10^3/uL (3.5-10.8)
[2018-12-28 16:29] LABS: INR 0.91 (0.82-1.09)
[2018-12-28 16:37] LABS: Albumin 3.7 g/dL (3.2-5.2); Albumin/Globulin Ratio 1.2 (1-3); BUN/Creatinine Ratio 26.5 (8-20); Calcium 9.2 mg/dL (8.6-10.3); EGFR African American 87.7 (>60); EGFR Non-African American 72.5 (>60); Potassium 4.2 mmol/L (3.5-5.0); Total Bilirubin 0.3 mg/dL (0.2-1.0); Total Protein 6.7 g/dL (6.4-8.9)
[2018-12-28 16:40] LABS: Troponin I 0.01 ng/mL (<0.04)
[2018-12-28] MEDS ORDERED: NS 0.9% 1000 ML** 2,000 ML IV ONE (16:55)
[2018-12-28] MEDS ORDERED: Vancomycin(*) 1,000 MG in NS 0.9% 250 ML* 250 ML IVPB ONE (16:56)
[2018-12-28] MEDS ORDERED: cefTAZidime* 1 GM in NS 0.9% 50 ML* 50 ML IVPB ONE (16:56)
[2018-12-28 17:29] LABS: TSH (Thyroid Stimulating Horm) 0.36 mcIU/mL (0.34-5.60)
[2018-12-28 20:54] LABS: Urine Appearance Clear; Urine Bacteria Absent (Absent); Urine Bilirubin Negative (Negative); Urine Blood 1+ (Negative); Urine Color Yellow; Urine Glucose 1+(50 mg/dL) (Negative); Urine Ketones Negative (Negative); Urine Nitrite Negative (Negative); Urine Protein Negative (Negative); Urine Red Blood Cell 1+(3-5/hpf) (Absent); Urine Specific Gravity 1.016 (1.010-1.030); Urine Squamous Epithelial Cell Present (Absent); Urine Urobilinogen Negative (Negative); Urine White Blood Cell Trace(0-5/hpf) (Absent)
[2018-12-28] MEDS ORDERED: ALPRAZolam TAB* 0.25 MG PO PRN (21:38)
[2018-12-28] MEDS ORDERED: Acetaminophen TAB* 325 MG PO PRN (21:38)
[2018-12-28] MEDS ORDERED: Albuterol/Ipratropium NEB.SOL* Albuterol 2.5 MG/Ipratropium 0.5 MG 3 ML INH PRN (22:39)
[2018-12-29] MEDS: NS 0.9% 1000 ML** 1,000 ML IV SCH ×2 (00:02→11:24)
--- NOTE | 2018-12-29 00:37 | HP ---
CC: Dr. Den Scott; Eleanor Champagne NP at [facility]; Dr. Janet Tomas * ADMISSION HISTORY AND PHYSICAL: DATE OF ADMISSION: 12/28/18 PRIMARY CARE PHYSICIANS: Dr. Den Scott; Eleanor Champagne NP at [facility] WORKFORCE MANAGEMENT CONSULTANT: Dr. Tomas. CHIEF COMPLAINT: Generalized fatigue, joint pain, and shortness of breath. HISTORY OF PRESENT ILLNESS: This is a 53-year-old female with past medical history of asthma with frequent hospitalizations, most recent hospitalization was about a week ago where she was discharged to home just 3 days prior on 12/24 with a COPD exacerbation. Ever since going home since Saturday, she felt very tired and she thought that this was secondary to her hospitalization; however, tiredness worsened and she was feeling fatigued, not feeling herself, having intermittent chest pressure for the last 1 to 2 days. All her symptoms worsen with any exertion and she could not function. She still had some shortness of breath, but better than what she was when she was admitted. She did not have any fever and she does have some chronic cough, which is unchanged and was having severe joint pains on her elbows, her wrists, and her knees bilaterally and some shakes. Based on these symptoms, she finally returned to the ER requesting help, was noted to have elevated white count and tachycardia, so is getting admitted for observation. She otherwise offers no other symptoms such as urinary burning sensation, any diarrhea, nausea, vomiting. She has been tolerating her oral diet well. Denies any other numbness, tingling, or any headache or vision changes. PAST MEDICAL HISTORY: As mentioned, asthma since childhood with previous admissions for exacerbation, anxiety and depression. She had bulimia during her high school years, but currently is doing well. PAST SURGICAL HISTORY: None. HOME MEDICATIONS: The patient is currently on: 1. Prednisone 60 mg on a taper. 2. Mucinex 600 mg p.o. b.i.d. 3. Ceftin 500 mg p.o. b.i.d. 4. BuSpar 5 mg oral t.i.d. 5. Xanax 0.5 mg p.o. t.i.d. p.r.n. 6. Paxil 40 mg oral daily. 7. Atrovent 0.5 mg by inhalation every 8 hours. 8. Flonase nasal spray, 1 spray both nares b.i.d. 9. Advair HFA 1 puff by inhalation twice a day. 10. Zyrtec 10 mg oral daily. 11. Zithromax 250 mg oral daily. 12. Ventolin HFA by inhalation every 4 hours as needed. 13. Tylenol 650 mg q.4 hours p.r.n. ALLERGIES: The patient has no known drug allergies. FAMILY HISTORY: Hypertension, bipolar disorder, depression, and asthma. SOCIAL HISTORY: She is a former smoker, used to smoke a pack a day for 25 years , quit in June 2018. Denies any alcohol abuse. Employed at a [employer]. Has cats at home. She is full code and her is the healthcare proxy. REVIEW OF SYSTEMS: A 14-point review of systems did not reveal any new information other than what is mentioned in the HPI. PHYSICAL EXAMINATION GENERAL: The patient is awake, alert, oriented x3, did not appear to be in any acute distress. VITAL SIGNS: In the ER, the patient was noted to be tachycardic initially to 114 upon arrival in the ER, temperature was noted to be 98.2, BP was 115/89, respiration rate 13, saturating 94% on room air. HEAD AND NECK: Atraumatic, normocephalic. Bilateral pupils are reactive. Oral mucosa was moist. Neck: Supple. No jugular venous distention. LUNGS: The patient had some intermittent wheezing, but otherwise normal with good air entry. HEART: S1, S2. Regular, tachycardia. ABDOMEN: Soft, nontender, nondistended. EXTREMITIES: No cyanosis, clubbing, or edema. DIAGNOSTIC STUDIES/LAB DATA: Labs: The patient had elevated white count of 18.8, hemoglobin and hematocrit stable, platelet count was noted to be 336,000, RDW was elevated at 20. D-dimer was noted to be within normal limits and INR was noted to be 0.91. ABG shows pH of 7.41, pCO2 of 37, pO2 of 87, oxygen saturation of 98.2% on room air. Comprehensive metabolic panel was remarkable except for random glucose minimally elevated at 180. Lactic acid was noted to be elevated at 2.3. Urinalysis with 1+ blood, negative for any leuk esterase or nitrite. EKG was showing sinus tachycardia at 122 beats per minute. When compared to her older EKG from November about a week ago, there is essentially no real change. Chest x-ray was read as poor inspiration, relative to comparison imaging with linear bibasilar airspace opacification likely related to subsegmental atelectasis. IMPRESSION: This is a 53-year-old female with asthma, depression, anxiety, here due to worsening fatigue and joint pain, noted to have elevated white count and tachycardia, which would qualify her for the diagnosis of sepsis; however, there is no obvious source. ASSESSMENT AND PLAN: 1. Sepsis secondary to meeting SIRS criteria; however, no real source. For now , we will monitor the patient on telemetry and start the patient on IV hydration. The patient was already given vancomycin and ceftazidime in the ER, but given that there is no obvious source, we will just monitor her for any fever and follow up blood cultures without starting any antibiotics at this point. The white count could also be secondary to her taking steroids or could be related to some autoimmune condition given she does have some arthritis and joint pain. We will follow up JOSE ALBERTO and rheumatoid factors. 2. Chronic fatigue. It could be iron deficiency versus chronic inflammation secondary to rheumatoid arthritis. We will follow up anemia panel given her elevated RDW. I still suspect there is a component of iron deficiency. We will check anemia panel with iron, TIBC, ferritin and also autoimmune panel with JOSE ALBERTO and rheumatoid factor. We will check a free T4 as well to rule out any low thyroid causing the patient's symptoms and B12 and folate levels. 3. Chronic obstructive pulmonary disease. Currently, does not appear to be in any exacerbation. We will continue home medications and start the patient on prednisone taper. 4. History of depression and anxiety. Restart home medication. 5. DVT prophylaxis with sequential compression device. 6. Code status. Full code. [id number] #: [id number] MTDD
[2018-12-29 06:25] LABS: ABS Basophils 0.1 10^3/ul (0-0.2); ABS Eosinophils 0.1 10^3/ul (0-0.6); ABS Lymphocytes 4.7 10^3/ul (1.0-4.8); ABS Monocytes 1.1 10^3/ul (0-0.8); ABS Neutrophils 9.6 10^3/ul (1.5-7.7); Hematocrit 35 % (35-47); Hemoglobin 10.8 g/dL (12.0-16.0); Lymphocyte % 29.8 %; Mean Corpuscular HGB Conc 31 g/dL (31-36); Mean Corpuscular Hemoglobin 24 pg (27-31); Mean Corpuscular Volume 78 fL (80-97); Mean Platelet Volume 8.1 fL (7.4-10.4); Nucleated Red Blood Cells % 0.1; Platelet Count 288 10^3/uL (150-450); Red Blood Count 4.46 10^6 /uL (3.70-4.87); Red Cell Distribution Width 20 % (10-15); White Blood Count 15.6 10^3/uL (3.5-10.8)
[2018-12-29 06:34] LABS: Anion Gap 7 mmol/L (2-11); BUN/Creatinine Ratio 23.1 (8-20); Blood Urea Nitrogen 15 mg/dL (6-24); CO2 Carbon Dioxide 23 mmol/L (22-32); Calcium 7.8 mg/dL (8.6-10.3); Chloride 111 mmol/L (101-111); EGFR African American 116.3 (>60); EGFR Non-African American 96.1 (>60); Glucose 81 mg/dL (70-100); Potassium 3.6 mmol/L (3.5-5.0); Sodium 141 mmol/L (135-145)
[2018-12-29 06:39] LABS: % Iron Saturation 28 % (15-55); Iron 108 ug/dL (50-212); Rheumatoid Factor < 10 IU/mL (<15); Total Iron Binding Capacity 379 mcg/dL (250-450); Transferrin 271 mg/dL (203-362)
[2018-12-29 06:53] LABS: Free T4 0.91 ng/dL (0.61-1.12)
[2018-12-29 06:57] LABS: Ferritin 8.4 ng/mL (11-307)
[2018-12-29 07:01] LABS: Folate 13.67 ng/mL (>3.99)
[2018-12-29] MEDS: Mometasone/Formoter 200/5 MDI INH SCH ×2 (08:14→20:23)
[2018-12-29] MEDS: PARoxetine HCL TAB* 40 MG PO SCH (08:36)
[2018-12-29] MEDS: busPIRone TAB* 5 MG PO SCH ×3 (08:36→21:39)
[2018-12-29] MEDS: predniSONE TAB* 20 MG PO SCH (08:36)
[2018-12-29] MEDS: Cetirizine* 10 MG TAB PO SCH (08:36)
[2018-12-29] MEDS: guaiFENesin ER TAB 600 MG PO SCH ×2 (08:36→21:39)
[2018-12-29 08:58] LABS: Influenza A Molecular NEGATIVE (Negative); Influenza B Molecular NEGATIVE (Negative)
[2018-12-29] MEDS: Fluticasone NASAL SPRAY 50MCG* 16 gm SPRAY BTL BOTH NARES SCH ×2 (09:03→21:40)
--- NOTE | 2018-12-29 12:55 | ECHO ---
*[facility]* [place] [address] Fax #: [phone] Transthoracic Echocardiogram Patient: Kate Gooden : 1965 Study Date: 12/29/2018 Age: 53 Gender: F HR: 86 bpm Height: 66 in /167.6 cm BSA: 2.04 m^2 Weight: 191.6 lb /87.1 kg BMI: 31 kg/m^2 *Shrinker: * Amy Wu [facility] *Referring Physician: * Nilo Mckenna *Reading Physician: * Luis A Kelly MD Indications: Resp Insufficiency. History: Asthma. Risk factors: Current tobacco use. Conclusions Summary: - Left ventricle: Systolic function is normal. The estimated ejection fraction is 55-60%. Wall motion is normal; there are no regional wall motion abnormalities. - Right ventricle: Systolic function is normal. - Mitral valve: There is trace regurgitation. - Aortic valve: There is no evidence of stenosis. - Tricuspid valve: There is no significant regurgitation. - Pericardium, extracardiac: There is no significant pericardial effusion. - Pulmonary arteries: Systolic pressure can not be accurately estimated. - Study data: No prior study is available for comparison. Study data: Transthoracic echocardiogram. Procedure: Transthoracic echocardiography was performed. Image quality was good. Complete 2D, spectral Doppler, and color flow Doppler. Location: Bedside. Patient status: Inpatient. Patient room number: 420-01. No prior study is available for comparison. Rhythm: Normal sinus rhythm. Findings Left ventricle: The cavity size is normal. Wall thickness is normal. Systolic function is normal. The estimated ejection fraction is 55-60%. Wall motion is normal; there are no regional wall motion abnormalities. There is no consistent Doppler evidence of clinically significant diastolic dysfunction. Right ventricle: The cavity size is normal. Systolic function is normal. Left atrium: The atrium is normal in size. Right atrium: The atrium is normal in size. Mitral valve: The leaflets are normal thickness. There is no evidence of stenosis. There is trace regurgitation. Aortic valve: The valve is trileaflet. The leaflets are normal thickness. There is no evidence of stenosis. There is no significant regurgitation. Tricuspid valve: The leaflets are normal thickness. There is no evidence of stenosis. There is no significant regurgitation. Pulmonic valve: Not well visualized. There is no significant regurgitation. Aorta: The aortic root appears normal. The aortic arch appears normal. Pericardium: There is no significant pericardial effusion. Pulmonary arteries: Not well visualized. Systolic pressure can not be accurately estimated. Systemic veins: Inferior vena cava: The vessel is normal in size. There is (>= 50%) respiratory change in the IVC dimension. Measurements Left ventricle Value Ref Aortic valve Value Ref OSMANI, LAX 4.5 cm 3.8 - 5.2 [place] diam, ED 1.9 cm ---- ESD, LAX 2.4 cm 2.2 - 3.5 Peak v, S 1.34 m/sec ---- PW, ED 0.8 cm 0.6 - 0.9 VTI, S 27.9 cm ---- E', lat orville, TDI (L) 8.3 cm/sec >=10.0 Mean grad, S 5.2 mm Hg -- -- E/e', lat orville, 9 Peak grad, S 7.2 mm Hg ---- TDI LVOT/AV, VTI ratio 0.72 ---- E', med orville, TDI (L) 6.0 cm/sec >=7.0 E/e', med orville, 13 Mitral valve Value Ref TDI Peak E 0.78 m/sec ---- E', avg, TDI 7.2 cm/sec Peak A 0.67 m/sec ---- E/e', avg, TDI 11 <=14 Decel time 244 ms -- -- Peak grad, D 2.4 mm Hg ---- LVOT Value Ref Peak E/A ratio 1.18 ---- Peak laine, S 1.02 m/sec VTI, S 20.2 cm Pulmonic valve Value Ref Peak grad, S 4 mm Hg Peak v, S 0.86 m/sec ---- Mean grad, S 3 mm Hg Peak grad, S 2.9 mm Hg ---- Ventricular septum Value Ref Aortic root Value Ref IVS, ED (H) 1.0 cm 0.6 - 0.9 Root diam 1.9 cm <4.2 Right ventricle Value Ref Ascending aorta Value Ref OSMANI, LAX 3.5 cm AAo AP diam, S 3.2 cm ---- OSMANI major ax, A4C (L) 3.0 cm 5.9 - 8.3 Aortic arch Value Ref Left atrium Value Ref Arch diam 2.6 cm ---- AP dim, ES 3.28 cm 2.70 - 3.80 Decending aorta Value Ref ML dim, A4C 3.5 cm Guadalupe peak laine 0.72 m/sec ---- SI dim, A4C 4.1 cm Vol/bsa, ES, 2-p 30 ml/m^2 16 - 34 Inferior vena cava Value Ref Diam 2.1 cm ---- Right atrium Value Ref SI dim, ES 4.1 cm 3.4 - 5.3 ML dim, ES, A4C 3.3 cm 2.6 - 4.4 Estimated RAP 8 mm Hg Legend: (L) and (H) james values outside specified reference range. Prepared and electronically signed by Luis A Kelly MD 12/29/2018 12:55
--- NOTE | 2018-12-29 14:21 | PN ---
Subjective Date of Service: 12/29/18 Interval History: Ms. Gooden states she is feeling somewhat improved from last night. She states that she has had general malaise x2-3 days; this worsened last night and was accompanied by shortness of breath. She reports >1 weeks of chest pressure that worsens with deep inspiration. She was dx and hospitalized for pneumonia approximately 1 week ago. She reports continued general malaise and generalized weakness x approximately 3 days. She also c/o urinary urgency, retention, but denies dysuria, frequency. She has no other complaints today. Objective Active Medications: Acetaminophen (Tylenol Tab*) 650 mg PO Q4H PRN PRN Reason: PAIN - MILD Last Admin: 12/29/18 11:31 Dose: 650 mg Albuterol/Ipratropium (Duoneb (Albuterol 2.5 Mg/Ipratropium 0.5 Mg)) 1 neb INH Q4H PRN PRN Reason: SOB/WHEEZING Alprazolam (Xanax Tab*) 0.25 mg PO TID PRN PRN Reason: ANXIETY Buspirone HCl (Buspar Tab*) 5 mg PO TID [facility] Last Admin: 12/29/18 08:36 Dose: 5 mg Cetirizine HCl (Zyrtec*) 10 mg PO DAILY [facility] Last Admin: 12/29/18 08:36 Dose: 10 mg Fluticasone Propionate (Flonase Nasal [place] 50mcg*) 1 spray BOTH NARES BID [facility] Last Admin: 12/29/18 09:03 Dose: 1 spray Guaifenesin (Mucinex*) 600 mg PO BID [facility] Last Admin: 12/29/18 08:36 Dose: 600 mg Sodium Chloride (Ns 0.9% 1000 Ml) 1,000 mls @ 100 mls/hr IV PER RATE [facility] Last Admin: 12/29/18 11:24 Dose: 100 mls/hr Mometasone Furoate/Formoterol Fumar (Dulera 200/5 Mdi*) 1 puff INH BID [facility]; Protocol Last Admin: 12/29/18 08:14 Dose: 1 puff Paroxetine HCl (Paxil Tab*) 40 mg PO DAILY [facility] Last Admin: 12/29/18 08:36 Dose: 40 mg Prednisone (Deltasone Tab*) 60 mg PO DAILY [facility] Stop: 12/30/18 09:01 Last Admin: 12/29/18 08:36 Dose: 60 mg Prednisone (Deltasone Tab*) 40 mg PO DAILY [facility] Stop: 01/03/19 09:01 Prednisone (Deltasone Tab*) 20 mg PO DAILY [facility] Stop: 01/07/19 09:01 Prednisone (Deltasone Tab*) 10 mg PO DAILY [facility] Stop: 01/11/19 09:01 Vital Signs: Temp Pulse Resp BP Pulse Ox 97.5 F 95 18 138/84 94 12/29/18 11:41 12/29/18 11:41 12/29/18 11:41 12/29/18 11:41 12/29/18 11:41 Oxygen Devices in Use Now: None Appearance: Ms. Gooden is an obese middle-aged white woman who is sitting up in bed. She appears comfortable, in no acute distress. She is pleasant, cooperative. Eyes: No Scleral Icterus, PERRLA Ears/Nose/Mouth/Throat: NL Teeth, Lips, Gums, Clear Oropharnyx, Mucous Membranes Moist Neck: NL Appearance and Movements; NL JVP, Trachea Midline Respiratory: Symmetrical Chest Expansion and Respiratory Effort, Clear to Auscultation Cardiovascular: NL Sounds; No Murmurs; No JVD, RRR, No Edema, - - Tender to palpation at mid-sternal chest wall Abdominal: NL Sounds; No Tenderness; No Distention, No Hepatosplenomegaly, - - No CVA tenderness Extremities: No Edema, No Clubbing, Cyanosis Neurological: Alert and Oriented x 3, NL Muscle Strength and Tone, - - CN II- XII grossly intact Result Diagrams: 12/29/18 05:32 12/29/18 05:32 Microbiology and Other Data: Microbiology 12/28/18 20:30 Urine Culture - Preliminary Urine Enterococcus Faecalis Assess/Plan/Problems-Billing Assessment: Ms. Gooden is a 53yof PMHx asthma, recently diagnosed and treated for CAP who presented to the ER with complaints of generalized weakness, generalized malaise. She was found to meet sepsis criteria with leukocytosis, tachycardia, lactic acidosis; suspected source is urinary. - Patient Problems (1) Sepsis Comment: -presents with leukocytosis, tachycardia, lactic acidosis, presumed UTI -tachycardia, lactic acidosis resolved with administration of IVF, abx -leukocytosis improving -BC pending -CXR: poor inspiration, likely subsegmental atelectasis -negative influenza A, B -UC reveals enterococcus faecalis -start zosyn and await sensitivities (2) Urinary tract infection Comment: -pt reports urgency, retention -UC positive for enterococcus faecalis -start zosyn -await sensitivities (3) Pleuritic chest pain Comment: -chest pain reproducible with palpation, deep inspiration -echo without WMA, no effusion -likely this is costochondritis related to recent dx of pneumonia and associated cough -Tylenol prn pain (4) Fatigue Comment: -suspect this may be associated with infection -RF negative, anemia studies negative; TSH, FT4 WNL -JOSE ALBERTO pending -urine culture positive for enterococcus faecalis -continue treatment for UTI -PT ordered (5) Asthma Comment: -does not appear to be in exacerbation -possible component of COPD as well, as patient has h/o smoking -continue inhalers -prednisone 60, taper (6) DVT prophylaxis Comment: -SCDs (7) Full code status Comment: Status and Disposition: Observation. Discharge when stable.
[2018-12-29] MEDS ORDERED: Piperacillin/Tazobac ADVAN(*) 3.375 GM in NS 0.9% 100 ML* 100 ML IVPB ONE (14:33)
[2018-12-29] MEDS ORDERED: Zosyn per Pharmacy* NOTE FOLLOW UP SCH (15:00)
[2018-12-29] MEDS: ZOSYN 3.375 GM Q8H per EXTENDED INFUSION IVPB SCH ×2 (19:17)
[2018-12-30] MEDS: NS 0.9% 1000 ML** 1,000 ML IV SCH (02:47)
[2018-12-30] MEDS: ZOSYN 3.375 GM Q8H per EXTENDED INFUSION IVPB SCH ×4 (02:47→11:56)
[2018-12-30 06:17] LABS: ABS Basophils 0.1 10^3/ul (0-0.2); ABS Eosinophils 0.2 10^3/ul (0-0.6); ABS Lymphocytes 4.6 10^3/ul (1.0-4.8); ABS Monocytes 0.9 10^3/ul (0-0.8); ABS Neutrophils 7.7 10^3/ul (1.5-7.7); Eosinophil % 1.2 %; Hematocrit 36 % (35-47); Hemoglobin 11.1 g/dL (12.0-16.0); Lymphocyte % 34.2 %; Mean Corpuscular HGB Conc 31 g/dL (31-36); Mean Corpuscular Hemoglobin 24 pg (27-31); Mean Corpuscular Volume 78 fL (80-97); Nucleated Red Blood Cells % 0.1; Platelet Count 279 10^3/uL (150-450); Red Blood Count 4.58 10^6 /uL (3.70-4.87); Red Cell Distribution Width 20 % (10-15); White Blood Count 13.4 10^3/uL (3.5-10.8)
[2018-12-30] MEDS: Mometasone/Formoter 200/5 MDI INH SCH (08:03)
[2018-12-30] MEDS: Cetirizine* 10 MG TAB PO SCH (09:33)
[2018-12-30] MEDS: busPIRone TAB* 5 MG PO SCH (09:33)
[2018-12-30] MEDS: guaiFENesin ER TAB 600 MG PO SCH (09:33)
[2018-12-30] MEDS: PARoxetine HCL TAB* 40 MG PO SCH (09:33)
[2018-12-30] MEDS: predniSONE TAB* 20 MG PO SCH (09:33)
[2018-12-30] MEDS: Fluticasone NASAL SPRAY 50MCG* 16 gm SPRAY BTL BOTH NARES SCH (10:10)
[2018-12-30 12:58] VITALS: BP 129/57
--- NOTE | 2018-12-31 01:24 | DS ---
DISCHARGE SUMMARY: DATE OF ADMISSION: 12/28/18 DATE OF DISCHARGE: 12/30/18 PRIMARY CARE PROVIDER: Dr. Den Scott. ART THERAPIST: Dr. Janet Tomas. ATTENDING PHYSICIAN: Daniela Mcknight MD * (dictated by LAURA Skelton). PRIMARY DIAGNOSES: 1. Leukocytosis in the setting of steroid use. 2. Tachycardia, possibly due to nebulizer use. 3. Lethargy, likely residual effect of recent pneumonia. 4. Elevated hemoglobin A1c. STUDIES WHILE IN THE HOSPITAL: 1. Transthoracic echocardiogram. Summary: LV systolic function normal. Estimated EF 55% to 60%. Wall motion normal. No regional wall motion abnormalities. RV systolic function normal. Trace MR. No significant pericardial effusion. Pulmonary artery systolic pressure cannot be accurately estimated. 2. Chest x-ray. Impression: Poor inspiration relative to comparison on imaging with linear bibasilar airspace opacifications, which is likely related to subsegmental atelectasis. DISCHARGE MEDICATIONS: Home medications: 1. Acetaminophen 650 mg p.o. q.4 hours p.r.n. 2. Albuterol nebulizer inhalation 2.5 mg inhalation q.4 hours p.r.n. 3. Albuterol HFA inhaler 2-puff inhalation q.4 hours p.r.n. 4. Buspirone 5 mg p.o. t.i.d. 5. Cetirizine 10 mg p.o. daily. 6. Fluticasone/salmeterol 230/21 one puff inhalation b.i.d. 7. Fluticasone nasal spray 1 spray to both nares b.i.d. 8. Guaifenesin 600 mg p.o. b.i.d. 9. Ipratropium 0.5/2.5 nebulizer inhalation q.8 hours. 10. Paroxetine 40 mg p.o. daily. 11. Xanax 0.25 mg p.o. t.i.d. p.r.n. 12. Prednisone taper 40 mg x4 days, 30 mg x4 days, 20 mg x4 days, 10 mg x4 days , then discontinue this medication. HISTORY OF PRESENT ILLNESS/HOSPITAL COURSE: Ms. Gooden is a 53-year-old female with a past medical history of asthma with frequent hospitalizations due to exacerbation, COPD, who presented to the ER on 12/28/18 with complaints of generalized fatigue, joint pain, and shortness of breath. For full and complete details, please see the history and physical dictated by Dr. Nilo Mckenna, but in short, the patient presents with these symptoms and was found to meet SIRS criteria. It is important to note that she was discharged from the hospital on 12/24/18 with COPD exacerbation/community-acquired pneumonia, having received a full course of treatment with azithromycin and cephalosporin. The patient was admitted. The patient was found to have leukocytosis on admission. Urinalysis was obtained, which was negative, revealing normal keanu on culture. Flu testing was negative. Rheumatoid factor and JOSE ALBERTO were within normal limits. Again, she has just received a full course of treatment for pneumonia and denied coughing or respiratory symptoms. She had been continued on a prednisone taper prior to admission, which is the likely cause of her leukocytosis. She was restarted on 60 mg of prednisone and will continue to taper off this medication due to extended use of prednisone. The patient also met SIRS criteria with tachycardia. I am unsure of the exact cause, although nebulizer use could be contributing. Also the patient was quite anxious upon arrival to the ER, which could have also contributed. The patient complained of generalized joint pain. When further discussed, she states that she does not have pain in the joints, but describes her limbs as heavy and states that she has generalized fatigue. This is likely due to her recent diagnosis and treatment for pneumonia. The patient does note that she feels somewhat improved since admission. She worked with Physical Therapy, who recommended continued ambulation to improve endurance. At discharge, she continues to feel tired and states that it feels as if it takes more effort to motivate to move. Again, this is likely a residual effect from recent pneumonia. The patient was also noted to have an elevated hemoglobin A1c at 6.2 , this currently does not require treatment with medication such as metformin but should be followed closely by her primary care provider. On the day of discharge, the patient continues to complain of fatigue, but this has improved. She states her limbs feel "heavy" and describes generalized weakness with no focal deficit. She denies cough, fever, chills, sweats, tired. She denies urinary symptoms, abdominal pain, nausea, vomiting, diarrhea. An anemia workup was ordered and all levels were within normal limits. REVIEW OF SYSTEMS: A 14-point review of systems has been performed and all the pertinent positives and negatives are in the HPI. All other systems are negative. PHYSICAL EXAMINATION: Vital Signs: Temperature 98.1 oral, heart rate 96, respiratory rate 18, oxygen saturation 96% on room air, blood pressure 129/57. General: Ms. Gooden is a well-developed, well-nourished, obese, middle-aged white woman who is sitting up in bed. She appears mildly fatigued, but in no acute distress. She is breathing comfortably. She moves without difficulty. HEENT: PERRL. EOMI. Nonicteric sclerae. Hearing grossly intact. Oral mucous membranes are moist. There are no lesions. The pharynx is clear without exudates. Tongue is at midline. Cardiovascular: Regular rate and rhythm with S1 and S2 present without murmur, rubs, clicks, or gallops. There is no JVD. There is no peripheral edema. Pulmonary: Symmetrical chest expansion without use of accessory muscles. Lungs are clear to auscultation bilaterally without rhonchi, wheezes, or rubs. There is mild tenderness to palpation at the mid sternal chest wall. Abdomen: Obese. Bowel sounds in all quadrants. Soft, nontender to palpation. No CVA tenderness. Musculoskeletal: Full range of motion without pain or deformities. Neuro: The patient is awake. She is alert and oriented x3 with cranial nerves grossly intact. Strength is 5/5 bilaterally in the upper and lower extremities. Strength is equal. Systems Architecture Analyst strength is equal. DISCHARGE PLAN: Ms. Gooden is stable for discharge home. CONDITION: Good. DIET: Heart healthy. ACTIVITY: As tolerated. MEDICATIONS: Restart prednisone taper 40 mg daily x4 days, 30 mg daily x4 days , 20 mg daily x4 days, 10 mg daily x4 days, then discontinue. EDUCATION: 1. Followup appointment with care provider in 4 to 7 days. Discuss hemoglobin A1c of 6.2, pending lab results including JOSE ALBERTO. 3. Return to the ER or nearest hospital if you experience any worsening of symptoms, chest pain or discomfort, dizziness, lightheadedness, loss of consciousness, high fever, chills, night sweats or any other worrisome signs or symptoms. This is a summarized report of a complex medical history and hospital stay. For further details, please see the entire medical record. TIME SPENT: Approximately 35 minutes was spent on this discharge, greater than half that time spent [id number] with the patient discussing discharge plans and instructions. LAURA COWART [id number]/[facility] #: [id number] ALEXUS
[2018-12-31] MEDS ORDERED: predniSONE TAB* 20 MG PO SCH (09:00)
[2019-01-04] MEDS ORDERED: predniSONE TAB* 20 MG PO SCH (09:00)
[2019-01-08] MEDS ORDERED: predniSONE TAB* 10 MG PO SCH (09:00)
== END 2018-12-30 14:30 | disposition home or self-care (01) | DRG 861 ==
LOC: ED 15:10 → MED 20:45 → OBSVTOIN 12-29 11:00
PROVIDERS: ADMIT Internal Medicine; ATTEND Internal Medicine
DX: R53.1 Weakness (principal); E87.2 Acidosis; R65.10 Systemic inflammatory response syndrome (SIRS) of non-infectious origin without acute organ dysfunction; F41.9 Anxiety disorder, unspecified; M06.9 Rheumatoid arthritis, unspecified; J44.9 Chronic obstructive pulmonary disease, unspecified; R53.82 Chronic fatigue, unspecified; J30.2 Other seasonal allergic rhinitis; F31.9 Bipolar disorder, unspecified; E66.9 Obesity, unspecified; D72.829 Elevated white blood cell count, unspecified; R07.81 Pleurodynia; T38.0X5A Adverse effect of glucocorticoids and synthetic analogues, initial encounter; R79.89 Other specified abnormal findings of blood chemistry; Z87.891 Personal history of nicotine dependence; Z72.89 Other problems related to lifestyle; Z68.31 Body mass index [BMI] 31.0-31.9, adult; Z87.01 Personal history of pneumonia (recurrent); Y92.9 Unspecified place or not applicable; Z79.51 Long term (current) use of inhaled steroids
CPT/HCPCS: 36415; 71045; 80048; 80053; 81003; 81015; 82607; 82728; 82746; 82803; 83036; 83540; 83550; 83605; 83735; 84439; 84443; 84484; 85025; 85379; 85610; 86038; 86431; 87040; 87077; 87086; 87186; 93005; 93306; 94640; 96365; 99285; A9270-GY; G0378; J0713; J2543; J3370; J7512

== ENCOUNTER 2019-01-24 14:36 | Emergency (ER) | payer BC ==
[2019-01-24] MEDS ORDERED: Albuterol/Ipratropium NEB.SOL* Albuterol 2.5 MG/Ipratropium 0.5 MG 3 ML INH ONE (14:54)
--- NOTE | 2019-01-24 14:57 | ED ---
Shortness of Breath - HPI Summary HPI Summary: This patient is a 53 year old F with a history of asthma presenting to ED with a chief complaint of shortness of breath since earlier today. However, patient s asthma has been worsening in the past year overall. Patient used to be on steroids, but she was weaned off them. She was doing fine off the steroids until today. She reports a mild cough recently. Patient reports that her insurance will not pay for an inhaler until tomorrow, so she has not had any breathing treatments or nebulizers today. The patient rates the pain 0/10 in severity. Symptoms aggravated by nothing. Symptoms alleviated by nothing. Patient denies fever. - History of Current Complaint Chief Complaint: EDAsthma Time Seen by Provider: 01/24/19 14:51 Hx Obtained From: Patient Onset/Duration: Sudden Onset, Lasting Hours - Since this morning, Still Present Timing: Constant Current Severity: Moderate Dyspnea At: Rest Aggravating Factors: Nothing Alleviating Factors: Nothing Associated Signs & Symptoms: Negative - Fever, Cough (Nonproductive) - Allergy/Home Medications Allergies/Adverse Reactions: Allergies Allergy/AdvReac Type Severity Reaction Status Date / Time No Known Allergies Allergy Verified 12/16/18 02:01 PMH/Surg Hx/FS Hx/Imm Hx Endocrine/Hematology History: Denies: Hx Anticoagulant Therapy, Hx Diabetes, Hx Thyroid Disease, Hx Unexplained Bleeding Cardiovascular History: Denies: Hx Hypertension, Hx Pacemaker/ICD Respiratory History: Reports: Hx Asthma, Hx Chronic Obstructive Pulmonary Disease (COPD), Hx Pneumonia, Hx Seasonal Allergies Denies: Hx Lung Cancer, Hx Sleep Apnea History: Denies: Hx Renal Disease Sensory History: Denies: Hx Cataracts, Hx Contacts or Glasses, Hx Eye Injury, Hx Eye Prosthesis, Hx Glaucoma, Hx Legally Blind, Hx Macular Degeneration, Hx Vision Problem, Hx Deafness, Hx Hearing Aid, Hx Hearing Problem, Other Sensory Impairments Opthamlomology History: Denies: Hx Cataracts, Hx Contacts or Glasses, Hx Eye Injury, Hx Eye Prosthesis, Hx Glaucoma, Hx Legally Blind, Hx Macular Degeneration, Hx Vision Problem, Other Sensory Impairments Neurological History: Denies: Hx Dementia, Hx Developmental Delay, Hx Headaches, Hx Migraine, Hx Seizures, Hx Spinal Cord Injury Psychiatric History: Reports: Hx Anxiety, Hx Eating Disorder - Has purged lately and hasn't done that in 20 years., Hx Depression, Hx Inpatient Treatment , Hx Community Mental Health Tx, Hx Bipolar Disorder, Hx Suicide Attempt Denies: Hx of Violent Episodes Against Others, Hx Substance Abuse - Surgical History Surgery Procedure, Year, and Place: None - Immunization History Date of Influenza Vaccine: Mar 2018 Infectious Disease History: No Infectious Disease History: Denies: Hx Clostridium Difficile, Hx Hepatitis, Hx Human Immunodeficiency Virus (HIV), Hx of Known/Suspected MRSA, Hx Shingles, Hx Tuberculosis, Traveled Outside the [place] in Last 30 Days - Family History Known Family History: Positive: Hypertension, Respiratory Disease, Blood Disorder - grandfather with clotting, Other - bipolar, depression, anxiety, asthma, CAD, COPD, CA - Social History Alcohol Use: None Alcohol Amount: once a month, if that. one glass of wine Hx Substance Use: No Substance Use Type: Reports: None Hx Tobacco Use: Yes Smoking Status (MU): Former Smoker Type: Cigarettes Review of Systems Negative: Fever Positive: Shortness Of Breath, Cough All Other Systems Reviewed And Are Negative: Yes Physical Exam - Summary Physical Exam Summary: Appearance: The patient is well-nourished in no acute distress and in no acute pain. Skin: The skin is warm and dry, and skin color reflects adequate perfusion. HEENT: The head is normocephalic and atraumatic. The pupils are equal and reactive. The conjunctivae are clear and without drainage. Nares are patent and without drainage. Mouth reveals moist mucous membranes, and the throat is without erythema and exudate. The external ears are intact. The ear canals are patent and without drainage. The tympanic membranes are intact. Neck: The neck is supple with full range of motion and non-tender. There are no carotid bruits. There is no neck vein distension. Respiratory: Diffuse wheezing, prolonged expiratory to inspiratory ratio, no accessory muscle use, no retraction. Cardiovascular: Heart is regular rate and rhythm. There is no murmur or rub auscultated. There is no peripheral edema and pulses are symmetrical and equal. Abdomen: The abdomen is soft and non-tender. There are normal bowel sounds heard in all four quadrants and there is no organomegaly palpated. Musculoskeletal: There is no back tenderness noted. Extremities are non-tender with full range of motion. There is good capillary refill. There is no peripheral edema or calf tenderness elicited. Neurological: Patient is alert and oriented to person, place and time. The patient has symmetrical motor strength in all four extremities. Cranial nerves are grossly intact. Deep tendon reflexes are symmetrical and equal in all four extremities. Psychiatric: The patient has an appropriate affect and does not exhibit any anxiety or depression. Triage Information Reviewed: Yes Vital Signs On Initial Exam: Initial Vitals Temp Pulse Resp BP Pulse Ox 98.2 F 119 28 101/73 88 01/24/19 14:39 01/24/19 14:39 01/24/19 14:39 01/24/19 14:39 01/24/19 14:39 Vital Signs Reviewed: Yes Procedures - Sedation Patient Received Moderate/Deep Sedation with Procedure: No Diagnostics - Vital Signs Vital Signs Temp Pulse Resp BP Pulse Ox 01/24/19 14:39 98.2 F 119 28 101/73 88 - Laboratory Lab Statement: Any lab studies that have been ordered have been reviewed, and results considered in the medical decision making process. Re-Evaluation - Re-Evaluation First Eval Re-Evaluation Time: 16:42 Change: Improved Comment: With treatment, patient reports feeling better. Discussed results with patient. Patient will be discharged home with dx of asthma exacerbation. Patient understands and agrees with this plan. Course/Dx - Course Course Of Treatment: Ms. Gordon responded well to DuoNeb. She felt that she would do fine if we gave her an albuterol MDI to use at home. - Diagnoses Provider Diagnoses: Asthma exacerbation Discharge ED - Sign-Out/Discharge Documenting (check all that apply): Patient Departure - Discharge - Discharge Plan Condition: Stable Disposition: HOME Patient Education Materials: Asthma (ED) Referrals: Eleanor Champagne, STARCH DUMPER [Primary Care Provider] - 3 Days Additional Instructions: Please follow up with your primary care physician in 2-3 days. PLEASE RETURN TO THE ER FOR WORSENING OR CHANGING SYMPTOMS. It was a pleasure taking care of you today. - Billing Disposition and Condition Condition: STABLE Disposition: Home - Attestation Statements Document Initiated by Penelopeibe: Yes Documenting Scribe: Den Corrigan Provider For Whom [place] is Documenting (Include Credential): Mark Lopez MD Scribe Attestation: Den Jenkins, scribed for Mark Lopez MD on 01/24/19 at 1924. Scribe Documentation Reviewed: Yes Provider Attestation: The documentation as recorded by the Den laws accurately reflects the service I personally performed and the decisions made by me, Mark Lopez MD Status of Scribe Document: Viewed
[2019-01-24] MEDS ORDERED: Albuterol HFA INHALER* 8 gm MDI INH ONE (16:43)
[2019-01-24 16:48] VITALS: BP 145/93
--- OUTSIDE RECORDS SUMMARY | 2019-01-27 15:39 | XMS REPORT | Continuity of Care Document ---
:1965 External Reference #:[id number] Author Name Jaent Tomas MD (transmitted by agent of provider Puja Cochran) Address [address], [address] [place] [address] Care Team Providers Name Role Phone Den Scott MD - Internal Care Team Information Graduate Nurse Medicine Problems Description No Information Available Social History Type Date Description Comments Sex Unknown Tobacco Use Start: Unknown End: Former Cigarette Smoker Unknown 1 Pack Daily Cigarette Use Pack Years - 35 Smoking Status Reviewed: 07/11/18 Former Cigarette Smoker 1 Pack Daily ETOH Use Occasionally consumes alcohol Tobacco Use Start: Unknown End: Patient is a former Unknown smoker Recreational Drug Use Never Used Drugs Exercise Type/Frequency Exercises regularly Active during the day Allergies, Adverse Reactions, Alerts Description No Known Drug Allergies Medications Active Medications SIG Qnty Indications Ordering Provider Date Spiriva Respimat 1 puff by mouth 12gm Dixie Rose, 10/09/2018 every day CERTIFIED MEDICAL CODING SPECIALIST 1.25mcg/Act Aerosol Montelukast Sodium Eleanor Champagne, 10mg NUTRITIONALIST Tablets Albuterol Sulfate HFA Francisco Graham MD 108(90Base) mcg/Act Aerosol Fluticasone Unknown Propionate/Salmeterol Diskus 500-50mcg/Dose Aerosol Paroxetine HCL Den Scott MD 40mg Tablets Immunizations Description No Information Available Vital Signs Date Vital Result Comment 01/01/2019 9:55am Height 66 inches 5'6" Weight 195.00 lb Heart Rate 112 /min BP Systolic Sitting 140 mmHg BP Diastolic Sitting 94 mmHg O2 % BldC Oximetry 97 % BMI (Body Mass Index) 31.5 kg/m2 07/11/2018 7:18am Height 66 inches 5'6" Weight 198.00 lb Heart Rate 94 /min BP Systolic Sitting 150 mmHg Lue regular cuff BP Diastolic Sitting 90 mmHg Lue regular cuff Respiratory Rate 16 /min O2 % BldC Oximetry 96 % BMI (Body Mass Index) 32.0 kg/m2 Neck Circumference in inches 16 Results Test Acquired Date Facility Test Result H/L Range Note Laboratory test 07/25/2018 [facility] Nuclear AB (Latisha) By <1:[address] Ifa Igg (Negative) [place] [address] [phone] Anca Panel For 07/25/2018 [facility] Myeloperoxidase AB < 0.2 U 2 Vasculitis [address] [place] [address] [phone] Proteinase 3 AB < 0.2 U 3 Laboratory test 07/25/2018 [facility] Immunoglobulin E 213 kU/L <= 214 4 finding [facility] (Ige) [place] [address] [phone] C Reactive Protein 2.02 mg/L Normal <8.01 1 <1:80 (Negative) REFERENCE VALUE <1:80 (Negative) Test Performed by: [facility] [employer] [address] [place] [address] 2 REFERENCE VALUE <0.4 (Negative) 3 REFERENCE VALUE <0.4 (Negative) Test Performed by: [facility] [address] [place] [address] 4 Test Performed by: [facility] [employer] [place] [address] Procedures Date Code Description Status 07/29/2018 31223 Diffusing Capacity Completed 07/29/2018 46899 Plethysmography Determination Lung Volumes & Per Airway Completed Resist 07/29/2018 17749 Pulmonary Function><Bronchodil Completed Medical Devices Description No Information Available Encounters Type Date Location Provider Dx Diagnosis Office Visit 07/11/2018 [facility] Mo[facility] Ryan909 Unspecified asthma, 7:00a [facility] Exercise Instructor R06.83 Snoring Z87.891 Personal history of nicotine dependence Assessments Date Code Description Provider 01/01/2019 Nelda9 Unspecified asthma, francisco Tomas MD 07/29/2018 Nelda9 Unspecified asthma, uncomplicated Janet Tomas MD 07/11/2018 Nelda9 Unspecified asthma, uncomplicated Janet Tomas MD 07/11/2018 R06.83 Snoring Janet Tomas MD 07/11/2018 Z87.891 Personal history of nicotine dependence Janet Tomas MD Plan of Treatment Future Appointment(s):06/16/2019 3:30 pm - Janet Tomas MD at [facility]01/01/2019 - Janet Tomas MDJ45.909 Unspecified asthma, uncomplicatedFollow up:4 months Functional Status Description No Information Available Mental Status Description No Information Available Referrals Description No Information Available
--- OUTSIDE RECORDS SUMMARY | 2019-01-27 15:39 | XMS REPORT | Continuity of Care Document ---
:1965 External Reference #:[id number] Author Name Janet Tomas MD (transmitted by agent of provider Puja Cochran) Address [address], [address] [place] [address] Care Team Providers Name Role Phone Den Scott MD - Internal Care Team Information Architectural Administrative Assistant Medicine Problems Description No Information Available Social [...] mouth 12gm Dixie Rose, 10/09/2018 every day OUTDOOR FITNESS TRAINER 1.25mcg/Act Aerosol Montelukast Sodium Eleanor Champagne, 10mg IT DESKTOP SUPPORT TECHNICIAN Tablets Albuterol Sulfate HFA Francisco Graham MD [...] Result H/L Range Note Laboratory test 07/25/2018 [facility] Nuclear AB (Latisha) By <1:[address] Ifa Igg (Negative) [place] [address] [phone] Anca Panel For 07/25/2018 [facility] Myeloperoxidase AB < 0.2 U 2 Vasculitis [address] [place] [address] [phone] Proteinase 3 AB < 0.2 U 3 Laboratory test 07/25/2018 [facility] Immunoglobulin E 213 kU/L <= 214 4 finding [facility] (Ige) [place] [address] [phone] C Reactive Protein 2.02 mg/L Normal <8.01 1 <1:80 (Negative) REFERENCE VALUE <1:80 (Negative) Test Performed by: [facility] [employer] [address] [place] [address] 2 REFERENCE VALUE <0.4 (Negative) 3 REFERENCE VALUE <0.4 (Negative) Test Performed by: [facility] [facility] [address] [place] [address] 4 Test Performed by: [facility] [place] [address] Procedures Date Code Description Status 07/29/2018 25395 Diffusing Capacity Completed 07/29/2018 86439 Plethysmography Determination Lung Volumes & Per Airway Completed Resist 07/29/2018 33351 Pulmonary Function><Bronchodil Completed Medical Devices Description No Information Available Encounters Type Date Location Provider Dx Diagnosis Office Visit 01/01/2019 [facility] Selam Ryan.909 Unspecified asthma, 10:00a [facility] [employer] Office Visit 07/11/2018 [facility] Selam Ryan.909 Unspecified asthma, 7:00a [facility] francisco Lowery R06.83 Snoring Z87.891 Personal history of nicotine dependence Assessments Date Code Description Provider 01/01/2019 Nelda9 Unspecified asthma, uncomplicated Janet Tomas MD 07/29/2018 Nelda9 Unspecified asthma, uncomplicated Janet Tomas MD 07/11/2018 Selam.909 Unspecified asthma, uncomplicated Janet Tomas MD 07/11/2018 R06.83 Snoring Janet Tomas MD 07/11/2018 Z87.891 Personal history of nicotine dependence Janet Tomas MD Plan of Treatment 01/01/2019 - Janet Tomas MDJ45.909 Unspecified asthma, uncomplicatedFollow up:4 months Functional Status Description No Information Available Mental Status Description No Information Available Referrals Description No Information Available
== END 2019-01-24 16:50 | disposition home or self-care (01) ==
LOC: ED 14:36
DX: J45.901 Unspecified asthma with (acute) exacerbation (principal); Z87.891 Personal history of nicotine dependence
CPT/HCPCS: 99282; A9270-GY

== ENCOUNTER 2019-02-02 00:55 | Inpatient (IN) | payer BC ==
[2019-02-02] MEDS ORDERED: Magnesium Sulfate 2 GM IV* 2 GM/50 ML BAG IVPB ONE (01:03)
[2019-02-02] MEDS ORDERED: Albuterol 0.5% CONC NEB.SOL* 5 MG/ML 20 ml BOT INH ONE (01:03)
[2019-02-02] MEDS ORDERED: methylPREDNISolone 125 MG* 2 ML VIAL IV ONE (01:03)
--- NOTE | 2019-02-02 01:08 | ED ---
Asthma - HPI Summary HPI Summary: Pt is a 53 y/o F presenting to the ED brought in by EMS for an asthma attack. Notable hx of asthma and 37 yrs of smoking. Per EMS, pt has been having a productive cough recently with yellow phlegm, accompanied by shortness of breath. She denies any fevers. Shes had 4 nebulizer treatments without relief, and was taken off Prednisone about 1 month ago. - History of Current Complaint Stated Complaint: SOB PER EMS Time Seen by Provider: 02/02/19 01:00 Hx Obtained From: Patient, EMS Hx Last Menstrual Period: 2 weeks ago Onset/Duration: Sudden Onset, Lasting Hours, Still Present Timing: Hours Initial Severity: Moderate Current Severity: Severe Location/Character: Cough (Productive) Aggravating Symptoms: Nothing Alleviating Symptoms: Nothing Associated Signs and Symptoms: Positive: Shortness of Breath - Allergy/Home Medications Allergies/Adverse Reactions: Allergies Allergy/AdvReac Type Severity Reaction Status Date / Time No Known Allergies Allergy Verified 02/02/19 01:05 PMH/Surg Hx/FS Hx/Imm Hx Previously Healthy: Yes Endocrine/Hematology History: Denies: Hx Anticoagulant Therapy, Hx Diabetes, Hx Thyroid Disease, Hx Unexplained Bleeding Cardiovascular History: Denies: Hx Hypertension, Hx Pacemaker/ICD Respiratory History: Reports: Hx Asthma, Hx Chronic Obstructive Pulmonary Disease (COPD), Hx Pneumonia, Hx Seasonal Allergies Denies: Hx Lung Cancer, Hx Sleep Apnea History: Denies: Hx Renal Disease Sensory History: Denies: Hx Cataracts, Hx Contacts or Glasses, Hx Eye Injury, Hx Eye Prosthesis, Hx Glaucoma, Hx Legally Blind, Hx Macular Degeneration, Hx Vision Problem, Hx Deafness, Hx Hearing Aid, Hx Hearing Problem, Other Sensory Impairments Opthamlomology History: Denies: Hx Cataracts, Hx Contacts or Glasses, Hx Eye Injury, Hx Eye Prosthesis, Hx Glaucoma, Hx Legally Blind, Hx Macular Degeneration, Hx Vision Problem, Other Sensory Impairments Neurological History: Denies: Hx Dementia, Hx Developmental Delay, Hx Headaches, Hx Migraine, Hx Seizures, Hx Spinal Cord Injury Psychiatric History: Reports: Hx Anxiety, Hx Eating Disorder - Has purged lately and hasn't done that in 20 years., Hx Depression, Hx Inpatient Treatment , Hx Community Mental Health Tx, Hx Bipolar Disorder, Hx Suicide Attempt Denies: Hx of Violent Episodes Against Others, Hx Substance Abuse - Surgical History Surgery Procedure, Year, and Place: None - Immunization History Date of Influenza Vaccine: Mar 2018 Infectious Disease History: Denies: Hx Clostridium Difficile, Hx Hepatitis, Hx Human Immunodeficiency Virus (HIV), Hx of Known/Suspected MRSA, Hx Shingles, Hx Tuberculosis, Traveled Outside the [place] in Last 30 Days - Family History Known Family History: Positive: Hypertension, Respiratory Disease, Blood Disorder - grandfather with clotting, Other - bipolar, depression, anxiety, asthma, CAD, COPD, CA - Social History Alcohol Use: None Alcohol Amount: once a month, if that. one glass of wine Hx Substance Use: No Substance Use Type: Reports: None Hx Tobacco Use: Yes Smoking Status (MU): Former Smoker Type: Cigarettes Review of Systems Negative: Fever Positive: Shortness Of Breath, Cough All Other Systems Reviewed And Are Negative: Yes Physical Exam - Summary Physical Exam Summary: Appearance: Somewhat dyspnic-appearing woman in mild-moderate respiratory distress with audible wheezing. Skin: Warm, dry, no obvious rash Eyes: sclera anicteric, no conjunctival pallor ENT: mucous membranes moist, pharynx appears normal Neck: Supple, nontender Respiratory: Mild-moderate respiratory distress. Diffusely decreased aeration with inspiratory and expiratory wheezing. Cardiovascular: Tachycardia noted. No murmurs. Normal distal pulses in tibial and radial bilaterally. Abdomen: Soft, nontender, normal active bowel sounds present Musculoskeletal: Normal, Strength/ROM Intact Neurological: A&Ox3, awake and alert, mentation is normal, speech is fluent and appropriate Psychiatric: affect is normal, does not appear anxious or depressed Triage Information Reviewed: Yes Vital Signs Reviewed: Yes Procedures - Sedation Patient Received Moderate/Deep Sedation with Procedure: No Diagnostics - Laboratory Result Diagrams: 02/02/19 01:39 02/02/19 01:39 Lab Statement: Any lab studies that have been ordered have been reviewed, and results considered in the medical decision making process. - Radiology CXR Radiology Interpretation Completed By: ED Physician Summary of Radiographic Findings: No acute process. Pending official radiology report. Asthma Course/Dx - Course Course Of Treatment: Pt is a 53 y/o F presenting to the ED brought in by EMS for an asthma attack. Notable hx of asthma and 37 yrs of smoking. Per EMS, pt has been having a productive cough recently with yellow phlegm, accompanied by shortness of breath. She denies any fevers. Shes had 4 nebulizer treatments without relief, and was taken off Prednisone about 1 month ago. Pt's physical exam shows mild-moderate respiratory distress. There is diffusely decreased aeration with inspiratory and expiratory wheezing. Tachycardia is noted. She is a dyspnic-appearing woman in mild-moderate respiratory distress with audible wheezing. CXR shows no acute process, pending official radiology report. Pt will be admitted to [facility] [place] [place] with dx of asthma exacerbation and respiratory distress. - Diagnoses Provider Diagnoses: Asthma exacerbation, Respiratory distress - Critical Care Time Critical Care Time: 30-74 min - 35min Discharge ED - Sign-Out/Discharge Documenting (check all that apply): Patient Departure - Discharge Plan Condition: Stable Disposition: ADMITTED TO [facility] Referrals: Eleanor Champagne NP [Primary Care Provider] - - Billing Disposition and Condition Condition: STABLE Disposition: Admitted to [facility] - Attestation Statements Document Initiated by Nj: Yes Documenting Scribe: Shaista Chaudhry Provider For Whom Nj is Documenting (Include Credential): Mark Wooten MD. Scribe Attestation: Shaista Jenkins scribed for Mark Wooten MD. on 02/02/19 at 0407. Scribe Documentation Reviewed: Yes Provider Attestation: The documentation as recorded by the Shaista laws accurately reflects the service I personally performed and the decisions made by Mark victor MD. Status of Scribe Document: Viewed
[2019-02-02 01:45] LABS: ABS Basophils 0.1 10^3/ul (0-0.2); ABS Eosinophils 1.3 10^3/ul (0-0.6); ABS Lymphocytes 3.7 10^3/ul (1.0-4.8); ABS Monocytes 0.9 10^3/ul (0-0.8); ABS Neutrophils 7.4 10^3/ul (1.5-7.7); Eosinophil % 10.1 %; Hematocrit 41 % (35-47); Hemoglobin 13.1 g/dL (12.0-16.0); Lymphocyte % 27.7 %; Mean Corpuscular HGB Conc 32 g/dL (31-36); Mean Corpuscular Hemoglobin 25 pg (27-31); Mean Corpuscular Volume 77 fL (80-97); Mean Platelet Volume 8.1 fL (7.4-10.4); Platelet Count 336 10^3/uL (150-450); Red Cell Distribution Width 20 % (10-15); White Blood Count 13.4 10^3/uL (3.5-10.8)
[2019-02-02 02:01] LABS: Albumin 3.9 g/dL (3.2-5.2); Albumin/Globulin Ratio 1.3 (1-3); BUN/Creatinine Ratio 25.3 (8-20); Calcium 9.3 mg/dL (8.6-10.3); EGFR African American 98.6 (>60); EGFR Non-African American 81.5 (>60); Total Bilirubin 0.3 mg/dL (0.2-1.0); Total Protein 6.9 g/dL (6.4-8.9)
[2019-02-02 11:05] LABS: Influenza A Molecular NEGATIVE (Negative); Influenza B Molecular NEGATIVE (Negative)
[2019-02-02] MEDS ORDERED: Acetaminophen TAB* 325 MG PO PRN (11:13)
[2019-02-02] MEDS ORDERED: LORazepam TAB(*) 0.5 MG PO PRN (11:15)
[2019-02-02] MEDS: Albuterol/Ipratropium NEB.SOL* Albuterol 2.5 MG/Ipratropium 0.5 MG 3 ML INH SCH ×4 (13:23→23:36)
[2019-02-02] MEDS ORDERED: Albuterol/Ipratropium NEB.SOL* Albuterol 2.5 MG/Ipratropium 0.5 MG 3 ML INH PRN (13:24)
[2019-02-02] MEDS: busPIRone TAB* 5 MG PO SCH ×2 (13:30→20:55)
[2019-02-02] MEDS: methylPREDNISolone SOD 40 MG* 1 ML VIAL IV SCH ×2 (13:30→20:55)
[2019-02-02] MEDS: Enoxaparin(*) 40 MG/0.4 ML SYR SUBCUT SCH (13:30)
--- NOTE | 2019-02-02 14:28 | ECHO ---
*[facility]* [place] [address] Fax #: [phone] Transthoracic Echocardiogram Patient: Kate Gooden : 1965 Study Date: 02/02/2019 Age: 53 Gender: F HR: 97 bpm Height: 66 in /167.6 cm BSA: 1.96 m^2 Weight: 189.6 lb /86.2 kg BMI: 30.7 kg/m^2 *Pharmacy Messenger: Petra Tello *Referring Physician: * Adali Salmon *Reading Physician: * Luis A Kelly MD Indications: SOB. History: Dyspnea. Risk factors: Current tobacco use. Conclusions Summary: - Impressions: - Left ventricle: Systolic function is normal. The estimated ejection fraction is 55-60%. Wall motion is normal; there are no regional wall motion abnormalities. - Mitral valve: There is trace regurgitation. - Aortic valve: There is no evidence of stenosis. - Tricuspid valve: There is trace regurgitation. - Pulmonary arteries: Systolic pressure can not be accurately estimated. - Compared to study of 12/29/18, there is no change. Study data: Transthoracic echocardiogram. Procedure: Transthoracic echocardiography was performed. Image quality was good. Complete 2D, spectral Doppler, and color flow Doppler. Location: ICU Patient status: Inpatient. Patient room number: 12. Findings Left ventricle: The cavity size is normal. Wall thickness is at the upper limits of normal. Systolic function is normal. The estimated ejection fraction is 55-60%. Wall motion is normal; there are no regional wall motion abnormalities. Left ventricular diastolic function parameters are normal. Right ventricle: The cavity size is normal. Systolic function is normal. Left atrium: The atrium is normal in size. Right atrium: The atrium is normal in size. Mitral valve: The leaflets are normal thickness. There is no evidence of stenosis. There is trace regurgitation. Aortic valve: The valve is trileaflet. The leaflets are normal thickness. There is no evidence of stenosis. There is no significant regurgitation. Tricuspid valve: The leaflets are normal thickness. There is no evidence of stenosis. There is trace regurgitation. Pulmonic valve: The leaflets are normal thickness. There is no evidence of stenosis. There is physiologic regurgitation. Aorta: The aortic root appears normal. Pericardium: There is no significant pericardial effusion. Pulmonary arteries: Systolic pressure can not be accurately estimated. Systemic veins: Inferior vena cava: The vessel is normal in size. Measurements Left ventricle Value Ref Right atrium Value Ref OSMANI, LAX 3.9 cm 3.8 - SI dim, ES 3.9 cm 3.4 - 5.2 5.3 ESD, LAX 2.8 cm 2.2 - ML dim, ES, A4C 3.2 cm 2.6 - 3.5 4.4 FS, LAX 29 % 27 - 45 SI dim, ES, A4C 3.9 cm 3.4 - PW, ED, LAX (H) 1.3 cm 0.6 - 5.3 0.9 SI dim/bsa, ES, 2.0 cm/m^2 1.9 - E', lat orville, TDI (L) 8.6 cm/sec >=10.0 A4C 3.1 E/e', lat orville, TDI 7 -------- E', med orville, TDI 9.8 cm/sec >=7.0 Aortic valve Value Ref E/e', med orville, TDI 6 -------- Peak v, S 1.26 m/sec --- ----- E', avg, TDI 9.2 cm/sec -------- VTI, S 24.9 cm --- ----- E/e', avg, TDI 7 <=14 Mean grad, S 3.0 mm Hg -------- Peak grad, S 6.0 mm Hg -------- LVOT Value Ref ASUNCION, VTI 2.53 cm^2 -------- Diam, S 2.00 cm -------- ASUNCION, Vmax 2.14 cm^2 -------- Area 3.1 cm^2 -------- Peak laine, S 0.86 m/sec -------- Mitral valve Value Ref Mean grad, S 2 mm Hg -------- Peak E 0.61 m/sec -------- SV 63 ml -------- Peak A 0.67 m/sec -------- SV/bsa 32 ml/m^2 -------- Decel time 201 ms -------- Peak E/A ratio 0.9 -------- Ventricular septum Value Ref IVS, ED (H) 1.4 cm 0.6 - Pulmonic valve Value Ref 0.9 Peak v, S 0.84 m/sec -------- Peak grad, S 3.0 mm Hg -------- Right ventricle Value Ref OSMANI, LAX 2.8 cm -------- Aortic root Value Ref Root diam 3.2 cm <4.1 Left atrium Value Ref ML dim, A4C 3.7 cm -------- Ascending aorta Value Ref SI dim, A4C 3.7 cm -------- AAo AP diam, S 3.2 cm -------- Vol/bsa, ES, 1-p 17 ml/m^2 11 - 40 AAo AP diam/bsa, 1.6 cm/m^2 -------- A4C S Vol/bsa, ES, A/L 19 ml/m^2 16 - 34 Inferior vena cava Value Ref Diam 2.2 cm -------- Legend: (L) and (H) james values outside specified reference range. Prepared and electronically signed by Luis A Kelly MD 02/02/2019 14:27
--- NOTE | 2019-02-02 14:59 | HP ---
CRITICAL CARE ADMISSION NOTE: DATE OF ADMISSION: 02/02/19 HISTORY OF PRESENT ILLNESS: The patient is a 53-year-old female with past medical history of asthma with frequent severe exacerbations, most recently hospitalized at [facility] 5 weeks ago a nd 1 week before that, now presents with acute onset of tachypnea and wheezing. She reports she awok e with it yesterday morning. It was progressive throughout the day until she presented to the ED arou nd midnight last night. She denies productive cough, fever, or chills. Denies coryza or rhinitis. Denies abdominal discomfort. Denies focal motor weakness, visual change, headache, or neck stiffness . She reports she is compliant with medication regimen. She states that she got a flu shot. She is not clear what was her triggering exacerbation on this presentation. Her linoleum layer helper is Dr. Sol ac and she does follow up with her. She states she has had some trouble getting some of her newer med icines she has been prescribed and she generally gets them from a pharmacy in [place] and she has been both logistically and financially compromised in getting that done. PAST MEDICAL HISTORY: Significant for asthma since childhood with multiple previous admissions. She also has a history of anxiety, depression. She had bulimia during her high school years, but nothin g since. PAST SURGICAL HISTORY: Denies any past surgical history. MEDICATIONS: Her medication list reading from her discharge summary by Dr. Mcknight included: 1. Acetaminophen 650 mg p.o. q.4 hours p.r.n. 2. Albuterol 2.5 mg q.4 p.r.n. 3. Albuterol HFA inhaler 2 puffs q.4 hours p.r.n. 4. BuSpar 5 mg p.o. t.i.d. 5. Cetirizine 10 mg p.o. daily. 6. Fluticasone/salmeterol 230/21 one puff b.i.d. 7. Fluticasone nasal spray 1 spray both nares b.i.d. 8. Guaifenesin 600 mg p.o. b.i.d. 9. Ipratropium 0.5/2.5 nebulizer inhalation q.8 hours. 10. Paroxetine 40 mg p.o. daily. 11. Xanax 0.25 mg p.o. t.i.d. p.r.n. 12. Prednisone taper. ALLERGIES: She reports no known drug allergies. FAMILY HISTORY: Remarkable for hypertension, bipolar disorder, depression, and asthma. SOCIAL HISTORY: She is a former smoker of 25 years having quit in June of 2018. She is . She is employed at [employer]. She has cats at home. She is full code. is healthcare proxy. Denies alcohol use. REVIEW OF SYSTEMS: As detailed in HPI. Additionally, denies focal motor weakness, visual change, he adache, or neck stiffness. Denies nausea, vomiting, or diarrhea. PHYSICAL EXAMINATION GENERAL: She is a well-developed white female, in moderate distress when seen in the ED in room 19. VITAL SIGNS: She presents with a temperature of 37.1 degrees; blood pressure 140/90; respiratory rat e initially closer to 30, when I saw her in the ED she was improved and it was down to 20; heart rate around 100; saturating in the high 90s on 100% FiO2 at 40 L. HEENT: Normocephalic, atraumatic. Pupils are equal and reactive to light. NECK: Supple, nontender, without JVD. LUNGS: With inspiratory and expiratory wheeze diffusely. HEART: S1, S2. Regular. Tachycardic. Perhaps a 1/6 systolic murmur. ABDOMEN: Soft, obese, nontender, nondistended with positive bowel sounds. EXTREMITIES: Lower extremities without edema. No palpable cords. No tenderness. NEUROLOGIC: Alert and oriented x3. Perhaps mildly anxious. Grossly nonfocal. DIAGNOSTIC STUDIES/LAB DATA: Laboratory evaluations revealing serum sodium 136, potassium of 4, chl oride 103, bicarb 25, BUN and creatinine 19/0.75 with a glucose of 116. LFTs are grossly normal. We added on a troponin after seeing her this morning, it was negative. Chest x-ray without effusion or infiltrate, a little bit hyperinflated. EKG was a sinus rhythm and intraventricular conduction delay across the inferior lead. She has got e vidence for left atrial enlargement and perhaps a small Q across the inferior leads as well. ASSESSMENT AND PLAN: This is a 53-year-old female with past medical history of reactive airway disea se, on multiple medications, managed by a linoleum layer helper, with recurrent admissions and exacerbations. There does seem to be some degree of an anxiety component, but she did truly look toxic when I firs t saw her in the ED. I had concerns for other possible entities to include cardiac ischemia which horta s now been excluded. Echo has also been ordered along those lines as well as to screen for the secon d entity of which I had concern which is pulmonary embolism. We did order Dopplers and if she contin ues to have an O2 debt that exceeds her chest x-ray findings, we may need to perform CTA as well. Kadie ludwig generally appears well perfused. As a matter of fact, she is mildly hypertensive. She does look so mewhat better now than when I first saw her in the ED. She is having her echo performed at this time . She gives no clear evidence for infection. There is no fever and marginally elevated white count at 13. Differential is unimpressive. Most impressive thing other than her presentation was the ABG. While on 100%, she was 7.37/41/132, which certainly does describe a large A-a gradient. I am not c lear about her baseline diffusion capacity, but this may push us in the direction of performing CT an giography. We did add a flu panel as well, which is negative for flu A and flu B. We will be orderi ng a.m. labs. Right now, treating with the usual bronchodilators and parenteral steroids. Depending on what Dr. Tomas has been able to find under formal PFTs, we may see what other opportunities tricia ludwig are for other medications, though again we may reach this problem of which medications she is able to get. For now, workup is ongoing and if we were unable to wean her FiO2, I think we will have to l ook harder at CT angiography. She does have a normal creatinine with no contraindications to the arturo dy at this time and may ultimately lead to its performance. TIME SPENT: The aggregate time providing critical care as well as personally interpreting multiple l aboratory evaluations, imaging studies, reviewing the medical records, and discussing the case with o ther physicians as well as critical care nurse practitioner has thus far exceeded 40 minutes. [id number]/[facility] #: [id number]
[2019-02-02] MEDS ORDERED: Iohexol 350* (CONTRAST) 500 ML MDV IV ONE (15:30)
[2019-02-02] MEDS: Mometasone/Formoter 200/5 MDI INH SCH (19:54)
[2019-02-02] MEDS: ALPRAZolam TAB* 0.5 MG PO PRN (21:34)
[2019-02-03] MEDS: Albuterol/Ipratropium NEB.SOL* Albuterol 2.5 MG/Ipratropium 0.5 MG 3 ML INH SCH ×5 (03:19→19:59)
[2019-02-03] MEDS: methylPREDNISolone SOD 40 MG* 1 ML VIAL IV SCH ×3 (03:29→23:21)
[2019-02-03 06:59] LABS: BUN/Creatinine Ratio 35.1 (8-20); Calcium 9.3 mg/dL (8.6-10.3); EGFR African American 135.3 (>60); EGFR Non-African American 111.8 (>60); Potassium 4.7 mmol/L (3.5-5.0)
[2019-02-03 07:57] LABS: ABS Monocytes 0.4 10^3/ul (0-0.8); ABS Neutrophils 14.7 10^3/ul (1.5-7.7); Hematocrit 38 % (35-47); Hemoglobin 12.2 g/dL (12.0-16.0); Lymphocyte % 6.3 %; Mean Corpuscular HGB Conc 32 g/dL (31-36); Mean Corpuscular Hemoglobin 25 pg (27-31); Mean Corpuscular Volume 78 fL (80-97); Mean Platelet Volume 8.8 fL (7.4-10.4); Platelet Count 304 10^3/uL (150-450); Red Blood Count 4.91 10^6 /uL (3.70-4.87); Red Cell Distribution Width 20 % (10-15); White Blood Count 16.1 10^3/uL (3.5-10.8)
[2019-02-03] MEDS: Mometasone/Formoter 200/5 MDI INH SCH ×2 (08:38→19:59)
[2019-02-03] MEDS: Cetirizine* 10 MG TAB PO SCH (09:34)
[2019-02-03] MEDS: PARoxetine HCL TAB* 40 MG PO SCH (09:34)
[2019-02-03] MEDS: busPIRone TAB* 5 MG PO SCH ×3 (09:34→20:48)
[2019-02-03] MEDS: Enoxaparin(*) 40 MG/0.4 ML SYR SUBCUT SCH (12:20)
--- NOTE | 2019-02-03 13:42 | PN ---
Date of Service: 02/03/19 Critical Care Services: Breathing much better today. Vital Signs: Temp Pulse Resp BP SpO2 FiO2 36.3 C 87 14 147/87 100 100 02/03/19 11:53 02/03/19 13:00 02/03/19 13:00 02/03/19 13:00 02/03/19 13:00 02/03 11:37 Physical Exam: Gen: NAD HEENT: NCAT, PERRL Lungs: scant end-expiratory wheeze Cardiac: S1S2 regular Abdomen: soft, NT, ND, +BS Extremities: no edema Neuro: grossly non-focal Fluid Balance (Past 24 Hours): I= O= Net Intake & Output 02/01/19 02/02/19 02/03/19 02/04/19 06:59 06:59 06:59 06:59 Intake Total 760 2000 Output Total 450 Balance 310 2000 Weight 86.183 kg 90.1 kg Intake: Oral 760 2000 Output: Urine 450 Labs: Laboratory Results - last 24 hr 02/03/19 02/03/19 05:59 06:17 WBC 16.1 H RBC 4.91 H Hgb 12.2 Hct 38 MCV 78 L MCH 25 L MCHC 32 RDW 20 H Plt Count 304 MPV 8.8 Neut % (Auto) 91.4 Lymph % (Auto) 6.3 Amelia % (Auto) 2.2 Eos % (Auto) 0.0 Baso % (Auto) 0.1 Absolute Neuts (auto) 14.7 H Absolute Lymphs (auto) 1.0 Absolute Monos (auto) 0.4 Absolute Eos (auto) 0.0 Absolute Basos (auto) 0.0 Absolute Nucleated RBC 0.0 Nucleated RBC % 0.0 Sodium 139 Potassium 4.7 Chloride 106 Carbon Dioxide 26 Anion Gap 7 BUN 20 Creatinine 0.57 Est GFR ( Amer) 135.3 Est GFR (Non-Af Amer) 111.8 BUN/Creatinine Ratio 35.1 H Glucose 146 H Calcium 9.3 Studies: CTA negative for PE, parenchyma fairly normal throughout, no pneumonia Nutrition: Eating well Impression: 53 y/o female with severe asthma admitted with severe exacerbation and hypoxia now improved with steroids and bronchodilators Plan: Acute Hypoxic Respiratory Failure - wide A:a resolved, now on Salter at 6 lpm with SaO2 of 99% Wheeze and WOB vastly improved. Steroids can begin to taper. Polymicrobial sputum, no clinical infection, no Abx. Will add singulair to see if we can decrease her frequency of exacerbation. Anxiety - continue current medication regimen Time for OOB, wean FIO2 as tolerated, hopefully can go home as soon as tomorrow. SW looking at opportunities as well and reaching out to [facility] where she gets most of her care. OK to floor.
[2019-02-03] MEDS: ALPRAZolam TAB* 0.5 MG PO PRN (20:51)
[2019-02-04] MEDS: Albuterol/Ipratropium NEB.SOL* Albuterol 2.5 MG/Ipratropium 0.5 MG 3 ML INH SCH ×5 (00:06→15:41)
[2019-02-04 05:19] LABS: ABS Basophils 0.1 10^3/ul (0-0.2); ABS Monocytes 0.3 10^3/ul (0-0.8); ABS Neutrophils 12.9 10^3/ul (1.5-7.7); Eosinophil % 0.1 %; Hematocrit 37 % (35-47); Hemoglobin 11.5 g/dL (12.0-16.0); Lymphocyte % 7.1 %; Mean Corpuscular HGB Conc 31 g/dL (31-36); Mean Corpuscular Hemoglobin 25 pg (27-31); Mean Corpuscular Volume 78 fL (80-97); Mean Platelet Volume 8.5 fL (7.4-10.4); Platelet Count 288 10^3/uL (150-450); Red Blood Count 4.68 10^6 /uL (3.70-4.87); Red Cell Distribution Width 20 % (10-15); White Blood Count 14.3 10^3/uL (3.5-10.8)
[2019-02-04 05:49] LABS: BUN/Creatinine Ratio 44.6 (8-20); Calcium 8.8 mg/dL (8.6-10.3); EGFR African American 138.1 (>60); EGFR Non-African American 114.1 (>60); Potassium 4.7 mmol/L (3.5-5.0)
[2019-02-04] MEDS: Mometasone/Formoter 200/5 MDI INH SCH (07:52)
[2019-02-04] MEDS ORDERED: Montelukast Sodium TAB* 10 MG PO SCH (09:00)
[2019-02-04] MEDS: Cetirizine* 10 MG TAB PO SCH (09:04)
[2019-02-04] MEDS: PARoxetine HCL TAB* 40 MG PO SCH (09:04)
[2019-02-04] MEDS: busPIRone TAB* 5 MG PO SCH ×2 (09:04→13:17)
[2019-02-04] MEDS: Enoxaparin(*) 40 MG/0.4 ML SYR SUBCUT SCH (13:16)
[2019-02-04] MEDS: methylPREDNISolone SOD 40 MG* 1 ML VIAL IV SCH (13:17)
--- NOTE | 2019-02-04 13:39 | PN ---
Date of Service: 02/04/19 Critical Care Services: No new events. Vital Signs: Temp Pulse Resp BP SpO2 FiO2 37.2 C 101 20 151/91 100 100 02/04/19 12:00 02/04/19 12:04 02/04/19 12:04 02/04/19 12:00 02/04/19 12:04 02/03 11:37 Physical Exam: Gen: NAD HEENT: NCAT, PERRL Lungs: no wheeze Cardiac: S1S2 regular Abdomen: benign Extremities: no edema Neuro: grossly non-focal Fluid Balance (Past 24 Hours): I= O= Net Intake & Output 02/02/19 02/03/19 02/04/19 02/05/19 06:59 06:59 06:59 06:59 Intake Total 760 2000 Output Total 450 Balance 310 2000 Weight 86.183 kg 90.1 kg Intake: Oral 760 2000 Output: Urine 450 Labs: Laboratory Results - last 24 hr 02/04/19 02/04/19 05:05 05:05 WBC 14.3 H RBC 4.68 Hgb 11.5 L Hct 37 MCV 78 L MCH 25 L MCHC 31 RDW 20 H Plt Count 288 MPV 8.5 Neut % (Auto) 90.2 Lymph % (Auto) 7.1 [place] % (Auto) 2.0 Eos % (Auto) 0.1 Baso % (Auto) 0.6 Absolute Neuts (auto) 12.9 H Absolute Lymphs (auto) 1.0 Absolute Monos (auto) 0.3 Absolute Eos (auto) 0.0 Absolute Basos (auto) 0.1 Absolute Nucleated RBC 0.0 Nucleated RBC % 0.0 Sodium 138 Potassium 4.7 Chloride 105 Carbon Dioxide 26 Anion Gap 7 BUN 25 H Creatinine 0.56 Est GFR ( Amer) 138.1 Est GFR (Non-Af Amer) 114.1 BUN/Creatinine Ratio 44.6 H Glucose 126 H Calcium 8.8 Nutrition: Taking PO Impression: 53 y/o female with asthma exacerbation now resolved. Plan: Acute hypoxic respiratory failure - resolved. Added singulair to her regimen. Dr. Tomas to help with samples to help defray Rx costs. May be symbicort instead of advair. Ambulation on RA to screen for oxygen requirement. Anxiety - continue current prescription. D/W Dr. Tomas, patient ad SW
--- NOTE | 2019-02-04 14:38 | DS ---
Admitted with asthma exacerbation. Treated with bronchodilators and steroids. Started on Singulair. CXR, CTA, ECHO, LE Dopplers all normal. Pt communicated difficulty paying for Rx. Dr. Tomas provided samples and Advair changed to Dulera and Spiriva HFA. Ambulated on RA without desaturation. Discharged home to f/u with Dr. Tomas. Medications on DC same as admission except as noted above.
[2019-02-04 16:56] VITALS: BP 126/81
--- NOTE | 2019-02-04 19:52 | CONS ---
PULMONARY CONSULTATION REPORT: DATE OF CONSULT: 02/04/19 CONSULTATION REQUESTED BY: Dr. Flores. REASON FOR CONSULTATION: Evaluation of recurrent asthma exacerbations. HISTORY OF PRESENT ILLNESS: The patient is a 53-year-old female with history of asthma, multiple exacerbations in the past and also with anxiety, known to me from outpatient and inpatient evaluations in the past. The patient was hospitalized in November for acute asthma exacerbation. She has been doing well until a past week she started having shortness of breath and wheezing. The patient's symptoms have been worsening and decided to come into the emergency room for further evaluation. The patient also reports dry cough. She denies fevers or chills. Denies headaches, neck stiffness, generalized weakness. The patient has received flu shot. The patient has not been able to get her inhalers due to expense. She was getting them from [facility]. The patient reports that she has not had her inhalers recently and did not use her maintenance inhaler. The patient was found to be in acute asthma exacerbation, was admitted to ICU for high flow. The patient reports feeling better, but however is anxious that her symptoms will happen again when she goes home. PAST MEDICAL HISTORY: 1. Asthma, multiple admissions in the past. 2. Anxiety. 3. Depression. PAST SURGICAL HISTORY: Denies any surgeries. MEDICATIONS AT HOME: 1. Acetaminophen. 2. Albuterol. 3. BuSpar. 4. Cetirizine. 5. Dulera. 6. Fluticasone nasal spray. 7. Guaifenesin. 8. Ipratropium. 9. Paroxetine. 10. Xanax. 11. Prednisone taper. ALLERGIES: No known drug allergies. FAMILY HISTORY: Hypertension, bipolar disorder, depression, and asthma. SOCIAL HISTORY: Former smoker, smoked for 25 years, quit in June 2018. She is employed at [employer] and has sick contacts. She has cats at home. Her is healthcare proxy. Denies alcohol or drug abuse. REVIEW OF SYSTEMS: All 14 systems reviewed and as per HPI. PHYSICAL EXAM: The patient is in bed, in no apparent distress, slightly anxious. Vital Signs: Temperature 98.9, pulse 70 beats per minute, respiratory rate 20 per minute, O2 sat 93% to 100% on room air. HEENT: Pupils equal and reactive to light. Mucous membranes moist. Lungs: Diminished air entry bilaterally, scattered wheeze present. Cardiovascular: S1, S2 present. Abdomen: Soft. Bowel sounds present, nontender, nondistended. Extremities: Normal range of motion. Neuro: Alert, awake. No focal deficits. Psych: Anxious. DIAGNOSTIC STUDIES/LAB DATA: WBC count 14.3, hemoglobin 11.5, hematocrit 37, platelet count 288. Sodium 138, potassium 4.7, chloride 105, bicarb 26, BUN 25 , creatinine 0.56. Influenza A and B negative. Blood gas analysis on admission showed normal pH with pCO2 of 41, pO2 of 132, saturation of 100% with 100% FiO2. CT of the chest was personally reviewed by me and with the patient today - no evidence of filling defects in the pulmonary arteries. No parenchymal abnormalities. Pleural base linear density in the right lung base consistent with atelectasis. IMPRESSION AND RECOMMENDATIONS: 53-year-old female with significant anxiety, asthma with recurrent exacerbations. The patient also with history of allergies. She was never able to get further workup for her asthma. Her IgE and immunological workup was within normal limits. She does not have IgE associated asthma. She does have significant reactive airways disease, requiring recurrent prednisone use and hospitalization. She would benefit from bronchial thermoplasty. Will refer the patient to [facility] for further evaluation for bronchial thermoplasty. Discussed the importance of being on maintenance inhaler. The patient was provided with samples of Dulera and Spiriva from the office. Thank you for allowing me to participate in the care of the mutual patient. Will follow up with [facility] as outpatient. [id number]/[facility] #: [id number] MTDD
== END 2019-02-04 16:56 | disposition home or self-care (01) | DRG 141 ==
LOC: ED 00:55 → ICU 11:06
PROVIDERS: ADMIT Internal Medicine Critical Care Medicine; ATTEND Internal Medicine Critical Care Medicine
PROC: 3E0F7GC Introduction of Other Therapeutic Substance into Respiratory Tract, Via Natural or Artificial Opening (ICD-10-PCS; principal; 2019-02-02)
DX: J45.51 Severe persistent asthma with (acute) exacerbation (principal); J96.01 Acute respiratory failure with hypoxia; J98.11 Atelectasis; F41.9 Anxiety disorder, unspecified; F32.9 Major depressive disorder, single episode, unspecified; Z79.1 Long term (current) use of non-steroidal anti-inflammatories (NSAID); Z79.51 Long term (current) use of inhaled steroids; Z79.52 Long term (current) use of systemic steroids; Z79.899 Other long term (current) drug therapy; Z82.49 Family history of ischemic heart disease and other diseases of the circulatory system; Z81.8 Family history of other mental and behavioral disorders; Z82.5 Family history of asthma and other chronic lower respiratory diseases; Z87.891 Personal history of nicotine dependence
CPT/HCPCS: 36415; 71045; 71275; 80048; 80053; 82803; 84484; 85025; 87070; 87205; 87641; 93005; 93306; 93970; 94640; 99285; A9270-GY; J1650; J2920; J2930; J3475; J7611; Q9967

== ENCOUNTER 2019-02-10 20:46 | Observation (INO) | payer BC ==
[2019-02-10] MEDS ORDERED: Albuterol/Ipratropium NEB.SOL* Albuterol 2.5 MG/Ipratropium 0.5 MG 3 ML INH ONE ×2 (20:54→22:00)
--- NOTE | 2019-02-10 21:02 | ED ---
Shortness of Breath - HPI Summary HPI Summary: Patient with history of recent discharge from [facility] for asthma exacerbation returns with wheezing and shortness of breath and productive cough. Patient states he tried albuterol nebulizer at home and inhaler with no relief. Denies fever, sore throat, CP, and/V/D, abdominal pain, change in urine, change in BM. Medical history is asthma. Nonsmoker. - History of Current Complaint Chief Complaint: EDAsthma Time Seen by Provider: 02/10/19 20:53 Hx Obtained From: Patient Onset/Duration: Gradual Onset, Lasting Days Current Severity: Moderate Dyspnea At: Rest Alleviating Factors: Nothing Associated Signs & Symptoms: Cough (Productive), Wheezing - Allergy/Home Medications Allergies/Adverse Reactions: Allergies Allergy/AdvReac Type Severity Reaction Status Date / Time No Known Allergies Allergy Verified 02/02/19 01:05 PMH/Surg Hx/FS Hx/Imm Hx Endocrine/Hematology History: Denies: Hx Anticoagulant Therapy, Hx Diabetes, Hx Thyroid Disease, Hx Unexplained Bleeding Cardiovascular History: Denies: Hx Hypertension, Hx Pacemaker/ICD Respiratory History: Reports: Hx Asthma, Hx Chronic Obstructive Pulmonary Disease (COPD), Hx Pneumonia, Hx Seasonal Allergies Denies: Hx Lung Cancer, Hx Sleep Apnea History: Denies: Hx Renal Disease Musculoskeletal History: Denies: Hx Gout Sensory History: Denies: Hx Cataracts, Hx Contacts or Glasses, Hx Eye Injury, Hx Eye Prosthesis, Hx Glaucoma, Hx Legally Blind, Hx Macular Degeneration, Hx Vision Problem, Hx Deafness, Hx Hearing Aid, Hx Hearing Problem, Other Sensory Impairments Opthamlomology History: Denies: Hx Cataracts, Hx Contacts or Glasses, Hx Eye Injury, Hx Eye Prosthesis, Hx Glaucoma, Hx Legally Blind, Hx Macular Degeneration, Hx Vision Problem, Other Sensory Impairments Neurological History: Denies: Hx Dementia, Hx Developmental Delay, Hx Headaches, Hx Migraine, Hx Seizures, Hx Spinal Cord Injury Psychiatric History: Reports: Hx Anxiety, Hx Eating Disorder - Has purged lately and hasn't done that in 20 years., Hx Depression, Hx Inpatient Treatment , Hx Community Mental Health Tx, Hx Bipolar Disorder, Hx Suicide Attempt Denies: Hx of Violent Episodes Against Others, Hx Substance Abuse - Surgical History Surgery Procedure, Year, and Place: None - Immunization History Date of Influenza Vaccine: Mar 2018 Infectious Disease History: No Infectious Disease History: Denies: Hx Clostridium Difficile, Hx Hepatitis, Hx Human Immunodeficiency Virus (HIV), Hx of Known/Suspected MRSA, Hx Shingles, Hx Tuberculosis, History Other Infectious Disease, Traveled Outside the [place] in Last 30 Days - Family History Known Family History: Positive: Hypertension, Respiratory Disease, Blood Disorder - grandfather with clotting, Other - bipolar, depression, anxiety, asthma, CAD, COPD, CA - Social History Alcohol Use: None Alcohol Amount: once a month, if that. one glass of wine Hx Substance Use: No Substance Use Type: Reports: None Hx Tobacco Use: Yes Smoking Status (MU): Former Smoker Type: Cigarettes Review of Systems Constitutional: Negative Eyes: Negative ENT: Negative Cardiovascular: Negative Positive: Shortness Of Breath, Cough Gastrointestinal: Negative Genitourinary: Negative Musculoskeletal: Negative Skin: Negative Neurological: Negative Psychological: Normal All Other Systems Reviewed And Are Negative: Yes Physical Exam - Summary Physical Exam Summary: Wheezing bilaterally. Patient in mild respiratory distress. Started on nasal cannula at 2 L. Triage Information Reviewed: Yes Vital Signs On Initial Exam: Initial Vitals Temp Pulse Resp BP Pulse Ox 98.2 F 124 28 106/86 93 02/10/19 20:47 02/10/19 20:47 02/10/19 20:47 02/10/19 20:47 02/10/19 20:47 Vital Signs Reviewed: Yes Appearance: Positive: Well-Appearing Skin: Positive: Warm Head/Face: Positive: Normal Head/Face Inspection Eyes: Positive: Normal Neck: Positive: Supple Respiratory/Lung Sounds: Positive: Wheezes Cardiovascular: Positive: Tachycardia Abdomen Description: Positive: Nontender Musculoskeletal: Positive: Normal Neurological: Positive: Normal Psychiatric: Positive: Normal AVPU Assessment: Alert - [place] Coma Scale Best Eye Response: 4 - Spontaneous Best Motor Response: 6 - Obeys Commands Best Verbal Response: 5 - Oriented Coma Scale Total: 15 Procedures - Sedation Patient Received Moderate/Deep Sedation with Procedure: No Diagnostics - Vital Signs Vital Signs Temp Pulse Resp BP Pulse Ox 02/10/19 20:47 98.2 F 124 28 106/86 93 - Laboratory Result Diagrams: 02/10/19 21:09 02/10/19 21:09 Lab Statement: Any lab studies that have been ordered have been reviewed, and results considered in the medical decision making process. Course/Dx - Course Course Of Treatment: Patient with history of recent discharge from [facility] for asthma exacerbation returns with wheezing and shortness of breath and productive cough. Patient states he tried albuterol nebulizer at home and inhaler with no relief. Denies fever, sore throat, CP, and/V/D, abdominal pain , change in urine, change in BM. Medical history is asthma. Nonsmoker. Patient tachycardic with heart rate of 124 at triage, respiratory rate 28, 92% on room air. Patient was around 90-91% on room air. 94-95% on 2 L nasal cannula. Mildly tachycardic. Bilateral wheezes which improved with DuoNeb 2. Patient then ambulated around the ED on room air sats hovered at 91%. EKG sinus tachycardia, heart rate of 108, same as prior. Chest x-ray unremarkable. History of multiple admissions for asthma exacerbation. Admitted to hospitalist. - Diagnoses Provider Diagnoses: Asthma exacerbation Discharge ED - Sign-Out/Discharge Documenting (check all that apply): Patient Departure - Discharge Plan Condition: Stable Disposition: ADMITTED TO [facility] - Billing Disposition and Condition Condition: STABLE Disposition: Admitted to [facility] - Attestation Statements Provider Attestation: I was available for consult. This patient was seen by the [facility]. The patient was not presented to, seen by, or examined by me. Bob Vides MD
[2019-02-10 21:25] LABS: ABS Basophils 0.1 10^3/ul (0-0.2); ABS Eosinophils 1.1 10^3/ul (0-0.6); ABS Lymphocytes 3.7 10^3/ul (1.0-4.8); ABS Monocytes 0.9 10^3/ul (0-0.8); ABS Neutrophils 6.9 10^3/ul (1.5-7.7); Eosinophil % 8.7 %; Hematocrit 39 % (35-47); Hemoglobin 12.5 g/dL (12.0-16.0); Lymphocyte % 28.7 %; Mean Corpuscular HGB Conc 32 g/dL (31-36); Mean Corpuscular Hemoglobin 25 pg (27-31); Mean Corpuscular Volume 78 fL (80-97); Mean Platelet Volume 8.2 fL (7.4-10.4); Nucleated Red Blood Cells % 0.1; Platelet Count 314 10^3/uL (150-450); Red Blood Count 4.99 10^6 /uL (3.70-4.87); Red Cell Distribution Width 20 % (10-15); White Blood Count 12.7 10^3/uL (3.5-10.8)
[2019-02-10 21:36] LABS: Albumin 3.6 g/dL (3.2-5.2); Albumin/Globulin Ratio 1.2 (1-3); BUN/Creatinine Ratio 17.9 (8-20); C Reactive Protein 4.24 mg/L (<8.01); Calcium 8.8 mg/dL (8.6-10.3); EGFR African American 112.3 (>60); EGFR Non-African American 92.8 (>60); Globulin 2.9 g/dL (2-4); Potassium 3.7 mmol/L (3.5-5.0); Total Bilirubin 0.2 mg/dL (0.2-1.0); Total Protein 6.5 g/dL (6.4-8.9)
[2019-02-10 21:47] LABS: Troponin I 0.01 ng/mL (<0.03)
[2019-02-11] MEDS ORDERED: Magnesium Sulfate 2 GM IV* 2 GM/50 ML BAG IVPB ONE (02:13)
[2019-02-11] MEDS ORDERED: Acetaminophen TAB* 325 MG PO PRN (02:14)
[2019-02-11] MEDS ORDERED: Ipratropium 0.5MG/2.5ML NEB* 0.5 MG/2.5 ML NEB.SOLN INH STA (02:14)
[2019-02-11] MEDS ORDERED: ALPRAZOLAM 1 MG PO PRN (02:14)
[2019-02-11] MEDS ORDERED: Albuterol 2.5 MG/3 ML NEB.SOL* (0.083%) INH PRN (02:14)
[2019-02-11 02:51] LABS: Magnesium 1.9 mg/dL (1.9-2.7)
[2019-02-11] MEDS ORDERED: Azithromycin 500 mg/250 mL NS IVPB ONE (03:00)
[2019-02-11] MEDS: methylPREDNISolone SOD 40 MG* 1 ML VIAL IV SCH ×2 (03:09→12:26)
[2019-02-11] MEDS ORDERED: Azithromycin 500 mg/250 ml NS 500 MG/250 ML BAG IVPB SCH (04:00)
[2019-02-11] MEDS: Heparin VIAL(*) 5000 UNITS/ML VIAL (FIVE THOUSAND) SUBCUT SCH ×2 (05:35→15:15)
[2019-02-11] MEDS: Mometasone/Formoter 200/5 MDI INH SCH ×2 (08:00→20:13)
[2019-02-11] MEDS ORDERED: PARoxetine HCL TAB* 40 MG PO SCH (09:00)
[2019-02-11] MEDS ORDERED: Cetirizine* 10 MG TAB PO SCH (09:00)
[2019-02-11] MEDS ORDERED: Montelukast Sodium TAB* 10 MG PO SCH (09:00)
[2019-02-11] MEDS: busPIRone TAB* 5 MG PO SCH ×2 (09:52→15:15)
--- NOTE | 2019-02-11 12:01 | HP ---
CC: Dr. Scott; Dr. Tomas ADMISSION HISTORY AND PHYSICAL: DATE OF ADMISSION: 02/11/19 CHIEF COMPLAINT: Wheezing. HISTORY OF PRESENT ILLNESS: Ms. Gooden is a 53-year-old woman with history of recurrent severe asthma , who was just discharged from this hospital on 02/04/19. She had been in the ICU with asthma exacerb ation. There was some concern about the cost of medications. The patient states she did not feel fu lly recovered and and was thought to have some trepidation about going home, but she was just tired a nd doing okay at home for the first 3 or 4 days. Then, she has developed wheezing, coughing, lighthe adedness in the last 2 days, which has been worsening. The night of admission, she was having interc ourse with her and then had sudden onset of dyspnea and coughing. Albuterol nebulizer did no t seem to help and she came to the hospital. She reports that cough is productive of sputum. Denies any chest pain. PAST MEDICAL HISTORY: Includes asthma. She had pulmonary function tests in July of this year that s howed clear asthma pattern and less so COPD, although COPD is suspected. She has anxiety and seasona l allergies as well. PAST SURGICAL HISTORY: None. MEDICATIONS ON ADMISSION: 1. Acetaminophen as needed. 2. Albuterol nebulizer q.4 hours as needed. 3. Alprazolam 2 mg p.o. q.8 hours p.r.n. anxiety. 4. Paroxetine 40 mg p.o. q.a.m. 5. Albuterol inhaler 2 puffs q.4 hours p.r.n. wheezing. 6. Buspirone 5 mg p.o. t.i.d. 7. Zyrtec 10 mg p.o. daily p.r.n. allergies. 8. Ipratropium nebulizer 0.5 mg inhaled q.8 hours. 9. Mometasone/Formoterol 2 puffs inhaled b.i.d. 10. Montelukast 10 mg p.o. daily. 11. Tiotropium bromide 1.25 mcg inhaled daily. ALLERGIES: No known drug allergies. FAMILY HISTORY: Notable for mother is alive, has COPD. Her father is also alive and is O2-dependent for unknown reasons. According to the patient, the patient's brother is also alive and well. 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 She is . She has 1 child from her previous relationship. She quit tobacco in June, she smoked 40- pack years up until then. She drinks alcohol rarely. No recreational drugs. REVIEW OF SYSTEMS: The patient denies any fevers, weight loss, or anorexia. The patient denies any chest pain or palpitations. The patient denies any hemoptysis. Remainder of 14-point review of syste ms negative other than mentioned in the HPI. PHYSICAL EXAMINATION GENERAL: She is alert, in no acute distress. Speaking in full sentences. VITAL SIGNS: Temperature is 36.8, pulse is 98, respirations are 15 to 28, O2 sat is 92% on room air up to 94% on 2 L, blood pressure is 140/91. HEENT: Head is normocephalic, atraumatic. Sclerae anicteric. Pupils are equal, round, and reactive to light and accommodation. Oropharynx is moist. No lesions. NECK: No JVD. No carotid bruit. No thyromegaly. LUNGS: Diffuse rhonchi, few wheezes at the bases. HEART: Regular rate and rhythm without murmurs or gallops. ABDOMEN: Soft, nontender. Positive bowel sounds. No hepatosplenomegaly. EXTREMITIES: No peripheral edema. Dorsalis pedis pulses are 1+ bilaterally. NEUROLOGIC: Cranial nerves II through XII are intact. Motor strength is 5/5 throughout. There are absent deep tendon reflexes in the upper extremity and lower extremity. She is alert and oriented x3 . SKIN: No rashes. DIAGNOSTIC STUDIES/LAB DATA: Sodium 139, potassium 3.7, chloride 105, bicarb 26, BUN 12, creatinine 0.67, glucose is 128, calcium 8.8, CRP 4.24, albumin 3.6, AST 13, ALT 12, bilirubin 0.2. White coun t is 12.7, hemoglobin 12.5, hematocrit 39%, platelets of 314. EKG show sinus tachycardia, T-wave flattening in V5 through V6. Chest x-ray is negative for infiltrates or effusions. ASSESSMENT AND PLAN: A 53-year-old woman with recurrent asthma exacerbations here with another exace rbation. The patient will be admitted to the hospital and have IV steroids and nebulizers. We will treat possible bronchitis with intravenous azithromycin as well. She should have a pulmonology consu lt. I also advised the patient to have outpatient allergy testing as she has 2 cats at home and she may have developed allergy to them. Something is going on in her home or the outside world that she is re-exposed to whenever she leaves the hospital, which is triggering further asthma. I do not thin k further medication adjustments are necessary. She needs to find the source of the triggers. Code status is full. DVT prophylaxis will be with subcu heparin. [id number]/[facility] #: [id number]
[2019-02-11 13:22] VITALS: BP 131/71
--- NOTE | 2019-02-12 01:50 | DS ---
DISCHARGE SUMMARY: DATE OF ADMISSION: 02/11/19 process specialist. DATE OF DISCHARGE: 02/11/19 PROVIDER: LAURA Deal ATTENDING PHYSICIAN WHILE IN THE HOSPITAL: Dr. Woo Smith * (dictated by LAURA Deal) PRIMARY DIAGNOSIS: Dyspnea, likely acute asthma exacerbation. SECONDARY DIAGNOSES: 1. Asthma with frequent exacerbations. 2. Anxiety. 3. Seasonal allergies. STUDIES WHILE IN THE HOSPITAL: Chest x-ray on 02/10/19 with impression of no evidence for active cardiopulmonary disease. LABORATORY DATA: Pertinent lab data: Troponin negative x3 readings. HISTORY OF PRESENT ILLNESS/HOSPITAL COURSE: Kate Gooden is a 53-year-old white female with past medical history of asthma with recent hospitalizations for asthma exacerbations and a history of anxiety, who presented with dyspnea and wheezing to the emergency room on 02/10/19 and she was admitted to the hospital on 02/11/19. For further details regarding her admission, please see history and physical written by Dr. Tone Richardson. By the time of evaluation by myself later in the day on the date of admission, the patient's lungs were entirely clear. She was no longer dyspneic on exertion. She ambulated on room air and maintained her oxygen saturation at 94% and higher and she was no longer in signs of acute exacerbation. She did receive IV Solu-Medrol during her hospital stay and p.r.n. albuterol nebulizers, but she was quite stable by date of discharge. I did discuss this patient's case with Dr. Tomas, who said the patient has been stabilized on medication and it is unclear why this presentation has occurred. On the differential includes laryngospasm and otherwise, Dr. Tomas agrees with allergy testing. While she is in the hospital , Respiratory Therapy did check inhaler use of the patient and it appears she has good technique. Additionally, this could have been an episode of panic as the patient does have anxiety and she did previously have much further uncontrolled anxiety last time I evaluated this patient in November of this year during hospitalization and she does appear much less anxious at this time. The patient agrees that she feels less anxious in general, and admits that her episode of shortness of breath may have had a component of panic. DISCHARGE PLAN: Diet: Regular unrestricted diet. Activity: Normal activity as tolerated. The hospitalist physician network support engineer will be helping the patient to have a timely allergy appointment to follow up and the patient will be notified of this appointment. She perhaps should follow up with ENT, though this is much less urgent for an evaluation. She was advised to utilize her rescue mechanisms when having acute shortness of breath and wheezing, which include: albuterol inhaler, nebulizers, and then ultimately if she does not have any success with this to utilize the Xanax, which I have prescribed. I advised the patient that the Xanax is a last-ditch effort and is not beneficial for her longer-term anxiety management. Otherwise, her IgE should probably be checked and I assume this would be checked in allergy followup, though perhaps it has been checked outpatient by Dr. Tomas, but I do not have record of this recently , but in June of this year, her IgE level was 213, which is high normal. The patient was advised to return to the emergency department if she is having shortness of breath or wheezing that is not resolved by measures as previously discussed, chest pain, fever, chills, dizziness, lightheadedness, loss of consciousness, or other concerning symptoms. DISCHARGE MEDICATIONS: New medications: 1. Prednisone 50 mg x2 days, then 40 mg x2 days, then 30 mg x2 days, then 20 mg x2 days, then 10 mg x2 days, and discontinue. 2. Alprazolam 2 mg p.o. q.8 hours p.r.n. anxiety (4-day supply provided). Continued home medications: 1. Buspirone 5 mg p.o. t.i.d. 2. Tylenol 650 mg p.o. q.4 hours p.r.n. pain. 3. Albuterol nebulizer solution 2.5 inhaled q.4 hours p.r.n. shortness of breath/wheezing. 4. Albuterol/Ventolin inhaler 2 puffs inhaled q.4 hours p.r.n. shortness of breath/wheezing. 5. Zyrtec 10 mg p.o. daily. 6. Dulera 2 puffs inhaled b.i.d. 7. Singulair 10 mg p.o. daily. 8. Paroxetine 40 mg p.o. daily. 9. Spiriva 1.25 mcg inhaled daily. CONDITION ON DISCHARGE: Stable. DISPOSITION: Home. TIME SPENT: Approximately 45 minutes was spent on this discharge, approximately half of this time was spent at bedside evaluating the patient and discussing the plan of care. LAURA DEAL [id number]/[facility] #: [id number]
== END 2019-02-11 20:08 | disposition home or self-care (01) ==
LOC: ED 20:46 → INTOOBSV 02-11 02:11 → MEDTELE 02-11 02:11
PROVIDERS: ADMIT Internal Medicine; ATTEND Internal Medicine
DX: R06.00 Dyspnea, unspecified (principal); J45.909 Unspecified asthma, uncomplicated; F41.9 Anxiety disorder, unspecified; Z79.899 Other long term (current) drug therapy; Z87.891 Personal history of nicotine dependence; R94.31 Abnormal electrocardiogram [ECG] [EKG]
CPT/HCPCS: 36415; 71045; 80053; 83735; 84484; 85025; 86140; 93005; 94640; 96374; 96375; 96376; 99284; A9270-GY; G0378; J0456; J1644; J2920; J3475; J7512

== ENCOUNTER 2021-01-22 17:20 | Observation (INO) ==
[2021-01-22] MEDS ORDERED: Lactated Ringers 1000 ml BAG 1,000 ML IV ONE (17:33)
[2021-01-22] MEDS ORDERED: Albuterol HFA INHALER 8 gm MDI INH ONE (18:00)
[2021-01-22 18:29] LABS: ABS Basophils 0.1 10^3/ul (0-0.2); ABS Lymphocytes 3.3 10^3/ul (1.0-4.8); ABS Monocytes 0.6 10^3/ul (0-0.8); ABS Neutrophils 5.2 10^3/ul (1.5-7.7); Eosinophil % 0.2 %; Hematocrit 43 % (35-47); Lymphocyte % 36.1 %; Mean Corpuscular HGB Conc 33 g/dL (31-36); Mean Corpuscular Hemoglobin 29 pg (27-31); Mean Corpuscular Volume 88 fL (80-97); Mean Platelet Volume 8.9 fL (7.4-10.4); Nucleated Red Blood Cells % 0.2; Platelet Count 263 10^3/uL (150-450); Red Blood Count 4.85 10^6 /uL (3.70-4.87); Red Cell Distribution Width 15 % (10-15); White Blood Count 9.2 10^3/uL (3.5-10.8)
[2021-01-22 18:30] LABS: INR 0.88 (0.86-1.15)
[2021-01-22 18:32] LABS: Troponin I 0.01 ng/mL (<0.03)
[2021-01-22 18:50] LABS: Rapid COVID-19 Molecular Undetected (Undetected)
[2021-01-22 19:10] LABS: Albumin 3.8 g/dL (3.2-5.2); Total Bilirubin 0.3 mg/dL (0.2-1.0)
[2021-01-22 19:11] LABS: Potassium 4.4 mmol/L (3.5-5.0)
[2021-01-22 19:16] LABS: Albumin/Globulin Ratio 1.4 (1-3); Globulin 2.7 g/dL (2-4); Total Protein 6.5 g/dL (6.4-8.9); eGFR CKD-EPI 103.4 (>60)
[2021-01-22] MEDS ORDERED: Albuterol/Ipratropium NEB.SOL (2.5/0.5 MG) 3 ML NEB.SOLN INH ONE ×2 (19:16→22:05)
[2021-01-22] MEDS ORDERED: Magnesium Sulfate 2 gm BAG 2 GM/50 ML BAG IVPB ONE (22:19)
[2021-01-22] MEDS ORDERED: Ondansetron 4 mg VIAL 2 MG/ML 2 ml VIAL IV PRN (22:51)
[2021-01-22] MEDS: Mometasone/Formoter 200/5 MDI INH SCH (23:41)
[2021-01-23] MEDS: methylPREDNISolone SOD 40 mg/ml 1 ml VIAL IV SCH ×3 (01:42→21:04)
[2021-01-23] MEDS: Enoxaparin 40 MG/0.4 ML SYR SUBCUT SCH ×2 (01:42→21:04)
[2021-01-23] MEDS: Albuterol/Ipratropium NEB.SOL (2.5/0.5 MG) 3 ML NEB.SOLN INH SCH ×3 (04:59→19:56)
[2021-01-23 05:53] LABS: Calcium 8.6 mg/dL (8.6-10.3); Potassium 4.2 mmol/L (3.5-5.0); eGFR CKD-EPI 104.4 (>60)
[2021-01-23] MEDS ORDERED: NON FORMULARY MED (Tiotropium Bromide [Spiriva Respimat] 4 GM Mist.Inhal) IN SCH (09:00)
[2021-01-23] MEDS: Mometasone/Formoter 200/5 MDI INH SCH ×2 (13:33→19:57)
[2021-01-24] MEDS: Albuterol/Ipratropium NEB.SOL (2.5/0.5 MG) 3 ML NEB.SOLN INH SCH ×2 (01:54→07:12)
[2021-01-24 05:11] LABS: ABS Monocytes 0.3 10^3/ul (0-0.8); ABS Neutrophils 12.6 10^3/ul (1.5-7.7); Hematocrit 41 % (35-47); Hemoglobin 13.4 g/dL (12.0-16.0); Lymphocyte % 7.1 %; Mean Corpuscular HGB Conc 33 g/dL (31-36); Mean Corpuscular Hemoglobin 29 pg (27-31); Mean Corpuscular Volume 88 fL (80-97); Mean Platelet Volume 8.9 fL (7.4-10.4); Platelet Count 263 10^3/uL (150-450); Red Blood Count 4.69 10^6 /uL (3.70-4.87); Red Cell Distribution Width 14 % (10-15); White Blood Count 13.9 10^3/uL (3.5-10.8)
[2021-01-24 05:27] LABS: Calcium 8.9 mg/dL (8.6-10.3); Potassium 4.4 mmol/L (3.5-5.0); eGFR CKD-EPI 107.7 (>60)
[2021-01-24] MEDS: Mometasone/Formoter 200/5 MDI INH SCH (07:11)
[2021-01-24 10:49] VITALS: BP 133/81
[2021-01-24 11:22] LABS: C Reactive Protein 2.04 mg/L (<8.01)
== END 2021-01-24 11:50 | disposition home or self-care (01) ==
LOC: ED 17:20 → EDHOLD 17:20 → SUATTDRO 22:46 → MED 01-23 02:44
PROVIDERS: ADMIT Internal Medicine; ATTEND Internal Medicine

== ENCOUNTER 2021-06-19 05:44 | Observation (INO) ==
[2021-06-19] MEDS ORDERED: Albuterol/Ipratropium NEB.SOL (2.5/0.5 MG) 3 ML NEB.SOLN INH ONE ×2 (05:56→10:59)
[2021-06-19] MEDS ORDERED: Albuterol 2.5mg/3 ml (0.083%) NEB.SOLN INH ONE (05:59)
[2021-06-19] MEDS ORDERED: Magnesium Sulfate 2 gm BAG 2 GM/50 ML BAG IVPB ONE (06:05)
[2021-06-19 11:36] LABS: ABS Lymphocytes 0.5 10^3/ul (1.0-4.8); ABS Monocytes 0.1 10^3/ul (0-0.8); ABS Neutrophils 6.7 10^3/ul (1.5-7.7); Hematocrit 43 % (35-47); Hemoglobin 14.4 g/dL (12.0-16.0); Lymphocyte % 6.9 %; Mean Corpuscular HGB Conc 33 g/dL (31-36); Mean Corpuscular Hemoglobin 29 pg (27-31); Mean Corpuscular Volume 88 fL (80-97); Mean Platelet Volume 8.4 fL (7.4-10.4); Platelet Count 253 10^3/uL (150-450); Red Blood Count 4.92 10^6 /uL (3.70-4.87); Red Cell Distribution Width 14 % (10-15); White Blood Count 7.3 10^3/uL (3.5-10.8)
[2021-06-19 12:18] LABS: Activated Partial Thrombo Time 33.5 seconds (26.0-38.0)
[2021-06-19 12:21] LABS: Albumin 3.9 g/dL (3.2-5.2); Albumin/Globulin Ratio 1.5 (1-3); Calcium 9.2 mg/dL (8.6-10.3); Globulin 2.6 g/dL (2-4); Potassium 4.4 mmol/L (3.5-5.0); Total Bilirubin 0.3 mg/dL (0.2-1.0); Total Protein 6.5 g/dL (6.4-8.9); eGFR CKD-EPI 99.9 (>60)
[2021-06-19 14:25] LABS: C Reactive Protein 5.34 mg/L (<8.01)
[2021-06-19] MEDS: methylPREDNISolone SOD 40 mg/ml 1 ml VIAL IV SCH ×2 (15:00→23:21)
[2021-06-19] MEDS ORDERED: Albuterol/Ipratropium NEB.SOL (2.5/0.5 MG) 3 ML NEB.SOLN INH SCH (15:00)
[2021-06-19] MEDS: Enoxaparin 40 MG/0.4 ML SYR SUBCUT SCH (15:00)
[2021-06-19] MEDS: Albuterol/Ipratropium NEB.SOL (2.5/0.5 MG) 3 ML NEB.SOLN INH SCH (21:07)
[2021-06-19] MEDS: Mometasone/Formoter 200/5 MDI INH SCH (21:09)
[2021-06-20] MEDS: methylPREDNISolone SOD 40 mg/ml 1 ml VIAL IV SCH ×3 (06:39→23:32)
[2021-06-20 07:13] LABS: ABS Lymphocytes 1.1 10^3/ul (1.0-4.8); ABS Monocytes 0.3 10^3/ul (0-0.8); ABS Neutrophils 14.6 10^3/ul (1.5-7.7); Eosinophil % 0.1 %; Hematocrit 43 % (35-47); Hemoglobin 14.4 g/dL (12.0-16.0); Lymphocyte % 6.7 %; Mean Corpuscular HGB Conc 33 g/dL (31-36); Mean Corpuscular Hemoglobin 30 pg (27-31); Mean Corpuscular Volume 88 fL (80-97); Platelet Count 265 10^3/uL (150-450); Red Blood Count 4.88 10^6 /uL (3.70-4.87); Red Cell Distribution Width 14 % (10-15)
[2021-06-20] MEDS: Albuterol HFA INHALER 8 gm MDI INH PRN (07:16)
[2021-06-20] MEDS: Albuterol/Ipratropium NEB.SOL (2.5/0.5 MG) 3 ML NEB.SOLN INH SCH ×2 (07:24→19:01)
[2021-06-20 07:40] LABS: Calcium 9.2 mg/dL (8.6-10.3); Potassium 4.7 mmol/L (3.5-5.0); eGFR CKD-EPI 106.4 (>60)
[2021-06-20] MEDS: Mometasone/Formoter 200/5 MDI INH SCH ×2 (08:05→19:01)
[2021-06-20] MEDS: Enoxaparin 40 MG/0.4 ML SYR SUBCUT SCH (14:53)
[2021-06-20] MEDS ORDERED: Senna TAB 8.6 mg TAB PO PRN (21:21)
[2021-06-20] MEDS ORDERED: Magnesium Hydroxide LIQ 30 ML UDC PO PRN (21:21)
[2021-06-21] MEDS: Albuterol HFA INHALER 8 gm MDI INH PRN (05:11)
[2021-06-21 05:40] LABS: ABS Lymphocytes 0.9 10^3/ul (1.0-4.8); ABS Monocytes 0.3 10^3/ul (0-0.8); ABS Neutrophils 14.7 10^3/ul (1.5-7.7); Hematocrit 41 % (35-47); Hemoglobin 13.4 g/dL (12.0-16.0); Lymphocyte % 5.8 %; Mean Corpuscular HGB Conc 33 g/dL (31-36); Mean Corpuscular Hemoglobin 29 pg (27-31); Mean Corpuscular Volume 89 fL (80-97); Platelet Count 244 10^3/uL (150-450); Red Blood Count 4.63 10^6 /uL (3.70-4.87); Red Cell Distribution Width 15 % (10-15); White Blood Count 15.9 10^3/uL (3.5-10.8)
[2021-06-21] MEDS: methylPREDNISolone SOD 40 mg/ml 1 ml VIAL IV SCH (07:59)
[2021-06-21] MEDS: Albuterol/Ipratropium NEB.SOL (2.5/0.5 MG) 3 ML NEB.SOLN INH SCH (09:17)
[2021-06-21] MEDS: Mometasone/Formoter 200/5 MDI INH SCH (09:19)
[2021-06-21 11:38] VITALS: BP 146/70
== END 2021-06-21 14:15 | disposition home or self-care (01) ==
LOC: ED 05:44 → EDHOLD 05:44 → MED 16:44
PROVIDERS: ADMIT Internal Medicine; ATTEND Internal Medicine

== ENCOUNTER 2022-01-21 03:09 | Inpatient (IN) ==
[2022-01-21] MEDS ORDERED: Albuterol/Ipratropium NEB.SOL (2.5/0.5 MG) 3 ML NEB.SOLN INH ONE (03:32)
[2022-01-21] MEDS ORDERED: methylPREDNISolone SOD SUCC 125 mg 2 ML VIAL IV ONE (03:33)
[2022-01-21 03:44] LABS: ABS Lymphocytes 1.8 10^3/ul (1.0-4.8); ABS Monocytes 0.7 10^3/ul (0-0.8); ABS Neutrophils 2.8 10^3/ul (1.5-7.7); Hematocrit 40 % (35-47); Hemoglobin 13.1 g/dL (12.0-16.0); Lymphocyte % 34.3 %; Mean Corpuscular HGB Conc 33 g/dL (31-36); Mean Corpuscular Hemoglobin 29 pg (27-31); Mean Corpuscular Volume 88 fL (80-97); Mean Platelet Volume 8.4 fL (7.4-10.4); Platelet Count 278 10^3/uL (150-450); Red Blood Count 4.58 10^6 /uL (3.70-4.87); Red Cell Distribution Width 13 % (10-15); White Blood Count 5.3 10^3/uL (3.5-10.8)
[2022-01-21 03:47] LABS: INR 0.92 (0.89-1.11)
[2022-01-21 04:06] LABS: High Sens Troponin Baseline < 3 pg/mL (<15)
[2022-01-21 04:10] LABS: ALT 10 U/L (7-52); AST 12 U/L (13-39); Albumin 3.8 g/dL (3.2-5.2); Albumin/Globulin Ratio 1.6 (1-3); Alkaline Phosphatase 110 U/L (35-149); Anion Gap 6 mmol/L (2-11); Blood Urea Nitrogen 14 mg/dL (6-24); CO2 Carbon Dioxide 25 mmol/L (22-32); Calcium 8.9 mg/dL (8.6-10.3); Chloride 106 mmol/L (101-111); Globulin 2.4 g/dL (2-4); Glucose 112 mg/dL (70-100); Potassium 4.1 mmol/L (3.5-5.0); Sodium 137 mmol/L (135-145); Total Protein 6.2 g/dL (6.4-8.9); eGFR CKD-EPI 97.7 (>60)
[2022-01-21] MEDS ORDERED: Albuterol 2.5mg/3 ml (0.083%) NEB.SOLN INH ONE ×2 (04:35→06:07)
[2022-01-21 08:10] LABS: Magnesium 1.9 mg/dL (1.9-2.7)
[2022-01-21] MEDS ORDERED: Magnesium Sulfate 2 gm BAG 2 GM/50 ML BAG IVPB ONE (09:08)
[2022-01-21] MEDS: Enoxaparin 40 MG/0.4 ML SYR SUBCUT SCH (09:49)
[2022-01-21] MEDS: Mometasone/Formoter 200/5 MDI INH SCH ×2 (09:50→19:30)
[2022-01-21] MEDS: Albuterol 2.5mg/3 ml (0.083%) NEB.SOLN INH PRN ×2 (16:19→23:33)
[2022-01-21] MEDS ORDERED: Furosemide 20 mg/2 ml IV VIAL IV ONE (16:37)
[2022-01-22] MEDS: Mometasone/Formoter 200/5 MDI INH SCH ×2 (08:00→19:34)
[2022-01-22] MEDS: Enoxaparin 40 MG/0.4 ML SYR SUBCUT SCH (08:05)
[2022-01-22] MEDS: methylPREDNISolone SOD SUCC 40 mg/ml 1 ml VIAL IV SCH ×2 (11:42→19:55)
[2022-01-22] MEDS: Albuterol 2.5mg/3 ml (0.083%) NEB.SOLN INH PRN ×2 (15:28→19:32)
[2022-01-23] MEDS: methylPREDNISolone SOD SUCC 40 mg/ml 1 ml VIAL IV SCH ×3 (02:54→21:20)
[2022-01-23] MEDS: Albuterol 2.5mg/3 ml (0.083%) NEB.SOLN INH PRN ×3 (07:44→19:09)
[2022-01-23] MEDS: Mometasone/Formoter 200/5 MDI INH SCH ×2 (07:45→19:09)
[2022-01-23] MEDS: Enoxaparin 40 MG/0.4 ML SYR SUBCUT SCH (09:09)
[2022-01-24] MEDS: Albuterol 2.5mg/3 ml (0.083%) NEB.SOLN INH PRN (05:37)
[2022-01-24] MEDS: Mometasone/Formoter 200/5 MDI INH SCH (07:35)
[2022-01-24] MEDS: Enoxaparin 40 MG/0.4 ML SYR SUBCUT SCH (09:52)
[2022-01-24] MEDS: methylPREDNISolone SOD SUCC 40 mg/ml 1 ml VIAL IV SCH (09:52)
[2022-01-24 11:02] VITALS: BP 117/82
== END 2022-01-24 11:39 | disposition home or self-care (01) | DRG 141 ==
LOC: EDHOLD 03:09 → ED 03:09 → SUATTDRO 07:29 → EDHOLD 13:30 → MED 13:56
PROVIDERS: ADMIT Internal Medicine; ATTEND Internal Medicine

== ENCOUNTER 2023-02-11 23:29 | Inpatient (IN) ==
[2023-02-11] MEDS ORDERED: Ondansetron ODT 4 mg TAB 4 MG TAB SL ONE (23:46)
[2023-02-12] MEDS ORDERED: NIRMATRELVIR/RITONAVIR 1 PAK eGFR > 60 PO ONE (00:16)
[2023-02-12] MEDS ORDERED: Albuterol HFA INHALER 8 gm MDI INH ONE (00:16)
[2023-02-12] MEDS ORDERED: Albuterol 2.5mg/3 ml (0.083%) NEB.SOLN INH ONE (02:00)
[2023-02-12] MEDS ORDERED: Dexamethasone IV 4 MG/ML VIAL 1 ml VIAL IV SLOW PU ONE (04:22)
[2023-02-12] MEDS ORDERED: Magnesium Sulfate 2 gm BAG 2 GM/50 ML BAG IVPB ONE (04:22)
[2023-02-12 06:02] LABS: ABS Lymphocytes 0.5 10^3/uL (1.0-4.8); ABS Monocytes 0.1 10^3/uL (0.0-0.9); ABS Neutrophils 7.2 10^3/uL (1.5-7.6); ABS Nucleated RBC 0.01 10^3/ul; Hemoglobin 15.6 g/dL (11.5-14.3); Lymphocyte % 6.5 %; Mean Corpuscular Hemoglobin 29.8 pg (27-33); Mean Corpuscular Hgb Conc 33.9 g/dL (31-36); Mean Platelet Volume 8.3 fL (7.5-11.2); Nucleated Red Blood Cells % 0.1 %/100WBC (0.0-0.8); Platelet Count 266 10^3/uL (150-450); Red Blood Count 5.22 10^6/uL (3.63-4.92); Red Cell Distribution Width 13.9 % (12-17); White Blood Count 7.9 10^3/uL (3.8-11.8)
[2023-02-12 06:18] LABS: Albumin 4.2 g/dL (3.2-5.2); Albumin/Globulin Ratio 1.4 (1-3); Calcium 8.7 mg/dL (8.6-10.3); Creatinine, Serum 0.71 mg/dL (0.51-0.95); Globulin 3.1 g/dL (2-4); Potassium 4.5 mmol/L (3.5-5.0); Total Bilirubin 0.4 mg/dL (0.2-1.0); Total Protein 7.3 g/dL (6.4-8.9); eGFR CKD-EPI 100.3 (>60)
[2023-02-12] MEDS ORDERED: Remdesivir 100 mg Vial 200 MG in NS 0.9% 250 ml 210 ML IV ONE (08:17)
[2023-02-12] MEDS: Enoxaparin 40 MG/0.4 ML SYR SUBCUT SCH (09:10)
[2023-02-12 09:15] LABS: INR 1.05 (0.83-1.13)
[2023-02-12] MEDS ORDERED: Albuterol HFA INHALER 8 gm MDI INH PRN (10:52)
[2023-02-12] MEDS ORDERED: Ondansetron 4 mg VIAL 2 MG/ML 2 ml VIAL IV PRN (10:56)
[2023-02-12] MEDS: Albuterol/Ipratropium NEB.SOL (2.5/0.5 MG) 3 ML NEB.SOLN INH SCH ×4 (11:49→23:16)
[2023-02-12] MEDS: Mometasone/Formoter 200/5 MDI INH SCH ×2 (15:15→17:26)
[2023-02-13 06:43] LABS: ABS Lymphocytes 1.1 10^3/uL (1.0-4.8); ABS Monocytes 0.5 10^3/uL (0.0-0.9); ABS Neutrophils 9.2 10^3/uL (1.5-7.6); ABS Nucleated RBC 0.02 10^3/ul; Hematocrit 46.1 % (35-45); Hemoglobin 15.4 g/dL (11.5-14.3); Lymphocyte % 10.5 %; Mean Corpuscular Hemoglobin 29.4 pg (27-33); Mean Corpuscular Hgb Conc 33.4 g/dL (31-36); Mean Corpuscular Volume 87.9 fL (80-97); Mean Platelet Volume 8.3 fL (7.5-11.2); Nucleated Red Blood Cells % 0.1 %/100WBC (0.0-0.8); Platelet Count 234 10^3/uL (150-450); Red Blood Count 5.25 10^6/uL (3.63-4.92); Red Cell Distribution Width 14.1 % (12-17); White Blood Count 10.9 10^3/uL (3.8-11.8)
[2023-02-13 07:00] LABS: Albumin/Globulin Ratio 1.3 (1-3); Calcium 9.1 mg/dL (8.6-10.3); Creatinine, Serum 0.65 mg/dL (0.51-0.95); Potassium 4.2 mmol/L (3.5-5.0); Total Bilirubin 0.3 mg/dL (0.2-1.0); eGFR CKD-EPI 103.9 (>60)
[2023-02-13] MEDS: Albuterol/Ipratropium NEB.SOL (2.5/0.5 MG) 3 ML NEB.SOLN INH SCH ×4 (08:41→20:36)
[2023-02-13] MEDS: Mometasone/Formoter 200/5 MDI INH SCH ×2 (08:41→20:38)
[2023-02-13] MEDS: Enoxaparin 40 MG/0.4 ML SYR SUBCUT SCH (10:05)
[2023-02-13] MEDS: Remdesivir 100 mg Vial 100 MG in NS 0.9% 250 ml 230 ML IV SCH (10:20)
[2023-02-13 12:33] LABS: C Reactive Protein 12.42 mg/L (<8.01)
[2023-02-14] MEDS: Mometasone/Formoter 200/5 MDI INH SCH ×2 (07:16→19:52)
[2023-02-14] MEDS: Albuterol/Ipratropium NEB.SOL (2.5/0.5 MG) 3 ML NEB.SOLN INH SCH ×4 (07:16→19:52)
[2023-02-14 07:50] LABS: Albumin/Globulin Ratio 1.4 (1-3); Calcium 9.1 mg/dL (8.6-10.3); Creatinine, Serum 0.68 mg/dL (0.51-0.95); Globulin 2.9 g/dL (2-4); Potassium 3.7 mmol/L (3.5-5.0); Total Bilirubin 0.3 mg/dL (0.2-1.0); Total Protein 6.9 g/dL (6.4-8.9); eGFR CKD-EPI 102.8 (>60)
[2023-02-14] MEDS: Enoxaparin 40 MG/0.4 ML SYR SUBCUT SCH (10:21)
[2023-02-14] MEDS: Remdesivir 100 mg Vial 100 MG in NS 0.9% 250 ml 230 ML IV SCH (10:22)
[2023-02-15 06:14] VITALS: BP 117/81
[2023-02-15 06:32] LABS: Albumin 3.8 g/dL (3.2-5.2); Albumin/Globulin Ratio 1.5 (1-3); Calcium 8.9 mg/dL (8.6-10.3); Creatinine, Serum 0.69 mg/dL (0.51-0.95); Globulin 2.6 g/dL (2-4); Total Bilirubin 0.4 mg/dL (0.2-1.0); Total Protein 6.4 g/dL (6.4-8.9); eGFR CKD-EPI 102.4 (>60)
[2023-02-15 06:36] LABS: INR 0.95 (0.83-1.13)
[2023-02-15] MEDS: Albuterol/Ipratropium NEB.SOL (2.5/0.5 MG) 3 ML NEB.SOLN INH SCH ×2 (07:22→10:49)
[2023-02-15] MEDS: Mometasone/Formoter 200/5 MDI INH SCH (07:22)
[2023-02-15] MEDS: Remdesivir 100 mg Vial 100 MG in NS 0.9% 250 ml 230 ML IV SCH (09:31)
[2023-02-15] MEDS: Enoxaparin 40 MG/0.4 ML SYR SUBCUT SCH (09:32)
== END 2023-02-15 11:15 | disposition home or self-care (01) | DRG 137 ==
LOC: EDHOLD 23:29 → ED 23:29 → MED 02-12 08:40 → SUATTDRO 02-12 12:22
PROVIDERS: ADMIT Internal Medicine; ATTEND Hospitalist